=== PATIENT | female | born 1970 ===

== ENCOUNTER → 2020-04-26 10:25 | Outpatient (BNVA) | payer OTHER, SELFPAY | PROVIDERS: PCP Internal Medicine; Visit Provider Internal Medicine Pulmonary Disease | DX: J45.40 Moderate persistent asthma, uncomplicated (principal); G47.33 Obstructive sleep apnea (adult) (pediatric); R06.00 Dyspnea, unspecified; F17.200 Nicotine dependence, unspecified, uncomplicated; Z79.899 Other long term (current) drug therapy | CPT/HCPCS: 99214 ==

== ENCOUNTER 2020-05-04 16:32 | Emergency (ER) | payer OTHER, SELFPAY ==
[2020-05-04 17:59] VITALS: BP 184/100; PULSE 87; RESP 16; TEMP 36.9; O2SAT 99; BMI 41.1
--- NOTE | 2020-05-04 18:27 | ED.URI ---
HPI - URI/Sore Throat General Chief Complaint: Dyspnea <German Chaudhary NP - Last Filed: 05/04/20 18:34> Stated Complaint: Bodyaches <German Chaudhary NP - Last Filed: 05/04/20 18:34> Time Seen by Provider: 05/04/20 17:27 <German Chaudhary NP - Last Filed: 05/04/20 18:34> Source: patient <German Chaudhary NP - Last Filed: 05/04/20 18:34> Mode of arrival: ambulatory <German Chaudhary NP - Last Filed: 05/04/20 18:34> Limitations: no limitations <German Chaudhary NP - Last Filed: 05/04/20 18:34> History of Present Illness HPI Narrative: 42-year-old female with history of asthma presents today with 2 days of rhinorrhea/ body aches/congestion. Does have underlying history of asthma and there is no shortness of breath but has had to use her inhaler slightly more frequently. No recent travel or sick contacts. States she is here to go testing. <German Chaudhayr NP - Last Filed: 05/04/20 18:34> MD elicited complaint: rhinorrhea, nasal congestion and sinus pain <German Chaudhary NP - Last Filed: 05/04/20 18:34> Pertinent past history: asthma <German Chaudhary NP - Last Filed: 05/04/20 18:34> Onset (ago): day(s) (2 days ) <German Chaudhary NP - Last Filed: 05/04/20 18:34> Consistency: constant <German Chaudhary NP - Last Filed: 05/04/20 18:34> Exacerbating factors: nothing <German Chaudhary NP - Last Filed: 05/04/20 18:34> Treatments prior to arrival: none <German Chaudhary NP - Last Filed: 05/04/20 18:34> Related Data Home Medications: Home Medications Medication Instructions Recorded Confirmed albuterol sulfate mg INHALATION 04/26/20 05/08/20 amlodipine 5 mg tablet 5 mg PO DAILY 04/26/20 05/08/20 aripiprazole 5 mg tablet 5 mg PO DAILY 04/26/20 05/08/20 bupropion HCl 150 mg 24 hr tablet, 150 mg PO DAILY 04/26/20 05/08/20 extended release calcium citrate 315 mg tab PO 04/26/20 05/08/20 calcium-vitamin D3 6.25 mcg (250 unit) tablet ciprofloxacin HCl 500 mg tablet 500 mg PO BID 04/26/20 05/08/20 clonazepam 1 mg tablet 1 mg PO BID PRN 04/26/20 05/08/20 furosemide 40 mg tablet 40 mg PO DAILY 04/26/20 05/08/20 furosemide 80 mg tablet 80 mg PO DAILY 04/26/20 05/08/20 levothyroxine 150 mcg tablet 150 mcg PO DAILY 04/26/20 05/08/20 lidocaine 5 % topical patch 0 patch TOPICAL 04/26/20 05/08/20 losartan 50 mg tablet 50 mg PO DAILY 04/26/20 05/08/20 naproxen 500 mg tablet 500 mg PO BID 04/26/20 05/08/20 omeprazole 20 mg capsule,delayed 20 mg PO DAILY 04/26/20 05/08/20 release ondansetron HCl 4 mg tablet mg PO 04/26/20 05/08/20 prednisone 20 mg tablet 20 mg PO Q12H 04/26/20 05/08/20 zolpidem 10 mg tablet 10 mg PO BEDTIME PRN 04/26/20 05/08/20 Previous Rx's Medication Instructions Recorded prednisone 40 mg PO DAILY #10 tab 05/04/20 <German Chaudhary NP - Last Filed: 05/04/20 18:34> Allergies/Adverse Reactions: Allergies Allergy/AdvReac Type Severity Reaction Status Date / Time No Known Allergies Allergy Verified 04/26/20 10:39 [No Known Allergies*] <German Chaudhary NP - Last Filed: 05/04/20 18:34> Review of Systems Review of Systems: Constitutional: No Weight loss, No Fever, No Chills, No Night Sweats, No Fatigue, No Malaise ENT/Mouth: No Hearing loss, No Ear Pain, + Nasal Congestion, + Sinus Pain, No Hoarseness, No sore throat, + Rhinorrhea, No Swallowing Difficulty Eyes: No Eye Pain, No Swelling, No Redness, No Foreign Body, No Discharge, No Vision Changes Cardiovascular: No Chest Pain, No SOB, No Dyspnea on Exertion, No Orthopnea, No Edema, No Palpitations Respiratory: + Cough, No Sputum, No Wheezing, No Smoke Exposure, No Dyspnea Gastrointestinal: No Nausea, No Vomiting, No Diarrhea, No Constipation, No abdominal Pain, No Hematochezia, No Melena Genitourinary: no irregular bleeding, No Dysuria, No Urinary Frequency, No Hematuria, No Urinary Incontinence, No Urgency, No Flank Pain, No Urinary Flow Changes, No Hesitancy Musculoskeletal: No joint pain, No Myalgias, No Joint Swelling Skin: No Skin Lesions, No rash Neuro: No Weakness, No Numbness, No Paresthesias, No Loss of Consciousness, No Dizziness, No Headache Psych: No Anxiety/Panic, No Depression, No SI/HI/AH/VH, No Social Issues, Heme/Lymph: No Bruising, No Bleeding,No Lymphadenopathy Endocrine: No Polyuria, No Polydipsia, No Temperature Intolerance <German Chaudhary NP - Last Filed: 05/04/20 18:34> Yes all other systems are reviewed and are negative <German Chaudhary NP - Last Filed: 05/04/20 18:34> [facility] Past Medical History Attestation statement: The following information was validated with the patient. <German Chaudhary NP - Last Filed: 05/04/20 18:34> Social History Social History: Social History Alcohol intake: never Smoking Status: Current every day smoker Years Smoked: 48 years <German Chaudhary NP - Last Filed: 05/04/20 18:34> Physical Exam Vital Signs: Vital Signs: Vital Signs Temp Pulse Resp BP Pulse Ox 05/04/20 17:59 98.5 F 87 16 184/100 H 99 Body Mass Index 41.1 Reviewed <German Chaudhary NP - Last Filed: 05/04/20 18:34> Vital Signs: Vital Signs Temp Pulse Resp BP Pulse Ox 05/04/20 17:59 98.5 F 87 16 184/100 H 99 Body Mass Index 41.1 <Edd Hidalgo MD - Last Filed: 05/09/20 15:31> Course Course Course Narrative: Well nontoxic. Hemodynamically stable. Lungs are clear to auscultation. Will give her short course of prednisone. COVID-19 pending. Will discharge with [facility] Recommendations/precautions. Stable for discharge. <German Chaudhary NP - Last Filed: 05/04/20 18:34> I have reviewed the chart <Edd Hidalgo MD - Last Filed: 05/09/20 15:31> MDM - URI/Sore Throat Lab Data Labs: Lab Results 05/04/20 Range/Units 18:22 COVID-19 PCR NOT DETECTED (NOT DETECTED) <German Chaudhary NP - Last Filed: 05/04/20 18:34> Lab Results 05/04/20 Range/Units 18:22 COVID-19 PCR NOT DETECTED (NOT DETECTED) <Edd Hidalgo MD - Last Filed: 05/09/20 15:31> Discharge Plan Discharge Clinical Impression: Viral infection, Asthma with exacerbation <German Chaudhary NP - Last Filed: 05/04/20 18:34> Patient Disposition: Home, Self-Care <German Chaudhary NP - Last Filed: 05/04/20 18:34> Instructions: Asthma (ED), Viral Syndrome (ED) <German Chaudhary NP - Last Filed: 05/04/20 18:34> Additional Instructions: Based on your symptoms and history we have sent a COVID-19. Although your RESULT IS PENDING at this time. RESULTS should return within 72 hours. At this time you will be contacted with either NEGATIVE OR POSITIVE results. -Please wait until we contact you for your results. At this time you will be okay for discharge. Please plan for self quarantine for up to 14 days. Do not expose yourself to others. You may not go to work. If testing does come back negative you may return to activities as long as you are no longer having any symptoms for at least 3 days. Please continue to follow cold instructions and wash your hands frequently. You may take Tylenol as directed on the bottle for pain or fever. Patient seen in the emergency department on 01/14/2020 and should be excused from work until negative test results AND until 72 hours without any symptoms AND at least 10 days have passed since symptoms first appeared or since last exposure to COVID-19 positive patient CDC Guidelines for home isolation: - Stay away from others - WEAR A MASK if you are sick AND STAY HOME - Cover your mouth and nose with a tissue when you cough or sneeze. Dispose of tissues in a lined trash can and wash your hands immediately with soap and water for at least 20 seconds. If soap and water are not available, clean hands with alcohol-based hand head concierge that contains at least 60% alcohol. - Clean your hands often with soap and water for at least 20 seconds - Avoid touching your eyes, nose and mouth with unwashed hands - Do not share dishes, drinking glasses, cups, eating utensils, towels, or bedding with other people in your home. After using these items, wash them thoroughly with soap and water or put in the military technology specialist. - Clean high-touch surfaces in your isolation area ( sick room and bathroom) every day; let a caregiver clean and disinfect high-touch surfaces in other areas of the home. Clean the area or item with soap and water or another detergent if it is dirty. Then, use a household disinfectant. - Limit contact with pets and animals: If you must care for a pet, wash your hands before and after interacting with them <German Chaudhary NP - Last Filed: 05/04/20 18:34> Prescriptions: New prednisone 20 mg tablet 40 mg PO DAILY Qty: 10 RF: 0 No Action bupropion HCl 150 mg tablet extended release 24 hr 150 mg PO DAILY RF: 0 zolpidem 10 mg tablet 10 mg PO BEDTIME PRNRF: 0 clonazepam 1 mg tablet 1 mg PO BID PRNRF: 0 levothyroxine 150 mcg tablet 150 mcg PO DAILY RF: 0 furosemide 80 mg tablet 80 mg PO DAILY RF: 0 amlodipine 5 mg tablet 5 mg PO DAILY RF: 0 calcium citrate-vitamin D3 315 mg-6.25 mcg (250 unit) tablet PO RF: 0 albuterol sulfate 2.5 mg /3 mL (0.083 %) solution for nebulization inhalation RF: 0 omeprazole 20 mg capsule,delayed release(DR/EC) 20 mg PO DAILY RF: 0 losartan 50 mg tablet 50 mg PO DAILY RF: 0 naproxen 500 mg tablet 500 mg PO BID RF: 0 lidocaine 5 % adhesive patch,medicated 0 patch topical RF: 0 aripiprazole 5 mg tablet 5 mg PO DAILY RF: 0 ondansetron HCl 4 mg tablet PO RF: 0 prednisone 20 mg tablet 20 mg PO Q12H RF: 0 furosemide 40 mg tablet 40 mg PO DAILY RF: 0 ciprofloxacin HCl 500 mg tablet 500 mg PO BID RF: 0 <German Chaudhary NP - Last Filed: 05/04/20 18:34> Interventions: ED Discharge Assessment Last Done: 05/04/20 19:03 <German Chaudhary NP - Last Filed: 05/04/20 18:34> Discharge Date/Time: 05/04/20 19:08 <German Chaudhary NP - Last Filed: 05/04/20 18:34>
== END 2020-05-04 19:08 | disposition home or self-care (01) ==
PROVIDERS: Nurse Practitioner Primary Care; Emergency Provider Emergency Medicine; PCP Internal Medicine
DX: B34.9 Viral infection, unspecified (principal); Z20.828 Contact with and (suspected) exposure to other viral communicable diseases; J45.901 Unspecified asthma with (acute) exacerbation; Z79.899 Other long term (current) drug therapy
CPT/HCPCS: 87635; 99283; 99284

== ENCOUNTER → 2020-05-08 10:11 | Outpatient (BNVA) | payer OTHER, SELFPAY | PROVIDERS: PCP Internal Medicine; Referring Provider Internal Medicine; Visit Provider Internal Medicine Gastroenterology | DX: K29.70 Gastritis, unspecified, without bleeding (principal); D12.6 Benign neoplasm of colon, unspecified; K76.0 Fatty (change of) liver, not elsewhere classified; Z98.890 Other specified postprocedural states | CPT/HCPCS: 99213 ==

== ENCOUNTER 2020-06-05 13:45 | Outpatient (REF) | payer OTHER, SELFPAY | END 2020-06-05 13:46 | disposition home or self-care (01) | LOC: HO.LAB 13:45 | PROVIDERS: PCP Internal Medicine; Visit Provider Obstetrics & Gynecology | DX: N94.89 Other specified conditions associated with female genital organs and menstrual cycle (principal); R10.9 Unspecified abdominal pain | CPT/HCPCS: 87086; 99212 ==

== ENCOUNTER 2020-06-22 11:26 | Outpatient (REF) | payer OTHER, SELFPAY | END 2020-06-22 11:27 | disposition home or self-care (01) | LOC: HO.LAB 11:26 | PROVIDERS: Visit Provider Internal Medicine | DX: Z20.828 Contact with and (suspected) exposure to other viral communicable diseases (principal) | CPT/HCPCS: C9803; U0003 ==

== ENCOUNTER 2020-06-23 09:20 | Outpatient (REF) | payer OTHER, SELFPAY ==
[2020-06-23 10:55] LABS: Alanine Aminotransferase 27 U/L (0-31); Albumin Level 4.5 g/dL (3.5-5.0); Alkaline Phosphatase 93 U/L (39-117); Anion Gap 13 (12-20); Aspartate Amino Transferase 23 U/L (5-31); Bilirubin Total 0.4 mg/dL (0.0-1.0); Blood Urea Nitrogen 10 mg/dL (9-16); Carbon Dioxide 29 mmol/L (22-29); Chloride 103 mmol/L (96-108); Cholesterol 226 mg/dL; Estimated Glomerular Filt Rate > 60; Glucose Fasting 111 mg/dL (60-99); HDL Cholesterol 44 mg/dL; LDL Cholesterol Calculated 135 mg/dl; Potassium 4.1 mmol/l (3.3-5.1); Sodium 141 mmol/L (135-145); Total Protein 7.6 g/dL (6.5-8.0); Triglycerides 238 mg/dL
[2020-06-23 11:59] LABS: Free T4 (Free Thyroxine) < 0.40 ng/dL (0.71-1.85)
[2020-06-25 23:58] LABS: Transglutaminase Ab IgG 1 U/mL; Transglutaminase IgA 1 U/mL
[2020-06-26 15:07] LABS: Gliadin Deamidated IgA Ab 4 Units; Gliadin Deamidated IgG Ab 2 Units
== END 2020-06-23 09:21 | disposition home or self-care (01) ==
LOC: HO.LAB 09:20
PROVIDERS: Absent Provider Internal Medicine Gastroenterology; PCP Internal Medicine; Visit Provider Internal Medicine
DX: K29.70 Gastritis, unspecified, without bleeding (principal); I10 Essential (primary) hypertension; R10.9 Unspecified abdominal pain; E03.9 Hypothyroidism, unspecified
CPT/HCPCS: 36415; 80053; 80061; 83516; 84439; 84443

== ENCOUNTER 2020-07-06 15:07 | Emergency (ER) | payer OTHER, SELFPAY ==
[2020-07-06 15:16] VITALS: BP 158/103; PULSE 70; RESP 18; TEMP 36.4; O2SAT 97; BMI 41.1
--- NOTE | 2020-07-06 15:25 | XR_ITS ---
EXAMINATION: XR HAND WRIST, RIGHT CLINICAL INFORMATION: Fall, trauma, pain COMPARISON: None TECHNIQUE: The right hand and wrist are imaged together in the large [id number] images in 3 views. Navicular view is also included for a total of 4 views. FINDINGS: There is no fracture or dislocation. The ulnar variance is neutral. The MCP and interphalangeal joints are unremarkable. There is a benign circumscribed cyst in the mid carpal navicular measuring approximately 5 x 6 mm. No visible matrix mineralization. The carpal lunate shows central mixed attenuation, possibly with small subchondral cysts. Possibility of avascular necrosis of the lunate cannot be excluded. If there is history of chronic pain prior to the trauma, further evaluation of the carpus may be performed with nonemergent MRI. XR/XR hand wrist RT IMPRESSION: 1. No fracture or dislocation right hand, right breast. 2. Inhomogeneous mineralization lunate, possibly with small subchondral cysts. If there is history of wrist pain prior to the trauma, further evaluation for occult lunate avascular necrosis may be performed with MRI.
--- NOTE | 2020-07-06 15:30 | ED.EXTPRO ---
HPI - Extremity Problem General Chief complaint: Extremity Injury, Upper Stated complaint: Hand pain Time Seen by Provider: 07/06/20 15:17 Source: patient Mode of arrival: ambulatory Limitations: no limitations History of Present Illness HPI Narrative: 50 y/o female presenting with right hand and wrist pain that started after she fell into the snow earlier today. She states the pain is constant and worse with movement and palpation. She has not taken any medications for the pain. She denies numbness, tingling or swelling. MD Complaint: extremity pain Onset (ago): hour(s) (1) Pain Consistency: constant Location: right Severity scale (1-10): 5 Quality: sharp Radiation: none Relieving factors: nothing Exacerbating factors: range of motion and palpation Associated symptoms: denies other symptoms Related Data Home Medications Medication Instructions Recorded Confirmed albuterol sulfate mg INHALATION 04/26/20 05/17/20 amlodipine 5 mg tablet 5 mg PO DAILY 04/26/20 05/17/20 aripiprazole 5 mg tablet 5 mg PO DAILY 04/26/20 05/17/20 bupropion HCl 150 mg 24 hr tablet, 150 mg PO DAILY 04/26/20 05/17/20 extended release calcium citrate 315 mg tab PO 04/26/20 05/17/20 calcium-vitamin D3 6.25 mcg (250 unit) tablet ciprofloxacin HCl 500 mg tablet 500 mg PO BID 04/26/20 05/17/20 clonazepam 1 mg tablet 1 mg PO BID PRN 04/26/20 05/17/20 furosemide 40 mg tablet 40 mg PO DAILY 04/26/20 05/17/20 furosemide 80 mg tablet 80 mg PO DAILY 04/26/20 05/17/20 levothyroxine 150 mcg tablet 150 mcg PO DAILY 04/26/20 05/17/20 lidocaine 5 % topical patch 0 patch TOPICAL 04/26/20 05/17/20 naproxen 500 mg tablet 500 mg PO BID 04/26/20 05/17/20 omeprazole 20 mg capsule,delayed 20 mg PO DAILY 04/26/20 05/17/20 release ondansetron HCl 4 mg tablet mg PO 04/26/20 05/08/20 prednisone 20 mg tablet 20 mg PO Q12H 04/26/20 05/08/20 zolpidem 10 mg tablet 10 mg PO BEDTIME PRN 04/26/20 05/08/20 Previous Rx's Medication Instructions Recorded prednisone 40 mg PO DAILY #10 tab 05/04/20 losartan 50 mg tablet 100 mg PO DAILY 90 Days #180 tab 05/17/20 acamprosate 333 mg tablet,delayed 666 mg PO TID 30 Days #180 tab 06/28/20 release ibuprofen 600 mg PO Q8H PRN #20 tab 07/06/20 Allergies Allergy/AdvReac Type Severity Reaction Status Date / Time No Known Allergies Allergy Verified 05/17/20 19:17 [No Known Allergies*] Review of Systems Review of Systems: Constitutional: No Fever, No Chills Cardiovascular: No Chest Pain, No SOB, No Orthopnea, No Edema Respiratory: No Cough, No Sputum, No Wheezing, No dyspnea Gastrointestinal: No Nausea, No Vomiting, No Diarrhea, No abdominal Pain Genitourinary: No Dysuria, No Urinary Frequency, No Hematuria Musculoskeletal: + joint pain, No Myalgias Skin: No Skin Lesions, No rash Neuro: No Weakness, No Numbness, No Dizziness, No Headache Psych: No Anxiety/Panic, No Depression Heme/Lymph: No Bruising PMFSH Past Medical History Attestation statement: The following information was validated with the patient. Medical History Acquired hypothyroidism Essential hypertension Surgical History H/O endoscopy History of bladder surgery History of section History of colonoscopy History of thyroid surgery History of total abdominal hysterectomy Family History Family History Father Diabetes Mother Hypertension Maternal Uncle Colon cancer Maternal Aunt Breast cancer Paternal Aunt Breast cancer Family/Other FH: mental illness Social History Social History Alcohol intake: unknown Smoking Status: Unknown if ever smoked Years Smoked: 48 years Use of substances other than those prescribed or required for medical reasons: Unknown Advance Directives: No Advance Directives Information Provided: No Physical Exam Vital Signs: Vital Signs: Last Vital Signs Temp 97.5 F 07/06/20 15:16 Pulse 70 07/06/20 15:16 Resp 18 07/06/20 15:16 BP 158/103 H 07/06/20 15:16 Pulse Ox 97 07/06/20 15:16 Body Mass Index 41.1 Appearance: Alert. Oriented X3. No acute distress. HEENT: normal inspection Respiratory: No respiratory distress. Skin: Skin warm and dry. Normal skin color. Normal skin turgor. No rashes. Extremities: right hand and wrist with normal inspection, tenderness on the volar side of wrist on ulnar side without palpable deformity or swelling. mild 5th carpal tenderness, normal hand grasp with normal ROM with some discomfort. NV intact, 2+ radial pulse and <3 sec cap refill Neuro: Oriented X 3. No motor deficit. No sensory deficit. Course Course Course Narrative: 50 y/o female presenting with right wrist and hand pain after a fall in the snow today. Exam raises low suspicion for fracture, XR pending for further assessment. Reevaluation(s) Reevaluation #1: XR negative for fracture or dislocation. It did show inhomogenous mineralization of lunate with possible small subchondral cysts. IF hx wrist pain prior to trauma further evaluation for occult lunate AVN may be performed with MRI. Patient reports mild pain 3 days prior but denies chronic pain to wrist. Will have her follow up with PCP for further evaluation and possibly pursue MRI if pain persists. . Critical Care Time Critical Care Time Critical Care Time: No Discharge Plan Discharge Clinical Impression: Sprain and strain of wrist Patient Disposition: Home, Self-Care Instructions: Wrist Sprain (ED) Additional Instructions: Your x-ray today did not show any broken bones. It did show some possibly abnormal mineralization and possible cyst that may need to be further evaluated with MRI if your pain persists. Recommend following up with your doctor this week. Take the prescribed medication as needed for pain. Wear wrist wrap as needed for comfort. Elevate and ice as needed for pain. Prescriptions: New ibuprofen 600 mg tablet 600 mg PO Q8H PRN (Reason: pain) Qty: 20 RF: 0 No Action acamprosate 333 mg tablet,delayed release (DR/EC) 666 mg PO TID 30 Days Qty: 180 RF: 0 prednisone 20 mg tablet 40 mg PO DAILY Qty: 10 RF: 0 losartan 50 mg tablet 100 mg PO DAILY 90 Days Qty: 180 RF: 3 bupropion HCl 150 mg tablet extended release 24 hr 150 mg PO DAILY RF: 0 zolpidem 10 mg tablet 10 mg PO BEDTIME PRNRF: 0 clonazepam 1 mg tablet 1 mg PO BID PRNRF: 0 levothyroxine 150 mcg tablet 150 mcg PO DAILY RF: 0 furosemide 80 mg tablet 80 mg PO DAILY RF: 0 amlodipine 5 mg tablet 5 mg PO DAILY RF: 0 calcium citrate-vitamin D3 315 mg-6.25 mcg (250 unit) tablet PO RF: 0 albuterol sulfate 2.5 mg /3 mL (0.083 %) solution for nebulization inhalation RF: 0 omeprazole 20 mg capsule,delayed release(DR/EC) 20 mg PO DAILY RF: 0 naproxen 500 mg tablet 500 mg PO BID RF: 0 lidocaine 5 % adhesive patch,medicated 0 patch topical RF: 0 aripiprazole 5 mg tablet 5 mg PO DAILY RF: 0 ondansetron HCl 4 mg tablet PO RF: 0 prednisone 20 mg tablet 20 mg PO Q12H RF: 0 furosemide 40 mg tablet 40 mg PO DAILY RF: 0 ciprofloxacin HCl 500 mg tablet 500 mg PO BID RF: 0 Print Language: Occitan
== END 2020-07-06 17:32 | disposition home or self-care (01) ==
PROVIDERS: Emergency Provider Emergency Medicine Emergency Medical Services; PCP Internal Medicine
DX: S63.501A Unspecified sprain of right wrist, initial encounter (principal); M25.531 Pain in right wrist; I10 Essential (primary) hypertension; W00.0XXA Fall on same level due to ice and snow, initial encounter; Y93.9 Activity, unspecified; Y92.007 Garden or yard of unspecified non-institutional (private) residence as the place of occurrence of the external cause; Y99.9 Unspecified external cause status; Z79.899 Other long term (current) drug therapy
CPT/HCPCS: 73110; 73130; 99283

== ENCOUNTER 2020-09-01 18:14 | Emergency (ER) | payer OTHER, SELFPAY ==
--- NOTE | ~2020-09-01 | XR_ITS ---
EXAMINATION: CHEST 2 VIEWS CLINICAL INFORMATION: right chest wall pain . COMPARISON: No recent pertinent prior studies are available for comparison. TECHNIQUE: PA and lateral views of the chest obtained. FINDINGS: The lungs are well expanded. No focal infiltrate, effusion, edema, or pneumothorax. Cardiac and mediastinal silhouettes are within normal limits for technique. No acute bony abnormality seen. Specifically no displaced rib fracture appreciated. XR/XR chest 2V IMPRESSION: No evidence of acute disease
--- NOTE | ~2020-09-01 | CT_ITS ---
EXAMINATION: CT PULMONARY EMBOLISM STUDY CLINICAL INFORMATION: Right-sided chest pain. COMPARISON: 09/01/2020. TECHNIQUE: Contiguous helical images of the chest were obtained following the administration of IV contrast. Multiplanar reconstructions were performed. MIPS were obtained and reviewed. DLP: 469 mGy-cm. CONTRAST: 65 mL of Omnipaque 350 were administered without incident. FINDINGS: The heart is of normal size. There is no pericardial effusion. The great vessels are unremarkable. Specifically, there is no pulmonary arterial filling defect. There is no CT evidence for pulmonary embolism. There are no chest wall masses. Review of lung windows demonstrates that there are neither pleural effusions nor pneumothoraces. There are no consolidations. There are no pulmonary parenchymal nodules. Limited evaluation of the upper abdomen demonstrates that the liver is of normal size and attenuation without focal lesions. Normal adrenal glands are identified. CT/CT angio chest PE protocol IMPRESSION: No CT evidence for pulmonary embolism. Automated exposure control (Care Dose) Adjustment of the mA and/or kv according to patient size (this includes techniques or standardized protocols for targeted exams where dose is matched to indication / reason for exam; i.e. extremities or head).
[2020-09-01 18:48] VITALS: BP 152/83; PULSE 63; RESP 16; TEMP 36.9; O2SAT 98; BMI 41.1
--- NOTE | 2020-09-01 19:45 | ED.GENADULT ---
HPI - General Adult General Chief complaint: General Medical Stated complaint: lung pain Source: patient Mode of arrival: ambulatory Limitations: language barrier History of Present Illness HPI narrative: 50-year-old female with past medical history of hypothyroidism, fatty liver disease, gastritis, EDWIGE, dyspnea on exertion, asthma, hypertension presents with 2 days of right-sided lung and chest pain. States that the pain gets worse when she takes a deep breath, and has had positive COVID contacts. She did have a COVID test several days ago but she has not received the results yet. She does not report any fevers, chills, chest pressure or tightness, palpitations, abdominal pain, abdominal distention, dysuria, hematuria, edema, dizziness, lightheadedness, nausea or vomiting. Onset (ago): day(s) (2) Location: chest Radiation: non-radiation Severity: severe Severity scale (1-10): 10 Quality: stabbing and aching Pain Consistency: intermittent Relieving factors: rest Exacerbating factors: movement and other (Deep breath) Associated symptoms: denies other symptoms Treatments prior to arrival: none Related Data Home Medications Medication Instructions Recorded Confirmed albuterol sulfate mg INHALATION 04/26/20 07/24/20 amlodipine 5 mg tablet 5 mg PO DAILY 04/26/20 07/24/20 aripiprazole 5 mg tablet 5 mg PO DAILY 04/26/20 07/24/20 bupropion HCl 150 mg 24 hr tablet, 150 mg PO DAILY 04/26/20 07/24/20 extended release calcium citrate 315 mg tab PO 04/26/20 07/24/20 calcium-vitamin D3 6.25 mcg (250 unit) tablet clonazepam 1 mg tablet 1 mg PO BID PRN 04/26/20 07/24/20 furosemide 80 mg tablet 80 mg PO DAILY 04/26/20 07/24/20 naproxen 500 mg tablet 500 mg PO BID 04/26/20 07/24/20 omeprazole 20 mg capsule,delayed 20 mg PO DAILY 04/26/20 07/24/20 release ondansetron HCl 4 mg tablet mg PO 04/26/20 07/24/20 zolpidem 10 mg tablet 10 mg PO BEDTIME PRN 04/26/20 07/24/20 albuterol sulfate 90 mcg/actuation 1 - 2 puff INHALATION Q4-6H PRN 07/24/20 07/24/20 aerosol inhaler beclomethasone dipropionate 40 1 inh INHALATION BID 07/24/20 07/24/20 mcg/actuation HFA breath activated aerosol Previous Rx's Medication Instructions Recorded losartan 50 mg tablet 100 mg PO DAILY 90 Days #180 tab 05/17/20 acamprosate 333 mg tablet,delayed 666 mg PO TID 30 Days #180 tab 06/28/20 release ibuprofen 600 mg PO Q8H PRN #20 tab 07/06/20 levothyroxine 200 mcg tablet 200 mcg PO DAILY 90 Days #90 tab 07/24/20 lidocaine 5 % topical patch 1 patch TOPICAL DAILY 30 Days #30 07/26/20 ea cyclobenzaprine 10 mg tablet 10 mg PO BEDTIME 30 Days #30 tab 07/28/20 meloxicam 15 mg tablet 15 mg PO DAILY 20 Days #20 tab 07/28/20 ibuprofen 600 mg PO Q8H PRN #30 tab 09/02/20 Allergies Allergy/AdvReac Type Severity Reaction Status Date / Time No Known Allergies Allergy Verified 07/24/20 11:24 [No Known Allergies*] Review of Systems Review of Systems: Constitutional: No Weight loss, No Fever, No Chills, No Night Sweats, No Fatigue, No Malaise ENT/Mouth: No Hearing loss, No Ear Pain, No Nasal Congestion, No Sinus Pain, No Hoarseness, No sore throat, No Rhinorrhea, No Swallowing Difficulty Eyes: No Eye Pain, No Swelling, No Redness, No Foreign Body, No Discharge, No Vision Changes Cardiovascular: Positive Chest Pain, no SOB, no Dyspnea on Exertion, No Orthopnea, No Edema, No Palpitations Respiratory: No Cough, No Sputum, No Wheezing, No Smoke Exposure, No Dyspnea Gastrointestinal: No Nausea, No Vomiting, No Diarrhea, No abdominal Pain, No Hematochezia, No Melena Genitourinary: No irregular bleeding, No Dysuria, No Urinary Frequency, No Hematuria, No Urinary Incontinence, No Urgency, No Flank Pain, No Urinary Flow Changes, No Hesitancy Musculoskeletal: No joint pain, No Myalgias, No Joint Swelling Skin: No Skin Lesions, No rash Neuro: No Weakness, No Numbness, No Paresthesias, No Loss of Consciousness, No Dizziness, No Headache Psych: No Anxiety/Panic, No Depression, No SI/HI/AH/VH Heme/Lymph: No Bruising, No Bleeding,No Lymphadenopathy Endocrine: No Polyuria, No Polydipsia, No Temperature Intolerance Yes all other systems are reviewed and are negative [facility] Past Medical History Attestation statement: The following information was validated with the patient. Source: old records reviewed Medical History (Updated 09/02/20 @ 01:36 by Cherelle Herrera NP) Acquired hypothyroidism Essential hypertension Low back pain Right wrist pain Surgical History H/O endoscopy History of bladder surgery History of section History of colonoscopy History of thyroid surgery History of total abdominal hysterectomy Family History Family History Father Diabetes Mother Hypertension Maternal Uncle Colon cancer Maternal Aunt Breast cancer Paternal Aunt Breast cancer Family/Other FH: mental illness Social History Social History Alcohol intake: unknown Smoking Status: Current every day smoker Tobacco Type: Cigarette Cigarettes Per Day: 10 Years Smoked: 48 years Advance Directives: No Advance Directives Information Provided: No Physical Exam Vital Signs: Vital Signs: Last Vital Signs Temp 98.4 F 09/01/20 18:48 Pulse 59 09/02/20 01:44 Resp 14 09/02/20 01:44 BP 147/85 H 09/02/20 01:44 Pulse Ox 98 09/02/20 01:44 Body Mass Index 41.1 Appearance: Alert. Oriented X3. No acute distress. Eyes: Pupils equal, round and reactive to light. ENT: Pharynx normal. Neck: Normal inspection. Neck supple. CVS: Normal heart rate and rhythm. Pulses normal. Respiratory: No respiratory distress. Breath sounds normal. Abdomen: Soft and nontender. Skin: Skin warm and dry. Normal skin color. Normal skin turgor. Extremities: No lower extremity edema. Neuro: No motor deficit. No sensory deficit. Course Course Course Narrative: 50-year-old female presents with positive COVID contact and right chest wall pain which worsens on inspiration. EKG shows some T-wave inversions the lateral leads which is different than prior exams. Patient is on amlodipine for hypertension. Labs are unremarkable, chest x-ray is negative, COVID test is negative. Based on these findings will order CTA of the chest to rule out PE. CT PE study is negative for acute findings requiring emergent intervention. Plan of care is for patient to follow-up with primary care physician as needed. 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 Google translate utilized for discharge instructions. Patient verbalized understanding of and agrees to plan of care discharge home. Medical Decision Making Differential Diagnosis Differential Diagnosis: COVID-19, PE, costochondritis, pneumothorax, rib fracture Medical Records Medical records reviewed: Yes I reviewed the patient's medical records. Lab Data Lab results reviewed: Yes I reviewed the patient's lab results. Result diagrams: 09/01/20 20:56 09/01/20 20:56 Labs: Lab Results 09/01/20 09/01/20 09/01/20 Range/Units 20:54 20:56 20:56 WBC 9.3 (4.8-10.8) X10*3/uL RBC 4.72 (4.20-5.50) X10*6/uL Hgb 14.2 (12.0-16.0) g/dl Hct 42.1 (37-47) % MCV 89.2 (80-98) fL MCH 30.1 (27.0-33.0) pg MCHC 33.7 (31.0-35.0) g/dl RDW 14.6 (11.0-16.0) % Plt Count 170 (160-400) X10*3/uL MPV 11.1 (9.4-12.3) fL Immature Gran % (Auto) 0.3 (0.0-0.4) % Neut % (Auto) 49.0 (45-73) % Lymph % (Auto) 41.3 H (20-40) % [place] % (Auto) 5.9 (2-11) % Eos % (Auto) 2.7 (0-4) % Baso % (Auto) 0.8 (0-2) % Lymph # (Auto) 3.8 (1.2-4.9) X10*3/uL [place] # (Auto) 0.6 (0.1-1.2) X10*3/uL Eos # (Auto) 0.3 (0.0-0.4) X10*3/uL Baso # (Auto) 0.1 (0.0-0.2) X10*3/uL Abs Immat Gran (auto) 0.03 (0.00-0.03) X10*3/uL Absolute Neuts (auto) 4.6 (2.0-8.3) X10*3/uL Absolute Nucleated RBC 0.000 (0.0-0.012) X10*3/uL Nucleated RBC % (auto) 0.0 (0.0-0.2) /100WBC Sodium 139 (135-145) mmol/L Potassium 5.3 H (3.3-5.1) mmol/L Chloride 104 (96-108) mmol/L Carbon Dioxide 24 (22-29) mmol/L Anion Gap 16 (12-20) BUN 11 (9-16) mg/dL Creatinine 0.83 (0.5-1.4) mg/dL Estim Creat Clear Calc 99.9 Estimated GFR > 60 Random Glucose 111 (60-115) mg/dL Calcium 8.5 (8.4-10.2) mg/dL Troponin I High Sens (<3.5-17.0) ng/L Coronavirus (PCR) NEGATIVE (Negative) Influenza Type A (PCR) NEGATIVE (Negative) Influenza Type B (PCR) NEGATIVE (Negative) RSV RNA Qual (PCR) NEGATIVE (Negative) 09/01/20 Range/Units 20:56 WBC (4.8-10.8) X10*3/uL RBC (4.20-5.50) X10*6/uL Hgb (12.0-16.0) g/dl Hct (37-47) % MCV (80-98) fL MCH (27.0-33.0) pg MCHC (31.0-35.0) g/dl RDW (11.0-16.0) % Plt Count (160-400) X10*3/uL MPV (9.4-12.3) fL Immature Gran % (Auto) (0.0-0.4) % Neut % (Auto) (45-73) % Lymph % (Auto) (20-40) % [place] % (Auto) (2-11) % Eos % (Auto) (0-4) % Baso % (Auto) (0-2) % Lymph # (Auto) (1.2-4.9) X10*3/uL [place] # (Auto) (0.1-1.2) X10*3/uL Eos # (Auto) (0.0-0.4) X10*3/uL Baso # (Auto) (0.0-0.2) X10*3/uL Abs Immat Gran (auto) (0.00-0.03) X10*3/uL Absolute Neuts (auto) (2.0-8.3) X10*3/uL Absolute Nucleated RBC (0.0-0.012) X10*3/uL Nucleated RBC % (auto) (0.0-0.2) /100WBC Sodium (135-145) mmol/L Potassium (3.3-5.1) mmol/L Chloride (96-108) mmol/L Carbon Dioxide (22-29) mmol/L Anion Gap (12-20) BUN (9-16) mg/dL Creatinine (0.5-1.4) mg/dL Estim Creat Clear Calc Estimated GFR Random Glucose (60-115) mg/dL Calcium (8.4-10.2) mg/dL Troponin I High Sens < 3.5 (<3.5-17.0) ng/L Coronavirus (PCR) (Negative) Influenza Type A (PCR) (Negative) Influenza Type B (PCR) (Negative) RSV RNA Qual (PCR) (Negative) Imaging Data Chest x-ray: Attestation: I personally reviewed and interpreted this imaging study as follows: Radiologist's impression: EXAMINATION: CHEST 2 VIEWS CLINICAL INFORMATION: right chest wall pain . COMPARISON: No recent pertinent prior studies are available for comparison. TECHNIQUE: PA and lateral views of the chest obtained. FINDINGS: The lungs are well expanded. No focal infiltrate, effusion, edema, or pneumothorax. Cardiac and mediastinal silhouettes are within normal limits for technique. No acute bony abnormality seen. Specifically no displaced rib fracture appreciated. XR/XR chest 2V IMPRESSION: No evidence of acute disease CT scan - chest: Attestation: I personally reviewed and interpreted this imaging study as follows: Radiologist's impression: EXAMINATION: CT PULMONARY EMBOLISM STUDY CLINICAL INFORMATION: Right-sided chest pain. COMPARISON: 09/01/2020. TECHNIQUE: Contiguous helical images of the chest were obtained following the administration of IV contrast. Multiplanar reconstructions were performed. MIPS were obtained and reviewed. DLP: 469 mGy-cm. CONTRAST: 65 mL of Omnipaque 350 were administered without incident. FINDINGS: The heart is of normal size. There is no pericardial effusion. The great vessels are unremarkable. Specifically, there is no pulmonary arterial filling defect. There is no CT evidence for pulmonary embolism. There are no chest wall masses. Review of lung windows demonstrates that there are neither pleural effusions nor pneumothoraces. There are no consolidations. There are no pulmonary parenchymal nodules. Limited evaluation of the upper abdomen demonstrates that the liver is of normal size and attenuation without focal lesions. Normal adrenal glands are identified. CT/CT angio chest PE protocol IMPRESSION: No CT evidence for pulmonary embolism. Automated exposure control (Care Dose) Adjustment of the mA and/or kv according to patient size (this includes techniques or standardized protocols for targeted exams where dose is matched to indication / reason for exam; i.e. extremities or head). ECG Data Attestation: I personally reviewed and interpreted this ECG as follows: Prior ECG tracings: available for review Interpretation: Vent. rate 54 BPM CA interval 190 ms QRS duration 78 ms QT/QTc 508/481 ms P-R-T axes 56 -5 -6 Sinus bradycardia Minimal voltage criteria for LVH, may be normal variant T wave abnormality, consider anterior ischemia Abnormal ECG When compared with ECG of 10-JAN-2020 20:56, Nonspecific T wave abnormality has replaced inverted T waves in Lateral leads Discharge Plan Discharge Clinical Impression: Chest pain, non-cardiac Patient Disposition: Home, Self-Care Instructions: Noncardiac Chest Pain (ED) Additional Instructions: Te evaluaron por dolor en el pecho del lado derecho. El electrocardiograma es el seno normal con inversiones de ondas en T. Bas?ndonos en yuki inversiones de ondas T, hicimos meghana tomograf?a computarizada para descartar la embolia pulmonar. Esta prueba fue negativa. Yuki valores de laboratorio son negativos para los hallazgos agudos, hwang prueba COVID fue negativa. [place] podr?a ser costocondritis. El tratamiento es Motrin 600 mg seg?n sea necesario cada 6-8 horas. Darinel por elegir amy departamento de emergencias para la evaluaci?n. Por favor, keith un seguimiento con el m?dico de atenci?n primaria seg?n sea necesario. Regrese al servicio de urgencias para cualquier s?ntoma nuevo, preocupante o que empeore. You were evaluated for right-sided chest pain. EKG is normal sinus with T-wave inversions. Based on your T-wave inversions we did a CT scan to rule out pulmonary embolism. This test was negative. Your lab values are negative for for acute findings, your COVID test was negative. This could be costochondritis. Treatment is Motrin 600 mg as needed every 6-8 hours. Thank you for choosing this emergency department for evaluation. Please follow-up with primary care physician as needed. Return to the emergency department for any new, concerning, or worsening symptoms. Prescriptions: New ibuprofen 600 mg tablet 600 mg PO Q8H PRN (Reason: pain) Qty: 30 RF: 0 No Action acamprosate 333 mg tablet,delayed release (DR/EC) 666 mg PO TID 30 Days Qty: 180 RF: 0 lidocaine 5 % adhesive patch,medicated 1 patch topical DAILY 30 Days Qty: 30 RF: 3 cyclobenzaprine 10 mg tablet 10 mg PO BEDTIME 30 Days Qty: 30 RF: 6 meloxicam 15 mg tablet 15 mg PO DAILY 20 Days Qty: 20 RF: 5 ibuprofen 600 mg tablet 600 mg PO Q8H PRN (Reason: pain) Qty: 20 RF: 0 albuterol sulfate 90 mcg/actuation HFA aerosol inhaler 1 - 2 puff inhalation Q4-6H PRN (Reason: dyspnea) RF: 0 Qvar RediHaler 40 mcg/actuation HFA aerosol breath activated 1 inh inhalation BID RF: 0 levothyroxine 200 mcg tablet 200 mcg PO DAILY 90 Days Qty: 90 RF: 0 losartan 50 mg tablet 100 mg PO DAILY 90 Days Qty: 180 RF: 3 bupropion HCl 150 mg tablet extended release 24 hr 150 mg PO DAILY RF: 0 zolpidem 10 mg tablet 10 mg PO BEDTIME PRNRF: 0 clonazepam 1 mg tablet 1 mg PO BID PRNRF: 0 furosemide 80 mg tablet 80 mg PO DAILY RF: 0 amlodipine 5 mg tablet 5 mg PO DAILY RF: 0 calcium citrate-vitamin D3 315 mg-6.25 mcg (250 unit) tablet PO RF: 0 albuterol sulfate 2.5 mg /3 mL (0.083 %) solution for nebulization inhalation RF: 0 omeprazole 20 mg capsule,delayed release(DR/EC) 20 mg PO DAILY RF: 0 naproxen 500 mg tablet 500 mg PO BID RF: 0 aripiprazole 5 mg tablet 5 mg PO DAILY RF: 0 ondansetron HCl 4 mg tablet PO RF: 0
--- NOTE | 2020-09-01 20:06 | ECG_ITS ---
Test Reason : SOB Blood Pressure : / mmHG Vent. Rate : 054 BPM Atrial Rate : 054 BPM P-R Int : 190 ms QRS Dur : 078 ms QT Int : 508 ms P-R-T Axes : 056 -05 -06 degrees QTc Int : 481 ms Sinus bradycardia Minimal voltage criteria for LVH, may be normal variant T wave abnormality, consider anterior ischemia Abnormal ECG When compared with ECG of 10-JAN-2020 20:56, Nonspecific T wave abnormality has replaced inverted T waves in Lateral leads Referred By: Cherelle Herrera Electronically Signed By:HAZEL MAYEN MD
[2020-09-01 21:03] LABS: MANUAL DIFF FLAG NO
[2020-09-01 21:04] LABS: Basophils Absolute Auto 0.1 X10*3/uL (0.0-0.2); Basophils Percent Auto 0.8 % (0-2); Eosinophils Absolute Auto 0.3 X10*3/uL (0.0-0.4); Eosinophils Percent Auto 2.7 % (0-4); Hematocrit 42.1 % (37-47); Hemoglobin 14.2 g/dl (12.0-16.0); Imm Gran Abs Auto 0.03 X10*3/uL (0.00-0.03); Imm Gran Pct Auto 0.3 % (0.0-0.4); Lymphocytes Absolute Auto 3.8 X10*3/uL (1.2-4.9); Lymphocytes Percent Auto 41.3 % (20-40); Mean Corpuscular HGB Conc 33.7 g/dl (31.0-35.0); Mean Corpuscular Hemoglobin 30.1 pg (27.0-33.0); Mean Corpuscular Volume 89.2 fL (80-98); Mean Platelet Volume 11.1 fL (9.4-12.3); Monocytes Absolute Auto 0.6 X10*3/uL (0.1-1.2); Monocytes Percent Auto 5.9 % (2-11); Neutrophils Absolute Auto 4.6 X10*3/uL (2.0-8.3); Platelet Count 170 X10*3/uL (160-400); Red Blood Count 4.72 X10*6/uL (4.20-5.50); Red Cell Distribution Width 14.6 % (11.0-16.0); White Blood Count 9.3 X10*3/uL (4.8-10.8)
[2020-09-01 21:29] LABS: Anion Gap 16 (12-20); Blood Urea Nitrogen 11 mg/dL (9-16); Calcium 8.5 mg/dL (8.4-10.2); Carbon Dioxide 24 mmol/L (22-29); Chloride 104 mmol/L (96-108); Creatinine Clr Calc Pharmacy 99.9; Estimated Glomerular Filt Rate > 60; Glucose Random 111 mg/dL (60-115); Potassium 5.3 mmol/L (3.3-5.1); Sodium 139 mmol/L (135-145)
[2020-09-01 21:33] LABS: Troponin-I High Sensitivity < 3.5 ng/L (<3.5-17.0)
[2020-09-01 21:53] LABS: Influenza A PCR NEGATIVE (Negative); Influenza B PCR NEGATIVE (Negative); Resp Syncy Virus RNA Qual PCR NEGATIVE (Negative); SARS COV2 PCR INHOUSE NEGATIVE (Negative)
[2020-09-01 22:39] VITALS: BP 190/55; PULSE 55; RESP 16; O2SAT 97
[2020-09-01] MEDS: LORazepam 2 MG/ML VIAL 0.5 MG IVPUSH (22:46)
--- NOTE | 2020-09-01 23:59 | PC.NURSE ---
STILL AWAITING RADIOLOGY FOR CT SCAN.
[2020-09-02] MEDS: iohexoL 350 MG/ML 100 ML INFUS..BTL 65 ML IV (00:39)
[2020-09-02 00:40] VITALS: BP 151/92; PULSE 65; RESP 14; O2SAT 98
[2020-09-02] MEDS: 0.9 % Sodium Chloride 1,000 ML 999 ML IVCONT (00:47)
--- NOTE | 2020-09-02 01:18 | PC.NURSE ---
Pt continues to c/o R lateral chest pain, requesting meds. MANAN Villarreal made aware.
[2020-09-02 01:44] VITALS: BP 147/85; PULSE 59; RESP 14; O2SAT 98
[2020-09-02] MEDS: Ibuprofen 600 MG TABLET PO (01:46)
== END 2020-09-02 02:32 | disposition home or self-care (01) ==
PROVIDERS: Nurse Practitioner Family; Emergency Provider Emergency Medicine; PCP Internal Medicine
DX: R07.89 Other chest pain (principal); Z20.822 Contact with and (suspected) exposure to COVID-19; I10 Essential (primary) hypertension; F17.210 Nicotine dependence, cigarettes, uncomplicated
CPT/HCPCS: 0241U; 36415; 71046; 71275; 80048; 84484; 85025; 93005; 96361; 96374; 99284; J2060; Q9967

== ENCOUNTER → 2020-09-25 09:20 | Outpatient (BNVA) | payer OTHER, SELFPAY | PROVIDERS: PCP Internal Medicine; Visit Provider Orthopaedic Surgery | DX: M25.531 Pain in right wrist (principal) | CPT/HCPCS: 99202 ==

== ENCOUNTER 2020-09-26 17:26 | Emergency (ER) | payer OTHER, SELFPAY ==
--- NOTE | ~2020-09-26 | XR_ITS ---
EXAMINATION: PORTABLE CHEST 1 VIEW CLINICAL INFORMATION: Lower extremity swelling rule out CHF . COMPARISON: 09/01/2020. TECHNIQUE: Portable frontal view of the chest was obtained. FINDINGS: The lungs are well expanded. No focal infiltrate, effusion, edema, or pneumothorax. Cardiac and mediastinal silhouettes are within normal limits for technique. No acute bony abnormality seen. XR/XR chest 1V IMPRESSION: No evidence of acute disease.
[2020-09-26 17:29] VITALS: BP 168/95; PULSE 71; RESP 16; TEMP 36.6; O2SAT 96; BMI 41.8
[2020-09-26 18:54] VITALS: BP 180/97; PULSE 79; RESP 16; TEMP 37; O2SAT 96
[2020-09-26 19:06] LABS: MANUAL DIFF FLAG NO
[2020-09-26 19:07] LABS: Basophils Absolute Auto 0.1 X10*3/uL (0.0-0.2); Basophils Percent Auto 0.8 % (0-2); Eosinophils Absolute Auto 0.3 X10*3/uL (0.0-0.4); Eosinophils Percent Auto 3.7 % (0-4); Hematocrit 42.5 % (37-47); Hemoglobin 14.5 g/dl (12.0-16.0); Imm Gran Abs Auto 0.03 X10*3/uL (0.00-0.03); Imm Gran Pct Auto 0.3 % (0.0-0.4); Lymphocytes Absolute Auto 3.8 X10*3/uL (1.2-4.9); Lymphocytes Percent Auto 42.8 % (20-40); Mean Corpuscular HGB Conc 34.1 g/dl (31.0-35.0); Mean Corpuscular Hemoglobin 30.2 pg (27.0-33.0); Mean Corpuscular Volume 88.5 fL (80-98); Mean Platelet Volume 11.3 fL (9.4-12.3); Monocytes Absolute Auto 0.4 X10*3/uL (0.1-1.2); Monocytes Percent Auto 4.4 % (2-11); Neutrophils Absolute Auto 4.3 X10*3/uL (2.0-8.3); Platelet Count 162 X10*3/uL (160-400); White Blood Count 8.9 X10*3/uL (4.8-10.8)
[2020-09-26 19:35] LABS: Alanine Aminotransferase 24 U/L (0-31); Albumin Level 4.3 g/dL (3.5-5.0); Alkaline Phosphatase 71 U/L (39-117); Anion Gap 14 (12-20); Aspartate Amino Transferase 30 U/L (5-31); Bilirubin Total 0.5 mg/dL (0.0-1.0); Blood Urea Nitrogen 15 mg/dL (9-16); Calcium 8.7 mg/dL (8.4-10.2); Carbon Dioxide 28 mmol/L (22-29); Chloride 101 mmol/L (96-108); Creatinine Clr Calc Pharmacy 76.1; Estimated Glomerular Filt Rate 53; Glucose Random 131 mg/dL (60-115); Potassium 3.6 mmol/L (3.3-5.1); Sodium 139 mmol/L (135-145); Total Protein 7.6 g/dL (6.5-8.0)
[2020-09-26 19:39] LABS: B Type Natriuretic Peptide 11 pg/mL (<100)
--- NOTE | 2020-09-26 19:54 | ED_ITS ---
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 Patient stated that all symptoms started many months ago, patient describes symptoms as chronic, been seen and evaluated by her primary doctor for the above symptoms, no new symptoms today, patient is taking Lasix 40 mg daily for chronic edema, patient declined any recent trauma or fall for the back pain, nothing makes the above symptoms worse or better, nothing aggravated the symptoms. Related Data Home Medications Medication Instructions Recorded Confirmed albuterol sulfate mg INHALATION 04/26/20 09/19/20 amlodipine 5 mg tablet 5 mg PO DAILY 04/26/20 09/19/20 aripiprazole 5 mg tablet 5 mg PO DAILY 04/26/20 09/19/20 bupropion HCl 150 mg 24 hr tablet, 150 mg PO DAILY 04/26/20 09/19/20 extended release calcium citrate 315 mg tab PO 04/26/20 09/19/20 calcium-vitamin D3 6.25 mcg (250 unit) tablet clonazepam 1 mg tablet 1 mg PO BID PRN 04/26/20 09/19/20 furosemide 80 mg tablet 80 mg PO DAILY 04/26/20 09/19/20 naproxen 500 mg tablet 500 mg PO BID 04/26/20 09/19/20 omeprazole 20 mg capsule,delayed 20 mg PO DAILY 04/26/20 09/19/20 release ondansetron HCl 4 mg tablet mg PO 04/26/20 09/19/20 zolpidem 10 mg tablet 10 mg PO BEDTIME PRN 04/26/20 09/19/20 albuterol sulfate 90 mcg/actuation 1 - 2 puff INHALATION Q4-6H PRN 07/24/20 09/19/20 aerosol inhaler beclomethasone dipropionate 40 1 inh INHALATION BID 07/24/20 09/19/20 mcg/actuation HFA breath activated aerosol Previous Rx's Medication Instructions Recorded losartan 50 mg tablet 100 mg PO DAILY 90 Days #180 tab 05/17/20 acamprosate 333 mg tablet,delayed 666 mg PO TID 30 Days #180 tab 06/28/20 release levothyroxine 200 mcg tablet 200 mcg PO DAILY 90 Days #90 tab 07/24/20 lidocaine 5 % topical patch 1 patch TOPICAL DAILY 30 Days #30 07/26/20 ea cyclobenzaprine 10 mg tablet 10 mg PO BEDTIME 30 Days #30 tab 07/28/20 meloxicam 15 mg tablet 15 mg PO DAILY 20 Days #20 tab 07/28/20 ibuprofen 600 mg PO Q8H PRN #30 tab 09/02/20 meclizine 25 mg tablet 25 mg PO TID PRN 7 Days #21 tab 09/19/20 Allergies Allergy/AdvReac Type Severity Reaction Status Date / Time No Known Allergies Allergy Verified 09/25/20 09:44 [No Known Allergies*] Review of Systems Review of Systems: All other systems are reviewed and are negative Constitutional: Reports as per HPI and Reports no additional constitutional complaints Eyes: Reports as per HPI and Reports no additional eye complaints Reports system reviewed and no additional complaints, except as documented Cardiovascular: Reports as per HPI and Reports no additional cardiovascular complaints Respiratory: Reports as per HPI and Reports no additional respiratory complaints Gastrointestinal: Reports as per HPI and Reports no additional gastrointestinal complaints Genitourinary: Reports no additional female genitourinary complaints Musculoskeletal: Reports no additional musculoskeletal complaints Skin/Breast: Reports system reviewed and no additional complaints, except as docu Psychiatric: Reports no additional psychiatric complaints Endocrine: Reports no additional endocrine complaints Hematologic/Lymphatic: Reports no additional hematologic/lymphatic complaints Allergic/Immunologic: Reports no additional allergic/immunologic complaints Reports system reviewed and no additional complaints, except as documented and Reports Abnormal speech present [facility] Past Medical History Medical History Acquired hypothyroidism Dizziness Essential hypertension Low back pain Morbid obesity Right wrist pain Surgical History H/O endoscopy H/O: hysterectomy History of bladder surgery History of section History of colonoscopy History of thyroid surgery History of total abdominal hysterectomy Family History Family History Father Diabetes Mother Hypertension Maternal Uncle Colon cancer Maternal Aunt Breast cancer Paternal Aunt Breast cancer Family/Other FH: mental illness Social History Social History Alcohol intake: unknown Smoking Status: Current every day smoker Tobacco Type: Cigarette Cigarettes Per Day: 2 Years Smoked: 50 years Advance Directives: No Advance Directives Information Provided: Yes Current occupational status: disabled Physical Exam Vital Signs: Vital Signs: Last Vital Signs Temp 98.3 F 09/26/20 20:32 Pulse 59 09/26/20 20:32 Resp 18 09/26/20 20:32 BP 151/80 H 09/26/20 20:32 Pulse Ox 98 09/26/20 20:32 Body Mass Index 41.8 Vital signs have been reviewed as appeared to be correct. Blood pressure elevated will monitor.. Heart rate normal. Respiration rate normal. Temperature normal. Oxygen saturation normal. Appearance: Alert. Oriented X3. No acute distress. Head: Normal external exam. Normocephalic. Atraumatic. No Saleh signs noted. No raccoon eyes noted Eyes: PERRLA. EOMI. Conjunctiva and sclera normal. Eyelids normal. ENT: TM's Normal. Pharynx normal. Uvula midline. Moist mucous membranes. No trismus noted. No drooling noted. No muffled voice noted. Neck: Normal inspection. Neck supple. FROM. No adenopathy. Thyroid Normal. No meningeal signs. No neck mass noted. CVS: Normal heart rate and rhythm. Heart sound normal. No murmurs noted. Pulses normal throughout. Respiratory: No respiratory distress. Painless inspiration. Breath sounds normal. No wheezes/rales/rhonchi noted. Chest nontender. No accessory muscle usage noted or decreased air movement noted. Abdomen: Soft and nontender. Bowel sounds normal in all 4 quadrants. No distention noted. No organomegaly noted. No visible injury noted. Back: No CVA tenderness. Full range of motion noted. Skin: Skin warm and dry. Normal skin color. Normal skin turgor. No rashes/lesions/lacerations noted. Extremities: +1 bilateral pitting edema. Extremities exhibit normal range of motion. Extremities nontender. Neuro: Oriented X 3. No motor deficit. No sensory deficit. Reflexes normal. Medical Decision Making Lab Data Lab results reviewed: Yes I reviewed the patient's lab results. Result diagrams: 09/26/20 18:59 09/26/20 18:59 Labs: Lab Results 09/26/20 09/26/20 09/26/20 Range/Units 18:59 18:59 18:59 WBC 8.9 (4.8-10.8) X10*3/uL RBC 4.80 (4.20-5.50) X10*6/uL Hgb 14.5 (12.0-16.0) g/dl Hct 42.5 (37-47) % MCV 88.5 (80-98) fL MCH 30.2 (27.0-33.0) pg MCHC 34.1 (31.0-35.0) g/dl RDW 15.0 (11.0-16.0) % Plt Count 162 (160-400) X10*3/uL MPV 11.3 (9.4-12.3) fL Immature Gran % (Auto) 0.3 (0.0-0.4) % Neut % (Auto) 48.0 (45-73) % Lymph % (Auto) 42.8 H (20-40) % [place] % (Auto) 4.4 (2-11) % Eos % (Auto) 3.7 (0-4) % Baso % (Auto) 0.8 (0-2) % Lymph # (Auto) 3.8 (1.2-4.9) X10*3/uL [place] # (Auto) 0.4 (0.1-1.2) X10*3/uL Eos # (Auto) 0.3 (0.0-0.4) X10*3/uL Baso # (Auto) 0.1 (0.0-0.2) X10*3/uL Abs Immat Gran (auto) 0.03 (0.00-0.03) X10*3/uL Absolute Neuts (auto) 4.3 (2.0-8.3) X10*3/uL Absolute Nucleated RBC 0.000 (0.0-0.012) X10*3/uL Nucleated RBC % (auto) 0.0 (0.0-0.2) /100WBC Hold Blue Top SEE NOTE Sodium 139 (135-145) mmol/L Potassium 3.6 D (3.3-5.1) mmol/L Chloride 101 (96-108) mmol/L Carbon Dioxide 28 (22-29) mmol/L Anion Gap 14 (12-20) BUN 15 (9-16) mg/dL Creatinine 1.10 (0.5-1.4) mg/dL Estim Creat Clear Calc 76.1 Estimated GFR 53 Random Glucose 131 H (60-115) mg/dL Calcium 8.7 (8.4-10.2) mg/dL Total Bilirubin 0.5 (0.0-1.0) mg/dL AST 30 (5-31) U/L ALT 24 (0-31) U/L Alkaline Phosphatase 71 D (39-117) U/L B-Natriuretic Peptide (<100) pg/mL Total Protein 7.6 (6.5-8.0) g/dL Albumin 4.3 (3.5-5.0) g/dL 09/26/20 Range/Units 18:59 WBC (4.8-10.8) X10*3/uL RBC (4.20-5.50) X10*6/uL Hgb (12.0-16.0) g/dl Hct (37-47) % MCV (80-98) fL MCH (27.0-33.0) pg MCHC (31.0-35.0) g/dl RDW (11.0-16.0) % Plt Count (160-400) X10*3/uL MPV (9.4-12.3) fL Immature Gran % (Auto) (0.0-0.4) % Neut % (Auto) (45-73) % Lymph % (Auto) (20-40) % [place] % (Auto) (2-11) % Eos % (Auto) (0-4) % Baso % (Auto) (0-2) % Lymph # (Auto) (1.2-4.9) X10*3/uL [place] # (Auto) (0.1-1.2) X10*3/uL Eos # (Auto) (0.0-0.4) X10*3/uL Baso # (Auto) (0.0-0.2) X10*3/uL Abs Immat Gran (auto) (0.00-0.03) X10*3/uL Absolute Neuts (auto) (2.0-8.3) X10*3/uL Absolute Nucleated RBC (0.0-0.012) X10*3/uL Nucleated RBC % (auto) (0.0-0.2) /100WBC Hold Blue Top Sodium (135-145) mmol/L Potassium (3.3-5.1) mmol/L Chloride (96-108) mmol/L Carbon Dioxide (22-29) mmol/L Anion Gap (12-20) BUN (9-16) mg/dL Creatinine (0.5-1.4) mg/dL Estim Creat Clear Calc Estimated GFR Random Glucose (60-115) mg/dL Calcium (8.4-10.2) mg/dL Total Bilirubin (0.0-1.0) mg/dL AST (5-31) U/L ALT (0-31) U/L Alkaline Phosphatase (39-117) U/L B-Natriuretic Peptide 11 (<100) pg/mL Total Protein (6.5-8.0) g/dL Albumin (3.5-5.0) g/dL Imaging Data Chest x-ray: Radiologist's impression: No evidence of acute disease. Discharge Plan Discharge Clinical Impression: Edema Qualifiers: Edema type: unspecified Qualified Code(s): R60.9 - Edema, unspecified Patient Disposition: Home, Self-Care Instructions: Edema (ED) Prescriptions: No Action acamprosate 333 mg tablet,delayed release (DR/EC) 666 mg PO TID 30 Days Qty: 180 RF: 0 lidocaine 5 % adhesive patch,medicated 1 patch topical DAILY 30 Days Qty: 30 RF: 3 cyclobenzaprine 10 mg tablet 10 mg PO BEDTIME 30 Days Qty: 30 RF: 6 meloxicam 15 mg tablet 15 mg PO DAILY 20 Days Qty: 20 RF: 5 ibuprofen 600 mg tablet 600 mg PO Q8H PRN (Reason: pain) Qty: 30 RF: 0 meclizine 25 mg tablet 25 mg PO TID PRN (Reason: dizziness) 7 Days Qty: 21 RF: 0 albuterol sulfate 90 mcg/actuation HFA aerosol inhaler 1 - 2 puff inhalation Q4-6H PRN (Reason: dyspnea) RF: 0 Qvar RediHaler 40 mcg/actuation HFA aerosol breath activated 1 inh inhalation BID RF: 0 levothyroxine 200 mcg tablet 200 mcg PO DAILY 90 Days Qty: 90 RF: 0 losartan 50 mg tablet 100 mg PO DAILY 90 Days Qty: 180 RF: 3 bupropion HCl 150 mg tablet extended release 24 hr 150 mg PO DAILY RF: 0 zolpidem 10 mg tablet 10 mg PO BEDTIME PRNRF: 0 clonazepam 1 mg tablet 1 mg PO BID PRNRF: 0 furosemide 80 mg tablet 80 mg PO DAILY RF: 0 amlodipine 5 mg tablet 5 mg PO DAILY RF: 0 calcium citrate-vitamin D3 315 mg-6.25 mcg (250 unit) tablet PO RF: 0 albuterol sulfate 2.5 mg /3 mL (0.083 %) solution for nebulization inhalation RF: 0 omeprazole 20 mg capsule,delayed release(DR/EC) 20 mg PO DAILY RF: 0 naproxen 500 mg tablet 500 mg PO BID RF: 0 aripiprazole 5 mg tablet 5 mg PO DAILY RF: 0 ondansetron HCl 4 mg tablet PO RF: 0 Referrals: Claire Mcnair MD [Primary Care Provider] - 2 days
[2020-09-26 20:32] VITALS: BP 151/80; PULSE 59; RESP 18; TEMP 36.8; O2SAT 98
[2020-09-26] MEDS: Ibuprofen 800 MG TABLET PO (21:15)
== END 2020-09-26 22:16 | disposition home or self-care (01) ==
PROVIDERS: Emergency Provider Emergency Medicine; PCP Internal Medicine
DX: R60.0 Localized edema (principal); F17.210 Nicotine dependence, cigarettes, uncomplicated; Z71.6 Tobacco abuse counseling; Z79.899 Other long term (current) drug therapy
CPT/HCPCS: 36415; 71045; 80053; 83880; 85025; 99284

== ENCOUNTER 2020-10-05 18:38 | Emergency (ER) | payer OTHER, SELFPAY ==
--- NOTE | ~2020-10-05 | XR_ITS ---
EXAMINATION: XR CHEST CLINICAL INFORMATION: Cough COMPARISON: 09/26/2020 TECHNIQUE: Frontal view of the chest was obtained. FINDINGS: Normal symmetric lung volumes. No parenchymal consolidation. No pleural effusion. No pneumothorax. Cardiomediastinal silhouette and pulmonary vascularity are within normal limits. No acute osseous abnormalities. XR/XR chest 1V IMPRESSION: No acute findings.
[2020-10-05 19:50] VITALS: BP 173/92; PULSE 68; RESP 16; TEMP 36.8; O2SAT 99; BMI 45.3
[2020-10-05 20:20] LABS: Glucose, Whole Blood 135 mg/dL (60-115)
--- NOTE | 2020-10-05 20:53 | ED.GENADULT ---
HPI - General Adult General Chief complaint: General Medical Stated complaint: body aches Time Seen by Provider: 10/05/20 20:52 Source: patient Mode of arrival: ambulatory Limitations: language barrier History of Present Illness HPI narrative: 50-year-old female with past medical history of hypothyroidism, hypertension, hyperlipidemia, chronic pain, insomnia, obesity, and edema presents with multiple complaints. States have body aches, bilateral lower extremity edema, chest pain and pressure, cough, and malaise. Most of her complaints have been chronic and have been present for several months. She denies palpitations, shortness of breath, abdominal distention, pain on inspiration, falls, trauma, fevers and chills. Onset (ago): month(s) Location: chest, back and lower extremity Radiation: back Severity: moderate Severity scale (1-10): 8 Quality: aching Pain Consistency: constant Relieving factors: none Exacerbating factors: movement Treatments prior to arrival: none Related Data Home Medications Medication Instructions Recorded Confirmed albuterol sulfate mg INHALATION 04/26/20 09/19/20 amlodipine 5 mg tablet 5 mg PO DAILY 04/26/20 09/19/20 aripiprazole 5 mg tablet 5 mg PO DAILY 04/26/20 09/19/20 bupropion HCl 150 mg 24 hr tablet, 150 mg PO DAILY 04/26/20 09/19/20 extended release calcium citrate 315 mg tab PO 04/26/20 09/19/20 calcium-vitamin D3 6.25 mcg (250 unit) tablet clonazepam 1 mg tablet 1 mg PO BID PRN 04/26/20 09/19/20 furosemide 80 mg tablet 80 mg PO DAILY 04/26/20 09/19/20 naproxen 500 mg tablet 500 mg PO BID 04/26/20 09/19/20 omeprazole 20 mg capsule,delayed 20 mg PO DAILY 04/26/20 09/19/20 release ondansetron HCl 4 mg tablet mg PO 04/26/20 09/19/20 zolpidem 10 mg tablet 10 mg PO BEDTIME PRN 04/26/20 09/19/20 albuterol sulfate 90 mcg/actuation 1 - 2 puff INHALATION Q4-6H PRN 07/24/20 09/19/20 aerosol inhaler beclomethasone dipropionate 40 1 inh INHALATION BID 07/24/20 09/19/20 mcg/actuation HFA breath activated aerosol Previous Rx's Medication Instructions Recorded losartan 50 mg tablet 100 mg PO DAILY 90 Days #180 tab 05/17/20 acamprosate 333 mg tablet,delayed 666 mg PO TID 30 Days #180 tab 06/28/20 release levothyroxine 200 mcg tablet 200 mcg PO DAILY 90 Days #90 tab 07/24/20 lidocaine 5 % topical patch 1 patch TOPICAL DAILY 30 Days #30 07/26/20 ea cyclobenzaprine 10 mg tablet 10 mg PO BEDTIME 30 Days #30 tab 07/28/20 meloxicam 15 mg tablet 15 mg PO DAILY 20 Days #20 tab 07/28/20 ibuprofen 600 mg PO Q8H PRN #30 tab 09/02/20 meclizine 25 mg tablet 25 mg PO TID PRN 7 Days #21 tab 09/19/20 Allergies Allergy/AdvReac Type Severity Reaction Status Date / Time No Known Allergies Allergy Verified 09/25/20 09:44 [No Known Allergies*] Review of Systems Review of Systems: Constitutional: No Fever, no Chills, positive fatigue, positive Malaise ENT/Mouth: No sore throat, no runny nose Eyes: No Discharge Cardiovascular: No Chest Pain, No SOB Respiratory: No Cough, No Sputum, No Wheezing, No Smoke Exposure, No Dyspnea Gastrointestinal: No Nausea, No Vomiting, No Diarrhea Genitourinary: no irregular bleeding, No Dysuria, No Urinary Frequency, No Hematuria, No Urinary Incontinence, No Urgency, No Flank Pain, Musculoskeletal: positive Myalgia, positive chronic bilateral lower extremity edema, positive leg pain Skin: No rash Neuro: No Headache Yes all other systems are reviewed and are negative [facility] Past Medical History Attestation statement: The following information was validated with the patient. Source: old records reviewed Medical History Acquired hypothyroidism Dizziness Essential hypertension Low back pain Morbid obesity Right wrist pain Surgical History H/O endoscopy H/O: hysterectomy History of bladder surgery History of section History of colonoscopy History of thyroid surgery History of total abdominal hysterectomy Family History Family History Father Diabetes Mother Hypertension Maternal Uncle Colon cancer Maternal Aunt Breast cancer Paternal Aunt Breast cancer Family/Other FH: mental illness Social History Social History Alcohol intake: unknown Smoking Status: Current every day smoker Tobacco Type: Cigarette Cigarettes Per Day: 2 Years Smoked: 50 years Advance Directives: No Advance Directives Information Provided: Yes Current occupational status: disabled Physical Exam Vital Signs: Vital Signs: Last Vital Signs Temp 98.3 F 10/05/20 19:50 Pulse 68 10/05/20 19:50 Resp 16 10/05/20 19:50 BP 173/92 H 10/05/20 19:50 Pulse Ox 99 10/05/20 19:50 Body Mass Index 45.3 Appearance: Alert. Oriented X3. No acute distress. Head: Normal external exam. Normocephalic. Atraumatic. No Saleh signs noted. No raccoon eyes noted Eyes: PERRLA. EOMI. Conjunctiva and sclera normal. Eyelids normal. ENT: TM's Normal. Pharynx normal. Uvula midline. Moist mucous membranes. No trismus noted. No drooling noted. No muffled voice noted. Neck: Normal inspection. Neck supple. No adenopathy. CVS: Normal heart rate and rhythm. Heart sound normal. No murmurs noted. Pulses equal to all extremities. Respiratory: No respiratory distress. Painless inspiration. Lung sounds clear to auscultation all lobes. Chest nontender. No accessory muscle usage noted or decreased air movement noted. Abdomen: Soft and nontender. Bowel sounds normal in all 4 quadrants. No distention noted. No organomegaly noted. No visible injury noted. Back: No CVA tenderness. Full range of motion noted. Skin: Skin warm and dry. Normal skin color. Normal skin turgor. No rashes/lesions/lacerations noted. Extremities: +1 pitting edema to the ankles. Extremities exhibit normal range of motion. Extremities nontender. Neuro: cranial nerves 2-12 intact, no focal neural deficits, strength 5/5 to all extremities, No motor deficit. No sensory deficit. Reflexes normal. Course Course Course Narrative: 50-year-old female presents with multiple chronic complaints. At this time will do CBC, Chem 7, EKG, urinalysis, and troponins. Patient's heart rate is 68 regular rhythm, not on any hormone replacement or chemotherapeutics, wells PE score 0, highly unlikely for PE. Will test for COVID. 10:54 p.m. chemistries are still pending. CBC within normal limits, white count 9.8, H&H 14.3/43.2, potassium is 3.2, will replete with 40 mEq p.o., glucose elevated at 135, patient is a diabetic. Troponin is 0, BNP is 0 no indication of CHF or ACS. Urinalysis is negative for acute findings. COVID test is negative. Chest x-ray is negative for acute findings EKG is normal sinus without any changes since August of 2020 and December of 2019. Plan of care is to discharge home and have patient follow-up with primary care physician. public relations supervisor utilized for all correspondence, Google translate utilized for discharge instructions. Medical Decision Making Differential Diagnosis Differential Diagnosis: ACS, COVID, pneumonia, UTI, CHF Medical Records Medical records reviewed: Yes I reviewed the patient's medical records. Lab Data Lab results reviewed: Yes I reviewed the patient's lab results. Result diagrams: 10/05/20 21:28 10/05/20 23:02 Labs: Lab Results 10/05/20 10/05/20 10/05/20 Range/Units 20:15 21:27 21:28 WBC 9.8 (4.8-10.8) X10*3/uL RBC 4.83 (4.20-5.50) X10*6/uL Hgb 14.3 (12.0-16.0) g/dl Hct 43.2 (37-47) % MCV 89.4 (80-98) fL MCH 29.6 (27.0-33.0) pg MCHC 33.1 (31.0-35.0) g/dl RDW 15.3 (11.0-16.0) % Plt Count 192 (160-400) X10*3/uL MPV 11.5 (9.4-12.3) fL Immature Gran % (Auto) 0.3 (0.0-0.4) % Neut % (Auto) 47.2 (45-73) % Lymph % (Auto) 43.4 H (20-40) % [place] % (Auto) 5.3 (2-11) % Eos % (Auto) 2.9 (0-4) % Baso % (Auto) 0.9 (0-2) % Lymph # (Auto) 4.3 (1.2-4.9) X10*3/uL [place] # (Auto) 0.5 (0.1-1.2) X10*3/uL Eos # (Auto) 0.3 (0.0-0.4) X10*3/uL Baso # (Auto) 0.1 (0.0-0.2) X10*3/uL Abs Immat Gran (auto) 0.03 (0.00-0.03) X10*3/uL Absolute Neuts (auto) 4.6 (2.0-8.3) X10*3/uL Absolute Nucleated RBC 0.000 (0.0-0.012) X10*3/uL Nucleated RBC % (auto) 0.0 (0.0-0.2) /100WBC PT (10.8-13.0) SEC INR (0.9-1.1) APTT (24.1-38.0) SEC Sodium (135-145) mmol/L Potassium (3.3-5.1) mmol/L Chloride (96-108) mmol/L Carbon Dioxide (22-29) mmol/L Anion Gap (12-20) BUN (9-16) mg/dL Creatinine (0.5-1.4) mg/dL Estim Creat Clear Calc Estimated GFR POC Glucose 135 H (60-115) mg/dL Random Glucose (60-115) mg/dL Calcium (8.4-10.2) mg/dL Total Bilirubin (0.0-1.0) mg/dL Direct Bilirubin (0.0-0.5) mg/dL AST (5-31) U/L ALT (0-31) U/L Alkaline Phosphatase (39-117) U/L Troponin I High Sens (<3.5-17.0) ng/L B-Natriuretic Peptide (<100) pg/mL Total Protein (6.5-8.0) g/dL Albumin (3.5-5.0) g/dL Lipase (8-78) U/L Urine Color YELLOW Urine Appearance CLEAR Urine pH 6.0 (5.0-8.0) Ur Specific [place] >= 1.030 H (1.005-1.025) Urine Protein TRACE (NEG-TRACE) MG/DL Urine Glucose (UA) NEG (NEG) MG/DL Urine Ketones NEG (NEG) MG/DL Urine Blood TRACE (NEG) Urine Nitrite NEG (NEG) Ur Leukocyte Esterase NEG (NEG) Urine RBC 1-4 (0) /HPF Urine WBC 1-4 (0-4) /HPF Ur Squamous Epith Cells 1+ /LPF Urine Bacteria 1+ /LPF Hyaline Casts 1-4 /LPF Urine Mucus 1+ /LPF Coronavirus (PCR) (Negative) Influenza Type A (PCR) (Negative) Influenza Type B (PCR) (Negative) RSV RNA Qual (PCR) (Negative) 10/05/20 10/05/20 10/05/20 Range/Units 21:28 21:28 21:28 WBC (4.8-10.8) X10*3/uL RBC (4.20-5.50) X10*6/uL Hgb (12.0-16.0) g/dl Hct (37-47) % MCV (80-98) fL MCH (27.0-33.0) pg MCHC (31.0-35.0) g/dl RDW (11.0-16.0) % Plt Count (160-400) X10*3/uL MPV (9.4-12.3) fL Immature Gran % (Auto) (0.0-0.4) % Neut % (Auto) (45-73) % Lymph % (Auto) (20-40) % [place] % (Auto) (2-11) % Eos % (Auto) (0-4) % Baso % (Auto) (0-2) % Lymph # (Auto) (1.2-4.9) X10*3/uL [place] # (Auto) (0.1-1.2) X10*3/uL Eos # (Auto) (0.0-0.4) X10*3/uL Baso # (Auto) (0.0-0.2) X10*3/uL Abs Immat Gran (auto) (0.00-0.03) X10*3/uL Absolute Neuts (auto) (2.0-8.3) X10*3/uL Absolute Nucleated RBC (0.0-0.012) X10*3/uL Nucleated RBC % (auto) (0.0-0.2) /100WBC PT 12.0 (10.8-13.0) SEC INR 1.0 (0.9-1.1) APTT 42.2 H (24.1-38.0) SEC Sodium (135-145) mmol/L Potassium (3.3-5.1) mmol/L Chloride (96-108) mmol/L Carbon Dioxide (22-29) mmol/L Anion Gap (12-20) BUN (9-16) mg/dL Creatinine (0.5-1.4) mg/dL Estim Creat Clear Calc Estimated GFR POC Glucose (60-115) mg/dL Random Glucose (60-115) mg/dL Calcium (8.4-10.2) mg/dL Total Bilirubin (0.0-1.0) mg/dL Direct Bilirubin (0.0-0.5) mg/dL AST (5-31) U/L ALT (0-31) U/L Alkaline Phosphatase (39-117) U/L Troponin I High Sens < 3.5 (<3.5-17.0) ng/L B-Natriuretic Peptide < 10 (<100) pg/mL Total Protein (6.5-8.0) g/dL Albumin (3.5-5.0) g/dL Lipase (8-78) U/L Urine Color Urine Appearance Urine pH (5.0-8.0) Ur Specific [place] (1.005-1.025) Urine Protein (NEG-TRACE) MG/DL Urine Glucose (UA) (NEG) MG/DL Urine Ketones (NEG) MG/DL Urine Blood (NEG) Urine Nitrite (NEG) Ur Leukocyte Esterase (NEG) Urine RBC (0) /HPF Urine WBC (0-4) /HPF Ur Squamous Epith Cells /LPF Urine Bacteria /LPF Hyaline Casts /LPF Urine Mucus /LPF Coronavirus (PCR) NEGATIVE (Negative) Influenza Type A (PCR) NEGATIVE (Negative) Influenza Type B (PCR) NEGATIVE (Negative) RSV RNA Qual (PCR) NEGATIVE (Negative) 10/05/20 Range/Units 23:02 WBC (4.8-10.8) X10*3/uL RBC (4.20-5.50) X10*6/uL Hgb (12.0-16.0) g/dl Hct (37-47) % MCV (80-98) fL MCH (27.0-33.0) pg MCHC (31.0-35.0) g/dl RDW (11.0-16.0) % Plt Count (160-400) X10*3/uL MPV (9.4-12.3) fL Immature Gran % (Auto) (0.0-0.4) % Neut % (Auto) (45-73) % Lymph % (Auto) (20-40) % [place] % (Auto) (2-11) % Eos % (Auto) (0-4) % Baso % (Auto) (0-2) % Lymph # (Auto) (1.2-4.9) X10*3/uL [place] # (Auto) (0.1-1.2) X10*3/uL Eos # (Auto) (0.0-0.4) X10*3/uL Baso # (Auto) (0.0-0.2) X10*3/uL Abs Immat Gran (auto) (0.00-0.03) X10*3/uL Absolute Neuts (auto) (2.0-8.3) X10*3/uL Absolute Nucleated RBC (0.0-0.012) X10*3/uL Nucleated RBC % (auto) (0.0-0.2) /100WBC PT (10.8-13.0) SEC INR (0.9-1.1) APTT (24.1-38.0) SEC Sodium 138 (135-145) mmol/L Potassium 3.2 L (3.3-5.1) mmol/L Chloride 99 (96-108) mmol/L Carbon Dioxide 29 (22-29) mmol/L Anion Gap 13 (12-20) BUN 11 (9-16) mg/dL Creatinine 0.88 (0.5-1.4) mg/dL Estim Creat Clear Calc 99.7 Estimated GFR > 60 POC Glucose (60-115) mg/dL Random Glucose 103 (60-115) mg/dL Calcium 8.7 (8.4-10.2) mg/dL Total Bilirubin 0.7 (0.0-1.0) mg/dL Direct Bilirubin 0.2 (0.0-0.5) mg/dL AST 29 (5-31) U/L ALT 25 (0-31) U/L Alkaline Phosphatase 68 (39-117) U/L Troponin I High Sens (<3.5-17.0) ng/L B-Natriuretic Peptide (<100) pg/mL Total Protein 7.8 (6.5-8.0) g/dL Albumin 4.5 (3.5-5.0) g/dL Lipase 14 (8-78) U/L Urine Color Urine Appearance Urine pH (5.0-8.0) Ur Specific [place] (1.005-1.025) Urine Protein (NEG-TRACE) MG/DL Urine Glucose (UA) (NEG) MG/DL Urine Ketones (NEG) MG/DL Urine Blood (NEG) Urine Nitrite (NEG) Ur Leukocyte Esterase (NEG) Urine RBC (0) /HPF Urine WBC (0-4) /HPF Ur Squamous Epith Cells /LPF Urine Bacteria /LPF Hyaline Casts /LPF Urine Mucus /LPF Coronavirus (PCR) (Negative) Influenza Type A (PCR) (Negative) Influenza Type B (PCR) (Negative) RSV RNA Qual (PCR) (Negative) Imaging Data Chest x-ray: Attestation: I personally reviewed and interpreted this imaging study as follows: Radiologist's impression: EXAMINATION: XR CHEST CLINICAL INFORMATION: Cough COMPARISON: 09/26/2020 TECHNIQUE: Frontal view of the chest was obtained. FINDINGS: Normal symmetric lung volumes. No parenchymal consolidation. No pleural effusion. No pneumothorax. Cardiomediastinal silhouette and pulmonary vascularity are within normal limits. No acute osseous abnormalities. XR/XR chest 1V IMPRESSION: No acute findings. ECG Data Attestation: I personally reviewed and interpreted this ECG as follows: Interpretation: Vent. rate 56 BPM SC interval 194 ms QRS duration 90 ms QT/QTc 534/515 ms P-R-T axes 50 -10 0 Sinus bradycardia Minimal voltage criteria for LVH, may be normal variant T wave abnormality, consider anterolateral ischemia Prolonged QT Abnormal ECG When compared with ECG of 01-SEP-2020 20:47, No significant change was found, also compared to EKG of January 08, 2020 with no significant changes. 05-OCT-2020 21:11:15 Scores Heart Score History: -1- moderately suspicious ECG: -0- normal Age: -1- >45 - <65 Risk factory: -1- 1 or 2 risk factors Troponin: -0- < or = normal limit Score: 3 Risk: 1.7% Discharge Plan Discharge Clinical Impression: Edema Qualifiers: Edema type: generalized Qualified Code(s): R60.1 - Generalized edema Fatigue Qualifiers: Fatigue type: chronic, unspecified Qualified Code(s): R53.82 - Chronic fatigue, unspecified Patient Disposition: Home, Self-Care Instructions: Chronic Fatigue Syndrome (ED), Weakness (ED), Edema (ED) Additional Instructions: Usted fue evaluado para m?ltiples quejas. Yuki valores de laboratorio CBC era normal, hwang qu?christine mostr? un potasio ligeramente bajo, le dimos potasio en el departamento de emergencias para arreglar esto. Hwang prueba de COVID es negativa, la an?lisis de orina es negativa, hwang prueba de BNP-a para la insuficiencia card?zaira fue negativa, yuki enzimas card?acas fueron negativas, hwang electrocardiograma era normal sin tai?n cambio desde el 2019. Por favor, keith un seguimiento con hwang m?dico de atenci?n primaria para que se le repitan los an?lisis de conrado. Darinel por elegir amy departamento de emergencias para hwang evaluaci?n. Por favor, keith un seguimiento con el m?dico de atenci?n primaria seg?n sea necesario. Volver al servicio de urgencias para cualquier s?ntoma nuevo, preocupante o que empeore You were evaluated for multiple complaints. Your lab values CBC was normal, your chemistry showed a mildly low potassium, we gave you potassium in the emergency department to fix this. Your COVID test is negative, urinalysis is negative, your BNP-a test for heart failure was negative, your cardiac enzymes were negative, your EKG was normal without any changes since January 08, 2020. Please follow-up with your primary care physician to have repeat blood tests. Thank you for choosing this emergency department for evaluation. Please follow-up with primary care physician as needed. Return to the emergency department for any new, concerning, or worsening symptoms. Prescriptions: No Action acamprosate 333 mg tablet,delayed release (DR/EC) 666 mg PO TID 30 Days Qty: 180 RF: 0 lidocaine 5 % adhesive patch,medicated 1 patch topical DAILY 30 Days Qty: 30 RF: 3 cyclobenzaprine 10 mg tablet 10 mg PO BEDTIME 30 Days Qty: 30 RF: 6 meloxicam 15 mg tablet 15 mg PO DAILY 20 Days Qty: 20 RF: 5 ibuprofen 600 mg tablet 600 mg PO Q8H PRN (Reason: pain) Qty: 30 RF: 0 meclizine 25 mg tablet 25 mg PO TID PRN (Reason: dizziness) 7 Days Qty: 21 RF: 0 albuterol sulfate 90 mcg/actuation HFA aerosol inhaler 1 - 2 puff inhalation Q4-6H PRN (Reason: dyspnea) RF: 0 Qvar RediHaler 40 mcg/actuation HFA aerosol breath activated 1 inh inhalation BID RF: 0 levothyroxine 200 mcg tablet 200 mcg PO DAILY 90 Days Qty: 90 RF: 0 losartan 50 mg tablet 100 mg PO DAILY 90 Days Qty: 180 RF: 3 bupropion HCl 150 mg tablet extended release 24 hr 150 mg PO DAILY RF: 0 zolpidem 10 mg tablet 10 mg PO BEDTIME PRNRF: 0 clonazepam 1 mg tablet 1 mg PO BID PRNRF: 0 furosemide 80 mg tablet 80 mg PO DAILY RF: 0 amlodipine 5 mg tablet 5 mg PO DAILY RF: 0 calcium citrate-vitamin D3 315 mg-6.25 mcg (250 unit) tablet PO RF: 0 albuterol sulfate 2.5 mg /3 mL (0.083 %) solution for nebulization inhalation RF: 0 omeprazole 20 mg capsule,delayed release(DR/EC) 20 mg PO DAILY RF: 0 naproxen 500 mg tablet 500 mg PO BID RF: 0 aripiprazole 5 mg tablet 5 mg PO DAILY RF: 0 ondansetron HCl 4 mg tablet PO RF: 0
--- NOTE | 2020-10-05 21:06 | ECG_ITS ---
Test Reason : LEG SWELLING Blood Pressure : / mmHG Vent. Rate : 056 BPM Atrial Rate : 056 BPM P-R Int : 194 ms QRS Dur : 090 ms QT Int : 534 ms P-R-T Axes : 050 -10 000 degrees QTc Int : 515 ms Sinus bradycardia Minimal voltage criteria for LVH, may be normal variant T wave abnormality, consider anterolateral ischemia Prolonged QT Abnormal ECG When compared with ECG of 01-SEP-2020 20:47, No significant change was found Referred By: Cherelle Herrera Electronically Signed By:HAZEL MAYEN MD
[2020-10-05 21:42] LABS: MANUAL DIFF FLAG NO
[2020-10-05 21:43] LABS: Glucose Urine UA NEG (NEG); Leukocyte Esterase Urine NEG (NEG); Nitrite Urine NEG (NEG); Specific Gravity - Urine >= 1.030 (1.005-1.025); Urine Blood TRACE (NEG); Urine Ketones NEG (NEG); Urine Protein TRACE MG/DL (NEG-TRACE)
[2020-10-05 21:44] LABS: Appearance Urine CLEAR; Color Urine YELLOW
[2020-10-05 21:46] LABS: Basophils Absolute Auto 0.1 X10*3/uL (0.0-0.2); Basophils Percent Auto 0.9 % (0-2); Eosinophils Absolute Auto 0.3 X10*3/uL (0.0-0.4); Eosinophils Percent Auto 2.9 % (0-4); Hematocrit 43.2 % (37-47); Hemoglobin 14.3 g/dl (12.0-16.0); Imm Gran Abs Auto 0.03 X10*3/uL (0.00-0.03); Imm Gran Pct Auto 0.3 % (0.0-0.4); Lymphocytes Absolute Auto 4.3 X10*3/uL (1.2-4.9); Lymphocytes Percent Auto 43.4 % (20-40); Mean Corpuscular HGB Conc 33.1 g/dl (31.0-35.0); Mean Corpuscular Hemoglobin 29.6 pg (27.0-33.0); Mean Corpuscular Volume 89.4 fL (80-98); Mean Platelet Volume 11.5 fL (9.4-12.3); Monocytes Absolute Auto 0.5 X10*3/uL (0.1-1.2); Monocytes Percent Auto 5.3 % (2-11); Neutrophils Absolute Auto 4.6 X10*3/uL (2.0-8.3); Neutrophils Percent Auto 47.2 % (45-73); Platelet Count 192 X10*3/uL (160-400); Red Blood Count 4.83 X10*6/uL (4.20-5.50); Red Cell Distribution Width 15.3 % (11.0-16.0); White Blood Count 9.8 X10*3/uL (4.8-10.8)
[2020-10-05 21:48] LABS: Bacteria Urine 1+ /LPF; Mucus Urine 1+ /LPF; Squamous Epithelial Cell Urine 1+ /LPF
[2020-10-05 21:56] LABS: Partial Thromboplastin Time 42.2 SEC (24.1-38.0)
[2020-10-05 22:18] LABS: Influenza A PCR NEGATIVE (Negative); Influenza B PCR NEGATIVE (Negative); Resp Syncy Virus RNA Qual PCR NEGATIVE (Negative); SARS COV2 PCR INHOUSE NEGATIVE (Negative)
[2020-10-05 22:31] LABS: B Type Natriuretic Peptide < 10 pg/mL (<100); Troponin-I High Sensitivity < 3.5 ng/L (<3.5-17.0)
--- NOTE | 2020-10-05 23:03 | PC.NURSE ---
[facility].
--- NOTE | 2020-10-05 23:26 | PC.NURSE ---
PT AWAITING FOR PENDING LABS.
[2020-10-05 23:48] LABS: Alanine Aminotransferase 25 U/L (0-31); Albumin Level 4.5 g/dL (3.5-5.0); Alkaline Phosphatase 68 U/L (39-117); Anion Gap 13 (12-20); Aspartate Amino Transferase 29 U/L (5-31); Bilirubin Direct 0.2 mg/dL (0.0-0.5); Bilirubin Total 0.7 mg/dL (0.0-1.0); Blood Urea Nitrogen 11 mg/dL (9-16); Calcium 8.7 mg/dL (8.4-10.2); Carbon Dioxide 29 mmol/L (22-29); Chloride 99 mmol/L (96-108); Creatinine Clr Calc Pharmacy 99.7; Estimated Glomerular Filt Rate > 60; Glucose Random 103 mg/dL (60-115); Lipase 14 U/L (8-78); Potassium 3.2 mmol/L (3.3-5.1); Sodium 138 mmol/L (135-145); Total Protein 7.8 g/dL (6.5-8.0)
[2020-10-06 00:37] VITALS: BP 139/70; PULSE 61; RESP 16; O2SAT 99
== END 2020-10-06 01:06 | disposition home or self-care (01) ==
PROVIDERS: Nurse Practitioner Family; Emergency Provider Emergency Medicine; PCP Internal Medicine
DX: R07.9 Chest pain, unspecified (principal); R53.82 Chronic fatigue, unspecified; R05 Cough; R60.0 Localized edema; I10 Essential (primary) hypertension; E78.5 Hyperlipidemia, unspecified; Z20.822 Contact with and (suspected) exposure to COVID-19; F17.210 Nicotine dependence, cigarettes, uncomplicated; Z71.6 Tobacco abuse counseling; Z79.899 Other long term (current) drug therapy
CPT/HCPCS: 0241U; 36415; 71045; 80048; 80076; 81001; 82947; 83690; 83880; 84484; 85025; 85610; 85730; 93005; 99284

== ENCOUNTER 2020-10-11 09:22 | Outpatient (REF) | payer OTHER, SELFPAY ==
[2020-10-11 10:29] LABS: Estimated Average Glucose 131 mg/dL; Hemoglobin A1c % 6.2 %
[2020-10-11 10:59] LABS: Alanine Aminotransferase 22 U/L (0-31); Albumin Level 4.8 g/dL (3.5-5.0); Alkaline Phosphatase 70 U/L (39-117); Anion Gap 18 (12-20); Aspartate Amino Transferase 30 U/L (5-31); Bilirubin Total 1.3 mg/dL (0.0-1.0); Blood Urea Nitrogen 15 mg/dL (9-16); Calcium 8.9 mg/dL (8.4-10.2); Carbon Dioxide 31 mmol/L (22-29); Chloride 96 mmol/L (96-108); Estimated Glomerular Filt Rate 52; Glucose Fasting 127 mg/dL (60-99); Potassium 3.6 mmol/L (3.3-5.1); Sodium 141 mmol/L (135-145)
[2020-10-11 12:05] LABS: Free T4 (Free Thyroxine) 0.48 ng/dL (0.71-1.85)
== END 2020-10-11 09:23 | disposition home or self-care (01) ==
LOC: HO.LAB 09:22
PROVIDERS: PCP Internal Medicine; Visit Provider Nurse Practitioner Family
DX: E03.9 Hypothyroidism, unspecified (principal); E87.6 Hypokalemia; E66.01 Morbid (severe) obesity due to excess calories
CPT/HCPCS: 36415; 80053; 83036; 84439; 84443

== ENCOUNTER → 2020-11-08 10:36 | Outpatient (BNVA) | payer OTHER, SELFPAY | PROVIDERS: PCP Internal Medicine; Visit Provider Physician Assistant ==

== ENCOUNTER → 2020-11-20 08:20 | Outpatient (BNVA) | payer OTHER, SELFPAY | PROVIDERS: PCP Internal Medicine; Visit Provider Surgery ==

== ENCOUNTER → 2020-11-28 09:43 | Outpatient (BNVA) | payer OTHER, SELFPAY | PROVIDERS: PCP Internal Medicine; Visit Provider Internal Medicine Gastroenterology ==

== ENCOUNTER → 2020-11-29 11:20 | Outpatient (BNV) | payer OTHER, SELFPAY | PROVIDERS: PCP Internal Medicine; Visit Provider Internal Medicine | DX: D51.0 Vitamin B12 deficiency anemia due to intrinsic factor deficiency (principal) | CPT/HCPCS: 99213 ==

== ENCOUNTER → 2020-11-29 11:27 | Outpatient (BNVA) | payer OTHER, SELFPAY | PROVIDERS: PCP Internal Medicine; Visit Provider Physician Assistant ==

== ENCOUNTER → 2020-12-15 08:31 | Outpatient (BNVA) | payer OTHER, SELFPAY | PROVIDERS: PCP Internal Medicine; Visit Provider Surgery ==

== ENCOUNTER 2020-12-20 11:48 | Emergency (ER) | payer OTHER, SELFPAY ==
--- NOTE | ~2020-12-20 | CT_ITS ---
EXAMINATION: CT ABDOMEN AND PELVIS WITHOUT CONTRAST CLINICAL INFORMATION: Left flank pain. History kidney stones COMPARISON: April 03, 2020 TECHNIQUE: Multidetector volumetric imaging was performed from the superior aspect of the liver through the pubic symphysis. Sagittal and coronal reformatted images were obtained on the technologist's workstation. This CT examination was performed using dose optimization techniques as appropriate, variously including the following: *Automated exposure control *Adjustment of mA and/or kV according to patient size (this includes techniques or standardized protocols for targeted exams where dose is matched to indication/reason for exam; i.e. extremities or head) *Use of iterative reconstruction technique DLP: 858 mGy-cm FINDINGS: LUNG BASES: The visualized lung bases are unremarkable. No pleural or pericardial effusion. LIVER, GALLBLADDER, AND BILIARY TREE: The liver is normal in size, shape, and attenuation. No focal hepatic lesion or biliary ductal dilatation is present. The gallbladder is unremarkable with no evidence of radiopaque gallstones, gallbladder wall thickening, or obvious pericholecystic inflammatory changes. PANCREAS: Unremarkable. SPLEEN: Unremarkable. ADRENAL GLANDS: Unremarkable. KIDNEYS AND URETERS: The kidneys are normal in size, shape, and attenuation. No hydronephrosis, hydroureter, or calculi seen. No perinephric stranding. BLADDER: Unremarkable. GASTROINTESTINAL TRACT: No dilated loops of large or small bowel evident. No free air or free fluid. No evidence of colitis. No evidence of acute appendicitis. ABDOMINAL WALL: No significant hernia is appreciated. LYMPH NODES: Normal. VASCULAR: Unremarkable. PELVIC VISCERA: No suspicious mass or free fluid. There is an approximately 2.3 cm right adnexal cyst. OSSEOUS STRUCTURES: No suspicious destructive bony lesion identified. CT/CT abdomen pelvis wo con IMPRESSION: No evidence of obstructive uropathy or nephrolithiasis. No evidence of ileus or obstruction.
[2020-12-20 12:57] VITALS: BP 140/82; PULSE 63; RESP 16; TEMP 36.7; O2SAT 98; BMI 41.1
[2020-12-20 14:45] LABS: Glucose Urine UA NEG (NEG); Leukocyte Esterase Urine 1+ (NEG); Nitrite Urine NEG (NEG); Specific Gravity - Urine 1.025 (1.005-1.025); Urine Blood TRACE (NEG); Urine Ketones NEG (NEG); Urine Protein NEG (NEG-TRACE)
[2020-12-20 14:47] LABS: Color Urine YELLOW
[2020-12-20 14:48] LABS: Appearance Urine HAZY
[2020-12-20 14:55] LABS: Bacteria Urine TRACE /LPF; Mucus Urine 2+ /LPF; Squamous Epithelial Cell Urine 2+ /LPF
[2020-12-20 15:43] VITALS: BP 147/71; PULSE 52; RESP 16; TEMP 36.6; O2SAT 99
[2020-12-20 15:56] VITALS: BP 147/71; PULSE 49; RESP 16; O2SAT 97
--- NOTE | 2020-12-20 15:57 | ED.FEMALEGU ---
HPI - Female Genitourinary General Chief complaint: Urogenital-Female Stated complaint: abd pain Time Seen by Provider: 12/20/20 15:44 Source: patient Mode of arrival: ambulatory Limitations: language barrier History of Present Illness HPI Narrative: 50 y/o female with history of anxiety, depression, obesity, EDWIGE, CAD, pernicious ancemia, kidney stones who presents to the ER with right sided low back pain and right sided pelvic pain since yesterday. She states the pain started right after she took her lasix yesterday. She noticed her urine was more orange in color. She was having a hard time fully emptying her bladder. She denies vaginal bleeding, discharge, fever, chills, N/V/D. The pain is constant but sometimes intensifies with movement. Pain feels similar to when she had a kidney stone in the past. MD elicited complaint: back pain and flank pain Onset (ago): day(s) (1) Location of symptoms: pelvis, low back and flank Severity: moderate Female Urogenital Radiation: R Flank Severity scale (1-10): 5 Quality of pain: sharp Consistency: constant Vaginal discharge: none Vaginal bleeding: none Urinary symptoms: Urgency and Flank Pain Exacerbating factors: movement and palpation Relieving factors: none Associated symptoms: abdominal pain Treatment prior to arrival: none Sexual activity: No Patient : No Related Data Home Medications Medication Instructions Recorded Confirmed albuterol sulfate 2.5 mg INHALATION DAILY 04/26/20 11/29/20 amlodipine 5 mg tablet 5 mg PO DAILY 04/26/20 11/29/20 aripiprazole 5 mg tablet 5 mg PO DAILY 04/26/20 11/29/20 bupropion HCl 150 mg 24 hr tablet, 150 mg PO DAILY 04/26/20 11/29/20 extended release calcium citrate 315 mg 1 tab PO DAILY 04/26/20 11/29/20 calcium-vitamin D3 6.25 mcg (250 unit) tablet clonazepam 1 mg tablet 1 mg PO BID PRN 04/26/20 11/29/20 omeprazole 20 mg capsule,delayed 20 mg PO DAILY 04/26/20 11/29/20 release ondansetron HCl 4 mg tablet 4 mg PO DAILY 04/26/20 11/29/20 zolpidem 10 mg tablet 10 mg PO BEDTIME PRN 04/26/20 11/29/20 albuterol sulfate 90 mcg/actuation 1 - 2 puff INHALATION Q4-6H PRN 07/24/20 11/29/20 aerosol inhaler beclomethasone dipropionate 40 1 inh INHALATION BID 07/24/20 11/29/20 mcg/actuation HFA breath activated aerosol acamprosate 333 mg tablet,delayed 666 mg PO TID 12/07/20 release losartan 100 mg tablet 100 mg PO DAILY 12/07/20 psyllium husk (with sugar) 3 PO 12/07/20 gram/7 gram oral powder Previous Rx's Medication Instructions Recorded losartan 50 mg tablet 100 mg PO DAILY 90 Days #180 tab 05/17/20 lidocaine 5 % topical patch 1 patch TOPICAL DAILY 30 Days #30 07/26/20 ea meclizine 25 mg tablet 25 mg PO TID PRN 7 Days #21 tab 09/19/20 potassium chloride 20 mEq 20 meq PO DAILY 30 Days #30 tab 10/10/20 tablet,extended release furosemide 80 mg tablet 80 mg PO DAILY #30 tab 10/13/20 levothyroxine 200 mcg tablet 200 mcg PO DAILY 90 Days #90 tab 10/26/20 psyllium husk 3.4 gram/5.4 gram 1 tbsp PO BID #660 g 11/28/20 oral powder hydrocodone-acetaminophen 1 tab PO BID PRN #5 tab 12/20/20 ibuprofen 600 mg PO Q8H PRN #10 tab 12/20/20 Allergies Allergy/AdvReac Type Severity Reaction Status Date / Time No Known Allergies Allergy Verified 12/20/20 13:02 [No Known Allergies*] Review of Systems Review of Systems: Constitutional: No Fever, No Chills ENT/Mouth: No sore throat, No Rhinorrhea, No Swallowing Difficulty Eyes: No Eye Pain, No Swelling, No Redness Cardiovascular: No Chest Pain, No SOB, No Orthopnea, No Edema Respiratory: No Cough, No Sputum, No Wheezing, No dyspnea Gastrointestinal: No Nausea, No Vomiting, No Diarrhea, + abdominal Pain, No Hematochezia, No Melena Genitourinary: No Dysuria, + Urinary Frequency, No Hematuria Musculoskeletal: No joint pain, No Myalgias Skin: No Skin Lesions, No rash Neuro: No Weakness, No Numbness, No Dizziness, No Headache Psych: No Anxiety/Panic, No Depression Heme/Lymph: No Bruising, No Lymphadenopathy Endocrine: No Polyuria, No Polydipsia [facility] Past Medical History Attestation statement: The following information was validated with the patient. Medical History Acquired hypothyroidism Anxiety Depression Dizziness Essential hypertension Hypothyroidism Insomnia Low back pain Low potassium syndrome Morbid obesity Right wrist pain Sleep apnea with use of continuous positive airway pressure (CPAP) Surgical History H/O endoscopy H/O: hysterectomy History of bladder surgery History of section History of colonoscopy History of thyroid surgery History of total abdominal hysterectomy Family History Family History Father Diabetes Mother Hypertension Maternal Uncle Colon cancer Maternal Aunt Breast cancer Paternal Aunt Breast cancer Family/Other FH: mental illness Social History Social History Alcohol intake: never Patient Tobacco Use Status: Tobacco use Unknown Years Smoked: 48 years Use of substances other than those prescribed or required for medical reasons: No Advance Directives: Yes Advance Directives Information Provided: No Advance Directives on File: No Patient : No Current occupational status: disabled Physical Exam Vital Signs: Vital Signs: Last Vital Signs Temp 98 F 12/20/20 15:43 Pulse 49 L 12/20/20 15:56 Resp 16 12/20/20 15:56 BP 147/71 H 12/20/20 15:56 Pulse Ox 97 12/20/20 15:56 Body Mass Index 41.1 Appearance: Alert. Oriented X3. No acute distress. Eyes: Pupils equal, round and reactive to light. ENT: Pharynx normal. Neck: Normal inspection. Neck supple. CVS: Normal heart rate and rhythm. Pulses normal. Respiratory: No respiratory distress. Breath sounds normal. Abdomen: Soft and nontender. +BS x4. No CVA tenderness. upper right lumbar area with mild soft tissue tenderness, no spasm. Skin: Skin warm and dry. Normal skin color. Normal skin turgor. No rashes. Extremities: No lower extremity edema. Neuro: Oriented X 3. No motor deficit. No sensory deficit. Course Course Course Narrative: 50 y/o female presenting with right sided flank pain radiating to her right pelvic area, +urinary frequency and urgency. No dysuria, fevers or vomiting. She appears well, no distress. Will get CT scan to assess for possible kidney stone. Lab and urine pending. Reevaluation(s) Reevaluation #1: CT scan showing 2.3 cm adenxal cyst, no obstructive uropathy or nephrollithiasis. No ileus or obstruction. Cyst is small, very unlikely to be causing any ovarian torsion. UA is negative and labs are unremarkable. Her pain is much improved after IV toradol. Will d/c home with pain control and f/u with COLLATERAL ANALYST and her PCP. Instructed to return to the ER if pain worsens or changes. MDM - Female Genitourinary Lab Data Result diagrams: 12/20/20 16:43 12/20/20 16:43 Labs: Lab Results 12/20/20 12/20/20 12/20/20 Range/Units 14:25 16:43 16:43 WBC 10.0 (4.8-10.8) X10*3/uL RBC 4.85 (4.20-5.50) X10*6/uL Hgb 14.2 (12.0-16.0) g/dl Hct 42.8 (37-47) % MCV 88.2 (80-98) fL MCH 29.3 (27.0-33.0) pg MCHC 33.2 (31.0-35.0) g/dl RDW 14.3 (11.0-16.0) % Plt Count 201 (160-400) X10*3/uL MPV 11.0 (9.4-12.3) fL Immature Gran % (Auto) 0.4 (0.0-0.4) % Neut % (Auto) 61.5 (45-73) % Lymph % (Auto) 29.6 (20-40) % [place] % (Auto) 4.9 (2-11) % Eos % (Auto) 3.2 (0-4) % Baso % (Auto) 0.4 (0-2) % Lymph # (Auto) 3.0 (1.2-4.9) X10*3/uL [place] # (Auto) 0.5 (0.1-1.2) X10*3/uL Eos # (Auto) 0.3 (0.0-0.4) X10*3/uL Baso # (Auto) 0.0 (0.0-0.2) X10*3/uL Abs Immat Gran (auto) 0.04 H (0.00-0.03) X10*3/uL Absolute Neuts (auto) 6.2 (2.0-8.3) X10*3/uL Absolute Nucleated RBC 0.000 (0.0-0.012) X10*3/uL Nucleated RBC % (auto) 0.0 (0.0-0.2) /100WBC Sodium 138 (135-145) mmol/L Potassium 4.1 (3.3-5.1) mmol/L Chloride 101 (96-108) mmol/L Carbon Dioxide 28 (22-29) mmol/L Anion Gap 13 (12-20) BUN 9 (9-16) mg/dL Creatinine 0.75 (0.5-1.4) mg/dL Estim Creat Clear Calc 110.6 Estimated GFR > 60 Random Glucose 101 (60-115) mg/dL Calcium 9.0 (8.4-10.2) mg/dL Magnesium 1.8 (1.6-2.6) mg/dL Total Bilirubin 0.6 (0.0-1.0) mg/dL Direct Bilirubin 0.2 (0.0-0.5) mg/dL AST 21 (5-31) U/L ALT 23 (0-31) U/L Alkaline Phosphatase 94 D (39-117) U/L Total Protein 7.3 (6.5-8.0) g/dL Albumin 4.3 (3.5-5.0) g/dL Urine Color YELLOW Urine Appearance HAZY Urine pH 6.0 (5.0-8.0) Ur Specific [place] 1.025 (1.005-1.025) Urine Protein NEG (NEG-TRACE) MG/DL Urine Glucose (UA) NEG (NEG) MG/DL Urine Ketones NEG (NEG) MG/DL Urine Blood TRACE (NEG) Urine Nitrite NEG (NEG) Ur Leukocyte Esterase 1+ H (NEG) Urine RBC 1-4 (0) /HPF Urine WBC 15-29 H (0-4) /HPF Ur Squamous Epith Cells 2+ /LPF Urine Bacteria TRACE /LPF Urine Mucus 2+ /LPF Discharge Plan Discharge Clinical Impression: Ovarian cyst Qualifiers: Laterality: right Qualified Code(s): N83.201 - Unspecified ovarian cyst, right side Patient Disposition: Home, Self-Care Instructions: Ovarian Cyst (ED) Additional Instructions: Your urine test was normal. Your blood work was normal. Your CT scan showed a small 2.3 cm ovarian cyst on the right side which is most likely causing your pain. Take the prescribed medications as needed for pain. Follow up with your COLLATERAL ANALYST and Primary Care Doctor. If you have worsening pain come back to the ER for further evaluation. Prescriptions: New hydrocodone-acetaminophen 5-325 mg tablet 1 tab PO BID PRN (Reason: pain) Qty: 5 RF: 0 ibuprofen 600 mg tablet 600 mg PO Q8H PRN (Reason: pain) Qty: 10 RF: 0 No Action lidocaine 5 % adhesive patch,medicated 1 patch topical DAILY 30 Days Qty: 30 RF: 3 potassium chloride 20 mEq tablet extended release 20 meq PO DAILY 30 Days Qty: 30 RF: 0 furosemide 80 mg tablet 80 mg PO DAILY Qty: 30 RF: 5 levothyroxine 200 mcg tablet 200 mcg PO DAILY 90 Days Qty: 90 RF: 1 meclizine 25 mg tablet 25 mg PO TID PRN (Reason: dizziness) 7 Days Qty: 21 RF: 0 albuterol sulfate 90 mcg/actuation HFA aerosol inhaler 1 - 2 puff inhalation Q4-6H PRN (Reason: dyspnea) RF: 0 Qvar RediHaler 40 mcg/actuation HFA aerosol breath activated 1 inh inhalation BID RF: 0 losartan 50 mg tablet 100 mg PO DAILY 90 Days Qty: 180 RF: 3 bupropion HCl 150 mg tablet extended release 24 hr 150 mg PO DAILY RF: 0 zolpidem 10 mg tablet 10 mg PO BEDTIME PRN (Reason: Insomnia) RF: 0 clonazepam 1 mg tablet 1 mg PO BID PRN (Reason: Anxiety) RF: 0 amlodipine 5 mg tablet 5 mg PO DAILY RF: 0 calcium citrate-vitamin D3 315 mg-6.25 mcg (250 unit) tablet 1 tab PO DAILY RF: 0 albuterol sulfate 2.5 mg /3 mL (0.083 %) solution for nebulization 2.5 mg inhalation DAILY RF: 0 omeprazole 20 mg capsule,delayed release(DR/EC) 20 mg PO DAILY RF: 0 aripiprazole 5 mg tablet 5 mg PO DAILY RF: 0 ondansetron HCl 4 mg tablet 4 mg PO DAILY RF: 0 Metamucil 3.4 gram/5.4 gram powder 1 tbsp PO BID Qty: 660 RF: 2 Interventions: ED Discharge Assessment Last Done: 12/20/20 18:06 Discharge Date/Time: 12/20/20 18:07
[2020-12-20] MEDS: 0.9 % Sodium Chloride 1,000 ML 999 ML IVCONT (16:45)
[2020-12-20 16:47] LABS: MANUAL DIFF FLAG NO
[2020-12-20 16:48] LABS: Basophils Percent Auto 0.4 % (0-2); Eosinophils Absolute Auto 0.3 X10*3/uL (0.0-0.4); Eosinophils Percent Auto 3.2 % (0-4); Hematocrit 42.8 % (37-47); Hemoglobin 14.2 g/dl (12.0-16.0); Imm Gran Abs Auto 0.04 X10*3/uL (0.00-0.03); Imm Gran Pct Auto 0.4 % (0.0-0.4); Lymphocytes Percent Auto 29.6 % (20-40); Mean Corpuscular HGB Conc 33.2 g/dl (31.0-35.0); Mean Corpuscular Hemoglobin 29.3 pg (27.0-33.0); Mean Corpuscular Volume 88.2 fL (80-98); Monocytes Absolute Auto 0.5 X10*3/uL (0.1-1.2); Monocytes Percent Auto 4.9 % (2-11); Neutrophils Absolute Auto 6.2 X10*3/uL (2.0-8.3); Neutrophils Percent Auto 61.5 % (45-73); Platelet Count 201 X10*3/uL (160-400); Red Blood Count 4.85 X10*6/uL (4.20-5.50); Red Cell Distribution Width 14.3 % (11.0-16.0)
[2020-12-20 17:24] LABS: Alanine Aminotransferase 23 U/L (0-31); Albumin Level 4.3 g/dL (3.5-5.0); Alkaline Phosphatase 94 U/L (39-117); Anion Gap 13 (12-20); Aspartate Amino Transferase 21 U/L (5-31); Bilirubin Direct 0.2 mg/dL (0.0-0.5); Bilirubin Total 0.6 mg/dL (0.0-1.0); Blood Urea Nitrogen 9 mg/dL (9-16); Carbon Dioxide 28 mmol/L (22-29); Chloride 101 mmol/L (96-108); Creatinine Clr Calc Pharmacy 110.6; Estimated Glomerular Filt Rate > 60; Glucose Random 101 mg/dL (60-115); Magnesium 1.8 mg/dL (1.6-2.6); Potassium 4.1 mmol/L (3.3-5.1); Sodium 138 mmol/L (135-145); Total Protein 7.3 g/dL (6.5-8.0)
== END 2020-12-20 18:07 | disposition home or self-care (01) ==
PROVIDERS: Physician Assistant; Emergency Provider Emergency Medicine; PCP Internal Medicine
DX: N83.201 Unspecified ovarian cyst, right side (principal); R10.2 Pelvic and perineal pain; I10 Essential (primary) hypertension; K76.0 Fatty (change of) liver, not elsewhere classified; E66.01 Morbid (severe) obesity due to excess calories; F17.210 Nicotine dependence, cigarettes, uncomplicated; Z79.899 Other long term (current) drug therapy
CPT/HCPCS: 36415; 74176; 80048; 80076; 81001; 83735; 85025; 96360; 99284

== ENCOUNTER 2021-01-11 09:37 | Outpatient (REF) | payer OTHER, SELFPAY ==
[2021-01-11 10:02] LABS: MANUAL DIFF FLAG NO
[2021-01-11 10:23] LABS: Basophils Absolute Auto 0.1 X10*3/uL (0.0-0.2); Basophils Percent Auto 0.5 % (0-2); Eosinophils Absolute Auto 0.2 X10*3/uL (0.0-0.4); Eosinophils Percent Auto 1.9 % (0-4); Hemoglobin 14.2 g/dl (12.0-16.0); Imm Gran Abs Auto 0.04 X10*3/uL (0.00-0.03); Imm Gran Pct Auto 0.4 % (0.0-0.4); Lymphocytes Absolute Auto 3.3 X10*3/uL (1.2-4.9); Lymphocytes Percent Auto 35.4 % (20-40); Mean Corpuscular Hemoglobin 29.1 pg (27.0-33.0); Mean Corpuscular Volume 88.1 fL (80-98); Mean Platelet Volume 11.4 fL (9.4-12.3); Monocytes Absolute Auto 0.4 X10*3/uL (0.1-1.2); Monocytes Percent Auto 4.7 % (2-11); Neutrophils Absolute Auto 5.3 X10*3/uL (2.0-8.3); Neutrophils Percent Auto 57.1 % (45-73); Platelet Count 221 X10*3/uL (160-400); Red Blood Count 4.88 X10*6/uL (4.20-5.50); Red Cell Distribution Width 14.4 % (11.0-16.0); White Blood Count 9.3 X10*3/uL (4.8-10.8)
[2021-01-11 10:52] LABS: Alanine Aminotransferase 20 U/L (0-31); Albumin Level 4.4 g/dL (3.5-5.0); Alkaline Phosphatase 89 U/L (39-117); Anion Gap 14 (12-20); Aspartate Amino Transferase 19 U/L (5-31); Bilirubin Total 0.6 mg/dL (0.0-1.0); Blood Urea Nitrogen 13 mg/dL (9-16); Calcium 8.8 mg/dL (8.4-10.2); Carbon Dioxide 29 mmol/L (22-29); Chloride 101 mmol/L (96-108); Cholesterol 193 mg/dL; Estimated Glomerular Filt Rate > 60; Glucose Fasting 133 mg/dL (60-99); HDL Cholesterol 43 mg/dL; LDL Cholesterol Calculated 120 mg/dl; Potassium 4.3 mmol/L (3.3-5.1); Sodium 140 mmol/L (135-145); Total Protein 7.5 g/dL (6.5-8.0); Triglycerides 154 mg/dL
[2021-01-11 11:11] LABS: TSH reflex Free T4 14.38 uIU/mL (0.32-4.0)
[2021-01-11 11:26] LABS: Thyroid Stimulating Hormone 15.41 uIU/mL (0.32-4.0)
[2021-01-11 11:36] LABS: Folate 13.7 ng/mL (> or = 4.0); Vitamin B12 163 pg/mL (200-900)
[2021-01-11 11:44] LABS: Free T4 (Free Thyroxine) 0.76 ng/dL (0.71-1.85)
== END 2021-01-11 09:38 | disposition home or self-care (01) ==
LOC: HO.LAB 09:37
PROVIDERS: PCP Internal Medicine; Visit Provider Internal Medicine
DX: E03.9 Hypothyroidism, unspecified (principal); I25.10 Atherosclerotic heart disease of native coronary artery without angina pectoris; D51.0 Vitamin B12 deficiency anemia due to intrinsic factor deficiency; D64.9 Anemia, unspecified; E78.5 Hyperlipidemia, unspecified
CPT/HCPCS: 36415; 80053; 80061; 82607; 82746; 84439; 84443; 85025

== ENCOUNTER 2021-01-30 13:06 | Emergency (ER) | payer OTHER, SELFPAY ==
--- NOTE | ~2021-01-30 | CT_ITS ---
EXAMINATION: CT HEAD WITHOUT CONTRAST CLINICAL INFORMATION: Headache COMPARISON: Head CT October 28, 2018 TECHNIQUE: Contiguous axial imaging was performed from the skull base to vertex without intravenous administration of contrast. This CT examination was performed using dose optimization techniques as appropriate, variously including the following: *Automated exposure control *Adjustment of mA and/or kV according to patient size (this includes techniques or standardized protocols for targeted exams where dose is matched to indication/reason for exam; i.e. extremities or head) *Use of iterative reconstruction technique DLP: 705 mGy-cm FINDINGS: There is no evidence of acute intracranial hemorrhage or territorial infarction. No abnormal mass effect or midline shift is seen. Banda to white matter differentiation is well preserved. No extra-axial fluid collections are identified. The ventricles are normal in size. There is no abnormal attenuation within the brain parenchyma. The osseous structures and soft tissues are normal. The mastoid air cells and visualized portions of the paranasal sinuses are well aerated. CT/CT head/brain wo con IMPRESSION: No acute intracranial pathology.
[2021-01-30 13:50] VITALS: BP 159/97; PULSE 62; RESP 18; TEMP 36.8; O2SAT 99; BMI 40.8
[2021-01-30 16:51] LABS: MANUAL DIFF FLAG NO
[2021-01-30 16:53] LABS: Basophils Absolute Auto 0.1 X10*3/uL (0.0-0.2); Basophils Percent Auto 0.4 % (0-2); Eosinophils Absolute Auto 0.3 X10*3/uL (0.0-0.4); Eosinophils Percent Auto 2.3 % (0-4); Hematocrit 46.1 % (37-47); Hemoglobin 15.5 g/dl (12.0-16.0); Imm Gran Abs Auto 0.05 X10*3/uL (0.00-0.03); Imm Gran Pct Auto 0.4 % (0.0-0.4); Lymphocytes Absolute Auto 3.7 X10*3/uL (1.2-4.9); Lymphocytes Percent Auto 30.9 % (20-40); Mean Corpuscular HGB Conc 33.6 g/dl (31.0-35.0); Mean Corpuscular Hemoglobin 29.5 pg (27.0-33.0); Mean Corpuscular Volume 87.8 fL (80-98); Mean Platelet Volume 10.9 fL (9.4-12.3); Monocytes Absolute Auto 0.5 X10*3/uL (0.1-1.2); Neutrophils Absolute Auto 7.3 X10*3/uL (2.0-8.3); Platelet Count 224 X10*3/uL (160-400); Red Blood Count 5.25 X10*6/uL (4.20-5.50); Red Cell Distribution Width 14.9 % (11.0-16.0); White Blood Count 11.8 X10*3/uL (4.8-10.8)
[2021-01-30 17:24] LABS: Anion Gap 18 (12-20); Blood Urea Nitrogen 10 mg/dL (9-16); Calcium 9.3 mg/dL (8.4-10.2); Carbon Dioxide 26 mmol/L (22-29); Chloride 101 mmol/L (96-108); Creatinine Clr Calc Pharmacy 92.7; Estimated Glomerular Filt Rate > 60; Glucose Random 147 mg/dL (60-115); Potassium 3.6 mmol/L (3.3-5.1); Sodium 141 mmol/L (135-145)
--- NOTE | 2021-01-30 18:08 | ED_ITS ---
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 Patient had history of migraine, last time she had headache was many years ago. No family history of cerebral aneurysm or intracranial bleed. Related Data Home Medications Medication Instructions Recorded Confirmed albuterol sulfate 2.5 mg INHALATION DAILY 04/26/20 01/11/21 aripiprazole 5 mg tablet 5 mg PO DAILY 04/26/20 01/11/21 bupropion HCl 150 mg 24 hr tablet, 150 mg PO DAILY 04/26/20 01/11/21 extended release calcium citrate 315 mg 1 tab PO DAILY 04/26/20 01/11/21 calcium-vitamin D3 6.25 mcg (250 unit) tablet clonazepam 1 mg tablet 1 mg PO BID PRN 04/26/20 01/11/21 ondansetron HCl 4 mg tablet 4 mg PO DAILY 04/26/20 01/11/21 albuterol sulfate 90 mcg/actuation 1 - 2 puff INHALATION Q4-6H PRN 07/24/20 01/11/21 aerosol inhaler beclomethasone dipropionate 40 1 inh INHALATION BID 07/24/20 01/11/21 mcg/actuation HFA breath activated aerosol acamprosate 333 mg tablet,delayed 666 mg PO TID 12/07/20 01/11/21 release losartan 100 mg tablet 100 mg PO DAILY 12/07/20 01/11/21 psyllium husk (with sugar) 3 PO 12/07/20 01/11/21 gram/7 gram oral powder zaleplon 10 mg capsule 10 mg PO BEDTIME PRN 01/11/21 01/11/21 Previous Rx's Medication Instructions Recorded lidocaine 5 % topical patch 1 patch TOPICAL DAILY 30 Days #30 07/26/20 ea meclizine 25 mg tablet 25 mg PO TID PRN 7 Days #21 tab 09/19/20 potassium chloride 20 mEq 20 meq PO DAILY 30 Days #30 tab 10/10/20 tablet,extended release furosemide 80 mg tablet 80 mg PO DAILY #30 tab 10/13/20 levothyroxine 200 mcg tablet 200 mcg PO DAILY 90 Days #90 tab 10/26/20 psyllium husk 3.4 gram/5.4 gram 1 tbsp PO BID #660 g 11/28/20 oral powder ibuprofen 600 mg PO Q8H PRN #10 tab 12/20/20 omeprazole 20 mg capsule,delayed 20 mg PO DAILY 90 Days #90 cap 12/26/20 release amlodipine 5 mg tablet 5 mg PO DAILY #90 tab 01/18/21 Allergies Allergy/AdvReac Type Severity Reaction Status Date / Time zolpidem AdvReac Intermediate nightmares Verified 01/11/21 09:20 Review of Systems Review of Systems: All other systems are reviewed and are negative Constitutional: Reports as per HPI and Reports no additional constitutional complaints Eyes: Reports as per HPI and Reports no additional eye complaints Reports system reviewed and no additional complaints, except as documented Cardiovascular: Reports as per HPI and Reports no additional cardiovascular complaints Respiratory: Reports as per HPI and Reports no additional respiratory complaints Gastrointestinal: Reports as per HPI and Reports no additional gastrointestinal complaints Genitourinary: Reports no additional female genitourinary complaints Musculoskeletal: Reports no additional musculoskeletal complaints Skin/Breast: Reports system reviewed and no additional complaints, except as docu Psychiatric: Reports no additional psychiatric complaints Endocrine: Reports no additional endocrine complaints Hematologic/Lymphatic: Reports no additional hematologic/lymphatic complaints Allergic/Immunologic: Reports no additional allergic/immunologic complaints Reports system reviewed and no additional complaints, except as documented and Reports Abnormal speech present [facility] Past Medical History Medical History Acquired hypothyroidism Anxiety Depression Dizziness Essential hypertension Hypothyroidism Insomnia Left foot pain Low back pain Low potassium syndrome Morbid obesity Right wrist pain Sleep apnea with use of continuous positive airway pressure (CPAP) Surgical History H/O endoscopy H/O: hysterectomy History of bladder surgery History of section History of colonoscopy History of thyroid surgery History of total abdominal hysterectomy Family History Family History Father Diabetes Mother Hypertension Maternal Uncle Colon cancer Maternal Aunt Breast cancer Paternal Aunt Breast cancer Family/Other FH: mental illness Substance use disorder Social History Social History Housing: Apartment Alcohol intake: current Alcohol intake frequency: a few times a week Alcohol type: beer Patient Tobacco Use Status: Current everyday Tobacco user Tobacco use type: Cigarette Cigarettes Per Day: 3 Years Smoked: 30 years Advance Directives: No Advance Directives Information Provided: Yes Patient : No service: No Current occupational status: disabled Physical Exam 2 Vital Signs: Vital Signs: Last Vital Signs Temp 98.3 F 01/30/21 13:50 Pulse 62 01/30/21 13:50 Resp 18 01/30/21 13:50 BP 159/97 H 01/30/21 13:50 Pulse Ox 99 01/30/21 13:50 Body Mass Index 40.8 Vital signs have been reviewed as appeared to be correct. Blood pressure elevated. Heart rate normal. Respiration rate normal. Temperature normal. Oxygen saturation normal. Appearance: Alert. Oriented X3. No acute distress. Head: Normal external exam. Normocephalic. Atraumatic. No [place] signs noted. No raccoon eyes noted Eyes: PERRLA. EOMI. Conjunctiva and sclera normal. Eyelids normal. ENT: TM's Normal. Pharynx normal. Uvula midline. Moist mucous membranes. No trismus noted. No drooling noted. No muffled voice noted. Neck: Normal inspection. Neck supple. FROM. No adenopathy. Thyroid Normal. No meningeal signs. No neck mass noted. CVS: Normal heart rate and rhythm. Heart sound normal. No murmurs noted. Pulses normal throughout. Respiratory: No respiratory distress. Painless inspiration. Breath sounds normal. No wheezes/rales/rhonchi noted. Chest nontender. No accessory muscle usage noted or decreased air movement noted. Abdomen: Soft and nontender. Bowel sounds normal in all 4 quadrants. No distention noted. No organomegaly noted. No visible injury noted. Back: No CVA tenderness. Full range of motion noted. Skin: Skin warm and dry. Normal skin color. Normal skin turgor. No rashes/lesions/lacerations noted. Extremities: No lower extremity edema. Extremities exhibit normal range of motion. Extremities nontender. Neuro: Oriented X 3. No motor deficit. No sensory deficit. Reflexes normal. NIH Stroke Scale Level of Consciousness: Alert Level of Consciousness Questions: Answers both questions correctly Level of Consciousness Commands: Performs both tasks correctly Best Gaze: Normal Visual: No visual loss Facial Palsy: Normal Motor Arm (Right): No drift Motor Arm (Left): No drift Motor Leg (Right): No drift Motor Leg (Left): No drift Limb Ataxia: Absent Sensory: Normal Best Language: No aphasia Dysarthia: Normal Extinction and Inattention: No abnormality Score: 0 Course Course Course Narrative: Assessment and plan. 50-year-old female came in with headache, patient with history of migraine, normal neuro exam, CT head is unremarkable. Reassured, Tylenol, follow-up with PCP. MDM - Headache Lab Data Attestation: I reviewed the patient's lab results. Result diagrams: 01/30/21 16:46 01/30/21 16:46 Labs: Lab Results 01/30/21 01/30/21 Range/Units 16:46 16:46 WBC 11.8 H (4.8-10.8) X10*3/uL RBC 5.25 (4.20-5.50) X10*6/uL Hgb 15.5 (12.0-16.0) g/dl Hct 46.1 (37-47) % MCV 87.8 (80-98) fL MCH 29.5 (27.0-33.0) pg MCHC 33.6 (31.0-35.0) g/dl RDW 14.9 (11.0-16.0) % Plt Count 224 (160-400) X10*3/uL MPV 10.9 (9.4-12.3) fL Immature Gran % (Auto) 0.4 (0.0-0.4) % Neut % (Auto) 62.0 (45-73) % Lymph % (Auto) 30.9 (20-40) % [facility] % (Auto) 4.0 (2-11) % Eos % (Auto) 2.3 (0-4) % Baso % (Auto) 0.4 (0-2) % Lymph # (Auto) 3.7 (1.2-4.9) X10*3/uL [facility] # (Auto) 0.5 (0.1-1.2) X10*3/uL Eos # (Auto) 0.3 (0.0-0.4) X10*3/uL Baso # (Auto) 0.1 (0.0-0.2) X10*3/uL Abs Immat Gran (auto) 0.05 H (0.00-0.03) X10*3/uL Absolute Neuts (auto) 7.3 (2.0-8.3) X10*3/uL Absolute Nucleated RBC 0.000 (0.0-0.012) X10*3/uL Nucleated RBC % (auto) 0.0 (0.0-0.2) /100WBC Sodium 141 (135-145) mmol/L Potassium 3.6 (3.3-5.1) mmol/L Chloride 101 (96-108) mmol/L Carbon Dioxide 26 (22-29) mmol/L Anion Gap 18 (12-20) BUN 10 (9-16) mg/dL Creatinine 0.89 (0.5-1.4) mg/dL Estim Creat Clear Calc 92.7 Estimated GFR > 60 Random Glucose 147 H D (60-115) mg/dL Calcium 9.3 (8.4-10.2) mg/dL Imaging Data CT scan - head: Radiologist's impression: No acute intracranial pathology. Discharge Plan Discharge Clinical Impression: Headache Patient Disposition: Home, Self-Care Instructions: Acute Headache (ED) Prescriptions: No Action lidocaine 5 % adhesive patch,medicated 1 patch topical DAILY 30 Days Qty: 30 RF: 3 potassium chloride 20 mEq tablet extended release 20 meq PO DAILY 30 Days Qty: 30 RF: 0 furosemide 80 mg tablet 80 mg PO DAILY Qty: 30 RF: 5 levothyroxine 200 mcg tablet 200 mcg PO DAILY 90 Days Qty: 90 RF: 1 amlodipine 5 mg tablet 5 mg PO DAILY Qty: 90 RF: 2 ibuprofen 600 mg tablet 600 mg PO Q8H PRN (Reason: pain) Qty: 10 RF: 0 meclizine 25 mg tablet 25 mg PO TID PRN (Reason: dizziness) 7 Days Qty: 21 RF: 0 omeprazole 20 mg capsule,delayed release(DR/EC) 20 mg PO DAILY 90 Days Qty: 90 RF: 3 albuterol sulfate 90 mcg/actuation HFA aerosol inhaler 1 - 2 puff inhalation Q4-6H PRN (Reason: dyspnea) RF: 0 Qvar RediHaler 40 mcg/actuation HFA aerosol breath activated 1 inh inhalation BID RF: 0 zaleplon 10 mg capsule 10 mg PO BEDTIME PRNRF: 0 bupropion HCl 150 mg tablet extended release 24 hr 150 mg PO DAILY RF: 0 clonazepam 1 mg tablet 1 mg PO BID PRN (Reason: Anxiety) RF: 0 calcium citrate-vitamin D3 315 mg-6.25 mcg (250 unit) tablet 1 tab PO DAILY RF: 0 albuterol sulfate 2.5 mg /3 mL (0.083 %) solution for nebulization 2.5 mg inhalation DAILY RF: 0 aripiprazole 5 mg tablet 5 mg PO DAILY RF: 0 ondansetron HCl 4 mg tablet 4 mg PO DAILY RF: 0 Reguloid (psyllium husk-sucro) 3 gram/7 gram powder PO RF: 0 acamprosate 333 mg tablet,delayed release (DR/EC) 666 mg PO TID RF: 0 losartan 100 mg tablet 100 mg PO DAILY RF: 0 Metamucil 3.4 gram/5.4 gram powder 1 tbsp PO BID Qty: 660 RF: 2 Referrals: Nelson Payne MD [Primary Care Provider] - 2 days
[2021-01-30] MEDS: Acetaminophen 325 MG TABLET PO (19:13)
[2021-01-30 19:14] VITALS: BP 139/74; PULSE 70; RESP 16
== END 2021-01-30 19:39 | disposition home or self-care (01) ==
PROVIDERS: Nurse Practitioner Family; Emergency Provider Emergency Medicine; PCP Internal Medicine
DX: R51.9 Headache, unspecified (principal); I10 Essential (primary) hypertension; F17.210 Nicotine dependence, cigarettes, uncomplicated
CPT/HCPCS: 36415; 70450; 80048; 85025; 99284

== ENCOUNTER 2021-02-14 11:17 | Emergency (ER) | payer OTHER, SELFPAY ==
[2021-02-14 11:31] VITALS: BP 133/84; PULSE 73; RESP 19; TEMP 36.7; O2SAT 98; BMI 40.8
[2021-02-14 12:49] LABS: Strep A Nucleic Acid Negative (Negative)
[2021-02-14 12:49] LABS: COVID-19 Test Negative (Negative); IDNOW Serial# 08D9AD1C
--- NOTE | 2021-02-14 13:08 | ED.GENADULT ---
HPI - General Adult General Chief complaint: General Medical Stated complaint: SORE THROAT Time Seen by Provider: 02/14/21 12:00 History of Present Illness HPI narrative: Patient complains of sore throat, ear pain and mild headache for 3 days as well as some fatigue and body aches She has no difficulty breathing or swallowing although it does hurt to swallow, she has no cough no shortness of breath no chest pain Related Data Home Medications Medication Instructions Recorded Confirmed albuterol sulfate 2.5 mg INHALATION DAILY 04/26/20 01/11/21 aripiprazole 5 mg tablet 5 mg PO DAILY 04/26/20 01/11/21 bupropion HCl 150 mg 24 hr tablet, 150 mg PO DAILY 04/26/20 01/11/21 extended release calcium citrate 315 mg 1 tab PO DAILY 04/26/20 01/11/21 calcium-vitamin D3 6.25 mcg (250 unit) tablet clonazepam 1 mg tablet 1 mg PO BID PRN 04/26/20 01/11/21 ondansetron HCl 4 mg tablet 4 mg PO DAILY 04/26/20 01/11/21 albuterol sulfate 90 mcg/actuation 1 - 2 puff INHALATION Q4-6H PRN 07/24/20 01/11/21 aerosol inhaler beclomethasone dipropionate 40 1 inh INHALATION BID 07/24/20 01/11/21 mcg/actuation HFA breath activated aerosol (Qvar RediHaler) acamprosate 333 mg tablet,delayed 666 mg PO TID 12/07/20 01/11/21 release losartan 100 mg tablet 100 mg PO DAILY 12/07/20 01/11/21 psyllium husk (with sugar) 3 PO 12/07/20 01/11/21 gram/7 gram oral powder zaleplon 10 mg capsule 10 mg PO BEDTIME PRN 01/11/21 01/11/21 Previous Rx's Medication Instructions Recorded lidocaine 5 % topical patch 1 patch TOPICAL DAILY 30 Days #30 07/26/20 ea meclizine 25 mg tablet 25 mg PO TID PRN 7 Days #21 tab 09/19/20 potassium chloride 20 mEq 20 meq PO DAILY 30 Days #30 tab 10/10/20 tablet,extended release furosemide 80 mg tablet 80 mg PO DAILY #30 tab 10/13/20 levothyroxine 200 mcg tablet 200 mcg PO DAILY 90 Days #90 tab 10/26/20 psyllium husk 3.4 gram/5.4 gram 1 tbsp PO BID #660 g 11/28/20 oral powder (Metamucil) ibuprofen 600 mg tablet 600 mg PO Q8H PRN #10 tab 12/20/20 omeprazole 20 mg capsule,delayed 20 mg PO DAILY 90 Days #90 cap 12/26/20 release amlodipine 5 mg tablet 5 mg PO DAILY #90 tab 01/18/21 ibuprofen 600 mg tablet 600 mg PO Q6H PRN #20 tab 02/14/21 loratadine 10 mg tablet 10 mg PO DAILY PRN #7 tab 02/14/21 (Allerclear) Allergies Allergy/AdvReac Type Severity Reaction Status Date / Time zolpidem AdvReac Intermediate nightmares Verified 02/14/21 11:31 Review of Systems Review of Systems: Positive for sore throat earache and headache Negatives are no fever no chills no dizziness no weakness no fainting no feeling faint, no abrupt onset headache no vision changes no nausea or vomiting no stiff neck no difficulty breathing or swallowing no cough no sputum no chest pain no abdominal pain no nausea no vomiting no rash Yes all other systems are reviewed and are negative PMFSH Past Medical History Source: nursing notes reviewed Medical History Acquired hypothyroidism Anxiety Depression Dizziness Essential hypertension Hypothyroidism Insomnia Left foot pain Low back pain Low potassium syndrome Morbid obesity Right wrist pain Sleep apnea with use of continuous positive airway pressure (CPAP) Surgical History H/O endoscopy H/O: hysterectomy History of bladder surgery History of section History of colonoscopy History of thyroid surgery History of total abdominal hysterectomy Family History Family History Father Diabetes Mother Hypertension Maternal Uncle Colon cancer Maternal Aunt Breast cancer Paternal Aunt Breast cancer Family/Other FH: mental illness Substance use disorder Social History Social History Housing: Apartment Alcohol intake: current Alcohol intake frequency: a few times a week Alcohol type: beer Patient Tobacco Use Status: Current everyday Tobacco user Tobacco use type: Cigarette Cigarettes Per Day: 3 Years Smoked: 30 years service: No Current occupational status: disabled Physical Exam Vital Signs: Vital Signs: Last Vital Signs Temp 98.0 F 02/14/21 11:31 Pulse 73 02/14/21 11:31 Resp 19 02/14/21 11:31 BP 133/84 02/14/21 11:31 Pulse Ox 98 02/14/21 11:31 Body Mass Index 40.8 General appearance is no distress The ear exam both ears have intact normal looking tympanic membranes with no redness no perforation no cloudiness, both canals are patent without swelling or redness of the canal, movement of the ear does not produce any discomfort Sinuses are nontender Pharynx has some mild pharyngeal erythema but no redness swelling or exudate, voice is normal no drooling The neck is supple The chest is clear There are full symmetric equal breath sounds no adventitious sounds Heart no murmur Abdomen soft nontender Skin no rash Course Course Course Narrative: Well-appearing patient with negative strep test and negative COVID test is given a prednisone to help reduce inflammation in the throat and is discharged Medical Decision Making Lab Data Labs: Lab Results 02/14/21 02/14/21 Range/Units 12:06 12:07 COVID-19 (EVELYN) Negative (Negative) COVID-19 Clin Com See Note S. pyogenes GrpA LUIZ Negative (Negative) Discharge Plan Discharge Clinical Impression: Acute viral pharyngitis Patient Disposition: Home, Self-Care Additional Instructions: Testing for COVID and strep throat were negative Her exam was very reassuring her vital signs are normal and your exam was normal No sign of any dangerous condition Drink plenty of fluids, Tylenol or Motrin as needed Return any time any worse condition or any concerns Prescriptions: New ibuprofen 600 mg tablet 600 mg PO Q6H PRN (Reason: fever or pain) Qty: 20 RF: 0 loratadine [Allerclear] 10 mg tablet 10 mg PO DAILY PRN (Reason: itching) Qty: 7 RF: 0 No Action lidocaine 5 % adhesive patch,medicated 1 patch topical DAILY 30 Days Qty: 30 RF: 3 potassium chloride 20 mEq tablet extended release 20 meq PO DAILY 30 Days Qty: 30 RF: 0 furosemide 80 mg tablet 80 mg PO DAILY Qty: 30 RF: 5 levothyroxine 200 mcg tablet 200 mcg PO DAILY 90 Days Qty: 90 RF: 1 amlodipine 5 mg tablet 5 mg PO DAILY Qty: 90 RF: 2 ibuprofen 600 mg tablet 600 mg PO Q8H PRN (Reason: pain) Qty: 10 RF: 0 meclizine 25 mg tablet 25 mg PO TID PRN (Reason: dizziness) 7 Days Qty: 21 RF: 0 omeprazole 20 mg capsule,delayed release(DR/EC) 20 mg PO DAILY 90 Days Qty: 90 RF: 3 albuterol sulfate 90 mcg/actuation HFA aerosol inhaler 1 - 2 puff inhalation Q4-6H PRN (Reason: dyspnea) RF: 0 Qvar RediHaler 40 mcg/actuation HFA aerosol breath activated 1 inh inhalation BID RF: 0 zaleplon 10 mg capsule 10 mg PO BEDTIME PRNRF: 0 bupropion HCl 150 mg tablet extended release 24 hr 150 mg PO DAILY RF: 0 clonazepam 1 mg tablet 1 mg PO BID PRN (Reason: Anxiety) RF: 0 calcium citrate-vitamin D3 315 mg-6.25 mcg (250 unit) tablet 1 tab PO DAILY RF: 0 albuterol sulfate 2.5 mg /3 mL (0.083 %) solution for nebulization 2.5 mg inhalation DAILY RF: 0 aripiprazole 5 mg tablet 5 mg PO DAILY RF: 0 ondansetron HCl 4 mg tablet 4 mg PO DAILY RF: 0 Reguloid (psyllium husk-sucro) 3 gram/7 gram powder PO RF: 0 acamprosate 333 mg tablet,delayed release (DR/EC) 666 mg PO TID RF: 0 losartan 100 mg tablet 100 mg PO DAILY RF: 0 Metamucil 3.4 gram/5.4 gram powder 1 tbsp PO BID Qty: 660 RF: 2 Interventions: ED Discharge Assessment Last Done: 02/14/21 13:20 Discharge Date/Time: 02/14/21 13:21
[2021-02-14] MEDS: predniSONE 20 MG TABLET 60 MG PO (13:15)
[2021-02-14] MEDS: Ibuprofen 600 MG TABLET PO (13:15)
== END 2021-02-14 13:21 | disposition home or self-care (01) ==
PROVIDERS: Physician Assistant Medical; Emergency Provider Emergency Medicine; PCP Internal Medicine
DX: J02.8 Acute pharyngitis due to other specified organisms (principal); Z20.822 Contact with and (suspected) exposure to COVID-19; R51.9 Headache, unspecified; I10 Essential (primary) hypertension; E66.01 Morbid (severe) obesity due to excess calories; F17.210 Nicotine dependence, cigarettes, uncomplicated
CPT/HCPCS: 36415; 87635; 87651; 99283; 99284

== ENCOUNTER → 2021-02-21 13:35 | Outpatient (BNVA) | payer OTHER, SELFPAY | PROVIDERS: PCP Internal Medicine; Referring Provider Internal Medicine; Visit Provider Physician Assistant ==

== ENCOUNTER → 2021-03-06 10:07 | Outpatient (BNVA) | payer OTHER, SELFPAY | PROVIDERS: PCP Internal Medicine; Referring Provider Internal Medicine; Visit Provider Surgery ==

== ENCOUNTER 2021-03-15 14:42 | Emergency (ER) | payer OTHER, SELFPAY ==
--- NOTE | ~2021-03-15 | US_ITS ---
EXAMINATION: US ABDOMEN LIMITED CLINICAL INFORMATION: Right upper quadrant pain. COMPARISON: Previous CT of the abdomen and pelvis December 2020 previous ultrasound October 2019 TECHNIQUE: Real-time imaging of the right upper quadrant abdominal viscera. FINDINGS: PANCREAS: Not well visualized LIVER: Liver echotexture is increased probably representing fatty infiltration. The liver is enlarged. No focal hepatic lesion. There is no intrahepatic biliary duct dilatation seen. GALLBLADDER: Normal. The gallbladder is physiologically distended without evidence of stones, sludge, polyps, wall thickening or pericholecystic fluid. COMMON BILE DUCT: Normal in caliber measuring 0.4 cm in diameter. RIGHT KIDNEY: Normal. No hydronephrosis. No renal calculi or focal parenchymal lesions. The kidney measures 12 cm in maximum dimension. FREE FLUID: None. US/US abdomen limited IMPRESSION: Enlarged echogenic liver probably representing fatty infiltration. Limited visualization of the pancreas. Otherwise unremarkable exam.
[2021-03-15 14:44] VITALS: BP 144/97; PULSE 86; RESP 16; TEMP 37.1; O2SAT 98; BMI 40.6
--- NOTE | 2021-03-15 15:39 | ECG_ITS ---
Test Reason : ABDOMINAL PAIN Blood Pressure : / mmHG Vent. Rate : 069 BPM Atrial Rate : 069 BPM P-R Int : 164 ms QRS Dur : 090 ms QT Int : 438 ms P-R-T Axes : 043 -11 -18 degrees QTc Int : 469 ms Normal sinus rhythm Voltage criteria for left ventricular hypertrophy T wave abnormality, consider anterolateral ischemia Prolonged QT Abnormal ECG When compared with ECG of 05-OCT-2020 21:11, No significant change was found Referred By: Noemi Hendrix Electronically Signed By:DELTA JEFF
[2021-03-15] MEDS: 0.9 % Sodium Chloride 1,000 ML 999 ML IVCONT (15:58)
[2021-03-15] MEDS: Famotidine/PF 20 MG/2 ML VIAL IVPUSH (16:00)
[2021-03-15] MEDS: Ketorolac Tromethamine 15 MG/ML VIAL IVPUSH (16:00)
[2021-03-15] MEDS: ondansetron HCL 4 MG/2 ML VIAL IVPUSH (16:01)
[2021-03-15 16:04] LABS: MANUAL DIFF FLAG NO
[2021-03-15 16:04] LABS: Glucose Urine UA NEG (NEG); Leukocyte Esterase Urine NEG (NEG); Nitrite Urine NEG (NEG); Specific Gravity - Urine 1.025 (1.005-1.025); UACC Culture Trigger NO; Urine Blood 1+ (NEG); Urine Ketones NEG (NEG); Urine Protein NEG (NEG-TRACE)
[2021-03-15 16:06] LABS: Basophils Absolute Auto 0.1 X10*3/uL (0.0-0.2); Basophils Percent Auto 0.5 % (0-2); Eosinophils Absolute Auto 0.2 X10*3/uL (0.0-0.4); Eosinophils Percent Auto 2.5 % (0-4); Hematocrit 41.6 % (37-47); Hemoglobin 13.8 g/dl (12.0-16.0); Imm Gran Abs Auto 0.03 X10*3/uL (0.00-0.03); Imm Gran Pct Auto 0.3 % (0.0-0.4); Lymphocytes Absolute Auto 2.5 X10*3/uL (1.2-4.9); Lymphocytes Percent Auto 26.5 % (20-40); Mean Corpuscular HGB Conc 33.2 g/dl (31.0-35.0); Mean Corpuscular Hemoglobin 29.1 pg (27.0-33.0); Mean Corpuscular Volume 87.6 fL (80-98); Monocytes Absolute Auto 0.5 X10*3/uL (0.1-1.2); Monocytes Percent Auto 4.8 % (2-11); Neutrophils Absolute Auto 6.2 X10*3/uL (2.0-8.3); Neutrophils Percent Auto 65.4 % (45-73); Platelet Count 198 X10*3/uL (160-400); Red Blood Count 4.75 X10*6/uL (4.20-5.50); Red Cell Distribution Width 15.5 % (11.0-16.0); White Blood Count 9.5 X10*3/uL (4.8-10.8)
[2021-03-15 16:12] LABS: Appearance Urine CLEAR; Color Urine YELLOW
[2021-03-15 16:30] LABS: Bacteria Urine 1+ /LPF; RBC Urine 0-2 /HPF (0); Squamous Epithelial Cell Urine 2+ /LPF
[2021-03-15 16:34] LABS: Lipase 18 U/L (8-78)
[2021-03-15 16:38] LABS: Alanine Aminotransferase 45 U/L (0-31); Albumin Level 4.2 g/dL (3.5-5.0); Alkaline Phosphatase 104 U/L (39-117); Anion Gap 17 (12-20); Aspartate Amino Transferase 36 U/L (5-31); Bilirubin Direct < 0.2 mg/dL (0.0-0.5); Bilirubin Total 0.6 mg/dL (0.0-1.0); Blood Urea Nitrogen 11 mg/dL (9-16); Calcium 8.7 mg/dL (8.4-10.2); Carbon Dioxide 24 mmol/L (22-29); Chloride 103 mmol/L (96-108); Creatinine Clr Calc Pharmacy 88.5; Estimated Glomerular Filt Rate > 60; Glucose Random 244 mg/dL (60-115); Magnesium 1.8 mg/dL (1.6-2.6); Potassium 3.7 mmol/L (3.3-5.1); Sodium 140 mmol/L (135-145); Total Protein 7.6 g/dL (6.5-8.0)
--- NOTE | 2021-03-15 16:43 | ED_ITS ---
HPI - Abdominal Pain General Chief Complaint: Abdominal Pain Stated Complaint: abd pain Time Seen by Provider: 03/15/21 15:38 Source: patient Mode of arrival: ambulatory History of Present Illness HPI narrative: 50-year-old female with past medical history of anxiety, depression, hypertension, hypothyroidism, sleep apnea on CPAP to the ED complaining of RUQ abdominal pain radiating to the back x1 day with associated nausea. Denies fever, chills, vomiting, diarrhea/constipation, dysuria/hematuria MD elicited complaint: abdominal pain Related Data Home Medications Medication Instructions Recorded Confirmed albuterol sulfate 2.5 mg INHALATION DAILY 04/26/20 01/11/21 aripiprazole 5 mg tablet 5 mg PO DAILY 04/26/20 01/11/21 bupropion HCl 150 mg 24 hr tablet, 150 mg PO DAILY 04/26/20 01/11/21 extended release calcium citrate 315 mg 1 tab PO DAILY 04/26/20 01/11/21 calcium-vitamin D3 6.25 mcg (250 unit) tablet clonazepam 1 mg tablet 1 mg PO BID PRN 04/26/20 01/11/21 ondansetron HCl 4 mg tablet 4 mg PO DAILY 04/26/20 01/11/21 albuterol sulfate 90 mcg/actuation 1 - 2 puff INHALATION Q4-6H PRN 07/24/20 01/11/21 aerosol inhaler beclomethasone dipropionate 40 1 inh INHALATION BID 07/24/20 01/11/21 mcg/actuation HFA breath activated aerosol (Qvar RediHaler) acamprosate 333 mg tablet,delayed 666 mg PO TID 12/07/20 01/11/21 release losartan 100 mg tablet 100 mg PO DAILY 12/07/20 01/11/21 psyllium husk (with sugar) 3 PO 12/07/20 01/11/21 gram/7 gram oral powder zaleplon 10 mg capsule 10 mg PO BEDTIME PRN 01/11/21 01/11/21 Previous Rx's Medication Instructions Recorded lidocaine 5 % topical patch 1 patch TOPICAL DAILY 30 Days #30 07/26/20 ea meclizine 25 mg tablet 25 mg PO TID PRN 7 Days #21 tab 09/19/20 potassium chloride 20 mEq 20 meq PO DAILY 30 Days #30 tab 10/10/20 tablet,extended release furosemide 80 mg tablet 80 mg PO DAILY #30 tab 10/13/20 levothyroxine 200 mcg tablet 200 mcg PO DAILY 90 Days #90 tab 10/26/20 psyllium husk 3.4 gram/5.4 gram 1 tbsp PO BID #660 g 11/28/20 oral powder (Metamucil) ibuprofen 600 mg tablet 600 mg PO Q8H PRN #10 tab 12/20/20 omeprazole 20 mg capsule,delayed 20 mg PO DAILY 90 Days #90 cap 12/26/20 release amlodipine 5 mg tablet 5 mg PO DAILY #90 tab 01/18/21 ibuprofen 600 mg tablet 600 mg PO Q6H PRN #20 tab 02/14/21 loratadine 10 mg tablet 10 mg PO DAILY PRN #7 tab 02/14/21 (Allerclear) aluminum-mag hydroxide-simethicone 5 ml PO 5XD PRN #30 ml 03/15/21 200 mg-200 mg-20 mg/5 mL oral susp (Maalox Advanced) famotidine 20 mg tablet (Pepcid AC) 20 mg PO DAILY 14 Days #14 tab 03/15/21 Allergies Allergy/AdvReac Type Severity Reaction Status Date / Time zolpidem AdvReac Intermediate nightmares Verified 02/14/21 11:31 Review of Systems Review of Systems Constitutional: No Chills, No Fatigue, No Malaise ENT/Mouth: No Ear Pain, No Nasal Congestion, No Hoarseness, No Rhinorrhea, No Swallowing Difficulty Eyes: No Eye Pain, No Swelling Cardiovascular: No Chest Pain, No SOB, No Edema, No Palpitations Respiratory: No Cough, No Dyspnea Gastrointestinal: + Nausea, No Vomiting, No Diarrhea, No Constipation, + Abdominal pain Genitourinary: No Dysuria, No Urinary Frequency, No Hematuria, No Urgency, No Flank Pain Musculoskeletal: No joint pain, No Myalgias, No Joint Swelling Skin: No Skin Lesions, No rash Neuro: No Weakness, No Numbness, No Headache Yes all other systems are reviewed and are negative Physical Exam Vital Signs: Vital Signs: Last Vital Signs Temp 97.9 F 03/15/21 16:46 Pulse 72 03/15/21 18:52 Resp 16 03/15/21 18:52 BP 139/79 03/15/21 18:52 Pulse Ox 98 03/15/21 18:52 Body Mass Index 40.6 Const: General: cooperative, healthy appearing and no acute distress Orientation/consciousness: patient oriented x3 Limitations: no limitations HENMT: Head: Yes normal to inspection Ears: hearing grossly normal bilaterally General nose exam: Normal external nose present Face and sinus: Yes normal facial exam Eyes: General: appearance normal, both eyes and all related structures EOM: EOMs intact bilaterally Neck: Neck: Yes normal visual inspection Resp: Effort & Inspection: normal respiratory effort Auscultation: clear to auscultation bilaterally Cardio: Rate: regular rate Heart sounds: S1 normal heart sound present and S2 normal heart sound present GI: Inspection: Yes normal to inspection Palpation (GI): Soft to palpation, Tenderness to palpation present (GI) in the epigastrum and in the RUQ, no guarding and not rigid : General: Yes no CVA tenderness Back/Spine/Pelvis: Back: no CVA tenderness Skin: Rashes: no rashes Wounds: no wounds Neuro: General: patient oriented x3 Gait exam (Neuro): Normal gait present Extrem: General: Yes normal to inspection Course Course Course Narrative: -labs notable for mildly elevated AST/ALT, otherwise unremarkable -UA with trace blood/not infected US abdomen limited IMPRESSION: Enlarged echogenic liver probably representing fatty infiltration. Limited visualization of the pancreas. Otherwise unremarkable exam. >> results discussed with patient including worrisome signs and symptoms and strict return precautions, she verbalized understanding feel safe for discharge home follow-up with GI MDM - Abdominal Pain MDM Narrative Medical decision making narrative: 50-year-old female with past medical history of anxiety, depression, hypertension, hypothyroidism, sleep apnea on CPAP to the ED complaining of RUQ abdominal pain radiating to the back x1 day with associated nausea. On exam VSS, NAD, abdomen soft with epigastric/RUQ TTP, no CVAT. Concern for cholecystitis/cholelithiasis vs pancreatitis. Lower concern for renal stone/diverticulitis or appendicitis Plan: Labs, UA, abdomen ultrasound, IVF, symptomatic treatment, reassess Medical Records Attestation: I reviewed the patient's medical records. Lab Data Attestation: I reviewed the patient's lab results. Result diagrams: 03/15/21 15:56 03/15/21 15:56 Labs: Lab Results 03/15/21 03/15/21 03/15/21 Range/Units 15:41 15:56 15:56 WBC 9.5 (4.8-10.8) X10*3/uL RBC 4.75 (4.20-5.50) X10*6/uL Hgb 13.8 (12.0-16.0) g/dl Hct 41.6 (37-47) % MCV 87.6 (80-98) fL MCH 29.1 (27.0-33.0) pg MCHC 33.2 (31.0-35.0) g/dl RDW 15.5 (11.0-16.0) % Plt Count 198 (160-400) X10*3/uL MPV 11.0 (9.4-12.3) fL Immature Gran % (Auto) 0.3 (0.0-0.4) % Neut % (Auto) 65.4 (45-73) % Lymph % (Auto) 26.5 (20-40) % [place] % (Auto) 4.8 (2-11) % Eos % (Auto) 2.5 (0-4) % Baso % (Auto) 0.5 (0-2) % Lymph # (Auto) 2.5 (1.2-4.9) X10*3/uL [place] # (Auto) 0.5 (0.1-1.2) X10*3/uL Eos # (Auto) 0.2 (0.0-0.4) X10*3/uL Baso # (Auto) 0.1 (0.0-0.2) X10*3/uL Abs Immat Gran (auto) 0.03 (0.00-0.03) X10*3/uL Absolute Neuts (auto) 6.2 (2.0-8.3) X10*3/uL Absolute Nucleated RBC 0.000 (0.0-0.012) X10*3/uL Nucleated RBC % (auto) 0.0 (0.0-0.2) /100WBC Sodium 140 (135-145) mmol/L Potassium 3.7 (3.3-5.1) mmol/L Chloride 103 (96-108) mmol/L Carbon Dioxide 24 (22-29) mmol/L Anion Gap 17 (12-20) BUN 11 (9-16) mg/dL Creatinine 0.93 (0.5-1.4) mg/dL Estim Creat Clear Calc 88.5 Estimated GFR > 60 Random Glucose 244 H D (60-115) mg/dL Calcium 8.7 D (8.4-10.2) mg/dL Magnesium 1.8 (1.6-2.6) mg/dL Total Bilirubin 0.6 (0.0-1.0) mg/dL Direct Bilirubin < 0.2 (0.0-0.5) mg/dL AST 36 H D (5-31) U/L ALT 45 H (0-31) U/L Alkaline Phosphatase 104 (39-117) U/L Total Protein 7.6 (6.5-8.0) g/dL Albumin 4.2 (3.5-5.0) g/dL Lipase (8-78) U/L Urine Color YELLOW Urine Appearance CLEAR Urine pH 6.0 (5.0-8.0) Ur Specific [place] 1.025 (1.005-1.025) Urine Protein NEG (NEG-TRACE) MG/DL Urine Glucose (UA) NEG (NEG) MG/DL Urine Ketones NEG (NEG) MG/DL Urine Blood 1+ H (NEG) Urine Nitrite NEG (NEG) Ur Leukocyte Esterase NEG (NEG) Urine RBC 0-2 (0) /HPF Urine WBC 1-4 (0-4) /HPF Ur Squamous Epith Cells 2+ /LPF Urine Bacteria 1+ /LPF 03/15/ Range/Units 15:56 WBC (4.8-10.8) X10*3/uL RBC (4.20-5.50) X10*6/uL Hgb (12.0-16.0) g/dl Hct (37-47) % MCV (80-98) fL MCH (27.0-33.0) pg MCHC (31.0-35.0) g/dl RDW (11.0-16.0) % Plt Count (160-400) X10*3/uL MPV (9.4-12.3) fL Immature Gran % (Auto) (0.0-0.4) % Neut % (Auto) (45-73) % Lymph % (Auto) (20-40) % [place] % (Auto) (2-11) % Eos % (Auto) (0-4) % Baso % (Auto) (0-2) % Lymph # (Auto) (1.2-4.9) X10*3/uL [place] # (Auto) (0.1-1.2) X10*3/uL Eos # (Auto) (0.0-0.4) X10*3/uL Baso # (Auto) (0.0-0.2) X10*3/uL Abs Immat Gran (auto) (0.00-0.03) X10*3/uL Absolute Neuts (auto) (2.0-8.3) X10*3/uL Absolute Nucleated RBC (0.0-0.012) X10*3/uL Nucleated RBC % (auto) (0.0-0.2) /100WBC Sodium (135-145) mmol/L Potassium (3.3-5.1) mmol/L Chloride (96-108) mmol/L Carbon Dioxide (22-29) mmol/L Anion Gap (12-20) BUN (9-16) mg/dL Creatinine (0.5-1.4) mg/dL Estim Creat Clear Calc Estimated GFR Random Glucose (60-115) mg/dL Calcium (8.4-10.2) mg/dL Magnesium (1.6-2.6) mg/dL Total Bilirubin (0.0-1.0) mg/dL Direct Bilirubin (0.0-0.5) mg/dL AST (5-31) U/L ALT (0-31) U/L Alkaline Phosphatase (39-117) U/L Total Protein (6.5-8.0) g/dL Albumin (3.5-5.0) g/dL Lipase 18 (8-78) U/L Urine Color Urine Appearance Urine pH (5.0-8.0) Ur Specific [place] (1.005-1.025) Urine Protein (NEG-TRACE) MG/DL Urine Glucose (UA) (NEG) MG/DL Urine Ketones (NEG) MG/DL Urine Blood (NEG) Urine Nitrite (NEG) Ur Leukocyte Esterase (NEG) Urine RBC (0) /HPF Urine WBC (0-4) /HPF Ur Squamous Epith Cells /LPF Urine Bacteria /LPF Discharge Plan Discharge Clinical Impression: Fatty liver Patient Disposition: Home, Self-Care Instructions: Liver Disease Diet (DC) Additional Instructions: Your blood work showed no elevation in her liver enzymes, and her ultrasound showed fatty liver. You should avoid fatty/greasy foods and alcohol. This should be monitored by her primary care doctor. Maalox and Pepcid will help wit h acid reduction, and her abdominal pain. If her pain persists or worsens/becomes unbearable, you are unable to eat or drink please return to the ED. Please follow-up with your GI doctor Hwang an?lisis de conrado no mostr? elevaci?n de las enzimas hep?eduard y hwang ultrasonido mostr? h?gado graso. Debe evitar los alimentos grasos / grasosos y el alcohol. [place] debe ser controlado por hwang m?dico de atenci?n primaria. Maalox y Pepcid ayudar?n con la reducci?n de ?cido y hwang dolor abdominal. Si hwang dolor persiste o empeora / se vuelve insoportable, no puede comer ni beber, por favor regrese al servicio de urgencias. Mauro un seguimiento con hwang m?dico gastrointestinal. Prescriptions: New alum-mag hydroxide-simeth [Maalox Advanced] 200-200-20 mg/5 mL suspension 5 ml PO 5XD PRN (Reason: dyspepsia) Qty: 30 RF: 0 famotidine [Pepcid AC] 20 mg tablet 20 mg PO DAILY 14 Days Qty: 14 RF: 0 No Action lidocaine 5 % adhesive patch,medicated 1 patch topical DAILY 30 Days Qty: 30 RF: 3 potassium chloride 20 mEq tablet extended release 20 meq PO DAILY 30 Days Qty: 30 RF: 0 furosemide 80 mg tablet 80 mg PO DAILY Qty: 30 RF: 5 levothyroxine 200 mcg tablet 200 mcg PO DAILY 90 Days Qty: 90 RF: 1 amlodipine 5 mg tablet 5 mg PO DAILY Qty: 90 RF: 2 ibuprofen 600 mg tablet 600 mg PO Q8H PRN (Reason: pain) Qty: 10 RF: 0 ibuprofen 600 mg tablet 600 mg PO Q6H PRN (Reason: fever or pain) Qty: 20 RF: 0 loratadine [Allerclear] 10 mg tablet 10 mg PO DAILY PRN (Reason: itching) Qty: 7 RF: 0 meclizine 25 mg tablet 25 mg PO TID PRN (Reason: dizziness) 7 Days Qty: 21 RF: 0 omeprazole 20 mg capsule,delayed release(DR/EC) 20 mg PO DAILY 90 Days Qty: 90 RF: 3 albuterol sulfate 90 mcg/actuation HFA aerosol inhaler 1 - 2 puff inhalation Q4-6H PRN (Reason: dyspnea) RF: 0 Qvar RediHaler 40 mcg/actuation HFA aerosol breath activated 1 inh inhalation BID RF: 0 zaleplon 10 mg capsule 10 mg PO BEDTIME PRNRF: 0 bupropion HCl 150 mg tablet extended release 24 hr 150 mg PO DAILY RF: 0 clonazepam 1 mg tablet 1 mg PO BID PRN (Reason: Anxiety) RF: 0 calcium citrate-vitamin D3 315 mg-6.25 mcg (250 unit) tablet 1 tab PO DAILY RF: 0 albuterol sulfate 2.5 mg /3 mL (0.083 %) solution for nebulization 2.5 mg inhalation DAILY RF: 0 aripiprazole 5 mg tablet 5 mg PO DAILY RF: 0 ondansetron HCl 4 mg tablet 4 mg PO DAILY RF: 0 Reguloid (psyllium husk-sucro) 3 gram/7 gram powder PO RF: 0 acamprosate 333 mg tablet,delayed release (DR/EC) 666 mg PO TID RF: 0 losartan 100 mg tablet 100 mg PO DAILY RF: 0 Metamucil 3.4 gram/5.4 gram powder 1 tbsp PO BID Qty: 660 RF: 2 Referrals: Jannet Kendall MD [Physician] - 3 days Interventions: ED Discharge Assessment Last Done: 03/15/21 18:54 Discharge Date/Time: 03/15/21 18:57 Print Language: [facility] Past Medical History Attestation statement: The following information was validated with the patient. Medical History Acquired hypothyroidism Anxiety Depression Dizziness Essential hypertension Hypothyroidism Insomnia Left foot pain Low back pain Low potassium syndrome Morbid obesity Right wrist pain Sleep apnea with use of continuous positive airway pressure (CPAP) Surgical History H/O endoscopy H/O: hysterectomy History of bladder surgery History of section History of colonoscopy History of thyroid surgery History of total abdominal hysterectomy Family History Family History Father Diabetes Mother Hypertension Maternal Uncle Colon cancer Maternal Aunt Breast cancer Paternal Aunt Breast cancer Family/Other FH: mental illness Substance use disorder Social History Social History Housing: Apartment Alcohol intake: current Alcohol intake frequency: holidays/special occasions only Alcohol type: beer Patient Tobacco Use Status: Current everyday Tobacco user Tobacco use type: Cigarette Cigarettes Per Day: 3 Years Smoked: 30 years Smoked in Last 30 Days: Yes Use of substances other than those prescribed or required for medical reasons: No Advance Directives: No Advance Directives Information Provided: No service: No Current occupational status: disabled
[2021-03-15 16:46] VITALS: BP 141/80; PULSE 67; RESP 18; TEMP 36.6; O2SAT 98
[2021-03-15 18:52] VITALS: BP 139/79; PULSE 72; RESP 16; O2SAT 98
== END 2021-03-15 18:57 | disposition home or self-care (01) ==
PROVIDERS: Physician Assistant; Emergency Provider Emergency Medicine; PCP Internal Medicine
DX: K76.0 Fatty (change of) liver, not elsewhere classified (principal); R10.11 Right upper quadrant pain; I10 Essential (primary) hypertension; E66.01 Morbid (severe) obesity due to excess calories
CPT/HCPCS: 36415; 76705; 80048; 80076; 81001; 81003; 83690; 83735; 85025; 93005; 96361; 96374; 96375; 99284; 99285; J1885; J2405

== ENCOUNTER → 2021-04-04 08:02 | Outpatient (BNVA) | payer OTHER, SELFPAY | PROVIDERS: PCP Internal Medicine; Visit Provider Surgery ==

== ENCOUNTER 2021-04-05 10:41 | Outpatient (REF) | payer OTHER, SELFPAY ==
[2021-04-05 12:42] LABS: MANUAL DIFF FLAG NO
[2021-04-05 12:55] LABS: Basophils Absolute Auto 0.1 X10*3/uL (0.0-0.2); Basophils Percent Auto 0.7 % (0-2); Eosinophils Absolute Auto 0.2 X10*3/uL (0.0-0.4); Eosinophils Percent Auto 2.3 % (0-4); Hematocrit 42.5 % (37-47); Imm Gran Abs Auto 0.03 X10*3/uL (0.00-0.03); Imm Gran Pct Auto 0.3 % (0.0-0.4); Lymphocytes Absolute Auto 2.4 X10*3/uL (1.2-4.9); Lymphocytes Percent Auto 27.4 % (20-40); Mean Corpuscular HGB Conc 32.9 g/dl (31.0-35.0); Mean Corpuscular Hemoglobin 28.9 pg (27.0-33.0); Mean Corpuscular Volume 87.8 fL (80-98); Mean Platelet Volume 12.4 fL (9.4-12.3); Monocytes Absolute Auto 0.6 X10*3/uL (0.1-1.2); Monocytes Percent Auto 6.4 % (2-11); Neutrophils Absolute Auto 5.4 X10*3/uL (2.0-8.3); Neutrophils Percent Auto 62.9 % (45-73); Platelet Count 186 X10*3/uL (160-400); Red Blood Count 4.84 X10*6/uL (4.20-5.50); Red Cell Distribution Width 14.3 % (11.0-16.0); White Blood Count 8.6 X10*3/uL (4.8-10.8)
[2021-04-05 13:49] LABS: Estimated Average Glucose 194 mg/dL; Hemoglobin A1c % 8.4 %
[2021-04-05 14:03] LABS: Alanine Aminotransferase 41 U/L (0-31); Albumin Level 4.4 g/dL (3.5-5.0); Alkaline Phosphatase 108 U/L (39-117); Anion Gap 15 (12-20); Aspartate Amino Transferase 32 U/L (5-31); Bilirubin Total 0.8 mg/dL (0.0-1.0); Blood Urea Nitrogen 15 mg/dL (9-16); C Reactive Protein 1.86 mg/dL (< or = 0.50); Calcium 9.8 mg/dL (8.4-10.2); Carbon Dioxide 29 mmol/L (22-29); Chloride 94 mmol/L (96-108); Cholesterol 179 mg/dL; Estimated Glomerular Filt Rate > 60; Folate 11.2 ng/mL (> or = 4.0); Glucose Random 352 mg/dL (60-115); HDL Cholesterol 38 mg/dL; Iron 61 mcg/dL (30-160); LDL Cholesterol Calculated 102 mg/dl; Percent Iron Saturation 16 % (15-50); Potassium 3.9 mmol/L (3.3-5.1); Sodium 134 mmol/L (135-145); Total Iron Binding Capacity 386 mcg/dL (228-428); Total Protein 7.7 g/dL (6.5-8.0); Triglycerides 198 mg/dL; Unsaturated Iron Binding 325 ug/dL; Vitamin B12 > 2000 pg/mL (200-900)
[2021-04-05 14:38] LABS: Ferritin 91 ng/mL (10-250)
[2021-04-05 16:27] LABS: Free T4 (Free Thyroxine) 0.95 ng/dL (0.71-1.85)
[2021-04-05 19:08] LABS: TSH reflex Free T4 13.62 uIU/mL (0.32-4.0)
[2021-04-06 17:32] LABS: Calcium (PTHI) 9.7 mg/dL (8.6-10.2); Insulin Level Total 19.5 uIU/mL; PTHI 25 pg/mL (14-64)
[2021-04-10 06:20] LABS: Zinc 73 mcg/dL (60-130)
[2021-04-11 13:01] LABS: Vitamin B1 9 nmol/L (8-30)
[2021-04-12 10:11] LABS: Vitamin A 41 mcg/dL (38-98)
== END 2021-04-05 10:42 | disposition home or self-care (01) ==
LOC: HO.LAB 10:41
PROVIDERS: PCP Internal Medicine; Visit Provider Surgery
DX: E03.9 Hypothyroidism, unspecified (principal); E66.01 Morbid (severe) obesity due to excess calories; I25.10 Atherosclerotic heart disease of native coronary artery without angina pectoris; K76.0 Fatty (change of) liver, not elsewhere classified
CPT/HCPCS: 36415; 80053; 80061; 82306; 82607; 82728; 82746; 83036; 83525; 83540; 83970; 84425; 84439; 84443; 84590; 84630; 85025; 86140

== ENCOUNTER 2021-04-05 20:19 | Emergency (ER) | payer OTHER, SELFPAY ==
[2021-04-05 21:35] VITALS: BP 171/92; PULSE 71; RESP 16; TEMP 36.3; O2SAT 99; BMI 40.5
[2021-04-05 23:09] LABS: Glucose, Whole Blood 356 mg/dL (60-115)
--- NOTE | 2021-04-05 23:39 | PC.NURSE ---
IV established, labs and urine obtained. at bedside for primary eval.
[2021-04-05 23:43] LABS: MANUAL DIFF FLAG NO
[2021-04-05 23:44] LABS: Basophils Absolute Auto 0.1 X10*3/uL (0.0-0.2); Basophils Percent Auto 0.6 % (0-2); Eosinophils Absolute Auto 0.3 X10*3/uL (0.0-0.4); Eosinophils Percent Auto 2.6 % (0-4); Hematocrit 42.3 % (37-47); Hemoglobin 14.1 g/dl (12.0-16.0); Imm Gran Abs Auto 0.04 X10*3/uL (0.00-0.03); Imm Gran Pct Auto 0.4 % (0.0-0.4); Lymphocytes Absolute Auto 2.9 X10*3/uL (1.2-4.9); Lymphocytes Percent Auto 29.5 % (20-40); Mean Corpuscular HGB Conc 33.3 g/dl (31.0-35.0); Mean Corpuscular Hemoglobin 29.3 pg (27.0-33.0); Mean Corpuscular Volume 87.8 fL (80-98); Mean Platelet Volume 12.4 fL (9.4-12.3); Monocytes Absolute Auto 0.5 X10*3/uL (0.1-1.2); Monocytes Percent Auto 5.4 % (2-11); Neutrophils Percent Auto 61.5 % (45-73); Platelet Count 174 X10*3/uL (160-400); Red Blood Count 4.82 X10*6/uL (4.20-5.50); Red Cell Distribution Width 14.2 % (11.0-16.0); White Blood Count 9.7 X10*3/uL (4.8-10.8)
[2021-04-05 23:47] LABS: Appearance Urine CLEAR; Color Urine YELLOW; Glucose Urine UA >=1000 MG/DL (NEG); Leukocyte Esterase Urine NEG (NEG); Nitrite Urine NEG (NEG); Specific Gravity - Urine 1.015 (1.005-1.025); UACC Culture Trigger NO; Urine Blood 1+ (NEG); Urine Ketones 5 MG/DL (NEG); Urine Protein NEG (NEG-TRACE)
[2021-04-05 23:50] LABS: UPreg QC Valid YES; Urine Pregnancy NEGATIVE (NEGATIVE)
[2021-04-05 23:53] LABS: Bacteria Urine 1+ /LPF; Squamous Epithelial Cell Urine 1+ /LPF
[2021-04-06] VITALS: BP 133/54; PULSE 74; RESP 18; TEMP 36.6; O2SAT 98
[2021-04-06 00:01] LABS: Alanine Aminotransferase 43 U/L (0-31); Albumin Level 4.4 g/dL (3.5-5.0); Alkaline Phosphatase 111 U/L (39-117); Anion Gap 15 (12-20); Aspartate Amino Transferase 29 U/L (5-31); Bilirubin Total 0.6 mg/dL (0.0-1.0); Blood Urea Nitrogen 13 mg/dL (9-16); Carbon Dioxide 26 mmol/L (22-29); Chloride 100 mmol/L (96-108); Creatinine Clr Calc Pharmacy 97.8; Estimated Glomerular Filt Rate > 60; Glucose Random 334 mg/dL (60-115); Lipase 31 U/L (8-78); Potassium 4.2 mmol/L (3.3-5.1); Sodium 137 mmol/L (135-145); Total Protein 7.9 g/dL (6.5-8.0)
[2021-04-06] MEDS: Insulin Regular, Human 100 UNIT/ML 3 ML VIAL 8 UNIT IVPUSH (00:07)
[2021-04-06] MEDS: 0.9 % Sodium Chloride 1,000 ML 999 ML IV (00:08)
--- NOTE | 2021-04-06 00:09 | PC.NURSE ---
Pt medicated per MAR. IVF infusing per order.
[2021-04-06 01:02] LABS: Glucose, Whole Blood 248 mg/dL (60-115)
--- NOTE | 2021-04-06 01:28 | ED.GENADULT ---
HPI - General Adult General Chief complaint: Dizziness Stated complaint: headache, dizziness Time Seen by Provider: 04/05/21 23:20 Source: patient Mode of arrival: ambulatory Limitations: no limitations History of Present Illness HPI narrative: 50-year-old female who presents emergency department for evaluation of abnormal labs. The patient was seen in the her bariatric surgeon today and she had routine blood work done. Patient states that she was called by the surgical practice and informed that she had a high glucose and her thyroid function was off and that she should go to the emergency department to be seen. The patient states that she does have a history of high blood sugars but has not been treated for diabetes. She also has a history of thyroidectomy with hypothyroidism and takes Synthroid. She states that over the past several weeks she has been having intermittent headaches, dizziness, nausea and vomiting. She states that over the past 4 days the symptoms have gotten worse. She has noted increased thirst with decreased urine output. She has also noted blurred vision. She states that her weight has not changed. The patient had a flu shot recently. The patient had blood work drawn on 04/05/2021 at 10:55 a.m.: CBC was normal. CMP revealed an elevated glucose of 352, elevated AST and ALT of 32 and 41, elevated C reactive protein of 1.86. TSH was elevated at 13.62. Related Data Home Medications Medication Instructions Recorded Confirmed albuterol sulfate 2.5 mg INHALATION DAILY PRN 04/26/20 04/05/21 aripiprazole 5 mg tablet 5 mg PO DAILY 04/26/20 04/05/21 bupropion HCl 150 mg 24 hr tablet, 150 mg PO DAILY 04/26/20 04/05/21 extended release calcium citrate 315 mg 1 tab PO DAILY 04/26/20 04/05/21 calcium-vitamin D3 6.25 mcg (250 unit) tablet clonazepam 1 mg tablet 1 mg PO BID PRN 04/26/20 04/05/21 ondansetron HCl 4 mg tablet 4 mg PO DAILY PRN 04/26/20 04/05/21 albuterol sulfate 90 mcg/actuation 1 - 2 puff INHALATION Q4-6H PRN 07/24/20 04/05/21 aerosol inhaler beclomethasone dipropionate 40 1 inh INHALATION BID PRN 07/24/20 04/05/21 mcg/actuation HFA breath activated aerosol (Qvar RediHaler) acamprosate 333 mg tablet,delayed 666 mg PO TID 12/07/20 04/05/21 release losartan 100 mg tablet 100 mg PO DAILY 12/07/20 04/05/21 psyllium husk (with sugar) 3 2 tsp PO DAILY PRN 12/07/20 04/05/21 gram/7 gram oral powder famotidine 20 mg tablet (Pepcid AC) 20 mg PO DAILY PRN 04/05/21 04/05/21 lidocaine 5 % topical patch 1 patch TOPICAL DAILY PRN 04/05/21 04/05/21 omeprazole 20 mg capsule,delayed 20 mg PO DAILY PRN 04/05/21 04/05/21 release Previous Rx's Medication Instructions Recorded meclizine 25 mg tablet 25 mg PO TID PRN 7 Days #21 tab 09/19/20 furosemide 80 mg tablet 80 mg PO DAILY #30 tab 10/13/20 levothyroxine 200 mcg tablet 200 mcg PO DAILY 90 Days #90 tab 10/26/20 ibuprofen 600 mg tablet 600 mg PO Q8H PRN #10 tab 12/20/20 amlodipine 5 mg tablet 5 mg PO DAILY #90 tab 01/18/21 loratadine 10 mg tablet 10 mg PO DAILY PRN #7 tab 02/14/21 (Allerclear) aluminum-mag hydroxide-simethicone 5 ml PO 5XD PRN #30 ml 03/15/21 200 mg-200 mg-20 mg/5 mL oral susp (Maalox Advanced) cholecalciferol (vitamin D3) 125 125 mcg PO DAILY #30 cap 04/05/21 mcg (5,000 unit) capsule metformin 500 mg tablet 500 mg PO BID #60 tab 04/06/21 Allergies Allergy/AdvReac Type Severity Reaction Status Date / Time zolpidem AdvReac Intermediate nightmares Verified 02/14/21 11:31 [facility] Past Medical History Medical History Acquired hypothyroidism Anxiety Depression Dizziness Essential hypertension Hypothyroidism Insomnia Left foot pain Low back pain Low potassium syndrome Morbid obesity Right wrist pain Sleep apnea with use of continuous positive airway pressure (CPAP) Surgical History H/O endoscopy H/O: hysterectomy History of bladder surgery History of section History of colonoscopy History of thyroid surgery History of total abdominal hysterectomy Family History Family History Father Diabetes Mother Hypertension Maternal Uncle Colon cancer Maternal Aunt Breast cancer Paternal Aunt Breast cancer Family/Other FH: mental illness Substance use disorder Social History Social History Housing: Apartment Alcohol intake: current Alcohol intake frequency: holidays/special occasions only Alcohol type: beer Patient Tobacco Use Status: Current everyday Tobacco user Tobacco use type: Cigarette Cigarettes Per Day: 3 Years Smoked: 30 years Advance Directives: No Advance Directives Information Provided: No Patient : No service: No Current occupational status: disabled Physical Exam Vital Signs: Vital Signs: Last Vital Signs Temp 97.9 F 04/06/21 00:00 Pulse 74 04/06/21 00:00 Resp 18 04/06/21 00:00 BP 133/54 L 04/06/21 00:00 Pulse Ox 98 04/06/21 00:00 Body Mass Index 40.5 Course Course Course Narrative: 50-year-old female who is managed in the bariatric practice who had routine blood work today and was informed that her glucose was high and her TSH was high and she should go to the emergency department to be seen. Patient states that she has had high glucose values in the past but is not on any medications for diabetes. The patient does have a history of thyroidectomy with hypothyroidism and is on Synthroid. Physical examination was unremarkable. Point of care glucose at the time of presentation was 356. This was confirmed with a serum glucose of 334. The patient was ordered to get normal saline IV x1 L and regular insulin 10 units IV. 0135: The patient's repeat point of care glucose was 248. Given the patient's high glucose, I will start her on metformin 500 mg twice a day with meals. She will need to follow-up with her PCP to get further evaluation of new onset diabetes. The patient does have an elevated TSH but she does have known hypothyroidism and is taking Synthroid 75 mcg once a day. She will be referred back to her PCP to increase her dose of Synthroid in to further manage her hypothyroidism. I did discuss this treatment plan with the patient and the patient was discharged to home. The patient was given verbal and printed instructions prior to discharge. The patient was advised to follow-up with her PCP in 2 days and to return to the emergency department if her symptoms get worse or if she develops any new symptoms that are concerning to her. Medical Decision Making Lab Data Result diagrams: 04/05/21 23:35 04/05/21 23:35 Labs: Lab Results 04/05/21 04/05/21 04/05/21 Range/Units 21:39 23:35 23:35 WBC 9.7 (4.8-10.8) X10*3/uL RBC 4.82 (4.20-5.50) X10*6/uL Hgb 14.1 (12.0-16.0) g/dl Hct 42.3 (37-47) % MCV 87.8 (80-98) fL MCH 29.3 (27.0-33.0) pg MCHC 33.3 (31.0-35.0) g/dl RDW 14.2 (11.0-16.0) % Plt Count 174 (160-400) X10*3/uL MPV 12.4 H (9.4-12.3) fL Immature Gran % (Auto) 0.4 (0.0-0.4) % Neut % (Auto) 61.5 (45-73) % Lymph % (Auto) 29.5 (20-40) % [place] % (Auto) 5.4 (2-11) % Eos % (Auto) 2.6 (0-4) % Baso % (Auto) 0.6 (0-2) % Lymph # (Auto) 2.9 (1.2-4.9) X10*3/uL [place] # (Auto) 0.5 (0.1-1.2) X10*3/uL Eos # (Auto) 0.3 (0.0-0.4) X10*3/uL Baso # (Auto) 0.1 (0.0-0.2) X10*3/uL Abs Immat Gran (auto) 0.04 H (0.00-0.03) X10*3/uL Absolute Neuts (auto) 6.0 (2.0-8.3) X10*3/uL Absolute Nucleated RBC 0.000 (0.0-0.012) X10*3/uL Nucleated RBC % (auto) 0.0 (0.0-0.2) /100WBC Sodium 137 (135-145) mmol/L Potassium 4.2 (3.3-5.1) mmol/L Chloride 100 (96-108) mmol/L Carbon Dioxide 26 (22-29) mmol/L Anion Gap 15 (12-20) BUN 13 (9-16) mg/dL Creatinine 0.84 (0.5-1.4) mg/dL Estim Creat Clear Calc 97.8 Estimated GFR > 60 POC Glucose 356 H* (60-115) mg/dL Random Glucose 334 H (60-115) mg/dL Calcium 9.0 D (8.4-10.2) mg/dL Total Bilirubin 0.6 (0.0-1.0) mg/dL AST 29 (5-31) U/L ALT 43 H (0-31) U/L Alkaline Phosphatase 111 (39-117) U/L Total Protein 7.9 (6.5-8.0) g/dL Albumin 4.4 (3.5-5.0) g/dL Lipase 31 (8-78) U/L Urine Color Urine Appearance Urine pH (5.0-8.0) Ur Specific Will[place] (1.005-1.025) Urine Protein (NEG-TRACE) MG/DL Urine Glucose (UA) (NEG) MG/DL Urine Ketones (NEG) MG/DL Urine Blood (NEG) Urine Nitrite (NEG) Ur Leukocyte Esterase (NEG) Urine RBC (0) /HPF Urine WBC (0-4) /HPF Ur Squamous Epith Cells /LPF Urine Bacteria /LPF Urine Test (NEGATIVE) 04/05/21 04/05/21 04/06/21 Range/Units 23:35 23:35 00:57 WBC (4.8-10.8) X10*3/uL RBC (4.20-5.50) X10*6/uL Hgb (12.0-16.0) g/dl Hct (37-47) % MCV (80-98) fL MCH (27.0-33.0) pg MCHC (31.0-35.0) g/dl RDW (11.0-16.0) % Plt Count (160-400) X10*3/uL MPV (9.4-12.3) fL Immature Gran % (Auto) (0.0-0.4) % Neut % (Auto) (45-73) % Lymph % (Auto) (20-40) % [place] % (Auto) (2-11) % Eos % (Auto) (0-4) % Baso % (Auto) (0-2) % Lymph # (Auto) (1.2-4.9) X10*3/uL [place] # (Auto) (0.1-1.2) X10*3/uL Eos # (Auto) (0.0-0.4) X10*3/uL Baso # (Auto) (0.0-0.2) X10*3/uL Abs Immat Gran (auto) (0.00-0.03) X10*3/uL Absolute Neuts (auto) (2.0-8.3) X10*3/uL Absolute Nucleated RBC (0.0-0.012) X10*3/uL Nucleated RBC % (auto) (0.0-0.2) /100WBC Sodium (135-145) mmol/L Potassium (3.3-5.1) mmol/L Chloride (96-108) mmol/L Carbon Dioxide (22-29) mmol/L Anion Gap (12-20) BUN (9-16) mg/dL Creatinine (0.5-1.4) mg/dL Estim Creat Clear Calc Estimated GFR POC Glucose 248 H (60-115) mg/dL Random Glucose (60-115) mg/dL Calcium (8.4-10.2) mg/dL Total Bilirubin (0.0-1.0) mg/dL AST (5-31) U/L ALT (0-31) U/L Alkaline Phosphatase (39-117) U/L Total Protein (6.5-8.0) g/dL Albumin (3.5-5.0) g/dL Lipase (8-78) U/L Urine Color YELLOW Urine Appearance CLEAR Urine pH 7.0 (5.0-8.0) Ur Specific [place] 1.015 (1.005-1.025) Urine Protein NEG (NEG-TRACE) MG/DL Urine Glucose (UA) >=1000 H (NEG) MG/DL Urine Ketones 5 (NEG) MG/DL Urine Blood 1+ H (NEG) Urine Nitrite NEG (NEG) Ur Leukocyte Esterase NEG (NEG) Urine RBC 1-4 (0) /HPF Urine WBC 1-4 (0-4) /HPF Ur Squamous Epith Cells 1+ /LPF Urine Bacteria 1+ /LPF Urine Test NEGATIVE (NEGATIVE) Discharge Plan Discharge Clinical Impression: New onset type 2 diabetes mellitus Hypothyroidism Qualifiers: Hypothyroidism type: unspecified Qualified Code(s): E03.9 - Hypothyroidism, unspecified Patient Disposition: Home, Self-Care Instructions: Type 2 Diabetes in Adults: New Diagnosis (ED) Additional Instructions: Your glucose was very high at 352 earlier in the day and at 334 here in the emergency department. You were treated with normal saline IV x1 L and regular insulin 8 units IV. Your glucose improved to 248. I am starting you on a medication called metformin to lower your blood sugar Take metformin 500 mg in the morning with breakfast and at night with dinner. You will need to follow-up with your doctor for further management of your new onset diabetes. Your TSH was high this suggests that you need to be on a higher dose of your thyroid medication, levothyroxine. You should follow-up with your doctor early next week to get on a higher dose of levothyroxine and for further management of your under active thyroid (hypothyroidism). Follow-up with your doctor in 2 days. Please return to the emergency department if your symptoms get worse or if you develop any symptoms that are concerning to you. Prescriptions: New metformin 500 mg tablet 500 mg PO BID Qty: 60 RF: 0 No Action furosemide 80 mg tablet 80 mg PO DAILY Qty: 30 RF: 5 levothyroxine 200 mcg tablet 200 mcg PO DAILY 90 Days Qty: 90 RF: 1 amlodipine 5 mg tablet 5 mg PO DAILY Qty: 90 RF: 2 cholecalciferol (vitamin D3) 125 mcg (5,000 unit) capsule 125 mcg PO DAILY Qty: 30 RF: 2 ibuprofen 600 mg tablet 600 mg PO Q8H PRN (Reason: pain) Qty: 10 RF: 0 alum-mag hydroxide-simeth [Maalox Advanced] 200-200-20 mg/5 mL suspension 5 ml PO 5XD PRN (Reason: dyspepsia) Qty: 30 RF: 0 famotidine [Pepcid AC] 20 mg tablet 20 mg PO DAILY PRN (Reason: GERD) RF: 0 lidocaine 5 % adhesive patch,medicated 1 patch topical DAILY PRN (Reason: Back Pain) RF: 0 omeprazole 20 mg capsule,delayed release(DR/EC) 20 mg PO DAILY PRN (Reason: GERD) RF: 0 loratadine [Allerclear] 10 mg tablet 10 mg PO DAILY PRN (Reason: itching) Qty: 7 RF: 0 meclizine 25 mg tablet 25 mg PO TID PRN (Reason: dizziness) 7 Days Qty: 21 RF: 0 albuterol sulfate 90 mcg/actuation HFA aerosol inhaler 1 - 2 puff inhalation Q4-6H PRN (Reason: dyspnea) RF: 0 Qvar RediHaler 40 mcg/actuation HFA aerosol breath activated 1 inh inhalation BID PRN (Reason: Asthma) RF: 0 bupropion HCl 150 mg tablet extended release 24 hr 150 mg PO DAILY RF: 0 clonazepam 1 mg tablet 1 mg PO BID PRN (Reason: Anxiety) RF: 0 calcium citrate-vitamin D3 315 mg-6.25 mcg (250 unit) tablet 1 tab PO DAILY RF: 0 albuterol sulfate 2.5 mg /3 mL (0.083 %) solution for nebulization 2.5 mg inhalation DAILY PRN (Reason: asthma) RF: 0 aripiprazole 5 mg tablet 5 mg PO DAILY RF: 0 ondansetron HCl 4 mg tablet 4 mg PO DAILY PRN (Reason: Nausea) RF: 0 Reguloid (psyllium husk-sucro) 3 gram/7 gram powder 2 tsp PO DAILY PRN (Reason: Constipation) RF: 0 acamprosate 333 mg tablet,delayed release (DR/EC) 666 mg PO TID RF: 0 losartan 100 mg tablet 100 mg PO DAILY RF: 0 Print Language: Tajik
== END 2021-04-06 02:05 | disposition home or self-care (01) ==
PROVIDERS: Emergency Provider Emergency Medicine Emergency Medical Services; PCP Internal Medicine
DX: E03.9 Hypothyroidism, unspecified (principal); E11.9 Type 2 diabetes mellitus without complications; R42 Dizziness and giddiness; R51.9 Headache, unspecified; F17.210 Nicotine dependence, cigarettes, uncomplicated; Z71.6 Tobacco abuse counseling; Z79.899 Other long term (current) drug therapy
CPT/HCPCS: 36415; 80053; 81001; 81025; 82947; 83690; 85025; 96361; 96374; 99284

== ENCOUNTER 2021-04-11 12:09 | Emergency (ER) | payer OTHER, SELFPAY ==
[2021-04-11 12:19] VITALS: BP 141/87; PULSE 73; RESP 16; TEMP 36.1; O2SAT 98; BMI 40.6
--- NOTE | 2021-04-11 13:32 | ED.GENADULT ---
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 Her headache has been constant in nature for the past 2 weeks, it is pressure like and bilateral with out radiation, she denies falls or head trauma. She states she has also been dizzy intermittently for the past 2 weeks, she states she feels as though the room is moving. Last episode of vomiting was this morning, she vomited her breakfast. She also stated she has been having boring epigastric abdominal pain x2 weeks, without radiation. She also mentions she has had progressive worsening vision for the past 2 weeks, she states that she has been seeing her PCP for this. Her sugars have been running in the high 300s recently, and she has been taking metformin for her sugars. She states she recently told her PCP, stating that her sugars are not under control, so for this reason her PCP has changed her diabetes meds, however she has not gotten them from the pharmacy yet. She denies chest pain, fevers, chills, weakness, SOB, changes in bowel habits, changes with urination. She has been seen by her PCP for all of these complaints, and she states that she is not getting better. Onset (ago): week(s) (Two) Severity: mild Associated symptoms: headaches, nausea/vomiting and other (Abdominal pain) Treatments prior to arrival: none Related Data Home Medications Medication Instructions Recorded Confirmed albuterol sulfate 2.5 mg INHALATION DAILY PRN 04/26/20 04/06/21 aripiprazole 5 mg tablet 5 mg PO DAILY 04/26/20 04/06/21 bupropion HCl 150 mg 24 hr tablet, 150 mg PO DAILY 04/26/20 04/06/21 extended release calcium citrate 315 mg 1 tab PO DAILY 04/26/20 04/06/21 calcium-vitamin D3 6.25 mcg (250 unit) tablet clonazepam 1 mg tablet 1 mg PO BID PRN 04/26/20 04/06/21 ondansetron HCl 4 mg tablet 4 mg PO DAILY PRN 04/26/20 04/06/21 albuterol sulfate 90 mcg/actuation 1 - 2 puff INHALATION Q4-6H PRN 07/24/20 04/06/21 aerosol inhaler beclomethasone dipropionate 40 1 inh INHALATION BID PRN 07/24/20 04/06/21 mcg/actuation HFA breath activated aerosol (Qvar RediHaler) acamprosate 333 mg tablet,delayed 666 mg PO TID 12/07/20 04/06/21 release losartan 100 mg tablet 100 mg PO DAILY 12/07/20 04/06/21 psyllium husk (with sugar) 3 2 tsp PO DAILY PRN 12/07/20 04/06/21 gram/7 gram oral powder famotidine 20 mg tablet (Pepcid AC) 20 mg PO DAILY PRN 04/05/21 04/06/21 lidocaine 5 % topical patch 1 patch TOPICAL DAILY PRN 04/05/21 04/06/21 omeprazole 20 mg capsule,delayed 20 mg PO DAILY PRN 04/05/21 04/06/21 release Previous Rx's Medication Instructions Recorded meclizine 25 mg tablet 25 mg PO TID PRN 7 Days #21 tab 09/19/20 furosemide 80 mg tablet 80 mg PO DAILY #30 tab 10/13/20 levothyroxine 200 mcg tablet 200 mcg PO DAILY 90 Days #90 tab 10/26/20 ibuprofen 600 mg tablet 600 mg PO Q8H PRN #10 tab 12/20/20 amlodipine 5 mg tablet 5 mg PO DAILY #90 tab 01/18/21 loratadine 10 mg tablet 10 mg PO DAILY PRN #7 tab 02/14/21 (Allerclear) aluminum-mag hydroxide-simethicone 5 ml PO 5XD PRN #30 ml 03/15/21 200 mg-200 mg-20 mg/5 mL oral susp (Maalox Advanced) cholecalciferol (vitamin D3) 125 125 mcg PO DAILY #30 cap 04/05/21 mcg (5,000 unit) capsule FreeStyle Lite Strips (blood sugar #100 ea NS 04/06/21 diagnostic) Magic Mouthwash 2 ml PO Q4-6H 5 Days #240 ml 04/06/21 Diphen/Lido/Antacid 1:1:1 240 mL suspension alcohol swabs (Alcohol Pads) 1 pad TOPICAL BID #100 ea 04/06/21 blood-glucose meter (FreeStyle #1 ea 04/06/21 Lite Meter) lancets 28 gauge (FreeStyle #100 ea 04/06/21 Lancets) metformin 500 mg tablet 500 mg PO BID #60 tab 04/06/21 sitagliptin 50 mg tablet (Januvia) 50 mg PO DAILY 90 Days #90 tab 04/10/21 meclizine 25 mg tablet 25 mg PO TID PRN #30 tab 04/11/21 Allergies Allergy/AdvReac Type Severity Reaction Status Date / Time zolpidem AdvReac Intermediate nightmares Verified 04/06/21 16:47 Review of Systems Review of Systems: Constitutional : No Weight loss, No Fever, No Chills, No Fatigue, No Malaise ENT/Mouth : No sore throat, No Rhinorrhea Eyes: No Eye Pain, No Swelling, No Redness, + decreased vision Cardiovascular : No Chest Pain, No SOB, No Dyspnea on Exertion, No Orthopnea, No Edema, No Palpitations Respiratory : No Cough, No Sputum, No Wheezing Gastrointestinal : positive Nausea, positive Vomiting, No Diarrhea, No Constipation, positive abdominal Pain, No Hematochezia, No Melena Genitourinary : No Dysuria, No Urinary Frequency, No Hematuria, Musculoskeletal : No joint pain, No Myalgias, No Joint Swelling Skin : No Skin Lesions, No rash Neuro : No Weakness, No Numbness, No Dizziness, positive Headache Psych : No Anxiety/Panic, No Depression Heme/Lymph: No Bruising, No Bleeding,No Lymphadenopathy Endocrine : No Polyuria, No Polydipsia All other systems reviewed and are negative [facility] Past Medical History Medical History Acquired hypothyroidism Anxiety Depression Dizziness Essential hypertension Hypothyroidism Insomnia Left foot pain Low back pain Low potassium syndrome Morbid obesity Right wrist pain Sleep apnea with use of continuous positive airway pressure (CPAP) Surgical History H/O endoscopy H/O: hysterectomy History of bladder surgery History of section History of colonoscopy History of thyroid surgery History of total abdominal hysterectomy Family History Family History Father Diabetes Mother Hypertension Maternal Uncle Colon cancer Maternal Aunt Breast cancer Paternal Aunt Breast cancer Family/Other FH: mental illness Substance use disorder Social History Social History Housing: Apartment Alcohol intake: never Patient Tobacco Use Status: Current everyday Tobacco user Tobacco use type: Cigarette Cigarettes Per Day: 3 Years Smoked: 30 years Use of substances other than those prescribed or required for medical reasons: No Advance Directives: No Advance Directives Information Provided: No service: No Current occupational status: disabled Physical Exam Vital Signs: Vital Signs: Last Vital Signs Temp 98.5 F 04/11/21 14:41 Pulse 65 04/11/21 15:20 Resp 15 04/11/21 15:20 BP 129/81 04/11/21 15:20 Pulse Ox 97 04/11/21 15:20 Body Mass Index 40.6 Appearance: Alert. Oriented X3. No acute distress. Eyes: Pupils equal, round and reactive to light. ENT: Pharynx normal. Neck: Normal inspection. Neck supple. CVS: Normal heart rate and rhythm. Pulses normal. Respiratory: No respiratory distress. Breath sounds normal. Abdomen: Soft and nontender. Skin: Skin warm and dry. Normal skin color. Normal skin turgor. Extremities: No lower extremity edema. No calf ttp Neuro: Oriented X 3. No motor deficit. No sensory deficit. Course Course Course Narrative: This is a 50-year-old female that presents to the emergency department with concerns of a blood sugar reading at home of 325. She also reports headache, vomiting, abdominal pain, dizziness for 2 weeks. She states that she is being followed by her PCP for these concerns, however they have not been getting better. She states she takes metformin for diabetes, but her sugars have not been under control. She also mentions that her PCP change her diabetic medications, however she has not picked them up from the pharmacy. She mentions deteriorating vision bilaterally, has been progressively worsening over the past few months. She states that her PCP is aware of this, and states that it is due to her sugars not being under control, there have been no acute changes in her vision recently. Medical Decision Making MDM Narrative Medical decision making narrative: Based off of this patient's history, and physical exam which was non-remarkable there is no need for imaging at this time. It was noted that she had head CT on 01/30/2021, I do not feel it is necessary to repeat CT as these changes are not acute in nature. Plan- fluids, EKG, glucose point of care, orthostatic vital signs, BMP, COVID, lipase, Jhonatan, UA, CBC, urine , liver panel, troponin Laboratory studies show slightly lower magnesium unusual, urine is negative, EKG is normal. At this time will give patient p.o. magnesium, she will be discharged home with meclizine for the dizziness. She has been advised to follow-up with her PCP. Lab Data Result diagrams: 04/11/21 13:53 04/11/21 13:53 Labs: Lab Results 04/11/21 04/11/21 04/11/21 Range/Units 13:53 13:53 13:53 WBC 9.0 (4.8-10.8) X10*3/uL RBC 4.97 (4.20-5.50) X10*6/uL Hgb 14.3 (12.0-16.0) g/dl Hct 43.2 (37-47) % MCV 86.9 (80-98) fL MCH 28.8 (27.0-33.0) pg MCHC 33.1 (31.0-35.0) g/dl RDW 14.0 (11.0-16.0) % Plt Count 199 (160-400) X10*3/uL MPV 11.9 (9.4-12.3) fL Immature Gran % (Auto) 0.2 (0.0-0.4) % Neut % (Auto) 62.3 (45-73) % Lymph % (Auto) 29.4 (20-40) % [place] % (Auto) 4.6 (2-11) % Eos % (Auto) 2.7 (0-4) % Baso % (Auto) 0.8 (0-2) % Lymph # (Auto) 2.7 (1.2-4.9) X10*3/uL [place] # (Auto) 0.4 (0.1-1.2) X10*3/uL Eos # (Auto) 0.2 (0.0-0.4) X10*3/uL Baso # (Auto) 0.1 (0.0-0.2) X10*3/uL Abs Immat Gran (auto) 0.02 (0.00-0.03) X10*3/uL Absolute Neuts (auto) 5.6 (2.0-8.3) X10*3/uL Absolute Nucleated RBC 0.000 (0.0-0.012) X10*3/uL Nucleated RBC % (auto) 0.0 (0.0-0.2) /100WBC Sodium 137 (135-145) mmol/L Potassium 3.7 (3.3-5.1) mmol/L Chloride 97 (96-108) mmol/L Carbon Dioxide 29 (22-29) mmol/L Anion Gap 15 (12-20) BUN 12 (9-16) mg/dL Creatinine 0.97 (0.5-1.4) mg/dL Estim Creat Clear Calc 84.8 Estimated GFR > 60 Random Glucose 327 H (60-115) mg/dL Calcium 9.3 (8.4-10.2) mg/dL Magnesium 1.5 L (1.6-2.6) mg/dL Total Bilirubin 0.5 (0.0-1.0) mg/dL Direct Bilirubin 0.2 (0.0-0.5) mg/dL AST 37 H (5-31) U/L ALT 50 H (0-31) U/L Alkaline Phosphatase 107 (39-117) U/L Troponin I High Sens (<3.5-17.0) ng/L Total Protein 7.8 (6.5-8.0) g/dL Albumin 4.5 (3.5-5.0) g/dL Lipase 20 (8-78) U/L Urine Color Urine Appearance Urine pH (5.0-8.0) Ur Specific [place] (1.005-1.025) Urine Protein (NEG-TRACE) MG/DL Urine Glucose (UA) (NEG) MG/DL Urine Ketones (NEG) MG/DL Urine Blood (NEG) Urine Nitrite (NEG) Ur Leukocyte Esterase (NEG) Urine RBC (0) /HPF Urine WBC (0-4) /HPF Ur Squamous Epith Cells /LPF Urine Bacteria /LPF Urine Test (NEGATIVE) COVID-19 (EVELYN) Negative (Negative) COVID-19 Clin Com See Note 04/11/21 04/11/21 04/11/21 Range/Units 13:53 14:31 14:31 WBC (4.8-10.8) X10*3/uL RBC (4.20-5.50) X10*6/uL Hgb (12.0-16.0) g/dl Hct (37-47) % MCV (80-98) fL MCH (27.0-33.0) pg MCHC (31.0-35.0) g/dl RDW (11.0-16.0) % Plt Count (160-400) X10*3/uL MPV (9.4-12.3) fL Immature Gran % (Auto) (0.0-0.4) % Neut % (Auto) (45-73) % Lymph % (Auto) (20-40) % [place] % (Auto) (2-11) % Eos % (Auto) (0-4) % Baso % (Auto) (0-2) % Lymph # (Auto) (1.2-4.9) X10*3/uL [place] # (Auto) (0.1-1.2) X10*3/uL Eos # (Auto) (0.0-0.4) X10*3/uL Baso # (Auto) (0.0-0.2) X10*3/uL Abs Immat Gran (auto) (0.00-0.03) X10*3/uL Absolute Neuts (auto) (2.0-8.3) X10*3/uL Absolute Nucleated RBC (0.0-0.012) X10*3/uL Nucleated RBC % (auto) (0.0-0.2) /100WBC Sodium (135-145) mmol/L Potassium (3.3-5.1) mmol/L Chloride (96-108) mmol/L Carbon Dioxide (22-29) mmol/L Anion Gap (12-20) BUN (9-16) mg/dL Creatinine (0.5-1.4) mg/dL Estim Creat Clear Calc Estimated GFR Random Glucose (60-115) mg/dL Calcium (8.4-10.2) mg/dL Magnesium (1.6-2.6) mg/dL Total Bilirubin (0.0-1.0) mg/dL Direct Bilirubin (0.0-0.5) mg/dL AST (5-31) U/L ALT (0-31) U/L Alkaline Phosphatase (39-117) U/L Troponin I High Sens < 3.5 (<3.5-17.0) ng/L Total Protein (6.5-8.0) g/dL Albumin (3.5-5.0) g/dL Lipase (8-78) U/L Urine Color YELLOW Urine Appearance CLEAR Urine pH 5.5 (5.0-8.0) Ur Specific [place] 1.025 (1.005-1.025) Urine Protein NEG (NEG-TRACE) MG/DL Urine Glucose (UA) NEG (NEG) MG/DL Urine Ketones NEG (NEG) MG/DL Urine Blood 1+ H (NEG) Urine Nitrite NEG (NEG) Ur Leukocyte Esterase NEG (NEG) Urine RBC 0-2 (0) /HPF Urine WBC 1-4 (0-4) /HPF Ur Squamous Epith Cells TRACE /LPF Urine Bacteria NONE /LPF Urine Test NEGATIVE (NEGATIVE) COVID-19 (EVELYN) (Negative) COVID-19 Clin Com ECG Data Interpretation: Rate: normal sinus rythem with sinus arhythmia Rhythm: 60's [place]: left Normal P waves. yes Normal JOHANNA. Normal QRS complex. yes ST T wave : NO BRIJESH, nonspecific T wave abnormalities noted in anterior leads qTC: normal prior studies: Yes, no changes when compared to EKG from February 2021 The study has been interpreted contemporaneously by me. . Discharge Plan Discharge Clinical Impression: Dizziness Patient Disposition: Home, Self-Care Instructions: Dizziness (ED) Additional Instructions: Return to the ED with new or worsening symptoms Prescriptions: New meclizine 25 mg tablet 25 mg PO TID PRN (Reason: dizziness) Qty: 30 RF: 0 No Action furosemide 80 mg tablet 80 mg PO DAILY Qty: 30 RF: 5 levothyroxine 200 mcg tablet 200 mcg PO DAILY 90 Days Qty: 90 RF: 1 amlodipine 5 mg tablet 5 mg PO DAILY Qty: 90 RF: 2 cholecalciferol (vitamin D3) 125 mcg (5,000 unit) capsule 125 mcg PO DAILY Qty: 30 RF: 2 Januvia 50 mg tablet 50 mg PO DAILY 90 Days Qty: 90 RF: 0 ibuprofen 600 mg tablet 600 mg PO Q8H PRN (Reason: pain) Qty: 10 RF: 0 alum-mag hydroxide-simeth [Maalox Advanced] 200-200-20 mg/5 mL suspension 5 ml PO 5XD PRN (Reason: dyspepsia) Qty: 30 RF: 0 metformin 500 mg tablet 500 mg PO BID Qty: 60 RF: 0 famotidine [Pepcid AC] 20 mg tablet 20 mg PO DAILY PRN (Reason: GERD) RF: 0 lidocaine 5 % adhesive patch,medicated 1 patch topical DAILY PRN (Reason: Back Pain) RF: 0 omeprazole 20 mg capsule,delayed release(DR/EC) 20 mg PO DAILY PRN (Reason: GERD) RF: 0 loratadine [Allerclear] 10 mg tablet 10 mg PO DAILY PRN (Reason: itching) Qty: 7 RF: 0 meclizine 25 mg tablet 25 mg PO TID PRN (Reason: dizziness) 7 Days Qty: 21 RF: 0 albuterol sulfate 90 mcg/actuation HFA aerosol inhaler 1 - 2 puff inhalation Q4-6H PRN (Reason: dyspnea) RF: 0 Qvar RediHaler 40 mcg/actuation HFA aerosol breath activated 1 inh inhalation BID PRN (Reason: Asthma) RF: 0 (DME) blood-glucose meter [FreeStyle Lite Meter] Kit See Rx Instructions .Route Qty: 1 RF: 0 (DME) FreeStyle Lite Strips Strip See Rx Instructions .Route Qty: 100 RF: 12 (DME) lancets [FreeStyle Lancets] 28 gauge misc See Rx Instructions .Route Qty: 100 RF: 12 alcohol swabs [Alcohol Pads] Pads, Medicated 1 pad topical BID Qty: 100 RF: 6 Magic Mouthwash Diphen/Lido/Antacid 1:1:1 240 mL suspension 2 ml PO Q4-6H 5 Days Qty: 240 RF: 0 bupropion HCl 150 mg tablet extended release 24 hr 150 mg PO DAILY RF: 0 clonazepam 1 mg tablet 1 mg PO BID PRN (Reason: Anxiety) RF: 0 calcium citrate-vitamin D3 315 mg-6.25 mcg (250 unit) tablet 1 tab PO DAILY RF: 0 albuterol sulfate 2.5 mg /3 mL (0.083 %) solution for nebulization 2.5 mg inhalation DAILY PRN (Reason: asthma) RF: 0 aripiprazole 5 mg tablet 5 mg PO DAILY RF: 0 ondansetron HCl 4 mg tablet 4 mg PO DAILY PRN (Reason: Nausea) RF: 0 Reguloid (psyllium husk-sucro) 3 gram/7 gram powder 2 tsp PO DAILY PRN (Reason: Constipation) RF: 0 acamprosate 333 mg tablet,delayed release (DR/EC) 666 mg PO TID RF: 0 losartan 100 mg tablet 100 mg PO DAILY RF: 0 Referrals: Claire Mcnair MD [Primary Care Provider] - 2 days Stand Alone Forms: Work/School Release Print Language: Romanian
--- NOTE | 2021-04-11 13:38 | ECG_ITS ---
Test Reason : DIZZINESSAR Blood Pressure : / mmHG Vent. Rate : 063 BPM Atrial Rate : 063 BPM P-R Int : 168 ms QRS Dur : 094 ms QT Int : 468 ms P-R-T Axes : 048 -09 021 degrees QTc Int : 478 ms Normal sinus rhythm with sinus arrhythmia Voltage criteria for left ventricular hypertrophy Nonspecific T wave abnormality Prolonged QT Abnormal ECG When compared with ECG of 15-MAR-2021 16:05, Nonspecific T wave abnormality has replaced inverted T waves in Anterior leads Referred By: Mansi Saleem Electronically Signed By:DELTA JEFF
[2021-04-11 14:01] LABS: MANUAL DIFF FLAG NO
[2021-04-11 14:06] LABS: Basophils Absolute Auto 0.1 X10*3/uL (0.0-0.2); Basophils Percent Auto 0.8 % (0-2); Eosinophils Absolute Auto 0.2 X10*3/uL (0.0-0.4); Eosinophils Percent Auto 2.7 % (0-4); Hematocrit 43.2 % (37-47); Hemoglobin 14.3 g/dl (12.0-16.0); Imm Gran Abs Auto 0.02 X10*3/uL (0.00-0.03); Imm Gran Pct Auto 0.2 % (0.0-0.4); Lymphocytes Absolute Auto 2.7 X10*3/uL (1.2-4.9); Lymphocytes Percent Auto 29.4 % (20-40); Mean Corpuscular HGB Conc 33.1 g/dl (31.0-35.0); Mean Corpuscular Hemoglobin 28.8 pg (27.0-33.0); Mean Corpuscular Volume 86.9 fL (80-98); Mean Platelet Volume 11.9 fL (9.4-12.3); Monocytes Absolute Auto 0.4 X10*3/uL (0.1-1.2); Monocytes Percent Auto 4.6 % (2-11); Neutrophils Absolute Auto 5.6 X10*3/uL (2.0-8.3); Neutrophils Percent Auto 62.3 % (45-73); Platelet Count 199 X10*3/uL (160-400); Red Blood Count 4.97 X10*6/uL (4.20-5.50)
[2021-04-11 14:11] VITALS: BP 130/79; PULSE 63
[2021-04-11 14:12] VITALS: BP 126/85; PULSE 69
[2021-04-11 14:13] VITALS: BP 121/83; PULSE 76
[2021-04-11 14:21] LABS: Alanine Aminotransferase 50 U/L (0-31); Albumin Level 4.5 g/dL (3.5-5.0); Alkaline Phosphatase 107 U/L (39-117); Anion Gap 15 (12-20); Aspartate Amino Transferase 37 U/L (5-31); Bilirubin Direct 0.2 mg/dL (0.0-0.5); Bilirubin Total 0.5 mg/dL (0.0-1.0); Blood Urea Nitrogen 12 mg/dL (9-16); Calcium 9.3 mg/dL (8.4-10.2); Carbon Dioxide 29 mmol/L (22-29); Chloride 97 mmol/L (96-108); Creatinine Clr Calc Pharmacy 84.8; Estimated Glomerular Filt Rate > 60; Glucose Random 327 mg/dL (60-115); Lipase 20 U/L (8-78); Magnesium 1.5 mg/dL (1.6-2.6); Potassium 3.7 mmol/L (3.3-5.1); Sodium 137 mmol/L (135-145); Total Protein 7.8 g/dL (6.5-8.0)
[2021-04-11 14:22] LABS: COVID-19 Test Negative (Negative); IDNOW Serial# 9DD0AD1C
[2021-04-11 14:24] LABS: Troponin-I High Sensitivity < 3.5 ng/L (<3.5-17.0)
[2021-04-11] MEDS: 0.9 % Sodium Chloride 1,000 ML 999 ML IVCONT ×2 (14:35→15:21)
[2021-04-11 14:39] LABS: Appearance Urine CLEAR; Color Urine YELLOW; Glucose Urine UA NEG (NEG); Leukocyte Esterase Urine NEG (NEG); Nitrite Urine NEG (NEG); PH 5.5 (5.0-8.0); Specific Gravity - Urine 1.025 (1.005-1.025); UACC Culture Trigger NO; Urine Blood 1+ (NEG); Urine Ketones NEG (NEG); Urine Protein NEG (NEG-TRACE)
[2021-04-11 14:41] VITALS: BP 131/86; PULSE 65; RESP 16; TEMP 36.9; O2SAT 99
[2021-04-11 14:41] LABS: UPreg QC Valid YES; Urine Pregnancy NEGATIVE (NEGATIVE)
[2021-04-11 14:58] LABS: Squamous Epithelial Cell Urine TRACE /LPF
[2021-04-11 15:01] LABS: RBC Urine 0-2 /HPF (0)
[2021-04-11 15:20] VITALS: BP 129/81; PULSE 65; RESP 15; O2SAT 97
[2021-04-11 15:44] LABS: Glucose, Whole Blood 302 mg/dL (60-115)
[2021-04-11] MEDS: Magnesium Oxide 400 MG TABLET PO (15:49)
== END 2021-04-11 16:38 | disposition home or self-care (01) ==
PROVIDERS: Emergency Provider Emergency Medicine; PCP Internal Medicine
DX: R42 Dizziness and giddiness (principal); R51.9 Headache, unspecified; F17.210 Nicotine dependence, cigarettes, uncomplicated; Z20.822 Contact with and (suspected) exposure to COVID-19; Z71.6 Tobacco abuse counseling; Z79.899 Other long term (current) drug therapy
CPT/HCPCS: 36415; 80048; 80076; 81001; 81025; 82947; 83690; 83735; 84484; 85025; 87635; 93005; 96360; 96361; 99284; 99285

== ENCOUNTER 2021-04-17 18:18 | Emergency (ER) | payer OTHER, SELFPAY ==
[2021-04-17 18:38] VITALS: BP 153/92; PULSE 76; RESP 16; TEMP 36.6; O2SAT 98; BMI 39.9
--- NOTE | 2021-04-17 21:22 | PC.NURSE ---
PT POC is 356 at this time. at bed side for primary eval.
[2021-04-17 21:24] VITALS: BP 184/97; PULSE 75; RESP 18; O2SAT 99
[2021-04-17 21:28] LABS: Glucose, Whole Blood 356 mg/dL (60-115)
--- NOTE | 2021-04-17 21:33 | ED_ITS ---
HPI - General Adult General Chief complaint: Headache Stated complaint: headache Time Seen by Provider: 04/17/21 21:18 Source: patient, old records reviewed and major account representative History of Present Illness HPI narrative: Patient with a recent diagnosis of diabetes, type 2, starting approximately 3 months ago. Since that time she has been struggling to keep her sugar under control. She was 1st started on metformin but did not tolerate this GI side effects. She was then switched to Januvia but was not controlling her blood sugar levels which continued to be chronically over 300. She was recently started on Lantus insulin blood sugar continues to climb. She has only had 2 doses so far. One yesterday and 1 this afternoon. As her sugar was still rising she came into the emergency department. She has been seen in this emergency department and other emergency departments several times in the recent past due to her high blood sugar. She states she has been treated with IV fluids which temporarily helped but several hours after going home her blood sugar is high and. She is worried because she had an aunt who had a similar issue and had a stroke and . She denies any recent illness or infection. No COVID-19 exposure. No nausea vomiting at this point no fevers or chills She has also been treated by bariatric doctor and has lost 10 lb. Thus far that has not seemed to have a positive affect on her blood sugars Related Data Home Medications Medication Instructions Recorded Confirmed albuterol sulfate 2.5 mg INHALATION DAILY PRN 04/26/20 04/06/21 aripiprazole 5 mg tablet 5 mg PO DAILY 04/26/20 04/06/21 bupropion HCl 150 mg 24 hr tablet, 150 mg PO DAILY 04/26/20 04/06/21 extended release calcium citrate 315 mg 1 tab PO DAILY 04/26/20 04/06/21 calcium-vitamin D3 6.25 mcg (250 unit) tablet clonazepam 1 mg tablet 1 mg PO BID PRN 04/26/20 04/06/21 ondansetron HCl 4 mg tablet 4 mg PO DAILY PRN 04/26/20 04/06/21 albuterol sulfate 90 mcg/actuation 1 - 2 puff INHALATION Q4-6H PRN 07/24/20 04/06/21 aerosol inhaler beclomethasone dipropionate 40 1 inh INHALATION BID PRN 01/04/21 09/17/21 mcg/actuation HFA breath activated aerosol (Qvar RediHaler) acamprosate 333 mg tablet,delayed 666 mg PO TID 12/07/20 04/06/21 release losartan 100 mg tablet 100 mg PO DAILY 12/07/20 04/06/21 psyllium husk (with sugar) 3 2 tsp PO DAILY PRN 12/07/20 04/06/21 gram/7 gram oral powder famotidine 20 mg tablet (Pepcid AC) 20 mg PO DAILY PRN 04/05/21 04/06/21 lidocaine 5 % topical patch 1 patch TOPICAL DAILY PRN 04/05/21 04/06/21 omeprazole 20 mg capsule,delayed 20 mg PO DAILY PRN 04/05/21 04/06/21 release Previous Rx's Medication Instructions Recorded meclizine 25 mg tablet 25 mg PO TID PRN 7 Days #21 tab 09/19/20 furosemide 80 mg tablet 80 mg PO DAILY #30 tab 10/13/20 levothyroxine 200 mcg tablet 200 mcg PO DAILY 90 Days #90 tab 10/26/20 ibuprofen 600 mg tablet 600 mg PO Q8H PRN #10 tab 12/20/20 amlodipine 5 mg tablet 5 mg PO DAILY #90 tab 01/18/21 loratadine 10 mg tablet 10 mg PO DAILY PRN #7 tab 02/14/21 (Allerclear) aluminum-mag hydroxide-simethicone 5 ml PO 5XD PRN #30 ml 03/15/21 200 mg-200 mg-20 mg/5 mL oral susp (Maalox Advanced) cholecalciferol (vitamin D3) 125 125 mcg PO DAILY #30 cap 04/05/21 mcg (5,000 unit) capsule FreeStyle Lite Strips (blood sugar #100 ea NS 04/06/21 diagnostic) Magic Mouthwash 2 ml PO Q4-6H 5 Days #240 ml 04/06/21 Diphen/Lido/Antacid 1:1:1 240 mL suspension alcohol swabs (Alcohol Pads) 1 pad TOPICAL BID #100 ea 04/06/21 blood-glucose meter (FreeStyle #1 ea 04/06/21 Lite Meter) lancets 28 gauge (FreeStyle #100 ea 04/06/21 Lancets) metformin 500 mg tablet 500 mg PO BID #60 tab 04/06/21 sitagliptin 50 mg tablet (Januvia) 50 mg PO DAILY 90 Days #90 tab 04/10/21 meclizine 25 mg tablet 25 mg PO TID PRN #30 tab 04/11/21 miscellaneous medical supply #1 ea 04/12/21 (Blood Pressure Cuff) insulin glargine 100 unit/mL (3 20 unit SUBCUT QPM 90 Days #18 ml 04/16/21 mL) subcutaneous pen (Lantus Solostar U-100 Insulin) pen needle, diabetic 31 gauge x #100 ea 04/16/2112/03 (Comfort EZ Pen [place]) Allergies Allergy/AdvReac Type Severity Reaction Status Date / Time zolpidem AdvReac Intermediate nightmares Verified 04/06/21 16:47 Review of Systems Constitutional: Constitutional: Denies fever(s) Eyes: Comments: Occasional blurred vision ENT: Comments: Canker sore being treated by her PCP with mouth rinse Cardiovascular: Comments: No chest pain Respiratory: Comments: No dyspnea Gastrointestinal: Comments: No abdominal pain nausea vomiting Genitourinary: Comments: Polyuria Integumentary/Breasts: Comments: Abdominal rash Endocrine: Comments: Recent diabetes diagnosis [facility] Past Medical History Medical History Acquired hypothyroidism Anxiety Depression Dizziness Essential hypertension Hypothyroidism Insomnia Left foot pain Low back pain Low potassium syndrome Morbid obesity Right wrist pain Sleep apnea with use of continuous positive airway pressure (CPAP) Surgical History H/O endoscopy H/O: hysterectomy History of bladder surgery History of section History of colonoscopy History of thyroid surgery History of total abdominal hysterectomy Family History Family History Father Diabetes Mother Hypertension Maternal Uncle Colon cancer Maternal Aunt Breast cancer Paternal Aunt Breast cancer Family/Other FH: mental illness Substance use disorder Social History Social History Housing: Apartment Alcohol intake: never Patient Tobacco Use Status: Current everyday Tobacco user Tobacco use type: Cigarette Cigarettes Per Day: 3 Years Smoked: 30 years Advance Directives: No Advance Directives Information Provided: Yes Patient : No service: No Current occupational status: disabled Physical Exam Vital Signs: Vital Signs: Last Vital Signs Temp 98 F 04/17/21 22:00 Pulse 68 04/17/21 22:00 Resp 18 04/17/21 22:00 BP 124/79 04/17/21 22:00 Pulse Ox 94 04/17/21 22:00 Body Mass Index 39.9 Const: Other: Awake alert. Anxious but no acute physiologic distress Resp: Other: Clear and equal bilaterally Cardio: Other: Regular rate and rhythm no murmurs rubs or gallops GI: Other: Soft nontender nondistended Skin: Other: Warm pink and dry. Two small abdominal lesions consistent with acne. Neuro: Other: Awake and alert. No neuro deficits Psych: Other: Anxious Course Course Course Narrative: Uncontrolled type 2 diabetes Diabetic ketoacidosis Dehydration Electrolyte imbalance Will treat with IV normal saline IV regular insulin. Will also treat the subcutaneous Lantus for longer-term management. 11:24 p.m.. Repeat glucose is 274. Stable for discharge home Medical Decision Making Lab Data Result diagrams: 04/17/21 21:50 04/17/21 21:50 Labs: Lab Results 04/17/21 04/17/21 04/17/21 Range/Units 21:21 21:50 21:50 WBC 9.7 (4.8-10.8) X10*3/uL RBC 5.18 (4.20-5.50) X10*6/uL Hgb 15.2 (12.0-16.0) g/dl Hct 44.7 (37-47) % MCV 86.3 (80-98) fL MCH 29.3 (27.0-33.0) pg MCHC 34.0 (31.0-35.0) g/dl RDW 13.2 (11.0-16.0) % Plt Count 209 (160-400) X10*3/uL MPV 12.0 (9.4-12.3) fL Immature Gran % (Auto) 0.2 (0.0-0.4) % Neut % (Auto) 57.6 (45-73) % Lymph % (Auto) 33.7 (20-40) % [place] % (Auto) 5.9 (2-11) % Eos % (Auto) 2.2 (0-4) % Baso % (Auto) 0.4 (0-2) % Lymph # (Auto) 3.3 (1.2-4.9) X10*3/uL [place] # (Auto) 0.6 (0.1-1.2) X10*3/uL Eos # (Auto) 0.2 (0.0-0.4) X10*3/uL Baso # (Auto) 0.0 (0.0-0.2) X10*3/uL Abs Immat Gran (auto) 0.02 (0.00-0.03) X10*3/uL Absolute Neuts (auto) 5.6 (2.0-8.3) X10*3/uL Absolute Nucleated RBC 0.000 (0.0-0.012) X10*3/uL Nucleated RBC % (auto) 0.0 (0.0-0.2) /100WBC Sodium 137 (135-145) mmol/L Potassium 4.0 (3.3-5.1) mmol/L Chloride 97 (96-108) mmol/L Carbon Dioxide 29 (22-29) mmol/L Anion Gap 15 (12-20) BUN 13 (9-16) mg/dL Creatinine 1.02 (0.5-1.4) mg/dL Estim Creat Clear Calc 79.9 Estimated GFR 58 POC Glucose 356 H* (60-115) mg/dL Random Glucose 400 H* (60-115) mg/dL Calcium 9.8 (8.4-10.2) mg/dL Total Bilirubin 0.8 (0.0-1.0) mg/dL AST 34 H (5-31) U/L ALT 50 H (0-31) U/L Alkaline Phosphatase 120 H (39-117) U/L Total Protein 8.4 H (6.5-8.0) g/dL Albumin 4.7 (3.5-5.0) g/dL Acetone, Qual Negative (Negative) 04/17/21 Range/Units 23:14 WBC (4.8-10.8) X10*3/uL RBC (4.20-5.50) X10*6/uL Hgb (12.0-16.0) g/dl Hct (37-47) % MCV (80-98) fL MCH (27.0-33.0) pg MCHC (31.0-35.0) g/dl RDW (11.0-16.0) % Plt Count (160-400) X10*3/uL MPV (9.4-12.3) fL Immature Gran % (Auto) (0.0-0.4) % Neut % (Auto) (45-73) % Lymph % (Auto) (20-40) % [place] % (Auto) (2-11) % Eos % (Auto) (0-4) % Baso % (Auto) (0-2) % Lymph # (Auto) (1.2-4.9) X10*3/uL [place] # (Auto) (0.1-1.2) X10*3/uL Eos # (Auto) (0.0-0.4) X10*3/uL Baso # (Auto) (0.0-0.2) X10*3/uL Abs Immat Gran (auto) (0.00-0.03) X10*3/uL Absolute Neuts (auto) (2.0-8.3) X10*3/uL Absolute Nucleated RBC (0.0-0.012) X10*3/uL Nucleated RBC % (auto) (0.0-0.2) /100WBC Sodium (135-145) mmol/L Potassium (3.3-5.1) mmol/L Chloride (96-108) mmol/L Carbon Dioxide (22-29) mmol/L Anion Gap (12-20) BUN (9-16) mg/dL Creatinine (0.5-1.4) mg/dL Estim Creat Clear Calc Estimated GFR POC Glucose 271 H (60-115) mg/dL Random Glucose (60-115) mg/dL Calcium (8.4-10.2) mg/dL Total Bilirubin (0.0-1.0) mg/dL AST (5-31) U/L ALT (0-31) U/L Alkaline Phosphatase (39-117) U/L Total Protein (6.5-8.0) g/dL Albumin (3.5-5.0) g/dL Acetone, Qual (Negative) Discharge Plan Discharge Clinical Impression: Uncontrolled diabetes mellitus Qualifiers: Diabetes mellitus type: type 2 Glycemic state: with hyperglycemia Qualified Code(s): E11.65 - Type 2 diabetes mellitus with hyperglycemia Patient Disposition: Home, Self-Care Instructions: Diabetic Hyperglycemia (ED) Additional Instructions: Continue your current medications. Check your blood sugar levels at least 3 times daily. As long as blood sugar remains above 200, take Lantus twice daily, 20 units in the morning 20 units in the evening. Call your primary care doctor for further adjustments and recommendations Prescriptions: No Action furosemide 80 mg tablet 80 mg PO DAILY Qty: 30 RF: 5 levothyroxine 200 mcg tablet 200 mcg PO DAILY 90 Days Qty: 90 RF: 1 amlodipine 5 mg tablet 5 mg PO DAILY Qty: 90 RF: 2 cholecalciferol (vitamin D3) 125 mcg (5,000 unit) capsule 125 mcg PO DAILY Qty: 30 RF: 2 Januvia 50 mg tablet 50 mg PO DAILY 90 Days Qty: 90 RF: 0 (DME) Blood Pressure Cuff Misc See Rx Instructions .Route Qty: 1 RF: 0 Lantus Solostar U-100 Insulin 100 unit/mL (3 mL) insulin pen 20 unit subcut QPM 90 Days Qty: 18 RF: 2 (DME) pen needle, diabetic [Comfort EZ Pen [place]] 31 gauge x 5/16 needle See Rx Instructions .Route Qty: 100 RF: 3 ibuprofen 600 mg tablet 600 mg PO Q8H PRN (Reason: pain) Qty: 10 RF: 0 alum-mag hydroxide-simeth [Maalox Advanced] 200-200-20 mg/5 mL suspension 5 ml PO 5XD PRN (Reason: dyspepsia) Qty: 30 RF: 0 metformin 500 mg tablet 500 mg PO BID Qty: 60 RF: 0 meclizine 25 mg tablet 25 mg PO TID PRN (Reason: dizziness) Qty: 30 RF: 0 famotidine [Pepcid AC] 20 mg tablet 20 mg PO DAILY PRN (Reason: GERD) RF: 0 lidocaine 5 % adhesive patch,medicated 1 patch topical DAILY PRN (Reason: Back Pain) RF: 0 omeprazole 20 mg capsule,delayed release(DR/EC) 20 mg PO DAILY PRN (Reason: GERD) RF: 0 loratadine [Allerclear] 10 mg tablet 10 mg PO DAILY PRN (Reason: itching) Qty: 7 RF: 0 meclizine 25 mg tablet 25 mg PO TID PRN (Reason: dizziness) 7 Days Qty: 21 RF: 0 albuterol sulfate 90 mcg/actuation HFA aerosol inhaler 1 - 2 puff inhalation Q4-6H PRN (Reason: dyspnea) RF: 0 Qvar RediHaler 40 mcg/actuation HFA aerosol breath activated 1 inh inhalation BID PRN (Reason: Asthma) RF: 0 (DME) blood-glucose meter [FreeStyle Lite Meter] Kit See Rx Instructions .Route Qty: 1 RF: 0 (DME) FreeStyle Lite Strips Strip See Rx Instructions .Route Qty: 100 RF: 12 (DME) lancets [FreeStyle Lancets] 28 gauge misc See Rx Instructions .Route Qty: 100 RF: 12 alcohol swabs [Alcohol Pads] Pads, Medicated 1 pad topical BID Qty: 100 RF: 6 Magic Mouthwash Diphen/Lido/Antacid 1:1:1 240 mL suspension 2 ml PO Q4-6H 5 Days Qty: 240 RF: 0 bupropion HCl 150 mg tablet extended release 24 hr 150 mg PO DAILY RF: 0 clonazepam 1 mg tablet 1 mg PO BID PRN (Reason: Anxiety) RF: 0 calcium citrate-vitamin D3 315 mg-6.25 mcg (250 unit) tablet 1 tab PO DAILY RF: 0 albuterol sulfate 2.5 mg /3 mL (0.083 %) solution for nebulization 2.5 mg inhalation DAILY PRN (Reason: asthma) RF: 0 aripiprazole 5 mg tablet 5 mg PO DAILY RF: 0 ondansetron HCl 4 mg tablet 4 mg PO DAILY PRN (Reason: Nausea) RF: 0 Reguloid (psyllium husk-sucro) 3 gram/7 gram powder 2 tsp PO DAILY PRN (Reason: Constipation) RF: 0 acamprosate 333 mg tablet,delayed release (DR/EC) 666 mg PO TID RF: 0 losartan 100 mg tablet 100 mg PO DAILY RF: 0
[2021-04-17 21:54] LABS: MANUAL DIFF FLAG NO
[2021-04-17] MEDS: 0.9 % Sodium Chloride 1,000 ML 999 ML IV (21:54)
[2021-04-17 21:58] LABS: Basophils Percent Auto 0.4 % (0-2); Eosinophils Absolute Auto 0.2 X10*3/uL (0.0-0.4); Eosinophils Percent Auto 2.2 % (0-4); Hematocrit 44.7 % (37-47); Hemoglobin 15.2 g/dl (12.0-16.0); Imm Gran Abs Auto 0.02 X10*3/uL (0.00-0.03); Imm Gran Pct Auto 0.2 % (0.0-0.4); Lymphocytes Absolute Auto 3.3 X10*3/uL (1.2-4.9); Lymphocytes Percent Auto 33.7 % (20-40); Mean Corpuscular Hemoglobin 29.3 pg (27.0-33.0); Mean Corpuscular Volume 86.3 fL (80-98); Monocytes Absolute Auto 0.6 X10*3/uL (0.1-1.2); Monocytes Percent Auto 5.9 % (2-11); Neutrophils Absolute Auto 5.6 X10*3/uL (2.0-8.3); Neutrophils Percent Auto 57.6 % (45-73); Platelet Count 209 X10*3/uL (160-400); Red Blood Count 5.18 X10*6/uL (4.20-5.50); Red Cell Distribution Width 13.2 % (11.0-16.0); White Blood Count 9.7 X10*3/uL (4.8-10.8)
[2021-04-17 22:00] VITALS: BP 124/79; PULSE 68; RESP 18; TEMP 36.6; O2SAT 94
[2021-04-17 22:00] LABS: Acetone, serum QL Negative (Negative)
[2021-04-17] MEDS: Insulin Glargine,Hum.rec.anlog 100 UNIT/ML 10 ML VIAL 20 UNIT SUBCUT (22:00)
[2021-04-17] MEDS: Insulin Regular, Human 100 UNIT/ML 3 ML VIAL 10 UNIT IVPUSH (22:01)
--- NOTE | 2021-04-17 22:03 | PC.NURSE ---
IV established. Pt medicated per SEP. mechanical technician at bedside for labs. Pt ambulating to the bathroom with a steady gait, urine sample obtained.
[2021-04-17 22:17] LABS: Alanine Aminotransferase 50 U/L (0-31); Albumin Level 4.7 g/dL (3.5-5.0); Alkaline Phosphatase 120 U/L (39-117); Anion Gap 15 (12-20); Aspartate Amino Transferase 34 U/L (5-31); Bilirubin Total 0.8 mg/dL (0.0-1.0); Blood Urea Nitrogen 13 mg/dL (9-16); Calcium 9.8 mg/dL (8.4-10.2); Carbon Dioxide 29 mmol/L (22-29); Chloride 97 mmol/L (96-108); Creatinine Clr Calc Pharmacy 79.9; Estimated Glomerular Filt Rate 58; Glucose Random 400 mg/dL (60-115); Sodium 137 mmol/L (135-145); Total Protein 8.4 g/dL (6.5-8.0)
[2021-04-17 23:19] LABS: Glucose, Whole Blood 271 mg/dL (60-115)
[2021-04-17 23:37] VITALS: BP 124/79; PULSE 68; RESP 16
== END 2021-04-17 23:50 | disposition home or self-care (01) ==
PROVIDERS: Emergency Provider Emergency Medicine; PCP Internal Medicine
DX: E11.65 Type 2 diabetes mellitus with hyperglycemia (principal); R51.9 Headache, unspecified; F17.210 Nicotine dependence, cigarettes, uncomplicated; Z71.6 Tobacco abuse counseling; Z79.899 Other long term (current) drug therapy
CPT/HCPCS: 36415; 80053; 82009; 82947; 85025; 96361; 96374; 99284

== ENCOUNTER 2021-04-18 09:36 | Outpatient (REF) | payer OTHER, SELFPAY ==
[2021-04-18 10:18] LABS: Appearance Urine CLOUDY; Color Urine YELLOW; Glucose Urine UA 100 MG/DL (NEG); Leukocyte Esterase Urine TRACE (NEG); Nitrite Urine NEG (NEG); Specific Gravity - Urine 1.025 (1.005-1.025); Urine Blood 1+ (NEG); Urine Ketones NEG (NEG); Urine Protein TRACE MG/DL (NEG-TRACE)
[2021-04-18 10:40] LABS: Amorphous Sediment Urine 4+ /LPF; Squamous Epithelial Cell Urine 2+ /LPF; WBC Urine 0-2 /HPF (0-4)
[2021-04-18 10:53] LABS: Creatinine Urine 210.61 mg/dL; Microalbum/Creatinine Ratio Ur 27.5 ug/mg cr
[2021-04-18 11:16] LABS: TSH reflex Free T4 4.63 uIU/mL (0.32-4.0)
[2021-04-20 12:08] LABS: H Pylori Breath Test Negative (Negative)
== END 2021-04-18 09:37 | disposition home or self-care (01) ==
LOC: HO.LAB 09:36
PROVIDERS: Surgery; Absent Provider Internal Medicine; PCP Internal Medicine; Visit Provider Nurse Practitioner Family
DX: E11.9 Type 2 diabetes mellitus without complications (principal); E03.9 Hypothyroidism, unspecified; Z11.0 Encounter for screening for intestinal infectious diseases
CPT/HCPCS: 36415; 81001; 82043; 83013; 84439; 84443; 99211

== ENCOUNTER → 2021-04-24 08:54 | Outpatient (BNVA) | payer OTHER, SELFPAY | PROVIDERS: PCP Internal Medicine; Referring Provider Internal Medicine; Visit Provider Dietitian, Registered | DX: E66.01 Morbid (severe) obesity due to excess calories (principal) | CPT/HCPCS: 97802 ==

== ENCOUNTER → 2021-04-27 08:00 | Outpatient (BNVA) | payer OTHER, SELFPAY | PROVIDERS: PCP Internal Medicine; Visit Provider Surgery ==

== ENCOUNTER 2021-05-02 09:45 | Emergency (ER) | payer OTHER, SELFPAY ==
--- NOTE | 2021-05-02 | ECG_ITS ---
Test Reason : cp Blood Pressure : / mmHG Vent. Rate : 069 BPM Atrial Rate : 069 BPM P-R Int : 174 ms QRS Dur : 090 ms QT Int : 438 ms P-R-T Axes : 050 -03 006 degrees QTc Int : 469 ms Normal sinus rhythm Minimal voltage criteria for LVH, may be normal variant ( R in aVL ) Nonspecific T wave abnormality Prolonged QT Abnormal ECG No previous ECGs available Referred By: Generic ED Physician Electronically Signed By:JORGE GALLO MD
--- NOTE | ~2021-05-02 | XR_ITS ---
EXAMINATION: XR CHEST CLINICAL INFORMATION: Chest pain COMPARISON: Previous chest x-ray most recent September 2020 TECHNIQUE: 2 views of the chest were obtained. FINDINGS: No significant abnormality is noted involving the heart, lungs, mediastinum, bony thorax or soft tissues. XR/XR chest 2V IMPRESSION: Unremarkable examination.
[2021-05-02 10:50] VITALS: BP 121/79; PULSE 67; RESP 18; TEMP 35.9; O2SAT 98; BMI 38.4
[2021-05-02 12:00] VITALS: BP 128/73; PULSE 70; RESP 18
--- NOTE | 2021-05-02 12:30 | ED.CHESTPAIN ---
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 Associated with a dry cough and mild shortness of breath. No leg swelling or pain. No fevers or chills. Also, complaining of a left-sided headache behind the eye photophobia nausea. No dizziness or vomiting. No neck pain or swelling. Related Data Home Medications Medication Instructions Recorded Confirmed albuterol sulfate 2.5 mg INHALATION DAILY PRN 04/26/20 04/23/21 bupropion HCl 150 mg 24 hr tablet, 150 mg PO DAILY 04/26/20 04/23/21 extended release clonazepam 1 mg tablet 1 mg PO BID PRN 04/26/20 04/23/21 ondansetron HCl 4 mg tablet 4 mg PO DAILY PRN 04/26/20 04/23/21 albuterol sulfate 90 mcg/actuation 1 - 2 puff INHALATION Q4-6H PRN 07/24/20 04/23/21 aerosol inhaler beclomethasone dipropionate 40 1 inh INHALATION BID PRN 07/24/20 04/23/21 mcg/actuation HFA breath activated aerosol (Qvar RediHaler) losartan 100 mg tablet 100 mg PO DAILY 12/07/20 04/23/21 psyllium husk (with sugar) 3 2 tsp PO DAILY PRN 12/07/20 04/23/21 gram/7 gram oral powder famotidine 20 mg tablet (Pepcid AC) 20 mg PO DAILY PRN 04/05/21 04/23/21 lidocaine 5 % topical patch 1 patch TOPICAL DAILY PRN 04/05/21 04/23/21 omeprazole 20 mg capsule,delayed 20 mg PO DAILY PRN 04/05/21 04/23/21 release Previous Rx's Medication Instructions Recorded furosemide 80 mg tablet 80 mg PO DAILY #30 tab 10/13/20 levothyroxine 200 mcg tablet 200 mcg PO DAILY 90 Days #90 tab 10/26/20 ibuprofen 600 mg tablet 600 mg PO Q8H PRN #10 tab 12/20/20 loratadine 10 mg tablet 10 mg PO DAILY PRN #7 tab 02/14/21 (Allerclear) aluminum-mag hydroxide-simethicone 5 ml PO 5XD PRN #30 ml 03/15/21 200 mg-200 mg-20 mg/5 mL oral susp (Maalox Advanced) cholecalciferol (vitamin D3) 125 125 mcg PO DAILY #30 cap 04/05/21 mcg (5,000 unit) capsule FreeStyle Lite Strips (blood sugar #100 ea NS 04/06/21 diagnostic) Magic Mouthwash 2 ml PO Q4-6H 5 Days #240 ml 04/06/21 Diphen/Lido/Antacid 1:1:1 240 mL suspension alcohol swabs (Alcohol Pads) 1 pad TOPICAL BID #100 ea 04/06/21 blood-glucose meter (FreeStyle #1 ea 04/06/21 Lite Meter) lancets 28 gauge (FreeStyle #100 ea 04/06/21 Lancets) sitagliptin 50 mg tablet (Januvia) 50 mg PO DAILY 90 Days #90 tab 04/10/21 meclizine 25 mg tablet 25 mg PO TID PRN #30 tab 04/11/21 miscellaneous medical supply #1 ea 04/12/21 (Blood Pressure Cuff) pen needle, diabetic 31 gauge x #100 ea 04/16/2112/03 (Comfort EZ Pen [place]) amlodipine 10 mg tablet 10 mg PO DAILY 90 Days #90 tab 04/23/21 insulin glargine 100 unit/mL (3 25 unit SUBCUT QPM 90 Days #22.5 ml 04/23/21 mL) subcutaneous pen (Lantus Solostar U-100 Insulin) levothyroxine 25 mcg tablet 25 mcg PO DAILY 90 Days #90 tab 04/23/21 aripiprazole 5 mg tablet 5 mg PO DAILY 90 Days #90 tab 05/02/21 Allergies Allergy/AdvReac Type Severity Reaction Status Date / Time zolpidem AdvReac Intermediate nightmares Verified 05/02/21 10:50 Review of Systems Review of Systems: Yes all other systems are reviewed and are negative Constitutional: Constitutional: Reports no additional constitutional complaints, Denies body ache(s), Denies chills, Denies fever(s), Reports headache(s) and Denies weakness Eyes: Eyes: Reports no additional eye complaints and Denies change in vision ENT: Reports system reviewed and no additional complaints, except as documented, Denies dizziness, Reports headache(s), Denies nasal congestion, Denies nasal discharge and Denies neck pain Cardiovascular: Cardiovascular: Reports no additional cardiovascular complaints, Reports chest pain, Denies leg edema and Reports dyspnea Respiratory: Respiratory: Reports no additional respiratory complaints, Reports cough and Reports dyspnea Gastrointestinal: Gastrointestinal: Reports no additional gastrointestinal complaints, Denies abdominal pain, Denies diarrhea, Denies nausea and Denies vomiting Genitourinary: Genitourinary: Reports no additional female genitourinary complaints and Denies urinary incontinence Musculoskeletal: Musculoskeletal: Reports no additional musculoskeletal complaints, Denies back pain, Denies arthralgias, Denies joint swelling, Denies neck pain, Denies numbness and Denies tingling Integumentary/Breasts: Skin/Breast: Reports system reviewed and no additional complaints, except as docu and Denies rash Neurologic: Reports system reviewed and no additional complaints, except as documented, Denies Abnormal speech present, Denies dizziness, Reports headache(s), Denies numbness, Denies tingling and Denies weakness PMFSH Past Medical History Attestation statement: The following information was validated with the patient. 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 Low back pain Low potassium syndrome Morbid obesity Right wrist pain Sleep apnea with use of continuous positive airway pressure (CPAP) Uncontrolled diabetes mellitus Surgical History H/O endoscopy H/O: hysterectomy History of bladder surgery History of section History of colonoscopy History of thyroid surgery History of total abdominal hysterectomy Family History Family History Father Diabetes Mother Hypertension Maternal Uncle Colon cancer Maternal Aunt Breast cancer Paternal Aunt Breast cancer Family/Other FH: mental illness Substance use disorder Social History Social History Housing: Apartment Alcohol intake: current Alcohol intake frequency: a few times a month Alcohol type: beer Patient Tobacco Use Status: Current everyday Tobacco user Tobacco use type: Cigarette Cigarettes Per Day: 3 Years Smoked: 30 years e-Cigarette/Vaping Use: Never Used Second Hand Smoke Exposure: No Advance Directives: No Advance Directives Information Provided: No service: No Current occupational status: disabled Physical Exam Vital Signs: Vital Signs: Last Vital Signs Temp 96.6 F L 05/02/21 10:50 Pulse 70 05/02/21 12:00 Resp 18 05/02/21 12:00 BP 128/73 05/02/21 12:00 Pulse Ox 98 05/02/21 10:50 Body Mass Index 38.4 Const: General: cooperative, healthy appearing, comfortable and no acute distress Orientation/consciousness: patient oriented x3 Limitations: no limitations HENMT: Head: Yes normal to inspection Ears: hearing grossly normal bilaterally and TM's normal bilaterally General nose exam: Normal external nose present Face and sinus: Yes normal facial exam Mouth: Normal oral and palatal mucosa present Throat: Yes posterior oropharynx normal, Yes tonsils normal and Yes uvula midline Eyes: General: appearance normal, both eyes and all related structures Visual Lino: normal visual lino by confrontation Alignment and Position: alignment normal Periorbital: periorbital findings normal Eyelids: Yes eyelids normal Conjunctivae: conjunctivae normal Sclerae: sclerae normal Corneas: corneas normal Pupils: Equal, round and reactive pupils present EOM: EOMs intact bilaterally Direct Ophthalmoscopy: normal light reflex Neck: Neck: Yes normal visual inspection Chest: Other: central chest tender to palp, worsened with deep breathing Chest palpation & inspection: normal inspection of the chest Resp: Effort & Inspection: normal respiratory effort Auscultation: clear to auscultation bilaterally Cardio: Rate: regular rate Rhythm: regular rhythm Peripheral pulses: Peripheral pulses 2+ throughout GI: Inspection: Yes normal to inspection Palpation (GI): Soft to palpation and nontender Auscultation: normal bowel sounds Back/Spine/Pelvis: Thoracic/Lumbar Spine: thoracic and lumbar spine normal to inspection Skin: General skin exam: no rashes or lesions noted Neuro: General: patient oriented x3, no focal motor deficits and normal sensation to monofilament Cranial nerves: Yes CN's II-XII intact bilaterally, Yes Equal, round and reactive pupils present, Yes Bilaterally intact EOM present, Yes Nystagmus not present, Yes Normal facial strength present and Yes Midline tongue present Cognition (Neuro): normal cognition Speech: No Abnormal speech present Gait exam (Neuro): Normal gait present Motor exam (neuro): 5/5 motor strength present throughout Sensory Exam: Normal double simultaneous stimulation for sensation Extrem: General: Yes normal to inspection, Yes no pedal edema and Yes no calf tenderness Course Course Course Narrative: 51-year-old female here with pleuritic chest pain for 2 days with associated mild shortness of breath and cough. Also complaining of some headache with photophobia and nausea. Vitals are stable Will check labs, EKG, chest x-ray. For headache which is likely migraine will give IV fluids, Reglan and Benadryl and Toradol. Normal neuro exam 1505-labs unremarkable. EKG shows no ischemic changes. Chest x-ray negative. Headache is resolved. Likely migraine. Chest pain atypical with symptoms greater than 48 hours with a negative troponin EKG. Less likely ACS. D-dimer negative so less likely PE. Reviewed worrisome signs and symptoms of when to return to the emergency department. Comfortable discharge home. MDM - Chest Pain MDM Narrative Medical decision making narrative: Pulmonary embolism, ACS, MS strain, pneumonia, migraine, ICH or CVA Medical Records Data Attestation: I reviewed the patient's medical records. Lab Data Attestation: I reviewed the patient's lab results. Result diagrams: 05/02/21 13:34 05/02/21 13:34 Labs: Lab Results 05/02/21 05/02/21 05/02/21 Range/Units 13:34 13:34 13:34 WBC 10.2 (4.8-10.8) X10*3/uL RBC 4.83 (4.20-5.50) X10*6/uL Hgb 13.9 (12.0-16.0) g/dl Hct 42.6 (37-47) % MCV 88.2 (80-98) fL MCH 28.8 (27.0-33.0) pg MCHC 32.6 (31.0-35.0) g/dl RDW 13.2 (11.0-16.0) % Plt Count 193 (160-400) X10*3/uL MPV 11.2 (9.4-12.3) fL Immature Gran % (Auto) 0.4 (0.0-0.4) % Neut % (Auto) 62.5 (45-73) % Lymph % (Auto) 30.0 (20-40) % Daggett % (Auto) 4.8 (2-11) % Eos % (Auto) 1.9 (0-4) % Baso % (Auto) 0.4 (0-2) % Lymph # (Auto) 3.1 (1.2-4.9) X10*3/uL Daggett # (Auto) 0.5 (0.1-1.2) X10*3/uL Eos # (Auto) 0.2 (0.0-0.4) X10*3/uL Baso # (Auto) 0.0 (0.0-0.2) X10*3/uL Abs Immat Gran (auto) 0.04 H (0.00-0.03) X10*3/uL Absolute Neuts (auto) 6.4 (2.0-8.3) X10*3/uL Absolute Nucleated RBC 0.000 (0.0-0.012) X10*3/uL Nucleated RBC % (auto) 0.0 (0.0-0.2) /100WBC D-Dimer NG/ML Sodium 139 (135-145) mmol/L Potassium 4.2 (3.3-5.1) mmol/L Chloride 101 (96-108) mmol/L Carbon Dioxide 29 (22-29) mmol/L Anion Gap 13 (12-20) BUN 14 (9-16) mg/dL Creatinine 0.79 (0.5-1.4) mg/dL Estim Creat Clear Calc 99.9 Estimated GFR > 60 Random Glucose 234 H (60-115) mg/dL Calcium 9.7 (8.4-10.2) mg/dL Magnesium 1.8 (1.6-2.6) mg/dL Total Bilirubin 0.5 (0.0-1.0) mg/dL Direct Bilirubin 0.2 (0.0-0.5) mg/dL AST 39 H (5-31) U/L ALT 55 H (0-31) U/L Alkaline Phosphatase 118 H (39-117) U/L Troponin I High Sens < 3.5 (<3.5-17.0) ng/L Total Protein 7.4 (6.5-8.0) g/dL Albumin 4.2 (3.5-5.0) g/dL 05/02/21 Range/Units 13:34 WBC (4.8-10.8) X10*3/uL RBC (4.20-5.50) X10*6/uL Hgb (12.0-16.0) g/dl Hct (37-47) % MCV (80-98) fL MCH (27.0-33.0) pg MCHC (31.0-35.0) g/dl RDW (11.0-16.0) % Plt Count (160-400) X10*3/uL MPV (9.4-12.3) fL Immature Gran % (Auto) (0.0-0.4) % Neut % (Auto) (45-73) % Lymph % (Auto) (20-40) % Daggett % (Auto) (2-11) % Eos % (Auto) (0-4) % Baso % (Auto) (0-2) % Lymph # (Auto) (1.2-4.9) X10*3/uL [place] # (Auto) (0.1-1.2) X10*3/uL Eos # (Auto) (0.0-0.4) X10*3/uL Baso # (Auto) (0.0-0.2) X10*3/uL Abs Immat Gran (auto) (0.00-0.03) X10*3/uL Absolute Neuts (auto) (2.0-8.3) X10*3/uL Absolute Nucleated RBC (0.0-0.012) X10*3/uL Nucleated RBC % (auto) (0.0-0.2) /100WBC D-Dimer < 200 NG/ML Sodium (135-145) mmol/L Potassium (3.3-5.1) mmol/L Chloride (96-108) mmol/L Carbon Dioxide (22-29) mmol/L Anion Gap (12-20) BUN (9-16) mg/dL Creatinine (0.5-1.4) mg/dL Estim Creat Clear Calc Estimated GFR Random Glucose (60-115) mg/dL Calcium (8.4-10.2) mg/dL Magnesium (1.6-2.6) mg/dL Total Bilirubin (0.0-1.0) mg/dL Direct Bilirubin (0.0-0.5) mg/dL AST (5-31) U/L ALT (0-31) U/L Alkaline Phosphatase (39-117) U/L Troponin I High Sens (<3.5-17.0) ng/L Total Protein (6.5-8.0) g/dL Albumin (3.5-5.0) g/dL Imaging Data Chest x-ray: Attestation: I personally reviewed and interpreted this imaging study as follows: Radiologist's impression: CLINICAL INFORMATION: Chest pain COMPARISON: Previous chest x-ray most recent September 2020 TECHNIQUE: 2 views of the chest were obtained. FINDINGS: No significant abnormality is noted involving the heart, lungs, mediastinum, bony thorax or soft tissues. XR/XR chest 2V IMPRESSION: Unremarkable examination. ECG Data ECG #1: Attestation: I personally reviewed and interpreted this ECG as follows: ECG interpretation date: 05/02/21 ECG interpretation time: 12:26 Interpretation: Normal sinus rhythm, rate of 69, normal LA, normal QRS, normal QT Discharge Plan Discharge Clinical Impression: Atypical chest pain, Migraine Patient Disposition: Home, Self-Care Instructions: Migraine Headache (ED), Chest Wall Pain (ED) Additional Instructions: lab work, ekg and x-ray all looked normal Limit screen time, increase fluids, rest Prescriptions: No Action furosemide 80 mg tablet 80 mg PO DAILY Qty: 30 RF: 5 levothyroxine 200 mcg tablet 200 mcg PO DAILY 90 Days Qty: 90 RF: 1 cholecalciferol (vitamin D3) 125 mcg (5,000 unit) capsule 125 mcg PO DAILY Qty: 30 RF: 2 Januvia 50 mg tablet 50 mg PO DAILY 90 Days Qty: 90 RF: 0 (DME) Blood Pressure Cuff Misc See Rx Instructions .Route Qty: 1 RF: 0 (DME) pen needle, diabetic [Comfort EZ Pen [place]] 31 gauge x 5/16 needle See Rx Instructions .Route Qty: 100 RF: 3 aripiprazole 5 mg tablet 5 mg PO DAILY 90 Days Qty: 90 RF: 1 ibuprofen 600 mg tablet 600 mg PO Q8H PRN (Reason: pain) Qty: 10 RF: 0 alum-mag hydroxide-simeth [Maalox Advanced] 200-200-20 mg/5 mL suspension 5 ml PO 5XD PRN (Reason: dyspepsia) Qty: 30 RF: 0 meclizine 25 mg tablet 25 mg PO TID PRN (Reason: dizziness) Qty: 30 RF: 0 famotidine [Pepcid AC] 20 mg tablet 20 mg PO DAILY PRN (Reason: GERD) RF: 0 lidocaine 5 % adhesive patch,medicated 1 patch topical DAILY PRN (Reason: Back Pain) RF: 0 omeprazole 20 mg capsule,delayed release(DR/EC) 20 mg PO DAILY PRN (Reason: GERD) RF: 0 loratadine [Allerclear] 10 mg tablet 10 mg PO DAILY PRN (Reason: itching) Qty: 7 RF: 0 albuterol sulfate 90 mcg/actuation HFA aerosol inhaler 1 - 2 puff inhalation Q4-6H PRN (Reason: dyspnea) RF: 0 Qvar RediHaler 40 mcg/actuation HFA aerosol breath activated 1 inh inhalation BID PRN (Reason: Asthma) RF: 0 (DME) blood-glucose meter [FreeStyle Lite Meter] Kit See Rx Instructions .Route Qty: 1 RF: 0 (DME) FreeStyle Lite Strips Strip See Rx Instructions .Route Qty: 100 RF: 12 (DME) lancets [FreeStyle Lancets] 28 gauge misc See Rx Instructions .Route Qty: 100 RF: 12 alcohol swabs [Alcohol Pads] Pads, Medicated 1 pad topical BID Qty: 100 RF: 6 Magic Mouthwash Diphen/Lido/Antacid 1:1:1 240 mL suspension 2 ml PO Q4-6H 5 Days Qty: 240 RF: 0 Lantus Solostar U-100 Insulin 100 unit/mL (3 mL) insulin pen 25 unit subcut QPM 90 Days Qty: 22.5 RF: 2 amlodipine 10 mg tablet 10 mg PO DAILY 90 Days Qty: 90 RF: 1 levothyroxine 25 mcg tablet 25 mcg PO DAILY 90 Days Qty: 90 RF: 1 bupropion HCl 150 mg tablet extended release 24 hr 150 mg PO DAILY RF: 0 clonazepam 1 mg tablet 1 mg PO BID PRN (Reason: Anxiety) RF: 0 albuterol sulfate 2.5 mg /3 mL (0.083 %) solution for nebulization 2.5 mg inhalation DAILY PRN (Reason: asthma) RF: 0 ondansetron HCl 4 mg tablet 4 mg PO DAILY PRN (Reason: Nausea) RF: 0 Reguloid (psyllium husk-sucro) 3 gram/7 gram powder 2 tsp PO DAILY PRN (Reason: Constipation) RF: 0 losartan 100 mg tablet 100 mg PO DAILY RF: 0
[2021-05-02 13:38] LABS: MANUAL DIFF FLAG NO
[2021-05-02 13:39] LABS: Basophils Percent Auto 0.4 % (0-2); Eosinophils Absolute Auto 0.2 X10*3/uL (0.0-0.4); Eosinophils Percent Auto 1.9 % (0-4); Hematocrit 42.6 % (37-47); Hemoglobin 13.9 g/dl (12.0-16.0); Imm Gran Abs Auto 0.04 X10*3/uL (0.00-0.03); Imm Gran Pct Auto 0.4 % (0.0-0.4); Lymphocytes Absolute Auto 3.1 X10*3/uL (1.2-4.9); Mean Corpuscular HGB Conc 32.6 g/dl (31.0-35.0); Mean Corpuscular Hemoglobin 28.8 pg (27.0-33.0); Mean Corpuscular Volume 88.2 fL (80-98); Mean Platelet Volume 11.2 fL (9.4-12.3); Monocytes Absolute Auto 0.5 X10*3/uL (0.1-1.2); Monocytes Percent Auto 4.8 % (2-11); Neutrophils Absolute Auto 6.4 X10*3/uL (2.0-8.3); Neutrophils Percent Auto 62.5 % (45-73); Platelet Count 193 X10*3/uL (160-400); Red Blood Count 4.83 X10*6/uL (4.20-5.50); Red Cell Distribution Width 13.2 % (11.0-16.0); White Blood Count 10.2 X10*3/uL (4.8-10.8)
[2021-05-02] MEDS: Ketorolac Tromethamine 15 MG/ML VIAL 30 MG IVPUSH (13:42)
[2021-05-02] MEDS: diphenhydrAMINE HCL 50 MG/ML VIAL 25 MG IVPUSH (13:42)
[2021-05-02] MEDS: Metoclopramide HCl 10 MG/2 ML VIAL IVPUSH (13:42)
[2021-05-02] MEDS: 0.9 % Sodium Chloride 500 ML 999 ML IV (13:44)
[2021-05-02 13:49] LABS: D Dimer < 200 NG/ML
[2021-05-02 13:58] LABS: Alanine Aminotransferase 55 U/L (0-31); Albumin Level 4.2 g/dL (3.5-5.0); Alkaline Phosphatase 118 U/L (39-117); Anion Gap 13 (12-20); Aspartate Amino Transferase 39 U/L (5-31); Bilirubin Direct 0.2 mg/dL (0.0-0.5); Bilirubin Total 0.5 mg/dL (0.0-1.0); Blood Urea Nitrogen 14 mg/dL (9-16); Calcium 9.7 mg/dL (8.4-10.2); Carbon Dioxide 29 mmol/L (22-29); Chloride 101 mmol/L (96-108); Creatinine Clr Calc Pharmacy 99.9; Estimated Glomerular Filt Rate > 60; Glucose Random 234 mg/dL (60-115); Magnesium 1.8 mg/dL (1.6-2.6); Potassium 4.2 mmol/L (3.3-5.1); Sodium 139 mmol/L (135-145); Total Protein 7.4 g/dL (6.5-8.0)
[2021-05-02 14:04] LABS: Troponin-I High Sensitivity < 3.5 ng/L (<3.5-17.0)
== END 2021-05-02 15:33 | disposition home or self-care (01) ==
PROVIDERS: Nurse Practitioner Family; Emergency Provider Emergency Medicine; PCP Internal Medicine
DX: R07.89 Other chest pain (principal); G43.009 Migraine without aura, not intractable, without status migrainosus; E11.9 Type 2 diabetes mellitus without complications; I10 Essential (primary) hypertension; Z79.4 Long term (current) 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
CPT/HCPCS: 36415; 71046; 80048; 80076; 83735; 84484; 85025; 85379; 93005; 96374; 96375; 99284; J1200; J1885; J2765

== ENCOUNTER → 2021-05-04 10:35 | Outpatient (BNVA) | payer OTHER, SELFPAY | PROVIDERS: PCP Internal Medicine; Referring Provider Internal Medicine; Visit Provider Physician Assistant Surgical ==

== ENCOUNTER 2021-05-22 08:16 | Outpatient (REF) | payer OTHER, SELFPAY ==
--- NOTE | ~2021-05-22 | US_ITS ---
EXAMINATION: US COMPLETE ABDOMEN WITH LIVER ELASTOGRAPHY CLINICAL INFORMATION: Morbid obesity COMPARISON: March 15, [address] scan of December 20, 2020 TECHNIQUE: Real-time imaging of the abdominal viscera. Noninvasive ultrasound liver fibrosis assessment is performed using Luke ElastPQ point quantification shear wave elastography (pSWE) with a C5-2 MHz transducer. Multiple elastography samples are obtained. FINDINGS: PANCREAS: Normal. The visualized pancreatic head and body are normal in appearance. The remainder of the pancreas is obscured from visualization by the overlying bowel gas. ABDOMINAL AORTA: The proximal, middle, and distal aortic segments are normal in caliber. INFERIOR VENA CAVA: Visualized portions are normal. LIVER: There is diffusely increased echogenicity consistent with fatty infiltration. No focal mass or intrahepatic bile duct dilatation is present. The right lobe measures 17.5 cm in length. The left lobe measures 14.1 cm in length. Portal flow is hepatopedal Shear wave liver elastography median stiffness is 1.62 m/s (reference: normal median stiffness is 1.3 m/s or less). IQR/median stiffness to assess sampling precision is 0.15 (reference: good quality data set is IQR/median stiffness of 0.15 or less). GALLBLADDER: Normal. The gallbladder is physiologically distended without evidence of stones, sludge, polyps, wall thickening or pericholecystic fluid. COMMON BILE DUCT: Normal in caliber measuring 0.3 cm in diameter. RIGHT KIDNEY: Normal. No hydronephrosis. No renal calculi or focal parenchymal lesions. The kidney measures 13.7 cm in maximum dimension. LEFT KIDNEY: Normal. No hydronephrosis. No renal calculi or focal parenchymal lesions. The kidney measures 12.8 cm in maximum dimension. SPLEEN: Normal. The spleen measures 9.0 cm in maximum dimension. FREE FLUID: None. US/US abdomen comp w elastography IMPRESSION: 1. Findings consistent with fatty infiltration of the liver. 2. Liver elastography: In the absence of other known clinical signs, measurements rule out compensated advanced chronic liver disease. If there are known clinical signs, further testing may be needed for confirmation. REFERENCE: Society of Radiologists in Ultrasound Liver Stiffness Thresholds (2020): LIVER STIFFNESS THRESHOLDS: *Liver Stiffness equal or less than 1.3 m/s: High probability of being normal. *Liver Stiffness less than 1.7 m/s: In the absence of other known clinical signs, rules out compensated advanced chronic liver disease. *Liver Stiffness 1.7-2.1 m/s: Suggestive of compensated advanced chronic liver disease but need further test for confirmation. *Liver Stiffness over 2.1 m/s: Rules in compensated advanced chronic liver disease. *Liver Stiffness over 2.4 m/s: Suggestive of clinically significant portal hypertension. QUALITY OF DATA SET: *IQR/Median value equal or less than 0.15 implies a quality data set. *IQR/Median value over 0.15 implies a poor quality data set. SIGNIFICANT CHANGE FROM PRIOR EXAM: Significant change if liver stiffness measurement is 10% or greater from prior exam. OTHER CONSIDERATIONS: The stage of liver fibrosis may be overestimated in the setting of acute hepatitis, liver inflammation, elevated liver function tests, hepatic vascular congestion, obstructive cholestasis, non-fasting state, and infiltrative diseases such as amyloidosis and lymphoma. In some patients with NAFLD, the liver stiffness thresholds for compensated advanced chronic liver disease may be lower. In causes other than viral hepatitis and NAFLD, liver stiffness thresholds are not well established.
--- NOTE | ~2021-05-22 | FL_ITS ---
EXAMINATION: XR GI SERIES CLINICAL INFORMATION: Obesity COMPARISON: None TECHNIQUE: Upper GI was performed using thin and thick barium and effervescent granules. FINDINGS: Esophageal motility is normal. There is mild gastroesophageal reflux. There is a small sliding-type hiatal hernia. Stomach and duodenum are normal-appearing. No fold thickening, mass, stricture or ulcer is seen. FLUOROSCOPY TIME: 0.7 minutes DOSE AREA PRODUCT: 10 reynolds per centimeter squared. 19 saved fluoroscopic images. FL/FL upper GI series IMPRESSION: Small sliding-type hiatal hernia and mild gastroesophageal reflux.
== END 2021-05-22 08:17 | disposition home or self-care (01) ==
LOC: HO.US 08:16
PROVIDERS: PCP Internal Medicine; Visit Provider Surgery
DX: Z01.818 Encounter for other preprocedural examination (principal); E66.01 Morbid (severe) obesity due to excess calories; K21.9 Gastro-esophageal reflux disease without esophagitis; I25.10 Atherosclerotic heart disease of native coronary artery without angina pectoris; K76.0 Fatty (change of) liver, not elsewhere classified
CPT/HCPCS: 74240; 76705; 76981

== ENCOUNTER → 2021-05-23 09:32 | Outpatient (BNVA) | payer OTHER, SELFPAY | PROVIDERS: PCP Internal Medicine; Visit Provider Internal Medicine Pulmonary Disease | DX: J45.40 Moderate persistent asthma, uncomplicated (principal); G47.33 Obstructive sleep apnea (adult) (pediatric); H92.09 Otalgia, unspecified ear; R06.00 Dyspnea, unspecified | CPT/HCPCS: 99212 ==

== ENCOUNTER → 2021-06-04 08:23 | Outpatient (BNVA) | payer OTHER, SELFPAY | PROVIDERS: PCP Internal Medicine; Referring Provider Surgery; Visit Provider Dietitian, Registered | DX: E66.01 Morbid (severe) obesity due to excess calories (principal); Z68.39 Body mass index [BMI] 39.0-39.9, adult | CPT/HCPCS: 97803 ==

== ENCOUNTER → 2021-06-08 08:06 | Outpatient (BNVA) | payer OTHER, SELFPAY | PROVIDERS: PCP Internal Medicine; Visit Provider Surgery ==

== ENCOUNTER → 2021-06-18 13:15 | Outpatient (BNVA) | payer OTHER, SELFPAY | PROVIDERS: PCP Internal Medicine; Referring Provider Physician Assistant Surgical; Visit Provider Internal Medicine Cardiovascular Disease | DX: Z01.810 Encounter for preprocedural cardiovascular examination (principal); R94.31 Abnormal electrocardiogram [ECG] [EKG] | CPT/HCPCS: 99202 ==

== ENCOUNTER 2021-06-19 13:13 | Outpatient (REF) | payer OTHER, SELFPAY ==
--- NOTE | ~2021-06-19 | MM_ITS ---
EXAMINATION: MM SCREENING DIGITAL BREAST TOMOSYNTHESIS, BILATERAL CLINICAL INFORMATION: Screening. Asymptomatic. The lifetime risk of breast cancer based on the Tyrer-Cuzick Model is 7.5%. COMPARISON: Mammography: August 11, 2019 and studies dating back to May 12, 2014 TECHNIQUE: Digital breast tomosynthesis is performed in both the craniocaudal and mediolateral oblique views along with computer-aided detection (CAD). Synthesized 2D images are generated from the tomosynthesis. FINDINGS: There are scattered areas of fibroglandular density (ACR BI-RADS breast composition Category b). There are no significant masses, abnormal calcifications, or other abnormalities. MM/MM tomosynthesis screening BI IMPRESSION: There are no significant changes from prior study. ASSESSMENT: BI-RADS 1: Negative RECOMMENDATION: Routine annual mammography screening. This patient's information was entered into a reminder system with a target due date for their next mammogram.
== END 2021-06-19 13:14 | disposition home or self-care (01) ==
LOC: HO.MAMMO 13:13
PROVIDERS: Visit Provider Internal Medicine
DX: Z12.31 Encounter for screening mammogram for malignant neoplasm of breast (principal)
CPT/HCPCS: 77063; 77067

== ENCOUNTER 2021-06-20 09:34 | Outpatient (REF) | payer OTHER, SELFPAY ==
[2021-06-20 11:09] LABS: Cholesterol 148 mg/dL; HDL Cholesterol 38 mg/dL; LDL Cholesterol Calculated 91 mg/dl; Triglycerides 99 mg/dL
[2021-06-20 11:34] LABS: Thyroid Stimulating Hormone 1.17 uIU/mL (0.32-4.0)
[2021-06-25 14:57] LABS: Vitamin D 25-OH, D2 <4 ng/mL; Vitamin D 25-OH, D3 54 ng/mL; Vitamin D 25-OH, Total 54 ng/mL (30-100)
== END 2021-06-20 09:35 | disposition home or self-care (01) ==
LOC: HO.LAB 09:34
PROVIDERS: PCP Internal Medicine; Visit Provider Internal Medicine
DX: Z20.822 Contact with and (suspected) exposure to COVID-19 (principal); E78.5 Hyperlipidemia, unspecified; E55.9 Vitamin D deficiency, unspecified; E89.0 Postprocedural hypothyroidism
CPT/HCPCS: 80061; 82306; 84443; U0005

== ENCOUNTER → 2021-06-27 11:53 | Outpatient (BNVA) | payer OTHER, SELFPAY | PROVIDERS: PCP Internal Medicine; Referring Provider Internal Medicine; Visit Provider Physician Assistant Surgical ==

== ENCOUNTER → 2021-06-30 08:59 | Outpatient (REF) | payer OTHER, SELFPAY ==
--- NOTE | 2021-06-30 09:06 | CA_ITS ---
Transthoracic Echocardiogram Patient (Last, First, Middle): Naz Briscoe, Gender: Female Date of : 1970 Age: 51 Procedure Date: 06/30/2021 Procedure Type: Transthoracic Echocardiogram Location: OP Height: 162.56 cm Weight: 107.05 kg BSA: 2.10 m2 Heart Rate: bpm BP: 128 / 80 mmHg [place]: Referring MD: Elier Espinoza MD Symptoms: R94.31 - Abnormal electrocardiogram [ECG] [EKG] I10 HTN Study Quality: Fair ECG Rhythm: Sinus Conclusions: - Normal left ventricular size and systolic function. - There is moderately increased left ventricular wall thickness. - Normal right ventricular cavity size and systolic function. Findings Left Ventricle Normal left ventricular size and systolic function. There is moderately increased left ventricular wall thickness. The visually estimated ejection fraction is between 60-65%. There is no evidence of regional wall motion abnormalities. Diastolic function is indeterminate on the basis of available data. Spectral Doppler is indicative of an impaired relaxation filling pattern. E/E prime ratio is between 8 and 15 consistent with indeterminate filling pressures. Right Ventricle Normal right ventricular cavity size and systolic function. Atria Both atria are normal in size. Aortic Valve Normal aortic valve structure and function. There is no aortic valve stenosis. There is no aortic valve regurgitation. Mitral Valve Normal mitral valve structure and function. There is no mitral valve regurgitation. There is no mitral valve stenosis. Pulmonic Valve Normal pulmonic valve structure and function. Tricuspid Valve Normal tricuspid valve structure and function. There is trace tricuspid valve regurgitation. Normal right atrial pressure. There is no evidence of pulmonary hypertension. Great Vessels All visible segments of the aorta are normal in size. The visualized portions of the pulmonary artery and branches are normal. Venous The inferior vena cava is normal in size and collapses greater than 50% with inspiration. Pericardium/Pleural There is no evidence of pericardial effusion. Prior Study Comparison Changes noted compared to prior study dated: 07/31/2018. moderate LVH Measurements 2D Linear Measurements IVSd: 1.23 0.6-0.9/0.6-1.0 cm LVIDd: 3.89 3.9-5.3/4.2-5.9 cm LVIDd Index: 1.85 2.4-3.2/2.2-3.1 cm/m2 LVIDs: 2.48 2.0-3.6 cm LVPWd: 1.25 0.7-1.1 cm Ao Root: 3.10 2.1-3.5 cm LA Diam: 3.20 2.7-3.8/3.0-4.0 cm LAIDs Index: 1.52 1.5-2.3 cm/m2 LV Mass: 207.60 67-162/88-224 g LV Mass Index: 98.85 43-95/49-115 g/m2 LVOT Diam: 2.10 3.0+(-)1.3 cm 2D Systolic Function EF 4C: 59.60 >55% EF 2C: 59.20 >55% EF BiP: 61.30 >55% Mitral Valve MV Pk E: 0.78 MV PK A: 0.87 MV Decel Time: 236.00 E/A: 0.90 E'Lateral: 7.94 E'Medial: 7.72 E/E' Med: 10.10 E/E' Lat: 9.80 PHT: 69.00 MVA PHT: 3.19 Decel [place]: 3.31 Aortic Valve AoV Pk Glenn: 1.81 AoV Mn Glenn: 1.14 AoV VTI: 0.40 AoV Pk Grad: 13.00 Aov Mn Grad: 6.00 QIANA Cont.VTI: 2.12 LVOT LVOT Pk Glenn: 1.13 LVOT Mn Glenn: 0.67 LVOT VTI: 0.24 LVOT Pk Grad: 5.00 LVOT Mn Grad: 2.00 LVOT Diam: 2.10 LVOT Area: 3.46 Diastolic Function MV Pk E: 0.78 MV Pk A: 0.87 E/A: 0.90 E'Medial: 7.72 E/E' Med: 10.10 E' Laterial: 7.94 E/E' Lat: 9.80 Right Ventricle TAPSE (mm): 25.00 Tricuspid Valve TR Pk Glenn: 1.98 TR Pk Grad: 16.00 Great Vessels Aorta Ao Root-2D: 3.10 2.0-3.7 cm Ao Asc: 3.30 2.1-3.4 cm Pulmonary Valve PV Pk Glenn: 1.25 Peak PV Grad: 6.00 Updated in Other Vendor System with Status of Final Husam Brown MD electronically signed on 07/02/2021 8:44:37 PM with status of Final
[2021-06-30 11:12] LABS: Free T4 (Free Thyroxine) 1.02 ng/dL (0.71-1.85); Thyroid Stimulating Hormone 0.94 uIU/mL (0.32-4.0)
[2021-06-30 11:37] LABS: Appearance Urine CLEAR; Color Urine YELLOW; Glucose Urine UA NEG (NEG); Leukocyte Esterase Urine TRACE (NEG); Nitrite Urine NEG (NEG); Specific Gravity - Urine 1.025 (1.005-1.025); Urine Blood TRACE (NEG); Urine Ketones NEG (NEG); Urine Protein NEG (NEG-TRACE)
[2021-06-30 11:46] LABS: RBC Urine 0-2 /HPF (0); Squamous Epithelial Cell Urine 2+ /LPF
== END ==
LOC: HO.CARD 08:59
PROVIDERS: Nurse Practitioner Family; PCP Internal Medicine; Visit Provider Internal Medicine Cardiovascular Disease
DX: R94.31 Abnormal electrocardiogram [ECG] [EKG] (principal); I10 Essential (primary) hypertension; E03.9 Hypothyroidism, unspecified
CPT/HCPCS: 36415; 81001; 84439; 84443; 93306

== ENCOUNTER → 2021-07-04 08:59 | Outpatient (BNVA) | payer OTHER, SELFPAY | PROVIDERS: PCP Internal Medicine; Referring Provider Surgery; Visit Provider Dietitian, Registered | DX: E66.01 Morbid (severe) obesity due to excess calories (principal); Z68.41 Body mass index [BMI] 40.0-44.9, adult | CPT/HCPCS: 97803 ==

== ENCOUNTER → 2021-07-06 09:12 | Outpatient (REF) | payer OTHER, SELFPAY ==
--- NOTE | ~2021-07-06 | NM_ITS ---
Lexiscan Myocardial perfusion study Indication: Preoperative cardiovascular evaluation, abnormal EKG, assess for coronary disease and ischemia Technique: The patient was brought in for a Lexiscan perfusion study on 07/06/2021 and was injected 0.4 mg of Lexiscan intravenously. Within a minute of this injection 40 mCi of sestamibi was given intravenously. Images were obtained using the SPECT gamma camera interlaced with the gating device. Images were obtained in supine position. Resting perfusion study was performed on 07/11/2021. Patient was administered 40 mCi of sestamibi intravenously at rest. Images were then obtained in supine position. Total DLP 160mGy-cm. Images were processed with the software and compared side to side in short axis, horizontal long axis and vertical long axis views. Findings: Raw acquisition was reviewed. The stress perfusion study showed slightly diminished tracer uptake in the basal inferior wall. There is some improvement with CT attenuation correction, but does not normalize completely. The gated study shows normal LV systolic function with calculated LVEF of > 70%. LV cavity is normal in size. The gated study shows normal wall thickening and contraction of segments. Resting study shows diminished tracer uptake along the inferior wall with some improvement with CT attenuation correction. Gating at rest reveals normal wall motion with ejection fraction at 62%. The findings are consistent with no reversible defects. Basal inferior fixed defect likely from diaphragmatic attenuation artifact. NM/NM maximus perf SPECT rest & str Impression: 1. Myocardial perfusion imaging study shows no definite evidence of ischemia or infarction. Likely normal perfusion. 2. Gated LVEF is > 70% during stress and 62% during rest. 3. Transient ischemic dilatation not present. EKG component of the test reported separately.
--- NOTE | 2021-07-06 09:15 | CA_ITS ---
Acquisition Time: 2021-07-06 09:23:43 Total Exercise Time: 00:02:00 Test Indications: ABN EKG Medications: SEE CHART Protocol: LEXISCAN Max HR: 127 BPM 74% of Pred: 171 BPM Max BP: 134/070 mmHG Max Work Load: 1.0 METS Pharmacological stress test with lexiscan injection, while sitting and kicking her legs without anginal symptoms, without arrythmia, with normotensive response to injection, with nondiagnostic EKG for ischemia. Nuclear images pending. Test reviewed with Dr Espinoza. Referred By: Elier Espinoza Overread By: CLAUDETTE TERRY
== END ==
LOC: HO.CARD 09:12
PROVIDERS: PCP Internal Medicine; Visit Provider Internal Medicine Cardiovascular Disease
DX: Z01.810 Encounter for preprocedural cardiovascular examination (principal); R94.31 Abnormal electrocardiogram [ECG] [EKG]
CPT/HCPCS: 78452; 93017; A9500; J0280; J2785

== ENCOUNTER → 2021-07-09 08:07 | Outpatient (BNVA) | payer OTHER, SELFPAY | PROVIDERS: PCP Internal Medicine; Visit Provider Surgery ==

== ENCOUNTER → 2021-07-24 12:56 | Outpatient (BNVA) | payer OTHER, SELFPAY | PROVIDERS: PCP Internal Medicine; Referring Provider Internal Medicine; Visit Provider Dietitian, Registered ==

== ENCOUNTER → 2021-07-30 12:23 | Outpatient (BNVA) | payer OTHER, SELFPAY | PROVIDERS: PCP Internal Medicine; Referring Provider Internal Medicine; Visit Provider Dietitian, Registered ==

== ENCOUNTER → 2021-07-31 13:13 | Outpatient (BNVA) | payer OTHER, SELFPAY | PROVIDERS: PCP Internal Medicine; Referring Provider Internal Medicine; Visit Provider Nurse Practitioner Family | DX: Z01.810 Encounter for preprocedural cardiovascular examination (principal); I51.7 Cardiomegaly; I10 Essential (primary) hypertension; R94.31 Abnormal electrocardiogram [ECG] [EKG] | CPT/HCPCS: 99212 ==

== ENCOUNTER 2021-08-01 10:36 | Outpatient (REF) | payer OTHER, SELFPAY | END 2021-08-01 10:37 | disposition home or self-care (01) | LOC: HO.LAB 10:36 | PROVIDERS: Visit Provider Internal Medicine | DX: Z13.89 Encounter for screening for other disorder (principal) ==

== ENCOUNTER → 2021-08-07 12:27 | Outpatient (BNVA) | payer OTHER, SELFPAY | PROVIDERS: PCP Internal Medicine; Referring Provider Internal Medicine; Visit Provider Dietitian, Registered | DX: E66.9 Obesity, unspecified (principal) | CPT/HCPCS: 97803 ==

== ENCOUNTER → 2021-08-10 08:00 | Outpatient (BNVA) | payer OTHER, SELFPAY | PROVIDERS: PCP Internal Medicine; Visit Provider Surgery ==

== ENCOUNTER → 2021-08-14 12:29 | Outpatient (BNVA) | payer OTHER, SELFPAY | PROVIDERS: PCP Internal Medicine; Referring Provider Internal Medicine; Visit Provider Internal Medicine Gastroenterology | DX: R35.0 Frequency of micturition (principal); R10.13 Epigastric pain | CPT/HCPCS: 99212 ==

== ENCOUNTER 2021-08-17 10:32 | Outpatient (REF) | payer OTHER, SELFPAY ==
[2021-08-17 11:30] LABS: Appearance Urine HAZY; Color Urine YELLOW; Glucose Urine UA NEG (NEG); Leukocyte Esterase Urine TRACE (NEG); Nitrite Urine NEG (NEG); PH 5.5 (5.0-8.0); Specific Gravity - Urine >= 1.030 (1.005-1.025); UACC Culture Trigger YES; Urine Blood NEG (NEG); Urine Ketones 5 MG/DL (NEG); Urine Protein TRACE MG/DL (NEG-TRACE)
[2021-08-17 11:57] LABS: Amorphous Sediment Urine 3+ /LPF; Mucus Urine 2+ /LPF
[2021-08-17 11:58] LABS: Calcium Oxalate Crystals Urine 1+ /LPF; RBC Urine 0 /HPF (0); Squamous Epithelial Cell Urine 2+ /LPF; Uric Acid Crystals Urine 2+ /LPF
== END 2021-08-17 10:33 | disposition home or self-care (01) ==
LOC: HO.LAB 10:32
PROVIDERS: Internal Medicine Gastroenterology; PCP Internal Medicine; Visit Provider Dentist Pediatric Dentistry
DX: R30.0 Dysuria (principal)
CPT/HCPCS: 81001; 87086

== ENCOUNTER → 2021-08-27 11:11 | Outpatient (BNVA) | payer OTHER, SELFPAY | PROVIDERS: PCP Internal Medicine; Referring Provider Internal Medicine; Visit Provider Physician Assistant Surgical ==

== ENCOUNTER → 2021-08-28 12:32 | Outpatient (BNVA) | payer OTHER, SELFPAY | PROVIDERS: PCP Internal Medicine; Referring Provider Internal Medicine; Visit Provider Dietitian, Registered | DX: E66.01 Morbid (severe) obesity due to excess calories (principal); Z68.39 Body mass index [BMI] 39.0-39.9, adult; E11.9 Type 2 diabetes mellitus without complications; Z71.3 Dietary counseling and surveillance | CPT/HCPCS: 97803 ==

== ENCOUNTER → 2021-09-19 08:11 | Outpatient (BNVA) | payer OTHER, SELFPAY | PROVIDERS: PCP Internal Medicine; Visit Provider Surgery ==

== ENCOUNTER → 2021-09-24 10:49 | Outpatient (BNVA) | payer OTHER, SELFPAY | PROVIDERS: PCP Internal Medicine; Referring Provider Internal Medicine; Visit Provider Physician Assistant Surgical ==

== ENCOUNTER → 2021-10-02 10:46 | Outpatient (BNVA) | payer OTHER, SELFPAY | PROVIDERS: PCP Internal Medicine; Referring Provider Internal Medicine; Visit Provider Physician Assistant Surgical | DX: Z13.89 Encounter for screening for other disorder (principal) ==

== ENCOUNTER → 2021-10-10 11:15 | Outpatient (BNVA) | payer OTHER, SELFPAY | PROVIDERS: PCP Internal Medicine; Referring Provider Internal Medicine; Visit Provider Physician Assistant | DX: Z13.89 Encounter for screening for other disorder (principal) ==

== ENCOUNTER → 2021-10-15 13:33 | Outpatient (BNVA) | payer OTHER, SELFPAY | PROVIDERS: PCP Internal Medicine; Referring Provider Internal Medicine; Visit Provider Dietitian, Registered | DX: E66.9 Obesity, unspecified (principal); E11.9 Type 2 diabetes mellitus without complications; Z79.4 Long term (current) 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; Z68.38 Body mass index [BMI] 38.0-38.9, adult | CPT/HCPCS: 97803 ==

== ENCOUNTER 2021-10-17 08:53 | Outpatient (REF) | payer OTHER, SELFPAY ==
[2021-10-17 09:28] LABS: MANUAL DIFF FLAG NO
[2021-10-17 09:43] LABS: Basophils Percent Auto 0.5 % (0-2); Eosinophils Absolute Auto 0.2 X10*3/uL (0.0-0.4); Eosinophils Percent Auto 2.6 % (0-4); Hematocrit 41.8 % (37.0-47.0); Hemoglobin 13.5 g/dl (12.0-16.0); Imm Gran Abs Auto 0.03 X10*3/uL (0.00-0.03); Imm Gran Pct Auto 0.4 % (0.0-0.4); Lymphocytes Absolute Auto 2.6 X10*3/uL (1.2-4.9); Lymphocytes Percent Auto 32.3 % (20-40); Mean Corpuscular HGB Conc 32.3 g/dl (31.0-35.0); Mean Corpuscular Hemoglobin 26.8 pg (27.0-33.0); Mean Corpuscular Volume 83.1 fL (80.0-98.0); Mean Platelet Volume 11.2 fL (9.4-12.3); Monocytes Absolute Auto 0.5 X10*3/uL (0.1-1.2); Monocytes Percent Auto 5.8 % (2-11); Neutrophils Absolute Auto 4.7 x10*3/uL (2.0-8.3); Neutrophils Percent Auto 58.4 % (45-73); Platelet Count 214 X10*3/uL (160-400); Red Blood Count 5.03 X10*6/uL (4.20-5.50); Red Cell Distribution Width 15.7 % (11.0-16.0)
[2021-10-17 10:11] LABS: Alanine Aminotransferase 37 U/L (0-31); Albumin Level 3.9 g/dL (3.5-5.0); Alkaline Phosphatase 109 U/L (39-117); Anion Gap 11 (12-20); Aspartate Amino Transferase 19 U/L (5-31); Bilirubin Total 0.4 mg/dL (0.0-1.0); Blood Urea Nitrogen 11 mg/dL (9-16); Calcium 9.2 mg/dL (8.4-10.2); Carbon Dioxide 27 mmol/L (22-29); Chloride 105 mmol/L (96-108); Cholesterol 136 mg/dL; Estimated Glomerular Filt Rate > 60; Glucose Fasting 133 mg/dL (60-99); HDL Cholesterol 33 mg/dL; LDL Cholesterol Calculated 77 mg/dl; Potassium 3.9 mmol/L (3.3-5.1); Sodium 139 mmol/L (135-145); Total Protein 7.2 g/dL (6.5-8.0); Triglycerides 132 mg/dL
[2021-10-17 10:32] LABS: Thyroid Stimulating Hormone 0.05 uIU/mL (0.32-4.0); Vitamin D 25-OH Total 30.6 ng/mL (>30)
[2021-10-17 11:19] LABS: Creatinine Urine 268.87 mg/dL
== END 2021-10-17 08:54 | disposition home or self-care (01) ==
LOC: HO.LAB 08:53
PROVIDERS: PCP Internal Medicine; Visit Provider Internal Medicine
DX: E89.0 Postprocedural hypothyroidism (principal); E11.65 Type 2 diabetes mellitus with hyperglycemia; D64.9 Anemia, unspecified; E55.9 Vitamin D deficiency, unspecified; E78.5 Hyperlipidemia, unspecified
CPT/HCPCS: 36415; 80053; 80061; 82043; 82306; 84443; 85025

== ENCOUNTER → 2021-10-23 10:02 | Outpatient (BNVA) | payer OTHER, SELFPAY | PROVIDERS: PCP Internal Medicine; Referring Provider Internal Medicine; Visit Provider Physician Assistant | DX: Z13.89 Encounter for screening for other disorder (principal) ==

== ENCOUNTER → 2021-11-01 10:21 | Outpatient (BNVA) | payer OTHER, SELFPAY | PROVIDERS: PCP Internal Medicine; Visit Provider Physician Assistant | DX: Z13.89 Encounter for screening for other disorder (principal) ==

== ENCOUNTER 2021-11-06 08:35 | Outpatient (REF) | payer OTHER, SELFPAY ==
--- NOTE | ~2021-11-06 | XR_ITS ---
EXAMINATION: XR WRIST, RIGHT CLINICAL INFORMATION: Pain COMPARISON: 07.06.2020 TECHNIQUE: PA, lateral, and oblique views of the right wrist. XR/XR wrist RT min 3V FINDINGS/IMPRESSION: Stable subchondral cyst within the interpolar scaphoid. No fractures. No erosive changes. Osseous alignment maintained. Soft tissues unremarkable.
== END 2021-11-06 08:36 | disposition home or self-care (01) ==
LOC: HO.HOSX 08:35
PROVIDERS: Visit Provider Orthopaedic Surgery
DX: M25.531 Pain in right wrist (principal); M77.8 Other enthesopathies, not elsewhere classified; R20.0 Anesthesia of skin; R20.2 Paresthesia of skin
CPT/HCPCS: 73110; 99212

== ENCOUNTER → 2021-11-08 13:08 | Outpatient (BNVA) | payer OTHER, SELFPAY | PROVIDERS: PCP Internal Medicine; Referring Provider Internal Medicine; Visit Provider Physician Assistant | DX: Z13.89 Encounter for screening for other disorder (principal) ==

== ENCOUNTER → 2021-11-15 10:39 | Outpatient (BNVA) | payer OTHER, SELFPAY | PROVIDERS: PCP Internal Medicine; Referring Provider Surgery; Visit Provider Dietitian, Registered | DX: E66.9 Obesity, unspecified (principal); E11.9 Type 2 diabetes mellitus without complications; Z68.38 Body mass index [BMI] 38.0-38.9, adult | CPT/HCPCS: 97803 ==

== ENCOUNTER → 2021-11-27 13:36 | Outpatient (BNVA) | payer OTHER, SELFPAY | PROVIDERS: PCP Internal Medicine; Visit Provider Physician Assistant | DX: Z13.89 Encounter for screening for other disorder (principal) ==

== ENCOUNTER → 2021-11-30 10:18 | Outpatient (BNVA) | payer OTHER, SELFPAY | PROVIDERS: PCP Internal Medicine; Referring Provider Internal Medicine; Visit Provider Physician Assistant Surgical | DX: Z13.89 Encounter for screening for other disorder (principal) ==

== ENCOUNTER → 2021-12-04 10:14 | Outpatient (BNVA) | payer OTHER, SELFPAY | PROVIDERS: PCP Internal Medicine; Referring Provider Internal Medicine; Visit Provider Physician Assistant Surgical | DX: Z13.89 Encounter for screening for other disorder (principal) ==

== ENCOUNTER → 2021-12-06 14:56 | Outpatient (BNVA) | payer OTHER, SELFPAY | PROVIDERS: PCP Internal Medicine; Visit Provider Surgery | DX: K21.9 Gastro-esophageal reflux disease without esophagitis (principal) ==

== ENCOUNTER → 2021-12-07 08:32 | Outpatient (BNVA) | payer OTHER, SELFPAY | PROVIDERS: PCP Internal Medicine; Visit Provider Surgery | DX: Z13.89 Encounter for screening for other disorder (principal) ==

== ENCOUNTER 2021-12-13 08:14 | Inpatient (IN) | payer OTHER, SELFPAY ==
[2021-12-07 11:10] LABS: MANUAL DIFF FLAG NO
[2021-12-07 11:50] LABS: Basophils Percent Auto 0.5 % (0-2); Eosinophils Absolute Auto 0.1 X10*3/uL (0.0-0.4); Eosinophils Percent Auto 1.6 % (0-4); Hematocrit 42.3 % (37.0-47.0); Hemoglobin 13.7 g/dl (12.0-16.0); Imm Gran Abs Auto 0.03 X10*3/uL (0.00-0.03); Imm Gran Pct Auto 0.4 % (0.0-0.4); Lymphocytes Absolute Auto 2.8 X10*3/uL (1.2-4.9); Lymphocytes Percent Auto 33.6 % (20-40); Mean Corpuscular HGB Conc 32.4 g/dl (31.0-35.0); Mean Corpuscular Hemoglobin 27.1 pg (27.0-33.0); Mean Corpuscular Volume 83.8 fL (80.0-98.0); Monocytes Absolute Auto 0.4 X10*3/uL (0.1-1.2); Monocytes Percent Auto 5.2 % (2-11); Neutrophils Absolute Auto 4.9 x10*3/uL (2.0-8.3); Neutrophils Percent Auto 58.7 % (45-73); Platelet Count 224 X10*3/uL (160-400); Red Blood Count 5.05 X10*6/uL (4.20-5.50); Red Cell Distribution Width 15.7 % (11.0-16.0); White Blood Count 8.3 X10*3/uL (4.8-10.8)
[2021-12-07 11:59] LABS: Estimated Average Glucose 128 mg/dL; Hemoglobin A1c % 6.1 %
[2021-12-07 12:00] LABS: INTERNATIONAL NORM RATIO 1.1 (0.9-1.1); Prothrombin Time 12.2 SEC (9.9-13.0)
[2021-12-07 12:02] LABS: Partial Thromboplastin Time 40.3 SEC (24.1-38.0)
[2021-12-07 12:15] LABS: Alanine Aminotransferase 30 U/L (0-31); Albumin Level 4.1 g/dL (3.5-5.0); Alkaline Phosphatase 105 U/L (39-117); Anion Gap 11 (12-20); Aspartate Amino Transferase 22 U/L (5-31); Bilirubin Total 0.4 mg/dL (0.0-1.0); Blood Urea Nitrogen 11 mg/dL (9-16); C Reactive Protein 1.83 mg/dL (< or = 0.50); Calcium 9.4 mg/dL (8.4-10.2); Carbon Dioxide 30 mmol/L (22-29); Chloride 103 mmol/L (96-108); Cholesterol 149 mg/dL; Estimated Glomerular Filt Rate > 60; Glucose Random 94 mg/dL (60-115); HDL Cholesterol 32 mg/dL; LDL Cholesterol Calculated 95 mg/dl; Potassium 4.3 mmol/L (3.3-5.1); Sodium 140 mmol/L (135-145); Total Protein 7.4 g/dL (6.5-8.0); Triglycerides 113 mg/dL
[2021-12-07 12:37] LABS: Insulin 21 uU/mL (2-29); TSH reflex Free T4 0.96 uIU/mL (0.32-4.0)
[2021-12-07 14:49] VITALS: BMI 38.7
--- NOTE | 2021-12-08 09:32 | MHC.SHP ---
Pre-Procedural Eval Section A Date of Service: 12/08/21 The patient is an INPATIENT: Yes The History & Physical has been completed within 30 days and I have reviewed it.: Yes Section B Chief Complaint: obesity Relevant Family History (Specify if Yes): No Relevant Social History: None Present Medications: None Medical History: No relevant PMH History of Previous Operations: No relevant previous surgery Allergies: Allergies Allergy/AdvReac Type Severity Reaction Status Date / Time zolpidem AdvReac Intermediate nightmares Verified 12/06/21 15:29 Review of Systems Sugical H&P ROS: Negative: Constitution, Cardiovascular, Respiratory, Neurological, Psychiatric, Hem-Onc, Allergic/Immunologic, Gastrointestinal, Genitourinary, Musculoskeletal, Integumentary, Endocrine and Eyes/Ears/Nose/Throat Exam Surgical H&P Exam: Normal: HEENT, Normal: Heart, Normal: Lungs, Normal: Extremities, Normal: Abdomen, Normal: Skin and Normal: Neurological Plan Diagnosis/Plan: Unchanged I have reviewed the history and physical and performed a pertinent physical examination on my patient. No changes have occurred unless specified.
--- NOTE | 2021-12-12 09:28 | HO.ANESPROP2 ---
Documented by User: Sherri Floyd NP 12/12/21 09:32 HPI - Anesthesia Eval Consult details Narrative: 51yo F for Gastrectomy Sleeve,EGD,Possible Diaphragmatic hernia,Possible Ventral hernia,Possible open PMFSH Active Problems Active Problems: All Active Problems (Updated 11/28/21 @ 12:09 by Elizabeth Mcnair MD) Numbness and tingling in both hands (Acute) Right wrist tendinitis (Acute) Mild recurrent major depression (Acute) Diabetes mellitus, with long-term current 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 (Acute) Epigastric abdominal pain (Acute) Micturition frequency (Acute) Preop cardiovascular exam (Acute) LVH (left ventricular hypertrophy) (Acute) Abnormal finding on EKG (Acute) GERD (gastroesophageal reflux disease) (Acute) BMI 39.0-39.9,adult (Acute) Obesity (Acute) 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 pain (Acute) 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) Uncontrolled diabetes mellitus (Acute) New onset type 2 diabetes mellitus (Acute) Lip lesion (Acute) Diabetic eye exam (Acute) Vitamin D deficiency (Acute) Left foot pain (Acute) Pernicious anemia (Chronic) Coronary artery disease (Acute) Insomnia (Acute) Anxiety (Acute) Depression (Acute) Sleep apnea with use of continuous positive airway pressure (CPAP) (Acute) Hypothyroidism (Acute) Low potassium syndrome (Acute) Moderate persistent asthma (Acute) Dyspnea on exertion (Acute) Obstructive sleep apnea (Acute) Tubular adenoma of colon (Acute) Gastritis determined by endoscopy (Acute) Fatty liver (Acute) Left lateral abdominal pain (Acute) Microscopic hematuria (Acute) Morbid obesity (Acute) Dizziness (Acute) Low back pain (Acute) Right wrist pain (Acute) Acquired hypothyroidism (Acute) Essential hypertension (Acute) Past Medical History Medical History Abnormal finding on EKG Acquired hypothyroidism Anxiety Depression Diabetes mellitus, with long-term current 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 Dizziness Essential hypertension GERD (gastroesophageal reflux disease) Hypothyroidism Insomnia Left foot pain [facility] (current) 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 Low back pain Low potassium syndrome LVH (left ventricular hypertrophy) Mild recurrent major depression Morbid obesity Right wrist pain Sleep apnea with use of continuous positive airway pressure (CPAP) Uncontrolled diabetes mellitus Family History Family History Father Diabetes Mother Hypertension Maternal Uncle Colon cancer Maternal Aunt Breast cancer Paternal Aunt Breast cancer Family/Other FH: mental illness Substance use disorder Surgical History Surgical History H/O endoscopy H/O: hysterectomy History of bladder surgery History of section History of colonoscopy History of thyroid surgery History of total abdominal hysterectomy Social History Social History Household Members: None Housing: Apartment Are you a primary care rep to a significant other at home: No Do you presently have visiting nurse or other home services: No Alcohol intake: current Alcohol intake frequency: does not drink Alcohol type: beer Patient Tobacco Use Status: Former Tobacco user Quit Date: 11/23/2021 Tobacco use type: Cigarette Years Smoked: 10 Smoked in Last 30 Days: Yes e-Cigarette/Vaping Use: Never Used Second Hand Smoke Exposure: No Use of substances other than those prescribed or required for medical reasons: No Have you been hit, kicked, punched, or otherwise hurt by someone within the past year? If so, by whom?: No Are you DNR?: No Advance Directives: No Advance Directives Information Provided: Yes Patient : No service: No Current occupational status: disabled Meds Allergies Allergy/AdvReac Type Severity Reaction Status Date / Time zolpidem AdvReac Intermediate nightmares Verified 12/06/21 15:29 Home Medications Medication Instructions Recorded Confirmed Last Taken Type bupropion HCl 150 mg 24 hr tablet, 150 mg PO DAILY 04/26/20 12/07/21 Unknown History extended release clonazepam 1 mg tablet 1 mg PO BID PRN 04/26/20 12/07/21 Unknown History ondansetron HCl 4 mg tablet 4 mg PO DAILY PRN 04/26/20 12/07/21 Unknown History psyllium husk (with sugar) 3 2 tsp PO DAILY PRN 12/07/20 12/06/21 Unknown History gram/7 gram oral powder famotidine 20 mg tablet (Pepcid AC) 20 mg PO DAILY PRN 04/05/21 12/07/21 Unknown History lidocaine 5 % topical patch 1 patch TOPICAL DAILY PRN 04/05/21 12/07/21 Unknown History omeprazole 20 mg capsule,delayed 20 mg PO DAILY PRN 04/05/21 12/07/21 Unknown History release prazosin 2 mg capsule 2 mg PO BEDTIME 08/14/21 12/07/21 Unknown History aripiprazole 5 mg tablet (Abilify) 5 mg PO DAILY 11/28/21 12/07/21 Unknown History Exam Exam Date and Time: December 12, 2021 0928 Height,Weight and Vital Signs: Height 5 ft 4 in Weight 102.512 kg Pertinent Lab Results Pertinent Lab Results: Laboratory Tests 12/07/21 12/07/21 12/07/21 11:04 11:10 11:10 WBC 8.3 RBC 5.05 Hgb 13.7 Hct 42.3 MCV 83.8 MCH 27.1 MCHC 32.4 RDW 15.7 Plt Count 224 MPV 11.0 Immature Gran % (Auto) 0.4 Neut % (Auto) 58.7 Lymph % (Auto) 33.6 [place] % (Auto) 5.2 Eos % (Auto) 1.6 Baso % (Auto) 0.5 Lymph # (Auto) 2.8 [place] # (Auto) 0.4 Eos # (Auto) 0.1 Baso # (Auto) 0.0 Abs Immat Gran (auto) 0.03 Absolute Neuts (auto) 4.9 Absolute Nucleated RBC 0.000 Nucleated RBC % (auto) 0.0 PT 12.2 INR 1.1 APTT 40.3 H Sodium Potassium Chloride Carbon Dioxide Anion Gap BUN Creatinine Estim Creat Clear Calc Estimated GFR Random Glucose Estimat Average Glucose Hemoglobin A1c % Insulin Level Calcium Total Bilirubin AST ALT Alkaline Phosphatase C-Reactive Protein Total Protein Albumin Triglycerides Cholesterol LDL Cholesterol, Calc HDL Cholesterol TSH Blood Type O Positive Antibody Screen NEGATIVE 12/07/21 12/07/21 11:10 11:10 WBC RBC Hgb Hct MCV MCH MCHC RDW Plt Count MPV Immature Gran % (Auto) Neut % (Auto) Lymph % (Auto) Republic % (Auto) Eos % (Auto) Baso % (Auto) Lymph # (Auto) [place] # (Auto) Eos # (Auto) Baso # (Auto) Abs Immat Gran (auto) Absolute Neuts (auto) Absolute Nucleated RBC Nucleated RBC % (auto) PT INR APTT Sodium 140 Potassium 4.3 Chloride 103 Carbon Dioxide 30 H Anion Gap 11 L BUN 11 Creatinine 0.80 Estim Creat Clear Calc TNP Estimated GFR > 60 Random Glucose 94 Estimat Average Glucose 128 Hemoglobin A1c % 6.1 Insulin Level 21 Calcium 9.4 Total Bilirubin 0.4 AST 22 ALT 30 Alkaline Phosphatase 105 C-Reactive Protein 1.83 H Total Protein 7.4 Albumin 4.1 Triglycerides 113 Cholesterol 149 LDL Cholesterol, Calc 95 HDL Cholesterol 32 TSH 0.96 Blood Type Antibody Screen Narrative Narrative: EKG 04/2021 Vent. Rate : 069 BPM ? ? Atrial Rate : 069 BPM ?? P-R Int : 174 ms? QRS Dur : 090 ms ? ? QT Int : 438 ms ? ? ? P-R-T Axes : 050 -03 006 degrees ?? QTc Int : 469 ms ? Normal sinus rhythm Minimal voltage criteria for LVH, may be normal variant ( R in aVL ) Nonspecific T wave abnormality Prolonged QT Abnormal ECG No previous ECGs available ECHO 06/2021 Conclusions: - Normal left ventricular size and systolic function.? - There is moderately increased left ventricular wall thickness. - Normal right ventricular cavity size and systolic function.? ? NM maximus perf SPECT rest & str 06/2021 Impression: ? 1.? Myocardial perfusion imaging study shows no definite evidence of ischemia or infarction. Likely normal perfusion. 2.? Gated LVEF is > 70% during stress and 62% during rest. 3. Transient ischemic dilatation not present. ? EKG component of the test reported separately. 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 Low back pain Low potassium syndrome LVH (left ventricular hypertrophy) Mild recurrent major depression Morbid obesity Right wrist pain Sleep apnea with use of continuous positive airway pressure (CPAP) Uncontrolled diabetes mellitus Family History Family History Father Diabetes Mother Hypertension Maternal Uncle Colon cancer Maternal Aunt Breast cancer Paternal Aunt Breast cancer Family/Other FH: mental illness Substance use disorder Surgical History Surgical History H/O endoscopy H/O: hysterectomy History of bladder surgery History of section History of colonoscopy History of thyroid surgery History of total abdominal hysterectomy History of Problems with Anesthesia: No Social History Social History Household Members: None Housing: Apartment Are you a primary care rep to a significant other at home: No Do you presently have visiting nurse or other home services: No Alcohol intake: current Alcohol intake frequency: does not drink Alcohol type: beer Patient Tobacco Use Status: Former Tobacco user Quit Date: 11/23/2021 Tobacco use type: Cigarette Years Smoked: 10 Smoked in Last 30 Days: Yes e-Cigarette/Vaping Use: Never Used Second Hand Smoke Exposure: No Use of substances other than those prescribed or required for medical reasons: No Have you been hit, kicked, punched, or otherwise hurt by someone within the past year? If so, by whom?: No Are you DNR?: No Advance Directives: No Advance Directives Information Provided: Yes Patient : No service: No Current occupational status: disabled Meds Allergies Allergy/AdvReac Type Severity Reaction Status Date / Time zolpidem AdvReac Intermediate nightmares Verified 12/06/21 15:29 Home Medications Medication Instructions Recorded Confirmed Last Taken Type bupropion HCl 150 mg 24 hr tablet, 150 mg PO DAILY 04/26/20 12/07/21 Unknown History extended release clonazepam 1 mg tablet 1 mg PO BID PRN 04/26/20 12/07/21 Unknown History ondansetron HCl 4 mg tablet 4 mg PO DAILY PRN 04/26/20 12/07/21 Unknown History psyllium husk (with sugar) 3 2 tsp PO DAILY PRN 12/07/20 12/06/21 Unknown History gram/7 gram oral powder famotidine 20 mg tablet (Pepcid AC) 20 mg PO DAILY PRN 04/05/21 12/07/21 Unknown History lidocaine 5 % topical patch 1 patch TOPICAL DAILY PRN 04/05/21 12/07/21 Unknown History omeprazole 20 mg capsule,delayed 20 mg PO DAILY PRN 04/05/21 12/07/21 Unknown History release prazosin 2 mg capsule 2 mg PO BEDTIME 08/14/21 12/07/21 Unknown History aripiprazole 5 mg tablet (Abilify) 5 mg PO DAILY 11/28/21 12/07/21 Unknown History Exam Airway Mallampati Class: III TM Dist: >3cm Neck ROM: Full Loose/Missing/Broken Teeth: No Heart: RRR Lungs: CTA Assessment and Plan Assessment Anesthesia Assessment: Anesthesia Plan Discussed and Chart Reviewed Final Anesthetic Review History of Problems with Anesthesia: No NPO: Yes ASA Class: III Final Preanesthetic Review: Meds/Allgs Chart Reviewed, Consent Obtained/Reviewed and Anes Risks/Benef Reviewed Patient Risk: Intermediate Procedure Risk: Intermediate Anesthetic Plan Anesthetic Plan: GA Disposition: Standard PACU
[2021-12-12 12:23] LABS: COVID-19 Test Negative (Negative)
[2021-12-13] VITALS (13 sets, daily range): BP systolic 131–163; BP diastolic 73–89; PULSE 72–93; RESP 16–20; TEMP 36.3–37.1; O2SAT 97–100
--- NOTE | 2021-12-13 08:29 | PHA.MEDREC ---
Pharmacy Consult ? Medication Reconciliation Pharmacy has reivewed the medication reconciliation completed by nursing. Meena Roy, PharmD
[2021-12-13 08:52] LABS: Glucose, Whole Blood 100 mg/dL (60-115)
[2021-12-13] MEDS: Lactated Ringers 1,000 ML 999 ML IV (09:11)
[2021-12-13] MEDS: Lactated Ringers 1,000 ML 100 ML IVCONT ×2 (09:11→15:22)
[2021-12-13] MEDS: ceFAZolin Sodium/Dextrose,Iso 2 GM/50 ML PIGGYBACK IV ×2 (11:03→17:02)
--- NOTE | 2021-12-13 11:10 | P.PNGS_ITS ---
Subjective Subjective Date of Service: 12/14/21 Interval history: Patient has mild incisional pain, but was able to ambulate and use the incentive spirometer. She is tolerating phase 1 bariatric diet Physical Exam Vital Signs: Vital Signs: Last Vital Signs Temp 98.0 F 12/13/21 08:41 Pulse 72 12/13/21 08:41 Resp 16 12/13/21 08:41 BP 135/74 12/13/21 08:41 Pulse Ox 97 12/13/21 08:41 BMI result Body Mass Index 38.7 GI: Inspection: Yes normal to inspection, Yes incision (clean, dry and intact) and Yes obesity Extrem: Right lower extremity: normal to inspection (no calf tenderness) Left lower extremity: normal to inspection (no calf tenderness) Objective Data Active Medications Albuterol Sulfate (Albuterol Sulfate (0.083%) 2.5 Mg/3 Ml Vial.Neb) 2.5 mg INHALE ONCE PRN PRN Reason: Shortness of Breath/Wheezing Albuterol Sulfate (Albuterol Sulfate (0.083%) 2.5 Mg/3 Ml Vial.Neb) 2.5 mg INHALE ONCE PRN PRN Reason: Wheezing Fentanyl (Fentanyl Citrate/Pf 100 Mcg/2 Ml Vial) 50 mcg IVPUSH Q5M PRN; Protocol PRN Reason: Pain, Severe (Pain Scale 7-10) Fentanyl (Fentanyl Citrate/Pf 100 Mcg/2 Ml Vial) 25 mcg IVPUSH Q5M PRN; Protocol PRN Reason: Pain, Moderate (Pain Scale 4-6 Hydromorphone HCl (Hydromorphone Hcl 0.5 Mg/0.5 Ml Syringe) 0.5 mg IVPUSH Q5M PRN; Protocol PRN Reason: Pain, Severe (Pain Scale 7-10) Lactated Ringer's (Lr) 1,000 mls @ 100 mls/hr IVCONT .Q10H SIMON Last Admin: 12/13/21 09:11 Dose: 100 mls/hr Documented by: SANGITA Promethazine HCl 6.25 mg/ (Sodium Chloride) 50.25 mls @ 201 mls/hr IV ONCE PRN PRN Reason: Nausea and Vomiting Ondansetron HCl (Ondansetron Hcl 4 Mg/2 Ml Vial) 4 mg IVPUSH ONCE PRN PRN Reason: Nausea and Vomiting Oxycodone HCl (Oxycodone Hcl Immed Release 5 Mg Tablet) 5 mg PO ONCE PRN PRN Reason: Pain, Severe (Pain Scale 7-10) Oxycodone HCl (Oxycodone Hcl Immed Release 5 Mg Tablet) 10 mg PO ONCE PRN PRN Reason: Pain, Severe (Pain Scale 7-10) Labs CBC & Chem 7: 12/14/21 05:28 12/14/21 05:28 Labs: Laboratory Results - last 24 hr 12/12/21 12/13/21 11:45 08:49 POC Glucose 100 COVID-19 ([facility]ELYN) Negative COVID-19 Clin Com See Note Procedures Date of Service Date of Service: 12/14/21 Progress Note: A&P Assessment and plan (1) S/P laparoscopic sleeve gastrectomy: Status: Acute Assessment and Plan: s/p laparoscopic sleeve gastrectomy and gastropexy Doing well Check am labs. If OK, will discharge home (2) Obesity: Status: Acute (3) BMI 38.0-38.9,adult: Status: Acute (4) GERD (gastroesophageal reflux disease): Status: Acute (5) LVH (left ventricular hypertrophy): Status: Acute (6) detention (current) 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: Status: Acute (7) Uncontrolled diabetes mellitus: Status: Acute (8) Coronary artery disease: Status: Acute (9) Sleep apnea with use of continuous positive airway pressure (CPAP): Status: Acute (10) Depression: Status: Acute (11) Insomnia: Status: Acute (12) Anxiety: Status: Acute (13) Moderate persistent asthma: Status: Acute (14) Fatty liver: Status: Acute (15) Essential hypertension: Status: Acute (16) Acquired hypothyroidism: Status: Acute Time Spent With Patient Time: Total time spent is greater than 50% in coordination of care (as documented) at patient's floor/unit and/or counseling patient: Quality Stroke Does the patient have a stroke diagnosis?: No VTE Prior VTE?: No VTE Risk Level:: Surgical - moderate VTE Device Contraindication: N/A - Device Ordered VTE Drug Contraindication: Treatment Not Indicated
--- NOTE | 2021-12-13 13:34 | PM.DS ---
DS: Providers Provider Date of Service: 12/14/21 Date of admission: 12/13/21 08:14 Primary care physician: Claire Everett MD DS: Summary Hospital Course Hospital Course: ADMITTING DIAGNOSIS: obesity, DM, GERD, CAD, EDWIGE, HTN, Hypothyroid, Depression, Anxiety, ? DISCHARGE DIAGNOSIS: same, s/p laparoscopic sleeve gastrectomy ? PAST SURGICAL HISTORY: Hysterectomy, cesarian section, thyroid surgery ? PROCEDURE: upper endoscopy, laparoscopic sleeve gastrectomy ? DISCHARGE SUMMARY: ? History of Present Illness: ? The patient is a?51 year-old woman with a BMI of?40.5 kg/m2 and associated co-morbidities as described above. The patient had extensive work-up,lost?7.6 lbs preoperatively and was electively scheduled for laparoscopic, possible open sleeve gastrectomy and gastropexy. Risks and complications of the surgery were discussed with the patient in advance, particularly the possibility of , pulmonary embolism, anastomotic leak, bleeding, bowel injury, GERD, cardiac, renal or pulmonary complications. The patient understood all the risks and was in agreement with the surgical plan. ? Hospital Course: ? The patient underwent an uneventful laparoscopic sleeve gastrectomy with gastropexy on the day of admission. Postoperatively, the patient was transferred to the surgical floor. The patient received IV Acetaminophen and IV dilaudid for pain control. Patient was started on bariatric phase 1 diet POD #0. On postoperative day one, the patient was feeling well without nausea, vomiting, fevers, or tachycardia. The patient had some mild incisional pain and the abdomen was soft. ? On the morning of postoperative day one, the patient was continued on 1 ounce of water or ice every half hour. During the day, the patient did fairly well, having some incisional pain, but able to ambulate adequately and to tolerate liquids well. ? Since the patient is doing well, we decided that the patient was ready to be discharged. The patient was given instructions to follow-up with me next week and to call my office for any fever over 101, persistent abdominal pain, nausea, vomiting, GERD, symptoms of DVT such as calf tenderness, or leg swelling, or pulmonary embolism such as chest pain or shortness of breath. The patient was also instructed to drink 40-60 ounces of liquids per day using the 1-ounce cups. The patient had been given prescriptions for Tylenol for pain, Zofran prn for nausea, and pantoprazole and carafate previously. The patient was encouraged to ambulate and use the incentive spirometer. The patient was allowed to shower, but no baths, and encouraged to stay active at home. All of these instructions were given to the patient personally. All questions were answered and the patient understood all instructions, the instructions were also given to the patient in print. Time Spent with Patient Time attestation: Total time spent providing and/or coordinating discharge services: Discharge coordination time: Less than 30 minutes Quality: Safe Use of Opioids Does Pt have an Active Cancer Diagnosis on the Problem List?: No Quality: Stroke Does the patient have a stroke diagnosis?: No Physical Exam Vital Signs: Vital Signs: Last Vital Signs Temp 98.0 F 12/13/21 08:41 Pulse 72 12/13/21 08:41 Resp 16 12/13/21 08:41 BP 135/74 12/13/21 08:41 Pulse Ox 97 12/13/21 08:41 BMI result Body Mass Index 38.7 DS: Data Data Completed and Pending Pending studies at discharge: Pending at discharge 12/13/21 12:31 Surgical [PTH] Routine Labs on day of discharge: Laboratory Results - last 24 hr 12/13/21 08:49 POC Glucose 100 Discharge Plan Discharge Patient Disposition: Home, Self-Care Discharge Diagnosis: s/p laparoscopic sleeve gastrectomy Referrals: Claire Mcnair MD [Primary Care Provider] - 1 Week Discharge Medications: Continued (DME) Blood Pressure Cuff Misc See Rx Instructions .Route Qty: 1 0RF Rx Instructions: As directed (DME) pen needle, diabetic [Comfort EZ Pen Sloan] 31 gauge x 5/16 needle See Rx Instructions .Route Qty: 100 3RF Rx Instructions: Use 1 pen needle once a day Advair HFA 230-21 mcg/actuation HFA aerosol inhaler 2 puff inhalation BID 30 Days Qty: 1 6RF (DME) lancing device Misc See Rx Instructions .Route Qty: 1 0RF Rx Instructions: freestyle lite levothyroxine 200 mcg tablet 200 mcg PO DAILY 90 Days Qty: 90 1RF levothyroxine 25 mcg tablet 25 mcg PO DAILY 90 Days Qty: 90 1RF lidocaine 5 % adhesive patch,medicated 1 patch topical DAILY PRN (Reason: Back Pain) 0RF aripiprazole [Abilify] 5 mg tablet 5 mg PO DAILY 0RF loratadine [Allerclear] 10 mg tablet 10 mg PO DAILY PRN (Reason: itching) Qty: 7 0RF amlodipine 10 mg tablet 10 mg PO DAILY 90 Days Qty: 90 1RF Hold Instructions: Resume on 12/14/21. Hold if systolic blood pressure below 120 Rx Instructions: check blood pressure nightly and text with Dr Espinal ([facility]) blood-glucose meter [FreeStyle Lite Meter] Kit See Rx Instructions .Route Qty: 1 0RF Rx Instructions: As directed 2 times daily (DME) FreeStyle Lite Strips Strip See Rx Instructions .Route Qty: 100 12RF Rx Instructions: As directed 2 times daily (DME) lancets [FreeStyle Lancets] 28 gauge misc See Rx Instructions .Route Qty: 100 12RF Rx Instructions: As directed 2 times daily albuterol sulfate 90 mcg/actuation HFA aerosol inhaler 1 - 2 puff inhalation Q4-6H PRN (Reason: dyspnea) 30 Days Qty: 6.7 1RF albuterol sulfate 2.5 mg /3 mL (0.083 %) solution for nebulization 2.5 mg inhalation DAILY PRN (Reason: asthma) 30 Days Qty: 15 1RF bupropion HCl 150 mg tablet extended release 24 hr 150 mg PO DAILY 0RF clonazepam 1 mg tablet 1 mg PO BID PRN (Reason: Anxiety) 0RF sucralfate [Carafate] 100 mg/mL suspension 10 ml PO QID Qty: 1000 0RF Rx Instructions: swish in mouth and swallow; use after food/drink pantoprazole 40 mg tablet,delayed release (DR/EC) 40 mg PO DAILY Qty: 30 2RF ondansetron HCl 4 mg tablet 4 mg PO Q12H Qty: 20 0RF Held losartan 100 mg tablet 100 mg PO DAILY 90 Days Qty: 90 3RF Hold Instructions: Resume on 12/14/21. Hold if systolic blood pressure below 120 Januvia 50 mg tablet 50 mg PO DAILY 90 Days Qty: 90 1RF Hold Instructions: Until discussed with Dr Espinal Trulicity 0.75 mg/0.5 mL pen injector 0.75 mg subcut QWEEK 30 Days Qty: 2.5 3RF Hold Instructions: until discussed with Dr Espinal furosemide 80 mg tablet 80 mg PO DAILY Qty: 30 5RF Hold Instructions: Resume on 12/14/21. Unless Dr. Espinal tells you to take it Lantus Solostar U-100 Insulin 100 unit/mL (3 mL) insulin pen 25 unit subcut QPM 90 Days Qty: 22.5 2RF Hold Instructions: Resume on 12/14/21. Send your blood sugars to Dr. Espinal Don't take any if blood sugar below 100 prazosin 2 mg capsule 2 mg PO BEDTIME 0RF Hold Instructions: Resume on 12/17/21. Discontinued cholecalciferol (vitamin D3) 125 mcg (5,000 unit) capsule 125 mcg PO DAILY Qty: 30 2RF Hold Instructions: Dose Change alum-mag hydroxide-simeth [Maalox Advanced] 200-200-20 mg/5 mL suspension 5 ml PO 5XD PRN (Reason: dyspepsia) Qty: 30 0RF Rx Instructions: administer between meals and at bedtime meclizine 25 mg tablet 25 mg PO TID PRN (Reason: dizziness) Qty: 30 0RF famotidine [Pepcid AC] 20 mg tablet 20 mg PO DAILY PRN (Reason: GERD) 0RF omeprazole 20 mg capsule,delayed release(DR/EC) 20 mg PO DAILY PRN (Reason: GERD) 0RF cholecalciferol (vitamin D3) 25 mcg (1,000 unit) capsule 25 mcg PO DAILY 90 Days Qty: 90 1RF ondansetron HCl 4 mg tablet 4 mg PO DAILY PRN (Reason: Nausea) 0RF Reguloid (psyllium husk-sucro) 3 gram/7 gram powder 2 tsp PO DAILY PRN (Reason: Constipation) 0RF polyethylene glycol 3350 [Miralax] 17 gram powder in packet 17 g PO DAILY Qty: 14 0RF Rx Instructions: Mix each packet with 8oz of water and do 7 packets on 12/11/21 and another 7 packets on 12/12/21 Discharge Orders: Discharge Order (Routine); Ordered 12/14/21 Ordered By: Jose Rafael Esipnal Diet: other Activity on Discharge: No heavy lifting Stand Alone Forms: Patient Portal Discharge page Care Plan Goals: weight loss Health Concerns: obesity Plan of Treatment: No tub baths, sex or returning to work until discussed at first post op appointment. No exercise, alcohol, tobacco or illegal drug use. Continue to use incentive spirometer hourly while awake. Walk in home for 5- 10 minutes every 2 hours during the first week. Follow all instructions in the bariatric handbook and call with any questions.Discharge Instructions 1. Please call your doctor or come back to the emergency room should any new symptoms arise. 2. You will receive a courtesy call from [facility] 24-48 hours after discharge. 3. Activity: abstain from alcohol, practice limited stair climbing, no bending, no driving, no exercise, no illicit substances, no lifting, no sex, no tub bath, no work. 4. Diet: continue as discussed with Dr. Espinal. 5. Dressing Change/Wound Care: Your incision is covered by clear bandages and guaze underneath. If the area is tender, you may apply an ice pack for short intervals (no more than 20 minutes on, followed by at least 20 minutes off). Do not apply heat. Do not use creams, lotions, or topical antibiotics unless instructed to do so by your surgeon. These can cause infection or allergic reaction. 6. Call your doctor if: - Your temperature exceeds 101.5 F - You experience excessive pain or swelling - You have an unexpected reaction to medication - You have excessive bleeding - You experience continued vomiting/nausea - Your incision begins to separate - Your incision shows signs of infection such as increased redness, swelling, excessive pain, heat, or drainage (light blood or clear fluid is normal) 7. General instructions: No lifting greater than 5 lbs for the next 4 weeks[address] driving within 24 hours of taking narcotic pain medications. If you do not move your bowels in the next 2 days, please take milk of magnesia over the counter. Please follow the post op diet and do not advance your diet until you are seen in the office in about 2 weeks. Please walk around your home every hour or two to prevent blood clots from forming in your legs. You do not need to wake from sleeping to walk. Please sleep in a bed or couch to prevent kinking at the hips and knees. Please take your incentive spirometer (your lung cook box filler) home with you and use it for the next few days to prevent pneumonias. You may shower, no hot tubs, baths or swimming pools. Please call the office with any questions or concerns such as increasing abdominal pain, fever, chills, shortness of breath, chest pain, leg pain or swelling, or redness or drainage from your incisions. Please stay on stage 3 diet which includes sugar free clear liquids such as ice pops and jello and broth and crystal light. Avoid all carbonation. Please drink 3 protein shakes with at least 25-30 grams of protein daily or 3 of the Celebrate 4:1 shakes which can be purchased in our office. The Celebrate shakes have all of the bariatric vitamins you need if you consume these shakes. If you are drinking other protein shakes, you will need to purchase the Celebrate multivitamins and calcium that we provide in the office (they will provide all the vitamins you need). Please make sure you are consuming at least 40-60 ounces of water in addition to your 3 protein shakes daily. Do not hesitate to contact the office with any questions at . The patient's medical history has been reviewed and they are considered low risk for post op DVT and therefore DVT prophylaxis is not considered necessary. Travel after surgery was reviewed. The patient has not disclosed any travel plans during the first 30 days after surgery and they have been advised that within the first 30 days after surgery any bus, plane, train or car travel over 2 hours in duration is contraindicated due to the possibility of developing blood clots from immobility. Any travel, needs to include periods of ambulation of 10 minutes in duration every 2 hours.? The patient was instructed to discuss any plans for travel during this period with their bariatric surgeon. Assessment: stable s/p laparoscopic sleeve gastrectomy
[2021-12-13] MEDS: HYDROmorphone HCl 0.5 MG/0.5 ML SYRINGE IVPUSH (13:52)
[2021-12-13] MEDS: Metoclopramide HCl 10 MG/2 ML VIAL IVPUSH (13:55)
[2021-12-13] MEDS: Famotidine/PF 20 MG/2 ML VIAL IVPUSH ×2 (13:57→21:11)
[2021-12-13 13:58] LABS: Hematocrit 45.6 % (37.0-47.0); Hemoglobin 14.5 g/dl (12.0-16.0)
[2021-12-13 14:11] LABS: Anion Gap 17 (12-20); Blood Urea Nitrogen 9 mg/dL (9-16); Calcium 9.2 mg/dL (8.4-10.2); Carbon Dioxide 22 mmol/L (22-29); Chloride 104 mmol/L (96-108); Creatinine Clr Calc Pharmacy 77.7; Estimated Glomerular Filt Rate 58; Glucose Random 144 mg/dL (60-115); Potassium 4.1 mmol/L (3.3-5.1); Sodium 139 mmol/L (135-145)
[2021-12-13 16:01] LABS: Glucose, Whole Blood 153 mg/dL (60-115)
[2021-12-13] MEDS: ondansetron HCL 4 MG/2 ML VIAL IVPUSH ×2 (16:07→23:33)
[2021-12-13] MEDS: Insulin Lispro 100 UNIT/ML 3 ML VIAL SUBCUT (16:07)
--- NOTE | 2021-12-13 17:20 | PM.OP ---
Brief Operative Note Date of Service: 12/13/21 Pre-op diagnosis: Severe obesity with comorbidities (see below) Post-op diagnosis: same Procedure: INITIAL PATIENT BMI ON PRESENTATION AT OUR OFFICE: 40.6 kg/m2 LAST BMI BEFORE SURGERY: 38.9 kg/m2 COMORBIDITIES: sleep apnea on CPAP, insulin dependent diabetes, hypertension, myocardial infarction, GERD, hypothyroidism, depression, anxiety, liver steatosis, asthma, LVH ?The patient presented to the Weight Management Program with significant obesity that was negatively impacting the patient's comorbidities as listed above.? The program is a phased program with a special focus on preoperative medical weight management to promote substantial weight loss and prepare the patients for the second phase of the program: bariatric surgery. The patient participated in an intensive weekly lifestyle ?intervention and exercise program during which the patient ?has lost between the initial office visit and the last preoperative visit 9.4lbs, or 3.98% of initial actual body weight. It was deemed appropriate for the patient to now have bariatric surgery. In light of the current Covid-19 pandemic and the well documented strong association of obesity and increased risk of worse outcomes if infected with Covid-19 (REFERENCES:https://pubmed.ncbi.nlm.nih.gov/41104437/,?https://pubmed.ncbi.nlm.nih.gov/90866437/), any delay in undergoing bariatric surgery may lead to the patient's worsening health condition and increased?risk of more severe Covid-19 disease if infected. In addition a recent?study from [facility] published in [facility] on 07/16/2021 ([email or web address]) found that, among patients with obesity, substantial weight loss achieved with surgery was associated with improved outcomes of COVID-19 infection. The findings suggest that obesity can be a modifiable risk factor for the severity of COVID-19 infection. In addition, the patient met the BMI-criteria for bariatric surgery based on the BMI on initial presentation. The patient should not be penalized for achieving such weight loss because ?it is not sustainable long-term without surgical intervention and it was achieved in preparation for bariatric surgery ?under my direction and based on my published research ([email or web address] and?https://www.soard.org/article/[email or web address])12721-X/pdf) ?that a 10% preoperative weight loss improves long-term weight loss after surgery and reduces perioperative complications.? Insurance carriers such as [facility] have endorsed my recommendations ?and have included in their policies criteria to include a 10% preoperative weight loss requirement. PROCEDURE: Esophago-gastroscopy, laparoscopic sleeve gastrectomy and laparoscopic gastropexy INDICATIONS: This is a 51 year-old female who was electively scheduled for laparoscopic, possibly open sleeve gastrectomy. The risks and complications of the procedure were discussed with the patient in advance, particularly the possibility of ; pulmonary embolism; staple line leak; bleeding; GERD; cardiac, pulmonary, or renal complications; as well as long-term problems such as insufficient weight loss, vitamin deficiency, strictures, or ulcers. The patient understood all the risks, and was in agreement to proceed with surgery. DESCRIPTION OF PROCEDURE: After informed consent was obtained from the patient, the patient was given preoperative antibiotics, and was transferred to the operating room. After successful induction of general anesthesia, pneumatic compression devices were placed on both lower extremities. An upper endoscopy was performed next. The oropharynx and esophagus appeared to be within normal limits. There was no diaphragmatic hernia present consistent with the findings of the preoperative upper GI. The stomach was entered. Then after all fluid and air were suctioned and the stomach was fully decompressed, the scope was withdrawn and secured in the mid esophagus. The patient was then prepped and draped in the usual sterile manner, and abdominal access was established at the right upper quadrant with the Melvi technique. A 12 mm blunt port was inserted, and the abdomen was insufflated with CO2 to a pressure of 15 mmHg. Under direct visualization, additional ports were placed, specifically two 5 mm Versi-step ports to the left upper quadrant, and a 5 mm Versi-Step port to the right upper quadrant. 1% lidocaine plain was used to infiltrate all port sites as well as all fascia defects. Using the EndoClose suture passer device, I placed a #1 Polysorb tie across the falciform ligament in order to retract it up against the abdominal wall and prevent injury of the ligament with our instruments during the procedure. Following that, the patient was placed in a steep reverse Trendelenburg position. An additional 5 mm port was placed to the right flank for the Mediflex retractor that was used to retract the left lobe of the liver. The gastro-esophageal fat pad was opened with the ultrasonic device (Thunderbeat, Olympus) and the anterior esophagus and hiatus were exposed. The angle of His was opened with the ultrasonic device the fundus of the stomach from any diaphragmatic and splenic attachments. I then opened the gastrocolic ligament between the transverse colon and the greater curvature of the stomach with the ultrasonic device to enter the lesser sac and facilitate the ligation of the short gastric vessels. I started at a mid-point along the greater curvature and using the Thunderbeat, all short gastric vessels were divided all the way to the angle of His until the left salena was completely dissected at its entirety. I then divided the gastro-colic ligament distally to a distance of about 3-4 cm proximal to the pylorus. The stomach was then divided transversely with one Endo FRANCOIS-45 purple and four FRANCOIS-60 articulating orange loads using the AEON stapler and loads. Every effort was made that the gastric sleeve had a tubular shape and an even caliber throughout. Once the sleeve resection was completed, the staple line of the gastric sleeve was reinforced with Hemoclips. The resected stomach was retrieved without difficulty from the Melvi port. A gastropexy was then performed in order to prevent postoperative GERD and partial gastric volvulus. Several interrupted 2.0 Surgidac sutures were placed between the sleeve's staple line and the previously divided greater omentum and gastro-colic ligament using the Endo-Stitch device. ?An upper endoscopy was performed. There was no narrowing at the GE junction. The scope was easily advanced all the way to the pylorus which was clearly visualized. There was no narrowing anywhere and the sleeve's caliber was even throughout. The sleeve's staple line was inspected and there was no evidence of ischemia, bleeding or dehiscence. At that point the gastroscope was withdrawn from the patient?s mouth while we were decompressing the bowel and the stomach from any remaining air. I looked into the lesser sac to see how the sleeve was situating and it was situating well. There was no bleeding from the staple line, spleen, or short gastric vessels. The Mediflex retractor was removed, and the undersurface of the liver was inspected and there was no bleeding. The patient was placed in supine position. I closed the fascial defect of the 12 mm port site with a figure of eight #1 Polysorb suture. Then 100 cc 0.25 % Marcaine plain with 10 mg of Dexamethasone were used to infiltrate the fascial closure as well as all skin incisions. A total of 7ml of Zynrelef were placed at the Melvi wound. At this point, the abdomen was deflated, all ports were removed under direct vision, and no bleeding was noted from any of the port sites. The skin incisions were irrigated with saline and were closed with 4-0 absorbable monofilament sutures. Steri-Strips and OpSites were used to cover all incisions. The patient was extubated and was transferred in stable condition to the recovery room for further care. I was present and performed all ortega parts of the procedure. Mr. Huffman was the assistant housekeeping manager. There were no residents to assist with this case. Franc Espinal MD, PhD, FACS Surgeon: Jose Rafael Espinal MD Anesthesia: GETA, local and other (TAP block and 7ml Zynrelef) Was an Bridal Sales Consultant used for this Procedure?: Yes Bridal Sales Consultant: Cash Huffman Estimated blood loss (mL): 10 IV fluids (mL): 2,500 Urine output (mL): 0 (No Aviles to record) Pathology: other (Stomach) Condition: stable Disposition: PACU
[2021-12-13 19:58] LABS: Glucose, Whole Blood 142 mg/dL (60-115)
[2021-12-13] MEDS: Prazosin HCL 1 MG CAPSULE 2 MG PO (21:12)
[2021-12-13] MEDS: 0.9 % Sodium Chloride Flush 3 ML SYRINGE IVFLUSH (21:12)
--- NOTE | 2021-12-13 21:33 | PC.RT ---
Placed on NOC CPAP with home unit
[2021-12-13 23:33] LABS: Glucose, Whole Blood 150 mg/dL (60-115)
[2021-12-14] MEDS: Lactated Ringers 1,000 ML 100 ML IVCONT (01:11)
[2021-12-14 03:41] VITALS: BP 116/59; PULSE 63; RESP 16; TEMP 36.1; O2SAT 95
[2021-12-14 04:13] LABS: Glucose, Whole Blood 125 mg/dL (60-115)
[2021-12-14] MEDS: Levothyroxine Sodium 25 MCG TABLET PO (05:28)
[2021-12-14] MEDS: Levothyroxine Sodium 200 MCG TABLET PO (05:28)
[2021-12-14 05:41] LABS: MANUAL DIFF FLAG NO
[2021-12-14 05:45] LABS: Basophils Percent Auto 0.1 % (0-2); Hemoglobin 13.6 g/dl (12.0-16.0); Imm Gran Abs Auto 0.04 X10*3/uL (0.00-0.03); Imm Gran Pct Auto 0.5 % (0.0-0.4); Lymphocytes Absolute Auto 1.3 X10*3/uL (1.2-4.9); Lymphocytes Percent Auto 17.8 % (20-40); Mean Corpuscular HGB Conc 32.4 g/dl (31.0-35.0); Mean Corpuscular Hemoglobin 26.5 pg (27.0-33.0); Mean Corpuscular Volume 81.7 fL (80.0-98.0); Monocytes Absolute Auto 0.3 X10*3/uL (0.1-1.2); Monocytes Percent Auto 3.5 % (2-11); Neutrophils Absolute Auto 5.8 x10*3/uL (2.0-8.3); Neutrophils Percent Auto 78.1 % (45-73); Platelet Count 203 X10*3/uL (160-400); Red Blood Count 5.14 X10*6/uL (4.20-5.50); Red Cell Distribution Width 14.9 % (11.0-16.0); White Blood Count 7.5 X10*3/uL (4.8-10.8)
[2021-12-14 06:04] LABS: Anion Gap 14 (12-20); Blood Urea Nitrogen 8 mg/dL (9-16); Calcium 9.4 mg/dL (8.4-10.2); Carbon Dioxide 24 mmol/L (22-29); Chloride 104 mmol/L (96-108); Creatinine Clr Calc Pharmacy 97.8; Estimated Glomerular Filt Rate > 60; Glucose Random 119 mg/dL (60-115); Potassium 4.6 mmol/L (3.3-5.1); Sodium 137 mmol/L (135-145)
--- NOTE | 2021-12-14 06:55 | HO.POSTANES ---
Post Anesthesia Evaluation Post Anesthesia Evaluation Vital Signs: Vital Signs Temp Pulse Resp BP Pulse Ox 12/14/21 03:41 97 F 63 16 116/59 L 95 12/13/21 23:23 97.3 F 80 18 131/73 97 12/13/21 19:48 98.3 F 86 20 148/87 H 100 Anesthesia: General Endotracheal-GETA Mental Status: Awake Pain Control: Satisfactory Nausea/Vomiting: None Hydration: Adequate Anesthesia-Related Issues: No Anes. Related Issues
[2021-12-14 07:08] LABS: Glucose, Whole Blood 104 mg/dL (60-115)
[2021-12-14 07:14] VITALS: BP 147/66; PULSE 56; RESP 18; TEMP 36.8; O2SAT 97
[2021-12-14 08:46] VITALS: PULSE 61; RESP 14; O2SAT 98
[2021-12-14] MEDS: Fluticasone/Vilanterol 200/25 BLST.W.DEV 1 PUFF INHALE (08:46)
--- NOTE | 2021-12-14 09:01 | MHC.CM.PN ---
EMR REVIEWED, PT ADMITTED S/P LAP SLEEVE GASTRECTOMY, CM MET W/PT VIA DOG RAISER, PT REPORTS SHE LIVES ALONE IS INDEP W/ALL CARE, USES A CPAP, GLUCOMETER & INSULIN AND ELECTRONIC BP CUFF, PT DENIES HOME SERVICES, VERIFIES PCP [facility] , PT EDUCATED ON HCP'S AND DECLINES NEED TO COMPLETE ONE THIS ADMISSION. D/C PLAN: HOME TODAY SELF-CARE W/OUPT FOLLOW UP 12/18, S.O. FOR TRANSPORT COVID VACCINE: J&JX1, PFIZER BOOSTER X1
== END 2021-12-14 09:42 | disposition home or self-care (01) | DRG 403 ==
LOC: HO.SSSA 13:34 → HO.S3 14:09
PROVIDERS: Physician Assistant Surgical; Admitting Provider Surgery; PCP Internal Medicine; Visit Provider Surgery
PROC: 0DB64Z3 Excision of Stomach, Percutaneous Endoscopic Approach, Vertical (ICD-10-PCS; CPT 43845; principal; 2021-12-13 10:10)
DX: E66.01 Morbid (severe) obesity due to excess calories (principal); I11.9 Hypertensive heart disease without heart failure; K76.0 Fatty (change of) liver, not elsewhere classified; E11.9 Type 2 diabetes mellitus without complications; G47.33 Obstructive sleep apnea (adult) (pediatric); I25.2 Old myocardial infarction; K21.9 Gastro-esophageal reflux disease without esophagitis; Z68.38 Body mass index [BMI] 38.0-38.9, adult; F32.A Depression, unspecified; F41.9 Anxiety disorder, unspecified; J45.909 Unspecified asthma, uncomplicated; Z20.822 Contact with and (suspected) exposure to COVID-19; Z79.51 Long term (current) use of inhaled steroids; Z79.890 Hormone replacement therapy; Z79.899 Other long term (current) drug therapy
CPT/HCPCS: 36415; 80048; 80053; 80061; 82947; 83036; 83525; 84443; 85014; 85018; 85025; 85610; 85730; 86140; 86850; 86900; 86901; 87635; 88307; 88342; 94640; 99024; A4649; C9088; J0131; J0690; J1100; J1170; J2250; J2405; J2550; J2765; J3010

== ENCOUNTER → 2021-12-18 13:23 | Outpatient (BNVA) | payer OTHER, SELFPAY | PROVIDERS: PCP Internal Medicine; Referring Provider Internal Medicine; Visit Provider Physician Assistant Surgical | DX: Z98.84 Bariatric surgery status (principal) | CPT/HCPCS: 99212 ==

== ENCOUNTER → 2021-12-21 09:10 | Outpatient (BNVA) | payer OTHER, SELFPAY | PROVIDERS: PCP Internal Medicine; Referring Provider Internal Medicine; Visit Provider Physician Assistant | DX: Z13.89 Encounter for screening for other disorder (principal) ==

== ENCOUNTER 2022-01-31 09:17 | Outpatient (REF) | payer OTHER, SELFPAY ==
[2022-01-31 10:47] LABS: Appearance Urine CLEAR; Glucose Urine UA NEG (NEG); Leukocyte Esterase Urine NEG (NEG); Nitrite Urine NEG (NEG); PH 5.5 (5.0-8.0); UACC Culture Trigger NO; Urine Blood TRACE (NEG); Urine Ketones NEG (NEG); Urine Protein NEG (NEG-TRACE)
[2022-01-31 10:49] LABS: Color Urine COLORLESS
[2022-01-31 10:58] LABS: Squamous Epithelial Cell Urine 1+ /LPF
[2022-01-31 10:59] LABS: RBC Urine 0-2 /HPF (0); WBC Urine 0-2 /HPF (0-4)
[2022-01-31 11:01] LABS: Alanine Aminotransferase 23 U/L (0-31); Albumin Level 4.6 g/dL (3.5-5.0); Alkaline Phosphatase 114 U/L (39-117); Anion Gap 18 (12-20); Aspartate Amino Transferase 19 U/L (5-31); Bilirubin Total 0.4 mg/dL (0.0-1.0); Blood Urea Nitrogen 10 mg/dL (9-16); Calcium 8.6 mg/dL (8.4-10.2); Carbon Dioxide 24 mmol/L (22-29); Chloride 105 mmol/L (96-108); Cholesterol 159 mg/dL; Estimated Glomerular Filt Rate > 60; Glucose Fasting 118 mg/dL (60-99); HDL Cholesterol 47 mg/dL; LDL Cholesterol Calculated 90 mg/dl; Potassium 3.7 mmol/L (3.3-5.1); Sodium 143 mmol/L (135-145); Total Protein 7.9 g/dL (6.5-8.0); Triglycerides 114 mg/dL
[2022-01-31 11:07] LABS: Creatinine Urine 8.93 mg/dL; Microalbumin Urine < 5.0 mg/L
[2022-01-31 11:29] LABS: Thyroid Stimulating Hormone 2.03 uIU/mL (0.32-4.0); Vitamin D 25-OH Total 39.2 ng/mL (>30)
== END 2022-01-31 09:18 | disposition home or self-care (01) ==
LOC: HO.LAB 09:17
PROVIDERS: Internal Medicine Gastroenterology; PCP Internal Medicine; Visit Provider Internal Medicine
DX: E11.9 Type 2 diabetes mellitus without complications (principal); E55.9 Vitamin D deficiency, unspecified; E89.0 Postprocedural hypothyroidism; E78.5 Hyperlipidemia, unspecified
CPT/HCPCS: 36415; 80053; 80061; 81001; 82043; 82306; 84443

== ENCOUNTER 2022-05-22 09:36 | Outpatient (REF) | payer OTHER, SELFPAY ==
[2022-05-22 11:02] LABS: Creatinine Urine 130.95 mg/dL; Microalbum/Creatinine Ratio Ur 12.9 ug/mg cr
[2022-05-22 11:12] LABS: Alanine Aminotransferase 25 U/L (0-31); Albumin Level 4.2 g/dL (3.5-5.0); Alkaline Phosphatase 110 U/L (39-117); Anion Gap 15 (12-20); Aspartate Amino Transferase 20 U/L (5-31); Bilirubin Total 0.5 mg/dL (0.0-1.0); Blood Urea Nitrogen 11 mg/dL (9-16); Calcium 9.2 mg/dL (8.4-10.2); Carbon Dioxide 25 mmol/L (22-29); Chloride 104 mmol/L (96-108); Cholesterol 176 mg/dL; Estimated Glomerular Filt Rate > 60; Glucose Fasting 116 mg/dL (60-99); HDL Cholesterol 47 mg/dL; LDL Cholesterol Calculated 108 mg/dl; Potassium 4.2 mmol/L (3.3-5.1); Sodium 140 mmol/L (135-145); Total Protein 7.2 g/dL (6.5-8.0); Triglycerides 108 mg/dL
[2022-05-22 11:25] LABS: Vitamin D 25-OH Total 25.2 ng/mL (>30)
== END 2022-05-22 09:37 | disposition home or self-care (01) ==
LOC: HO.LAB 09:36
PROVIDERS: PCP Internal Medicine; Visit Provider Internal Medicine
DX: E11.9 Type 2 diabetes mellitus without complications (principal); E78.5 Hyperlipidemia, unspecified; E55.9 Vitamin D deficiency, unspecified; Z79.4 Long term (current) 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
CPT/HCPCS: 36415; 80053; 80061; 82043; 82306

== ENCOUNTER 2022-05-23 10:27 | Outpatient (AMB) | payer OTHER, SELFPAY ==
--- NOTE | 2022-05-23 10:30 | MHC.PC.OV ---
Vital Signs 05/23/22 10:31 Height 5 ft 4 in Weight 217 lb BMI 37.2 BP 130/88 Blood Pressure Location Lt brachial Position Sitting Temp 97.6 F Temp Source Skin Intake Visit Reasons: dm Intake Note: Patient here for a folow up on DM Manager Grocery Required: No Accompanied by: Self / Same As Patient Allergies zolpidem Adverse Reaction (Intermediate, Verified 05/23/22 10:48) nightmares Medication List - Last Reconciled 05/23/22 by Claire Everett MD alcohol swabs (Alcohol Prep Pads) 1 pad topical BID amlodipine 10 mg PO DAILY 90 days aripiprazole (Abilify) 5 mg PO DAILY blood-glucose meter (FreeStyle Lite Meter kit) As directed 2 times daily bupropion HCl 150 mg PO DAILY clonazepam 1 mg PO BID PRN fluticasone propion-salmeterol 230-21 mcg/actuation (Advair HFA) 2 puffs inhalation BID 30 days FreeStyle Lite Strips (blood sugar diagnostic) As directed 2 times daily NS furosemide 80 mg PO DAILY lancets (FreeStyle Lancets) As directed 2 times daily lancing device freestyle lite levothyroxine 200 mcg PO DAILY 90 days levothyroxine 25 mcg PO DAILY 90 days lidocaine 5% 1 patch topical DAILY PRN loratadine (Allerclear) 10 mg PO DAILY PRN losartan 100 mg PO DAILY 90 days miscellaneous medical supply (Blood Pressure Cuff) As directed omeprazole 20 mg PO DAILY 90 days pen needle, diabetic (Comfort EZ Pen [place]) Use 1 pen needle once a day prazosin 2 mg PO BEDTIME Tobacco use date assessed: 10/10/21 HPI HPI Comments History of Present Illness Details This is a 52-year-old female with diabetes mellitus type 2, hypertension, acquired hypothyroidism, mild recurrent major depression, hyperlipidemia and low vitamin-D that comes today for follow-up on her conditions. Blood pressure stable. Blood glucose well control with no need for medication after bariatric surgery in November 2021. Last TSH was normal. Depression has been stable with bupropion. LDL not on goal and this is why I will add a statin. Denies any chest pain or shortness of breath. Vitamin-D is low and will be restarted. [facility], LAT[facility] Medical History (Updated 05/23/22 @ 11:22 by Claire Everett MD) Abnormal finding on EKG Acquired hypothyroidism Anxiety Depression Diabetes mellitus, with long-term current 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 Dizziness Essential hypertension GERD (gastroesophageal reflux disease) Hypothyroidism Insomnia Left foot pain senior living (current) 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 Low back pain Low potassium syndrome LVH (left ventricular hypertrophy) Mild recurrent major depression Morbid obesity Right wrist pain Sleep apnea with use of continuous positive airway pressure (CPAP) Uncontrolled diabetes mellitus Surgical History H/O endoscopy H/O: hysterectomy History of bladder surgery History of section History of colonoscopy History of thyroid surgery History of total abdominal hysterectomy S/P laparoscopic sleeve gastrectomy Family History Father Diabetes Mother Hypertension Maternal Uncle Colon cancer Maternal Aunt Breast cancer Paternal Aunt Breast cancer Family/Other FH: mental illness Substance use disorder Social History Household Members: None Housing: Apartment Are you a primary career development coordinator/teacher to a significant other at home: No Do you presently have visiting nurse or other home services: No Alcohol intake: former Patient Tobacco Use Status: Former Tobacco user Quit Date: 11/23/2021 Tobacco use type: Cigarette Years Smoked: 10 e-Cigarette/Vaping Use: Never Used Second Hand Smoke Exposure: No service: No Current occupational status: disabled Cognitive needs: No Hearing needs: No Vision needs: No Questionnaire Thrive Questionnaire Declines Thrive assessment: No Date Thrive assessed: 05/23/22 I am a: Patient What is your living situation today?: I have a steady place to live Within the past 12 months, did the food you bought not last and you didn't have the money to get more?: Never true Within the past 12 months, did you worry whether your food would run out before you got money to buy more?: Never true Do you have trouble paying for medicines?: No Do you have trouble getting transportation to medical appointments?: No Do you have trouble paying your heating and electricity bill?: No Do you have trouble taking care of your child, family member or friend?: No Do you have trouble with day-to-day activities such as bathing, preparing meals, shopping, managing finances, etc.?: No Are you currently unemployed and looking for a job?: No Are you interested in more education?: No Currently or been in a relationship where the following occur: no concerns reported SHAHAB-7 AMB Questionnaire SHAHAB-7 Date SHAHAB - 7 assessed: 01/10/22 Source: Developed by Drs. Jitendra Reyes, Liat Aguirre, Major Norris and colleagues, with an educational katie from [employer]. Review of Systems Const All systems reviewed & are unremarkable except as noted in HPI and below Eyes Reports no additional complaints, Denies change in vision and Denies other visual disturbances Card Denies chest pain at rest, Denies chest pain with activity, Denies edema, Denies irregular heart rhythm, Denies claudication, Denies dyspnea, Denies dyspnea on exertion, Denies orthopnea, Denies paroxysmal nocturnal dyspnea and Denies slow heart rate Resp Denies cough, Denies dyspnea and Denies dyspnea on exertion GI Denies abdominal pain, Denies change in bowel habits, Denies excessive flatus, Denies nausea and Denies vomiting Denies urinary incontinence, Denies urinary hesitancy and Denies urinary urgency Musc Denies abnormal gait, Denies atrophy, Denies deformity and Denies limited range of motion Skin/Breast Denies bleeding lesions, Denies changing lesions and Denies rash Neuro Denies abnormal gait and Denies lack of coordination Physical exam (Primary Care) Vital Signs: Last Vital Signs Temp 97.6 F 05/23/22 10:31 BP 130/88 05/23/22 10:31 BMI result Body Mass Index 37.2 Tobacco/Smoking Status: Tobacco use Status Tobacco use date assessed 10/10/21 05/23/22 10:32 Patient Tobacco Use Status Former Tobacco user 05/23/22 10:32 Tobacco use type Cigarette 05/23/22 10:32 e-Cigarette/Vaping Use Never Used 05/23/22 10:32 Thrive Assessment: Date of Thrive Assessment Date Thrive assessed 05/23/22 05/23/22 10:32 Currently or been in a relationship where the following occur: no concerns reported Eyes General: appearance normal, both eyes and all related structures Eyelids: Yes eyelids normal Conjunctivae: conjunctivae normal Neck Neck: Yes normal visual inspection and Yes supple Resp Effort & Inspection: normal respiratory effort Auscultation: clear to auscultation bilaterally Cardio Jugular venous distension: no JVD Rate: regular rate Rhythm: regular rhythm Heart sounds: S1 normal heart sound present and S2 normal heart sound present Extrem General: Yes full ROM Assessment and Plan Assessment & Plan (1) Hyperlipidemia LDL goal <70: Code(s): E78.5 - Hyperlipidemia, unspecified Plan: Start statins. LDL goal less than 70. (2) Mild recurrent major depression: Code(s): F33.0 - Major depressive disorder, recurrent, mild Plan: Continue bupropion. (3) Essential hypertension: Code(s): I10 - Essential (primary) hypertension Plan: Continue amlodipine and losartan. Blood pressure goal is equal or less than 130/80. (4) Acquired hypothyroidism: Code(s): E03.9 - Hypothyroidism, unspecified Plan: Continue levothyroxine. Monitor TSH. (5) Diabetes mellitus: Code(s): E11.9 - Type 2 diabetes mellitus without complications Plan: Continue low-carbohydrate diet. A1c goal is equal or less than 7%. (6) Hypovitaminosis D: Code(s): E55.9 - Vitamin D deficiency, unspecified Plan: Restart vitamin-D supplements. Orders: Orders Lipid Panel 4 Months E78.5 - Hyperlipidemia, unspecified Vitamin D 25-OH Total 4 Months E55.9 - Vitamin D deficiency, unspecified Microalbumin, Random (w Creat) 4 Months E11.9 - Type 2 diabetes mellitus without complications Comprehensive [place]. Panel Fast 4 Months E11.9 - Type 2 diabetes mellitus without complications, Z79.4 - senior living (current) 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 Thyroid Stimulating Hormone 4 Months E03.9 - Hypothyroidism, unspecified AMB Hemoglobin A1c Today Z13.9 - Encounter for screening, unspecified Medications: New rosuvastatin 10 mg PO BEDTIME 90 days 90 tabs 0RF E78.5 - Hyperlipidemia, unspecified cholecalciferol (vitamin D3) 25 mcg PO DAILY 90 days 90 caps 1RF E55.9 - Vitamin D deficiency, unspecified Changed From lidocaine 5% 1 patch topical DAILY PRN Back Pain To lidocaine 5% 1 patch topical DAILY 30 days PRN 30 ea 0RF Back Pain Coding Level of Care Code Est Pt Level 4 (83205) Diagnoses Hyperlipidemia LDL goal <70 E78.5 Mild recurrent major depression F33.0 Essential hypertension I10 Acquired hypothyroidism E03.9 Diabetes mellitus E11.9 Hypovitaminosis D E55.9 Time Spent (min) 20
[2022-05-23 10:31] VITALS: BP 130/88; TEMP 36.4; BMI 37.2
== END 2022-05-23 10:55 | disposition home or self-care (01) ==
LOC: HO.HMGH 10:27
PROVIDERS: PCP Internal Medicine; Visit Provider Internal Medicine
DX: E11.9 Type 2 diabetes mellitus without complications (principal)
CPT/HCPCS: 83036; 99214

== ENCOUNTER 2022-09-03 10:59 | Outpatient (REF) | payer OTHER, SELFPAY ==
--- NOTE | ~2022-09-03 | MM_ITS ---
EXAMINATION: MM SCREENING DIGITAL BREAST TOMOSYNTHESIS, BILATERAL CLINICAL INFORMATION: Screening. Asymptomatic. The lifetime risk of breast cancer based on the Tyrer-Cuzick Model is 9%. COMPARISON: Mammography: 06/19/2021, 08/11/2019, 08/05/2018 TECHNIQUE: Digital breast tomosynthesis is performed in both the craniocaudal and mediolateral oblique views along with computer-aided detection (CAD). Synthesized 2D images are generated from the tomosynthesis. FINDINGS: There are scattered areas of fibroglandular density (ACR BI-RADS breast composition Category b). There are no significant masses, abnormal calcifications, or other abnormalities. Parenchymal pattern is similar to prior studies. There is no developing density or architectural abnormality. The axilla and skin contours are unremarkable. No significant changes. MM/MM tomosynthesis screening BI IMPRESSION: No mammographic evidence of malignancy. ASSESSMENT: BI-RADS 1: Negative RECOMMENDATION: Routine annual mammography screening. This patient's information was entered into a reminder system with a target due date for their next mammogram.
== END 2022-09-03 11:00 | disposition home or self-care (01) ==
LOC: HO.MAMMO 10:59
PROVIDERS: Visit Provider Internal Medicine
DX: Z12.31 Encounter for screening mammogram for malignant neoplasm of breast (principal)
CPT/HCPCS: 77063; 77067

== ENCOUNTER 2022-09-10 14:50 | Emergency (ER) | payer OTHER, SELFPAY ==
[2022-09-10 15:12] VITALS: BP 145/74; PULSE 77; RESP 18; TEMP 36.9; O2SAT 99; BMI 38.0
--- NOTE | 2022-09-10 15:14 | ED_ITS ---
HPI - Abdominal Pain General Chief Complaint: Nausea/Vomiting/Diarrhea <JERALD Wayne - Last Filed: 09/10/22 15:17> Stated Complaint: Vomiting/Diarrhea <JERALD Wayne - Last Filed: 09/10/22 15:17> Time Seen by Provider: 09/10/22 21:32 <JERALD Wayne - Last Filed: 09/10/22 15:17> Source: patient <Carlitos Ahmadi MD - Last Filed: 09/11/22 00:26> Mode of arrival: ambulatory <Carlitos Ahmadi MD - Last Filed: 09/11/22 00:26> Limitations: no limitations <Carlitos Ahmaid MD - Last Filed: 09/11/22 00:26> History of Present Illness HPI narrative: Patient diabetic otherwise healthy comes for nausea vomiting diarrhea over last 24 hours vomited multiple times more than 10 same number of watery diarrhea no fever no chills no cold symptoms did not have any seafood or bad food no recent travel no other family member sick unable to hold down any solids or liquids all day today <Carlitos Ahmadi MD - Last Filed: 09/11/22 00:26> Related Data Home Medications: Home Medications Medication Instructions Recorded Confirmed bupropion HCl 150 mg 24 hr tablet, 150 mg PO DAILY 04/26/20 05/23/22 extended release clonazepam 1 mg tablet 1 mg PO BID PRN Anxiety 04/26/20 05/23/22 prazosin 2 mg capsule 2 mg PO BEDTIME 08/14/21 05/23/22 Previous Rx's Medication Instructions Recorded loratadine 10 mg tablet 10 mg PO DAILY PRN itching #7 tabs 02/14/21 (Allerclear) blood-glucose meter (FreeStyle #1 ea 04/06/21 Lite Meter kit) miscellaneous medical supply #1 ea 04/12/21 (Blood Pressure Cuff) pen needle, diabetic 31 gauge x #100 ea 04/16/2112/03 (Comfort EZ Pen Sevier) losartan 100 mg tablet 100 mg PO DAILY 90 days #90 tabs 05/22/21 lancing device #1 ea 07/05/21 furosemide 80 mg tablet 80 mg PO DAILY #30 tabs 11/09/21 amlodipine 10 mg tablet 10 mg PO DAILY 90 days #90 tabs 12/13/21 lancets 28 gauge (FreeStyle #100 ea 02/14/22 Lancets) fluticasone propionate 230 2 puff inhalation BID 30 days #1 ea 02/21/22 mcg-salmeterol 21 mcg/actuation HFA inhaler (Advair HFA) FreeStyle Lite Strips (blood sugar #100 ea 04/24/22 diagnostic) omeprazole 20 mg capsule,delayed 20 mg PO DAILY 90 days #90 caps 05/16/22 release cholecalciferol (vitamin D3) 25 25 mcg PO DAILY 90 days #90 caps 05/23/22 mcg (1,000 unit) capsule lidocaine 5 % topical patch 1 patch topical DAILY PRN Back 05/23/22 Pain 30 days #30 ea alcohol swabs (Alcohol Prep Pads) 1 pad topical BID #100 ea 05/27/22 levothyroxine 25 mcg tablet 25 mcg PO DAILY 90 days #90 tabs 06/24/22 aripiprazole 5 mg tablet (Abilify) 5 mg PO DAILY 90 days #90 tabs 07/19/22 levothyroxine 200 mcg tablet 200 mcg PO DAILY 90 days #90 tabs 08/20/22 rosuvastatin 10 mg tablet 10 mg PO BEDTIME 90 days #90 tabs 08/22/22 loperamide 2 mg tablet (Imodium 2 mg PO Q6H PRN loose stool #14 09/11/22 A-D) tabs ondansetron 4 mg disintegrating 4 mg PO Q6-8H PRN nausea and 09/11/22 tablet vomiting #10 tabs <JERALD Wayne - Last Filed: 09/10/22 15:17> Allergies/Adverse Reactions: Allergies Allergy/AdvReac Type Severity Reaction Status Date / Time zolpidem AdvReac Intermediate nightmares Verified 05/23/22 10:48 <JERALD Wayne - Last Filed: 09/10/22 15:17> Review of Systems Review of Systems Yes all other systems are reviewed and are negative <Carlitos Ahmadi MD - Last Filed: 09/11/22 00:26> PMFSH Past Medical History Medical History: Medical History Abnormal finding on EKG Acquired hypothyroidism Anxiety Depression Diabetes mellitus, with long-term current 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 Dizziness Essential hypertension GERD (gastroesophageal reflux disease) Hypothyroidism Insomnia Left foot pain intermediate (current) 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 Low back pain Low potassium syndrome LVH (left ventricular hypertrophy) Mild recurrent major depression Morbid obesity Right wrist pain Sleep apnea with use of continuous positive airway pressure (CPAP) Uncontrolled diabetes mellitus <JERALD Wayne - Last Filed: 09/10/22 15:17> Surgical History: Surgical History H/O endoscopy H/O: hysterectomy History of bladder surgery History of section History of colonoscopy History of thyroid surgery History of total abdominal hysterectomy S/P laparoscopic sleeve gastrectomy <JERALD Wayne - Last Filed: 09/10/22 15:17> Family History Family History: Family History Father Diabetes Mother Hypertension Maternal Uncle Colon cancer Maternal Aunt Breast cancer Paternal Aunt Breast cancer Family/Other FH: mental illness Substance use disorder <JERALD Wayne - Last Filed: 09/10/22 15:17> Social History Social History: Social History Household Members: None Housing: Apartment Are you a primary care management associate to a significant other at home: No Do you presently have visiting nurse or other home services: No Alcohol intake: former Patient Tobacco Use Status: Former Tobacco user Quit Date: 11/23/2021 Tobacco use type: Cigarette Years Smoked: 10 e-Cigarette/Vaping Use: Never Used Second Hand Smoke Exposure: No Advance Directives: No Advance Directives Information Provided: No service: No Current occupational status: disabled Cognitive needs: No Hearing needs: No Vision needs: No <JERALD Wayne Last Filed: 09/10/22 15:17> Physical Exam ED Vital Signs: Vital Signs - 24 hr 09/10/22 15:12 09/10/22 23:31 Temperature 98.4 F 98.8 F Pulse Rate 77 69 Respiratory Rate 18 18 Blood Pressure 145/74 H 136/74 Pulse Oximetry 99 99 Oxygen Delivery Method Room Air Room Air BMI result Body Mass Index 38.0 <JERALD Wayne Last Filed: 09/10/22 15:17> Vital Signs - 24 hr 09/10/22 15:12 09/10/22 23:31 Temperature 98.4 F 98.8 F Pulse Rate 77 69 Respiratory Rate 18 18 Blood Pressure 145/74 H 136/74 Pulse Oximetry 99 99 Oxygen Delivery Method Room Air Room Air BMI result Body Mass Index 38.0 <Carlitos Ahmadi MD - Last Filed: 09/11/22 00:26> Appearance: Alert. Oriented X3. No acute distress. Eyes: No pallor/ icterus ENT: Pharynx normal. Oral Mucosa moist Neck: Normal inspection. Neck supple. CVS: Normal heart rate and rhythm. Pulses normal. Respiratory: No respiratory distress. Equal air entry bilateral, no wheezing/rales/rhonchi Abdomen: Soft and tender in epigastric area . Bowel sounds are present, no mass palpable, no CVA tenderness Skin: Skin warm and dry. Normal skin color. Normal skin turgor. Extremities: No lower extremity edema. No calf tenderness Neuro: Oriented X 3. No motor deficit. <Carlitos Ahmadi MD - Last Filed: 09/11/22 00:26> Course Course Course Narrative: RME--52-year-old female with past medical history anxiety, depression, diabetes, HTN, GERD, obesity, sleep apnea, s/p gastric sleeve, presenting to the ED complaining of diffuse abdominal pain, nausea, vomiting x 1 day. Denies fever/chills, diarrhea. Denies sick contacts Labs, UA ordered in triage <JERALD Wayne - Last Filed: 09/10/22 15:17> Medical Decision Making Medical Decision Making [facility] Narrative: Patient with acute gastroenteritis likely viral, labs are stable improved after Zofran and Imodium taking p.o. fluids will discharge patient home on same <Carlitos Ahmadi MD - Last Filed: 09/11/22 00:26> Lab Data [facility] Lab Attestation statement: I reviewed the patient's lab results. <Carlitos Ahmadi MD - Last Filed: 09/11/22 00:26> Result Diagrams: 09/10/22 15:51 09/10/22 15:51 <JERALD Wayne - Last Filed: 02/21/23 15:17> Labs: Lab Results 09/10/22 09/10/22 09/10/22 Range/Units 15:51 15:51 16:12 WBC 12.4 H (4.8-10.8) X10*3/uL RBC 5.20 (4.20-5.50) X10*6/uL Hgb 14.7 (12.0-16.0) g/dl Hct 45.3 (37.0-47.0) % MCV 87.1 (80.0-98.0) fL MCH 28.3 (27.0-33.0) pg MCHC 32.5 (31.0-35.0) g/dl RDW 14.6 (11.0-16.0) % Plt Count 156 L (160-400) X10*3/uL MPV 11.8 (9.4-12.3) fL Immature Gran % (Auto) 0.3 (0.0-0.4) % Neut % (Auto) 84.6 H (45-73) % Lymph % (Auto) 9.6 L (20-40) % [place] % (Auto) 3.8 (2-11) % Eos % (Auto) 1.5 (0-4) % Baso % (Auto) 0.2 (0-2) % Lymph # (Auto) 1.2 (1.2-4.9) X10*3/uL [place] # (Auto) 0.5 (0.1-1.2) X10*3/uL Eos # (Auto) 0.2 (0.0-0.4) X10*3/uL Baso # (Auto) 0.0 (0.0-0.2) X10*3/uL Abs Immat Gran (auto) 0.04 H (0.00-0.03) X10*3/uL Absolute Neuts (auto) 10.5 H (2.0-8.3) x10*3/uL Absolute Nucleated RBC 0.000 (0.0-0.012) X10*3/uL Nucleated RBC % (auto) 0.0 (0.0-0.2) /100WBC Smear Tech's Comments VERIFIED Sodium 142 (135-145) mmol/L Potassium 4.5 (3.3-5.1) mmol/L Chloride 109 H (96-108) mmol/L Carbon Dioxide 26 (22-29) mmol/L Anion Gap 12 (12-20) BUN 14 (9-16) mg/dL Creatinine 0.84 (0.5-1.4) mg/dL Estim Creat Clear Calc 92.4 Estimated GFR > 60 Random Glucose 110 (60-115) mg/dL Calcium 9.1 (8.4-10.2) mg/dL Magnesium 1.9 (1.6-2.6) mg/dL Total Bilirubin 0.7 (0.0-1.0) mg/dL Direct Bilirubin 0.2 (0.0-0.5) mg/dL AST 19 (5-31) U/L ALT 25 (0-31) U/L Alkaline Phosphatase 111 (39-117) U/L Total Protein 7.7 (6.5-8.0) g/dL Albumin 4.5 (3.5-5.0) g/dL Lipase 20 (8-78) U/L Urine Color Yellow Urine Appearance Clear Urine pH 5.5 (5.0-9.0) Ur Specific [place] 1.025 (1.005-1.025) Urine Protein Negative (Neg-Trace) mg/dL Urine Glucose (UA) Negative (Negative) mg/dL Urine Ketones Negative (Negative) mg/dL Urine Blood Small (1+) H (Negative) Urine Nitrite Negative (Negative) Ur Leukocyte Esterase Negative (Negative) Urine RBC 0-2 (0-2) /HPF Urine WBC 0-5 (0-5) /HPF Ur Squamous Epith Cells 0-2 (0-2) /HPF Urine Bacteria None Seen (None Seen) Hyaline Casts 0-2 (0-2) /LPF <JERALD Wayne - Last Filed: 09/10/22 15:17> Lab Results 09/10/22 09/10/22 09/10/22 Range/Units 15:51 15:51 16:12 WBC 12.4 H (4.8-10.8) X10*3/uL RBC 5.20 (4.20-5.50) X10*6/uL Hgb 14.7 (12.0-16.0) g/dl Hct 45.3 (37.0-47.0) % MCV 87.1 (80.0-98.0) fL MCH 28.3 (27.0-33.0) pg MCHC 32.5 (31.0-35.0) g/dl RDW 14.6 (11.0-16.0) % Plt Count 156 L (160-400) X10*3/uL MPV 11.8 (9.4-12.3) fL Immature Gran % (Auto) 0.3 (0.0-0.4) % Neut % (Auto) 84.6 H (45-73) % Lymph % (Auto) 9.6 L (20-40) % [place] % (Auto) 3.8 (2-11) % Eos % (Auto) 1.5 (0-4) % Baso % (Auto) 0.2 (0-2) % Lymph # (Auto) 1.2 (1.2-4.9) X10*3/uL [place] # (Auto) 0.5 (0.1-1.2) X10*3/uL Eos # (Auto) 0.2 (0.0-0.4) X10*3/uL Baso # (Auto) 0.0 (0.0-0.2) X10*3/uL Abs Immat Gran (auto) 0.04 H (0.00-0.03) X10*3/uL Absolute Neuts (auto) 10.5 H (2.0-8.3) x10*3/uL Absolute Nucleated RBC 0.000 (0.0-0.012) X10*3/uL Nucleated RBC % (auto) 0.0 (0.0-0.2) /100WBC Smear Tech's Comments VERIFIED Sodium 142 (135-145) mmol/L Potassium 4.5 (3.3-5.1) mmol/L Chloride 109 H (96-108) mmol/L Carbon Dioxide 26 (22-29) mmol/L Anion Gap 12 (12-20) BUN 14 (9-16) mg/dL Creatinine 0.84 (0.5-1.4) mg/dL Estim Creat Clear Calc 92.4 Estimated GFR > 60 Random Glucose 110 (60-115) mg/dL Calcium 9.1 (8.4-10.2) mg/dL Magnesium 1.9 (1.6-2.6) mg/dL Total Bilirubin 0.7 (0.0-1.0) mg/dL Direct Bilirubin 0.2 (0.0-0.5) mg/dL AST 19 (5-31) U/L ALT 25 (0-31) U/L Alkaline Phosphatase 111 (39-117) U/L Total Protein 7.7 (6.5-8.0) g/dL Albumin 4.5 (3.5-5.0) g/dL Lipase 20 (8-78) U/L Urine Color Yellow Urine Appearance Clear Urine pH 5.5 (5.0-9.0) Ur Specific [place] 1.025 (1.005-1.025) Urine Protein Negative (Neg-Trace) mg/dL Urine Glucose (UA) Negative (Negative) mg/dL Urine Ketones Negative (Negative) mg/dL Urine Blood Small (1+) H (Negative) Urine Nitrite Negative (Negative) Ur Leukocyte Esterase Negative (Negative) Urine RBC 0-2 (0-2) /HPF Urine WBC 0-5 (0-5) /HPF Ur Squamous Epith Cells 0-2 (0-2) /HPF Urine Bacteria None Seen (None Seen) Hyaline Casts 0-2 (0-2) /LPF <Carlitos Ahmadi MD - Last Filed: 09/11/22 00:26> Medications Administered Discontinued Medications Generic Name Dose Route Start Last Admin Trade Name Freq PRN Reason Stop Dose Admin Sodium Chloride 1,000 mls @ 999 mls/hr 09/10/22 21:57 09/10/22 23:14 Ns IV 09/10/22 22:57 999 mls/hr .Q1H1M ONE Administration Loperamide HCl 2 mg 09/10/22 21:57 09/10/22 23:14 Loperamide Hcl 2 Mg Capsule PO 09/10/22 21:58 2 mg ONCE ONE Administration Ondansetron HCl 4 mg 09/10/22 21:57 09/10/22 23:13 Ondansetron Hcl 4 Mg/2 Ml Vial IVPUSH 09/10/22 21:58 4 mg ONCE ONE Administration <JERALD Wayne - Last Filed: 09/10/22 15:17> Medications Administered Discontinued Medications Generic Name Dose Route Start Last Admin Trade Name Freq PRN Reason Stop Dose Admin Sodium Chloride 1,000 mls @ 999 mls/hr 09/10/22 21:57 09/10/22 23:14 Ns IV 09/10/22 22:57 999 mls/hr .Q1H1M ONE Administration Loperamide HCl 2 mg 09/10/22 21:57 09/10/22 23:14 Loperamide Hcl 2 Mg Capsule PO 09/10/22 21:58 2 mg ONCE ONE Administration Ondansetron HCl 4 mg 09/10/22 21:57 09/10/22 23:13 Ondansetron Hcl 4 Mg/2 Ml Vial IVPUSH 09/10/22 21:58 4 mg ONCE ONE Administration <Carlitos Ahmadi MD - Last Filed: 09/11/22 00:26> Discharge Plan Discharge Clinical Impression: Gastroenteritis <JERALD Wayne - Last Filed: 09/10/22 15:17> Patient Disposition: Home, Self-Care <JERALD Wayne - Last Filed: 09/10/22 15:17> Instructions: Gastroenteritis (ED) <JERALD Wayne - Last Filed: 09/10/22 15:17> Additional Instructions: Drink plenty of fluids Medicine for nausea every 4-6 hours as needed Imodium for severe diarrhea Follow with PCP if not better <JERALD Wayne - Last Filed: 09/10/22 15:17> Prescriptions: New ondansetron 4 mg tablet,disintegrating 4 mg PO Q6-8H PRN (Reason: nausea and vomiting) Qty: 10 0RF loperamide [Imodium A-D] 2 mg tablet 2 mg PO Q6H PRN (Reason: loose stool) Qty: 14 0RF No Action (DME) Blood Pressure Cuff Misc See Rx Instructions .Route Qty: 1 0RF Rx Instructions: As directed (DME) pen needle, diabetic [Comfort EZ Pen [place]] 31 gauge x 5/16 needle See Rx Instructions .Route Qty: 100 3RF Rx Instructions: Use 1 pen needle once a day losartan 100 mg tablet 100 mg PO DAILY 90 Days Qty: 90 3RF Hold Instructions: Resume on 12/14/21. Hold if systolic blood pressure below 120 (DME) lancing device Misc See Rx Instructions .Route Qty: 1 0RF Rx Instructions: freestyle lite furosemide 80 mg tablet 80 mg PO DAILY Qty: 30 5RF Hold Instructions: Resume on 12/14/21. Unless Dr. Espinal tells you to take it (DME) lancets [FreeStyle Lancets] 28 gauge misc See Rx Instructions .Route Qty: 100 12RF Rx Instructions: As directed 2 times daily Advair HFA 230-21 mcg/actuation HFA aerosol inhaler 2 puff inhalation BID 30 Days Qty: 1 6RF (DME) FreeStyle Lite Strips Strip See Rx Instructions .Route Qty: 100 12RF Rx Instructions: As directed 2 times daily omeprazole 20 mg capsule,delayed release(DR/EC) 20 mg PO DAILY 90 Days Qty: 90 1RF alcohol swabs [Alcohol Prep Pads] Pads, Medicated 1 pad topical BID Qty: 100 3RF levothyroxine 25 mcg tablet 25 mcg PO DAILY 90 Days Qty: 90 1RF aripiprazole [Abilify] 5 mg tablet 5 mg PO DAILY 90 Days Qty: 90 1RF levothyroxine 200 mcg tablet 200 mcg PO DAILY 90 Days Qty: 90 1RF rosuvastatin 10 mg tablet 10 mg PO BEDTIME 90 Days Qty: 90 2RF loratadine [Allerclear] 10 mg tablet 10 mg PO DAILY PRN (Reason: itching) Qty: 7 0RF amlodipine 10 mg tablet 10 mg PO DAILY 90 Days Qty: 90 1RF Hold Instructions: Resume on 12/14/21. Hold if systolic blood pressure below 120 Rx Instructions: check blood pressure nightly and text with Dr Espinal ([place]) blood-glucose meter [FreeStyle Lite Meter] Kit See Rx Instructions .Route Qty: 1 0RF Rx Instructions: As directed 2 times daily lidocaine 5 % adhesive patch,medicated 1 patch topical DAILY PRN (Reason: Back Pain) 30 Days Qty: 30 0RF cholecalciferol (vitamin D3) 25 mcg (1,000 unit) capsule 25 mcg PO DAILY 90 Days Qty: 90 1RF bupropion HCl 150 mg tablet extended release 24 hr 150 mg PO DAILY clonazepam 1 mg tablet 1 mg PO BID PRN (Reason: Anxiety) prazosin 2 mg capsule 2 mg PO BEDTIME Hold Instructions: Resume on 12/17/21. <JERALD Wayne - Last Filed: 09/10/22 15:17>
[2022-09-10 16:02] LABS: Hematocrit 45.3 % (37.0-47.0); Hemoglobin 14.7 g/dl (12.0-16.0); Mean Corpuscular HGB Conc 32.5 g/dl (31.0-35.0); PLT CLUMP 1; SCAN SMEAR FLAG 1
[2022-09-10 16:04] LABS: Basophils Percent Auto 0.2 % (0-2); Eosinophils Absolute Auto 0.2 X10*3/uL (0.0-0.4); Eosinophils Percent Auto 1.5 % (0-4); Imm Gran Abs Auto 0.04 X10*3/uL (0.00-0.03); Imm Gran Pct Auto 0.3 % (0.0-0.4); Lymphocytes Absolute Auto 1.2 X10*3/uL (1.2-4.9); Lymphocytes Percent Auto 9.6 % (20-40); MANUAL DIFF FLAG SCAN; Mean Corpuscular Hemoglobin 28.3 pg (27.0-33.0); Mean Corpuscular Volume 87.1 fL (80.0-98.0); Mean Platelet Volume 11.8 fL (9.4-12.3); Monocytes Absolute Auto 0.5 X10*3/uL (0.1-1.2); Monocytes Percent Auto 3.8 % (2-11); Neutrophils Absolute Auto 10.5 x10*3/uL (2.0-8.3); Neutrophils Percent Auto 84.6 % (45-73); Red Cell Distribution Width 14.6 % (11.0-16.0)
[2022-09-10 16:20] LABS: Alanine Aminotransferase 25 U/L (0-31); Albumin Level 4.5 g/dL (3.5-5.0); Alkaline Phosphatase 111 U/L (39-117); Anion Gap 12 (12-20); Aspartate Amino Transferase 19 U/L (5-31); Bilirubin Direct 0.2 mg/dL (0.0-0.5); Bilirubin Total 0.7 mg/dL (0.0-1.0); Blood Urea Nitrogen 14 mg/dL (9-16); Calcium 9.1 mg/dL (8.4-10.2); Carbon Dioxide 26 mmol/L (22-29); Chloride 109 mmol/L (96-108); Creatinine Clr Calc Pharmacy 92.4; Estimated Glomerular Filt Rate > 60; Glucose Random 110 mg/dL (60-115); Lipase 20 U/L (8-78); Magnesium 1.9 mg/dL (1.6-2.6); Potassium 4.5 mmol/L (3.3-5.1); Sodium 142 mmol/L (135-145); Total Protein 7.7 g/dL (6.5-8.0)
[2022-09-10 16:22] LABS: Appearance Urine Clear; Color Urine Yellow; Glucose Urine UA Negative (Negative); Leukocyte Esterase Urine Negative (Negative); Nitrite Urine Negative (Negative); PH 5.5 (5.0-9.0); Specific Gravity - Urine 1.025 (1.005-1.025); UMIC TRIGGER UACC YES; Urine Blood Small (1+) (Negative); Urine Ketones Negative (Negative); Urine Protein Negative (Neg-Trace)
[2022-09-10 16:24] LABS: Platelet Count 156 X10*3/uL (160-400); SLIDE REVIEW VERIFIED; White Blood Count 12.4 X10*3/uL (4.8-10.8)
[2022-09-10 16:35] LABS: Bacteria Urine None Seen (None Seen); Hyaline Casts Urine 0-2 /LPF (0-2); RBC Urine 0-2 /HPF (0-2); Squamous Epithelial Cell Urine 0-2 /HPF (0-2); WBC Urine 0-5 /HPF (0-5)
[2022-09-10] MEDS: ondansetron HCL 4 MG/2 ML VIAL IVPUSH (23:13)
[2022-09-10] MEDS: Loperamide HCl 2 MG CAPSULE PO (23:14)
[2022-09-10] MEDS: 0.9 % Sodium Chloride 1,000 ML 999 ML IV (23:14)
[2022-09-10 23:31] VITALS: BP 136/74; PULSE 69; RESP 18; TEMP 37.1; O2SAT 99
== END 2022-09-11 00:33 | disposition home or self-care (01) ==
PROVIDERS: Physician Assistant; Emergency Provider Internal Medicine; PCP Internal Medicine
DX: K52.9 Noninfective gastroenteritis and colitis, unspecified (principal); E11.9 Type 2 diabetes mellitus without complications; I10 Essential (primary) hypertension; E78.5 Hyperlipidemia, unspecified; E66.9 Obesity, unspecified; Z68.38 Body mass index [BMI] 38.0-38.9, adult; Z79.02 Long term (current) use of antithrombotics/antiplatelets; Z79.899 Other long term (current) drug therapy; Z79.4 Long term (current) 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; Z87.891 Personal history of nicotine dependence; Z98.84 Bariatric surgery status
CPT/HCPCS: 36415; 80048; 80076; 81001; 83690; 83735; 85025; 96374; 99283; 99284; J2405

== ENCOUNTER 2022-10-09 10:06 | Outpatient (REF) | payer OTHER, SELFPAY ==
[2022-10-09 11:45] LABS: Creatinine Urine 194.85 mg/dL; Microalbum/Creatinine Ratio Ur 16.4 ug/mg cr
[2022-10-09 12:29] LABS: Alanine Aminotransferase 26 U/L (0-31); Albumin Level 4.2 g/dL (3.5-5.0); Alkaline Phosphatase 92 U/L (39-117); Anion Gap 17 (12-20); Aspartate Amino Transferase 18 U/L (5-31); Bilirubin Total 0.4 mg/dL (0.0-1.0); Blood Urea Nitrogen 14 mg/dL (9-16); Calcium 8.4 mg/dL (8.4-10.2); Carbon Dioxide 22 mmol/L (22-29); Chloride 108 mmol/L (96-108); Cholesterol 150 mg/dL; Estimated Glomerular Filt Rate > 60; Glucose Fasting 170 mg/dL (60-99); HDL Cholesterol 48 mg/dL; LDL Cholesterol Calculated 64 mg/dl; Potassium 3.9 mmol/L (3.3-5.1); Sodium 143 mmol/L (135-145); Triglycerides 190 mg/dL
[2022-10-09 12:48] LABS: Thyroid Stimulating Hormone 42.19 uIU/mL (0.32-4.0)
[2022-10-09 12:56] LABS: Vitamin D 25-OH Total 16.5 ng/mL (>30)
== END 2022-10-09 10:07 | disposition home or self-care (01) ==
LOC: HO.LAB 10:06
PROVIDERS: PCP Internal Medicine; Visit Provider Internal Medicine
DX: E55.9 Vitamin D deficiency, unspecified (principal); E11.9 Type 2 diabetes mellitus without complications; E78.5 Hyperlipidemia, unspecified; E03.9 Hypothyroidism, unspecified; Z79.4 Long term (current) 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
CPT/HCPCS: 36415; 80053; 80061; 82043; 82306; 84443

== ENCOUNTER 2023-02-25 09:44 | Outpatient (REF) | payer OTHER, SELFPAY ==
[2023-02-25 09:57] LABS: MANUAL DIFF FLAG NO
[2023-02-25 11:03] LABS: Basophils Absolute Auto 0.1 X10*3/uL (0.0-0.2); Basophils Percent Auto 0.6 % (0-2); Eosinophils Absolute Auto 0.3 X10*3/uL (0.0-0.4); Eosinophils Percent Auto 3.4 % (0-4); Hematocrit 43.2 % (37.0-47.0); Hemoglobin 14.3 g/dl (12.0-16.0); Imm Gran Abs Auto 0.04 X10*3/uL (0.00-0.03); Imm Gran Pct Auto 0.5 % (0.0-0.4); Lymphocytes Absolute Auto 2.6 X10*3/uL (1.2-4.9); Lymphocytes Percent Auto 32.8 % (20-40); Mean Corpuscular HGB Conc 33.1 g/dl (31.0-35.0); Mean Corpuscular Hemoglobin 29.4 pg (27.0-33.0); Mean Corpuscular Volume 88.9 fL (80.0-98.0); Mean Platelet Volume 11.5 fL (9.4-12.3); Monocytes Absolute Auto 0.5 X10*3/uL (0.1-1.2); Monocytes Percent Auto 6.6 % (2-11); Neutrophils Absolute Auto 4.4 x10*3/uL (2.0-8.3); Neutrophils Percent Auto 56.1 % (45-73); Platelet Count 161 X10*3/uL (160-400); Red Blood Count 4.86 X10*6/uL (4.20-5.50); Red Cell Distribution Width 14.5 % (11.0-16.0); White Blood Count 7.9 X10*3/uL (4.8-10.8)
[2023-02-25 11:59] LABS: Ferritin 85 ng/mL (10-250)
== END 2023-02-25 09:45 | disposition home or self-care (01) ==
LOC: HO.LAB 09:44
PROVIDERS: Internal Medicine; PCP Internal Medicine; Visit Provider Internal Medicine
DX: D51.0 Vitamin B12 deficiency anemia due to intrinsic factor deficiency (principal)
CPT/HCPCS: 36415; 82728; 85025

== ENCOUNTER 2023-03-21 15:42 | Outpatient (AMB) | payer OTHER, SELFPAY ==
[2023-03-21 15:48] VITALS: BP 140/80; PULSE 64; O2SAT 97; BMI 40.0
--- NOTE | 2023-03-21 15:48 | A.OFFPC_ITS ---
Vital Signs 03/21/23 15:48 Height 5 ft 4 in Weight 233 lb BMI 40.0 BP 140/80 H Blood Pressure Location Lt brachial Pulse 64 Pulse Source Pulse Oximeter Pulse Oximetry (%) 97 Oxygen Delivery Method Room Air Intake Visit Reasons: Physical Exam Intake Note: Patient is here today for a physical. Trial Paralegal Required: Yes Trial Paralegal Language: Nepalese Allergies zolpidem Adverse Reaction (Intermediate, Verified 03/21/23 15:53) nightmares Medication List - Last Reconciled 03/21/23 by SOL Patton albuterol sulfate 1.25 mg (3 mL) inhalation QID PRN albuterol sulfate 90 mcg/actuation 2 puffs inhalation Q4-6H PRN alcohol swabs (Alcohol Prep Pads) 1 pad topical BID amlodipine 10 mg PO DAILY 90 days aripiprazole (Abilify) 5 mg PO DAILY 90 days blood-glucose meter (FreeStyle Lite Meter kit) As directed 2 times daily bupropion HCl 300 mg PO DAILY cholecalciferol (vitamin D3) 50 mcg PO DAILY 90 days clonazepam 1 mg PO BID PRN fluticasone propion-salmeterol 230-21 mcg/actuation (Advair HFA) 2 puffs inhalation BID 30 days FreeStyle Lite Strips (blood sugar diagnostic) As directed 2 times daily NS furosemide 80 mg PO DAILY lancets (FreeStyle Lancets) As directed 2 times daily lancing device freestyle lite levothyroxine 50 mcg PO DAILY 90 days levothyroxine 200 mcg PO DAILY 90 days lidocaine 5% 1 patch topical DAILY PRN 30 days loperamide (Imodium A-D) 2 mg PO Q6H PRN loratadine (Allerclear) 10 mg PO DAILY PRN losartan 100 mg PO DAILY 90 days miscellaneous medical supply (Blood Pressure Cuff) As directed omeprazole 20 mg PO DAILY 90 days ondansetron 4 mg PO Q6-8H PRN pen needle, diabetic (Comfort EZ Pen Denbo) Use 1 pen needle once a day prazosin 2 mg PO BEDTIME prednisone 40 mg (2 x 20 mg) PO DAILY 5 days rosuvastatin 10 mg PO BEDTIME 90 days sitagliptin phosphate (Januvia) 25 mg PO DAILY 90 days walker (Ultra-Light Rollator mis) with seat Tobacco use date assessed: 03/21/23 Dental Screening Dental Screen Date: 03/21/23 Did you have a dental visit in the last 12 months?: No Did you have a dental problem in the last 6 months where you did not have access to dental care?: No HPI Physical Exam HPI Details Patient is a 52-year-old female presents today for physical exam. Patient of Dr. John. Medical history significant for hypertension, acquired hypothyroidism, obesity, fatty liver, asthma, depression-followed by Psychiatry, anxiety, pernicious anemia-followed by Dr. Mcnair, diabetes type 2, GERD, hyperlipidemia among others. Patient reports that she is compliant with medications and denies side effects. She reports normal colonoscopy in 2019, she reports this was done by Dr. Kendall - will request records. Mammogram normal 08/2022. Patient reports history of partial hysterectomy, she has her ovaries left, does not receive Pap smears anymore. Patient is due for diabetic eye exam, will refer. In addition, patient reports that for the past 3 weeks she has been having worsening asthma, she reports intermittent dry cough and shortness of breath, slightly better with inhalers although still not completely resolved. No fever or chills. Patient reports she was seen by pulmonology in the past and she will call for an appointment. Patient is a Nepalese-speaking and Naida was helping with interpretation. 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) 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 Low back pain Low potassium syndrome LVH (left ventricular hypertrophy) Mild recurrent major depression Morbid obesity Right wrist pain Sleep apnea with use of continuous positive airway pressure (CPAP) Uncontrolled diabetes mellitus Surgical History H/O endoscopy H/O: hysterectomy History of bladder surgery History of section History of colonoscopy History of thyroid surgery History of total abdominal hysterectomy S/P laparoscopic sleeve gastrectomy Family History Father Diabetes Mother Hypertension Maternal Uncle Colon cancer Maternal Aunt Breast cancer Paternal Aunt Breast cancer Family/Other FH: mental illness Substance use disorder Social History Household Members: None Housing: Apartment Are you a primary career coordinator to a significant other at home: No Do you presently have visiting nurse or other home services: No Alcohol intake: former Patient Tobacco Use Status: Current everyday Tobacco user Tobacco use type: Cigarette Cigarettes Per Day: 5 Years Smoked: 10 e-Cigarette/Vaping Use: Never Used Second Hand Smoke Exposure: No service: No Current occupational status: disabled Cognitive needs: No Hearing needs: No Vision needs: No Questionnaire PHQ-9 Over the last 2 weeks, how often have you been bothered by any of the following problems? 1. Little interest or pleasure in doing things: not at all 2. Feeling down, depressed, or hopeless: not at all 3. Trouble falling or staying asleep, or sleeping too much: not at all 4. Feeling tired or having little energy: not at all 5. Poor appetite or overeating: not at all 6. Feeling bad about yourself - or that you are a failure or have let yourself or your family down: not at all 7. Trouble concentrating on things, such as reading the newspaper or watching television: not at all 8. Moving or speaking so slowly that other people could have noticed. Or the opposite - being so fidgety or restless that you have been moving around a lot more than usual: not at all 9. Thoughts that you would be better off or of hurting yourself in some way: not at all Total score: 0 Depression Screening Interpretation: Negative 38338 - PHQ-9 Billing: Yes Source: Developed by Drs. Jitendra Reyes, Liat Aguirre, Major Norris and colleagues, with an educational katie from [employer]. Thrive Questionnaire Date Thrive assessed: 10/10/22 AUDIT C Alcohol Use Questionnaire (AUDIT-C) 1. How often do you have a drink containing alcohol?: Monthly or less 2. How many drinks containing alcohol do you have on a typical day when you are drinking?: 1 or 2 3. How often do you have six or more drinks on one occasion?: Never Total Score: 1 Score Reviewed/Action Taken: No SHAHAB-7 AMB Questionnaire SHAHAB-7 Date SHAHAB - 7 assessed: 03/21/23 Feeling nervous, anxious, or on edge: 2 = More than half the days Not being able to stop or control worryin = Not at all Worrying too much about different things: 0 = Not at all Trouble relaxin = Not at all Being so restless that it is hard to sit still: 0 = Not at all Becoming easily annoyed or irritable: 0 = Not at all Feeling afraid as if something awful might happen: 0 = Not at all Total SHAHAB-7 score (0-4 normal; 5-9 mild; 10-14 moderate; 15-21 severe): 2 Source: Developed by Drs. Jitendra Reyes, Liat Aguirre, Major Norris and colleagues, with an educational katie from [employer]. SHAHAB-7 Assessment Billing SHAHAB-7 Assessment Tool: SHAHAB-7 Assessment 28824 Review of Systems Const Denies body aches, Denies chills, Denies fever(s) and Denies headache(s) Eyes Denies change in vision ENT Denies dizziness, Denies otalgia, Denies headache(s), Denies nasal discharge, Denies sinus pain and Denies sore throat Card Denies chest pain, Denies edema, Denies lightheadedness and Reports dyspnea Resp Reports cough, Reports dyspnea and Denies wheezing GI Denies abdominal pain, Denies constipation, Denies diarrhea, Denies nausea and Denies vomiting Denies dysuria Musc Denies myalgias Skin/Breast Denies rash Neuro Denies dizziness and Denies headache(s) Aller/Immun Denies wheezing Physical exam (Primary Care) Vital Signs: Last Vital Signs Pulse 64 03/21/23 15:48 BP 140/80 H 03/21/23 15:48 Pulse Ox 97 03/21/23 15:48 Oxygen Delivery Method Room Air 03/21/23 15:48 BMI result Body Mass Index 40.0 Tobacco/Smoking Status: Tobacco use Status Tobacco use date assessed 03/21/23 03/21/23 15:52 Patient Tobacco Use Status Current everyday Tobacco 03/21/23 15:52 Tobacco use type Cigarette 03/21/23 15:52 e-Cigarette/Vaping Use Never Used 03/21/23 15:52 PHQ-9: PHQ-9 Score PHQ-9: Total score 0 03/21/23 16:06 Depression Screening Interpretation: Negative Thrive Assessment: Date of Thrive Assessment Date Thrive assessed 10/10/22 03/21/23 15:52 Const General: cooperative and no acute distress Orientation/consciousness: patient oriented x3 HENMT Head: Yes normocephalic and Yes atraumatic Ears: TM's normal bilaterally Face and sinus: Yes sinuses nontender Mouth: oropharynx normal and moist mucous membranes Throat: Yes posterior oropharynx normal Eyes General: appearance normal, both eyes and all related structures Pupils: Equal, round and reactive pupils present EOM: EOMs intact bilaterally Neck Neck: Yes normal visual inspection, Yes full ROM and Yes no lymphadenopathy Resp Effort & Inspection: normal respiratory effort, able to speak in complete sentences and Actively coughing (Intermittent dry) Auscultation: clear to auscultation bilaterally, no crackles, no rales, no rhonchi and no wheezes Cardio Rate: regular rate Rhythm: regular rhythm Heart sounds: S1 normal heart sound present, S2 normal heart sound present and no murmurs GI Palpation (GI): Soft to palpation, not firm, nontender, no guarding, not rigid and no hepatosplenomegaly Auscultation: normal bowel sounds General: No CVA tenderness Back/Spine/Pelvis Back: No CVA tenderness Skin General skin exam: no rashes or lesions noted Neuro General: patient oriented x3 Cranial nerves: Yes Equal, round and reactive pupils present Gait exam (Neuro): Normal gait present Extrem General: Yes full ROM and No edema Assessment and Plan Assessment & Plan (1) Diabetes mellitus: Code(s): E11.9 - Type 2 diabetes mellitus without complications Plan: A1c 6.7 today Low-carbohydrate diet Continue Januvia Referral for diabetic eye exam (2) Hyperlipidemia LDL goal <70: Code(s): E78.5 - Hyperlipidemia, unspecified Plan: Continue rosuvastatin Low-cholesterol diet (3) Physical exam: Code(s): Z00.00 - Encounter for general adult medical examination without abnormal findings (4) Mild recurrent major depression: Code(s): F33.0 - Major depressive disorder, recurrent, mild Plan: Continue to follow-up with Psychiatry Continue current treatment (5) Pernicious anemia: Code(s): D51.0 - Vitamin B12 deficiency anemia due to intrinsic factor deficiency Plan: Continue to follow-up with Dr. Mcnair (6) Hypothyroidism: Comment: Acquired hypothyroidism due to surgery Code(s): E03.9 - Hypothyroidism, unspecified Qualifiers: Hypothyroidism type: postoperative Qualified Code(s): E89.0 - Postprocedural hypothyroidism Plan: Patient is due for thyroid blood work Continue levothyroxine 250 mcg daily (7) Moderate persistent asthma: Code(s): J45.40 - Moderate persistent asthma, uncomplicated Plan: Patient with intermittent dry cough, lungs clear to auscultation. Patient is to continue Advair as prescribed. Will provide patient with nebulizer treatment p.r.n.. Also start prednisone daily for 5 days. Patient will call pulmonology for an appointment. (8) Essential hypertension: Code(s): I10 - Essential (primary) hypertension Plan: Goal BP equal or less than 140/90 Continue losartan and amlodipine Low-sodium diet and weight loss (9) Obesity: Code(s): E66.9 - Obesity, unspecified Qualifiers: Obesity type: due to excess calories Obesity classification: adult class 3 (BMI >= 40) Serious obesity comorbidity presence: with serious comorbidity Body mass index: BMI 40.0-44.9 Qualified Code(s): E66.01 - Morbid (severe) obesity due to excess calories; Z68.41 - Body mass index [BMI] 40.0-44.9, adult Plan: Healthy food choices and exercise as tolerated Patient has an upcoming appointment with [facility] Plan Follow-up with PCP in 3 months or sooner as needed Orders: Orders Vitamin D 25-OH Total Today E11.9 - Type 2 diabetes mellitus without complications Vitamin B12 and Folate Today E11.9 - Type 2 diabetes mellitus without complications Comprehensive [place]. Panel Fast Today E11.9 - Type 2 diabetes mellitus without complications Lipid Panel Today E78.5 - Hyperlipidemia, unspecified TSH reflex Free T4 Today E03.9 - Hypothyroidism, unspecified AMB Hemoglobin A1c Today E11.9 - Type 2 diabetes mellitus without complications Referrals Ophthalmology Referral E11.9 - Type 2 diabetes mellitus without complications Medications: New albuterol sulfate 1.25 mg (3 mL) inhalation QID PRN 75 mL 0RF shortness of breath or wheezing J45.40 - Moderate persistent asthma, uncomplicated prednisone 40 mg (2 x 20 mg) PO DAILY 10 tabs 0RF 5 days J45.40 - Moderate persistent asthma, uncomplicated Coding Level of Care Code Est Pt Prev Care 40-64y(69670) Diagnoses Diabetes mellitus E11.9 Hyperlipidemia LDL goal <70 E78.5 Physical exam Z00.00 Mild recurrent major depression F33.0 Pernicious anemia D51.0 Hypothyroidism E89.0 Hypothyroidism type: postoperative Moderate persistent asthma J45.40 Essential hypertension I10 Obesity E66.01; Z68.41 Obesity type: due to excess calories Obesity classification: adult class 3 (BMI >= 40) Serious obesity comorbidity presence: with serious comorbidity Body mass index: BMI 40.0-44.9 Additional Codes SHAHAB-7 Assessment Billing - SHAHAB-7 Assessment Tool: SHAHAB-7 Assessment [id number] ([id number])
== END 2023-03-21 16:18 | disposition home or self-care (01) ==
PROVIDERS: PCP Internal Medicine; Visit Provider Nurse Practitioner Family
DX: Z00.00 Encounter for general adult medical examination without abnormal findings (principal); E11.9 Type 2 diabetes mellitus without complications; F33.0 Major depressive disorder, recurrent, mild; J45.40 Moderate persistent asthma, uncomplicated; I10 Essential (primary) hypertension; E66.01 Morbid (severe) obesity due to excess calories; Z68.41 Body mass index [BMI] 40.0-44.9, adult; E78.5 Hyperlipidemia, unspecified; D51.0 Vitamin B12 deficiency anemia due to intrinsic factor deficiency; E89.0 Postprocedural hypothyroidism
CPT/HCPCS: 99396

== ENCOUNTER 2023-03-31 09:46 | Outpatient (REF) | payer OTHER, SELFPAY ==
[2023-03-31 10:43] LABS: MANUAL DIFF FLAG NO
[2023-03-31 11:03] LABS: Basophils Absolute Auto 0.1 X10*3/uL (0.0-0.2); Basophils Percent Auto 0.5 % (0-2); Eosinophils Absolute Auto 0.1 X10*3/uL (0.0-0.4); Eosinophils Percent Auto 0.8 % (0-4); Hematocrit 44.7 % (37.0-47.0); Hemoglobin 14.8 g/dl (12.0-16.0); Imm Gran Abs Auto 0.08 X10*3/uL (0.00-0.03); Imm Gran Pct Auto 0.7 % (0.0-0.4); Lymphocytes Absolute Auto 2.1 X10*3/uL (1.2-4.9); Lymphocytes Percent Auto 18.4 % (20-40); Mean Corpuscular HGB Conc 33.1 g/dl (31.0-35.0); Mean Corpuscular Hemoglobin 29.1 pg (27.0-33.0); Mean Platelet Volume 11.4 fL (9.4-12.3); Monocytes Absolute Auto 0.4 X10*3/uL (0.1-1.2); Monocytes Percent Auto 3.6 % (2-11); Neutrophils Absolute Auto 8.5 x10*3/uL (2.0-8.3); Platelet Count 180 X10*3/uL (160-400); Red Blood Count 5.08 X10*6/uL (4.20-5.50); White Blood Count 11.2 X10*3/uL (4.8-10.8)
== END 2023-03-31 09:47 | disposition home or self-care (01) ==
LOC: HO.LAB 09:46
PROVIDERS: PCP Internal Medicine; Visit Provider Internal Medicine Pulmonary Disease
DX: J45.40 Moderate persistent asthma, uncomplicated (principal); R06.00 Dyspnea, unspecified; F17.210 Nicotine dependence, cigarettes, uncomplicated; G47.33 Obstructive sleep apnea (adult) (pediatric); Z91.09 Other allergy status, other than to drugs and biological substances
CPT/HCPCS: 36415; 82785; 85025; 86003; 99212

== ENCOUNTER 2023-03-31 09:46 | Outpatient (AMB) | payer OTHER, SELFPAY ==
[2023-03-31 10:04] VITALS: BP 136/82; PULSE 69; O2SAT 100; BMI 40.3
--- NOTE | 2023-03-31 10:04 | MHC.OFFVIS ---
Intake Vital Signs 03/31/23 10:04 Height 5 ft 4 in Weight 234 lb 12.677 oz BMI 40.3 BP 136/82 Blood Pressure Location Lt brachial Position Sitting Pulse 69 Pulse Source Doppler Pulse Oximetry (%) 100 Oxygen Delivery Method Room Air Intake Visit Reasons: asthma Allergies zolpidem Adverse Reaction (Intermediate, Verified 03/31/23 10:06) nightmares HPI asthma HPI Details 52-year-old lady, active 10 pack-years smoker, followed for asthma,? severe obstructive sleep apnea, and dyspnea on exertion. Patient was lost follow-up approximately 2 years and now returns to reestablish care. Previously issues Symbicort, now she has been switched to Advair to 130. She continues on albuterol MDI/nebs. Patient still complains of suboptimal control of her symptoms attributed into environmental allergies. She does complain of bronchitic exacerbation symptomatic with cough productive of yellowish sputum. She also complains of lower extremity edema orthopnea, and dyspnea on exertion. 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 Low back pain Low potassium syndrome LVH (left ventricular hypertrophy) Mild recurrent major depression Morbid obesity Right wrist pain Sleep apnea with use of continuous positive airway pressure (CPAP) Uncontrolled diabetes mellitus Surgical History H/O endoscopy H/O: hysterectomy History of bladder surgery History of section History of colonoscopy History of thyroid surgery History of total abdominal hysterectomy S/P laparoscopic sleeve gastrectomy Family History Father Diabetes Mother Hypertension Maternal Uncle Colon cancer Maternal Aunt Breast cancer Paternal Aunt Breast cancer Family/Other FH: mental illness Substance use disorder Social History (Updated 03/31/23 @ 10:08 by MARIA INES German) Household Members: None Housing: Apartment Are you a primary critical care transport nurse to a significant other at home: No Do you presently have visiting nurse or other home services: No Alcohol intake: former Patient Tobacco Use Status: Current everyday Tobacco user Tobacco use type: Cigarette Cigarettes Per Day: 6 Years Smoked: 10 e-Cigarette/Vaping Use: Never Used Second Hand Smoke Exposure: No service: No Current occupational status: disabled Cognitive needs: No Hearing needs: No Vision needs: No Review of Systems Const Denies daytime sleepiness, Denies excessive sweating, Denies fatigue, Denies fever(s), Denies lethargy, Denies malaise, Denies night sweats, Denies snoring and Denies weight loss Eyes Denies blurry vision and Denies itchy eyes ENT Denies nasal congestion, Denies post nasal drip, Denies sinus pain, Denies sinus pressure and Denies other ( Thrush) Card Denies chest pain, Reports pedal edema, Denies dyspnea, Reports dyspnea on exertion, Reports orthopnea and Denies paroxysmal nocturnal dyspnea Resp Reports cough, Denies hemoptysis, Reports excessive phlegm production, Denies dyspnea, Reports dyspnea on exertion, Denies snoring and Denies wheezing GI Denies abdominal pain and Denies heartburn Musc Denies myalgias, Denies arthralgias and Denies joint swelling Skin/Breast Denies rash Neuro Denies memory loss and Denies seizure-like activity Psych Denies abnormal sleep pattern, Denies anxiety and Denies memory loss Endo Denies excessive sweating, Denies fatigue and Denies heat intolerance Brendan/Lymph Denies easy bruising Aller/Immun Denies itchy eyes, Denies seasonal rhinorrhea and Denies wheezing Physical Exam Vital Signs: Last Vital Signs Pulse 69 03/31/23 10:04 BP 136/82 03/31/23 10:04 Pulse Ox 100 03/31/23 10:04 Oxygen Delivery Method Room Air 03/31/23 10:04 BMI result Body Mass Index 40.3 Const General: no acute distress and alert Nutritional Appearance: obese Orientation/consciousness: Other orientation findings ( oriented) HEENT Head: Yes atraumatic Eyes General: appearance normal, both eyes and all related structures Sclerae: sclerae normal EOM: EOMs intact bilaterally Neck Neck: Yes supple Lymphatic: no lymphadenopathy noted Resp Effort & Inspection: normal respiratory effort and no use of accessory muscles Auscultation: clear to auscultation bilaterally Cardio Rate: regular rate Rhythm: regular rhythm Heart sounds: no gallops, no murmurs and no rubs Skin General skin exam: other ( warm) Extrem General: No clubbing, No cyanosis and No edema Assessment & Plan Assessment & Plan (1) Moderate persistent asthma: Code(s): J45.40 - Moderate persistent asthma, uncomplicated Plan: Now with bronchitic exacerbation. Will treat with a course of azithromycin. Overall underlying symptoms poorly controlled on Advair high-dose, albuterol MDI/nebs. Will obtain full PFT for further evaluation. May have an allergic component. (2) Dyspnea on exertion: Code(s): R06.00 - Dyspnea, unspecified Plan: Likely multifactorial with contribution from underlying pulmonary, cardiac, and obesity/deconditioning etiologies. Will obtain 2D echocardiogram to evaluate cardiac component. (3) Environmental allergies: Code(s): Z91.09 - Other allergy status, other than to drugs and biological substances Plan: Appears to have allergic/immunologic component to her symptoms. Will obtain RAST, CBC with differential, and IgE level for further evaluation. Orders: Orders CA echo transthoracic complete Today R06.00 - Dyspnea, unspecified Rast Allergen Today J45.40 - Moderate persistent asthma, uncomplicated Complete Blood Count Auto Diff Today J45.40 - Moderate persistent asthma, uncomplicated PFT pulmonary function test Today J45.40 - Moderate persistent asthma, uncomplicated Coding Level of Care Code Est Pt Level 4 (87928) Diagnoses Moderate persistent asthma J45.40 Dyspnea on exertion R06.00 Environmental allergies Z91.09
== END 2023-03-31 10:22 | disposition home or self-care (01) ==
PROVIDERS: PCP Internal Medicine; Visit Provider Internal Medicine Pulmonary Disease
DX: J45.40 Moderate persistent asthma, uncomplicated (principal); R06.00 Dyspnea, unspecified; Z91.09 Other allergy status, other than to drugs and biological substances
CPT/HCPCS: 99214

== ENCOUNTER 2023-03-31 16:53 | Emergency (ER) | payer OTHER, SELFPAY ==
[2023-03-31 17:29] VITALS: BP 177/89; PULSE 78; RESP 18; TEMP 36.9; O2SAT 100; BMI 40.2
--- NOTE | 2023-03-31 17:29 | ED.GENADULT ---
HPI - General Adult General Chief complaint: General Medical Stated complaint: high blood sugar Time Seen by Provider: 03/31/23 20:21 Source: patient Mode of arrival: ambulatory Limitations: no limitations History of Present Illness HPI narrative: Patient comes to the emergency room complaining of high blood sugar. Patient states that approximately 1 year ago, she had bariatric surgery done, she was told that she was going to lose weight and no longer use insulin. So, they discontinued her insulin and started her on Januvia daily. Patient states that for about a year, patient's blood sugar has been elevated between 200-400. Patient states that she has noticed that her blood pressure is elevated as well, takes amlodipine at home. 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 Related Data Home Medications Medication Instructions Recorded Confirmed clonazepam 1 mg tablet 1 mg PO BID PRN Anxiety 04/26/20 03/21/23 prazosin 2 mg capsule 2 mg PO BEDTIME 08/14/21 03/21/23 albuterol sulfate 90 mcg/actuation 2 puff inhalation Q4-6H PRN 03/21/23 03/21/23 aerosol inhaler bupropion HCl 150 mg 24 hr tablet, 300 mg PO DAILY 03/21/23 03/21/23 extended release Previous Rx's Medication Instructions Recorded loratadine 10 mg tablet 10 mg PO DAILY PRN itching #7 tabs 02/14/21 (Allerclear) blood-glucose meter (FreeStyle #1 ea 04/06/21 Lite Meter kit) miscellaneous medical supply #1 ea 04/12/21 (Blood Pressure Cuff) pen needle, diabetic 31 gauge x #100 ea 04/16/2112/03 (Comfort EZ Pen [place]) lancing device #1 ea 07/05/21 furosemide 80 mg tablet 80 mg PO DAILY #30 tabs 11/09/21 fluticasone propionate 230 2 puff inhalation BID 30 days #1 ea 02/21/22 mcg-salmeterol 21 mcg/actuation HFA inhaler (Advair HFA) FreeStyle Lite Strips (blood sugar #100 ea 04/24/22 diagnostic) lidocaine 5 % topical patch 1 patch topical DAILY PRN Back 05/23/22 Pain 30 days #30 ea alcohol swabs (Alcohol Prep Pads) 1 pad topical BID #100 ea 05/27/22 loperamide 2 mg tablet (Imodium 2 mg PO Q6H PRN loose stool #14 09/11/22 A-D) tabs ondansetron 4 mg disintegrating 4 mg PO Q6-8H PRN nausea and 09/11/22 tablet vomiting #10 tabs levothyroxine 200 mcg tablet 200 mcg PO DAILY 90 days #90 tabs 09/18/22 rosuvastatin 10 mg tablet 10 mg PO BEDTIME 90 days #90 tabs 09/25/22 cholecalciferol (vitamin D3) 50 50 mcg PO DAILY 90 days #90 caps 10/10/22 mcg (2,000 unit) capsule levothyroxine 50 mcg tablet 50 mcg PO DAILY 90 days #90 tabs 10/10/22 sitagliptin phosphate 25 mg tablet 25 mg PO DAILY 90 days #90 tabs 10/10/22 (Januvia) amlodipine 10 mg tablet 10 mg PO DAILY 90 days #90 tabs 10/28/22 losartan 100 mg tablet 100 mg PO DAILY 90 days #90 tabs 10/28/22 aripiprazole 5 mg tablet (Abilify) 5 mg PO DAILY 90 days #90 tabs 11/26/22 omeprazole 20 mg capsule,delayed 20 mg PO DAILY 90 days #90 caps 12/01/22 release lancets 28 gauge (FreeStyle #100 ea 03/19/23 Lancets) albuterol sulfate 1.25 mg/3 mL 1.25 mg (3 mL) inhalation QID PRN 03/21/23 solution for nebulization shortness of breath or wheezing #75 mL prednisone 20 mg tablet 40 mg (2 x 20 mg) PO DAILY 5 days 03/21/23 #10 tabs walker (Ultra-Light Rollator misc) #1 ea 03/21/23 sitagliptin phosphate 100 mg 100 mg PO DAILY #30 tabs 03/31/23 tablet (Januvia) Allergies Allergy/AdvReac Type Severity Reaction Status Date / Time zolpidem AdvReac Intermediate nightmares Verified 03/31/23 10:06 Review of Systems Review of Systems: Constitutional : No Weight loss, No Fever, No Chills, No Night Sweats, No Fatigue, No Malaise ENT/Mouth : No Hearing loss, No Ear Pain, No Nasal Congestion, No Sinus Pain, No Hoarseness, No sore throat, No Rhinorrhea, No Swallowing Difficulty Eyes: No Eye Pain, No Swelling, No Redness, No Foreign Body, No Discharge, No Vision Changes Cardiovascular : No Chest Pain, No SOB, No Dyspnea on Exertion, No Orthopnea, No Edema, No Palpitations Respiratory : No Cough, No Sputum, No Wheezing, No Smoke Exposure, No Dyspnea Gastrointestinal : No Nausea, No Vomiting, No Diarrhea, No Constipation, No abdominal Pain, No Hematochezia, No Melena Genitourinary : no irregular bleeding, No Dysuria, No Urinary Frequency, No Hematuria, No Urinary Incontinence, No Urgency, No Flank Pain, No Urinary Flow Changes, No Hesitancy Musculoskeletal : No joint pain, No Myalgias, No Joint Swelling Skin : No Skin Lesions, No rash Neuro : No Weakness, No Numbness, No Paresthesias, No Loss of Consciousness, No Dizziness, No Headache Psych : No Anxiety/Panic, No Depression, No SI/HI/AH/VH, No Social Issues, Heme/Lymph: No Bruising, No Bleeding,No Lymphadenopathy Endocrine : No Polyuria, No Polydipsia, No Temperature Intolerance, complaining of high blood sugar for over a year [facility] Past Medical History Medical History Abnormal finding on EKG Acquired hypothyroidism Anxiety Depression Diabetes mellitus, with long-term current 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 Dizziness Essential hypertension GERD (gastroesophageal reflux disease) Hypothyroidism Insomnia Left foot pain correction (current) 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 Low back pain Low potassium syndrome LVH (left ventricular hypertrophy) Mild recurrent major depression Morbid obesity Right wrist pain Sleep apnea with use of continuous positive airway pressure (CPAP) Uncontrolled diabetes mellitus Surgical History S/P laparoscopic sleeve gastrectomy H/O: hysterectomy History of colonoscopy H/O endoscopy History of thyroid surgery History of bladder surgery History of total abdominal hysterectomy History of section Family History Family History Father Diabetes Mother Hypertension Maternal Uncle Colon cancer Maternal Aunt Breast cancer Paternal Aunt Breast cancer Family/Other FH: mental illness Substance use disorder Social History Social History (Updated 03/31/23 @ 10:08 by MARIA INES German) Household Members: None Housing: Apartment Are you a primary healthcare advisory services manager to a significant other at home: No Do you presently have visiting nurse or other home services: No Alcohol intake: former Patient Tobacco Use Status: Current everyday Tobacco user Tobacco use type: Cigarette Cigarettes Per Day: 6 Years Smoked: 10 e-Cigarette/Vaping Use: Never Used Second Hand Smoke Exposure: No Advance Directives: No Advance Directives Information Provided: Yes service: No Current occupational status: disabled Cognitive needs: No Hearing needs: No Vision needs: No Physical Exam ED Vital Signs: Vital Signs - 24 hr 03/31/23 17:29 03/31/23 19:46 03/31/23 21:43 Temperature 98.4 F 98.0 F 98.9 F Pulse Rate 78 71 66 Respiratory Rate 18 16 17 Blood Pressure 177/89 H 174/97 H 129/73 Pulse Oximetry 100 100 95 Oxygen Delivery Method Room Air Room Air Room Air BMI result Body Mass Index 40.2 HENMT Other: Appearance: Alert. Oriented X3. No acute distress. Eyes: Pupils equal, round and reactive to light. ENT: Pharynx normal. Neck: Normal inspection. Neck supple. No lymph nodes noted. No crepitus CVS: Normal heart rate and rhythm. Pulses normal. Normal S1 and S2 Respiratory: No respiratory distress. Breath sounds normal. No Wheezing. No rales Abdomen: Soft and nontender. No rigidity. No distention. Skin: Skin warm and dry. Normal skin color. Normal skin turgor. Extremities: No lower extremity edema. No Lacerations. No Rash Neuro: Oriented X 3. No motor deficit. No sensory deficit. Moving all extremities. No slurred speech. CN 2 through 12 grossly intact Psych: calm, cooperative, normal affect Course Course Course Narrative: RME - 52 y/o female with history of DM previously on insulin who presents to the ER for evaluation of hyperglycemia to 400 for the last 3 days. She had bariatric surgery and was taken off of insulin because she was told she didn't need it anymore. She is now only on Januvia. She reports headache, dizziness, polyuria and polydipsia and blurred vision for the last 3 days. No chest pain, nausea or vomiting. Plan: lab workup Medications Administered Discontinued Medications Generic Name Dose Route Start Last Admin Trade Name Freq PRN Reason Stop Dose Admin Sodium Chloride 1,000 mls @ 999 mls/hr 03/31/23 21:09 03/31/23 23:08 Ns IVCONT 03/31/23 22:09 Infused .Q1H1M ONE Infusion Insulin Human Regular 5 unit 03/31/23 21:09 03/31/23 21:28 Insulin Regular, Human 100 Unit/Ml 3 Ml Vial IVPUSH 03/31/23 21:10 5 unit ONCE ONE Administration Medical Decision Making Medical Decision Making [facility] Narrative: -patient's blood pressure to the 140 systolic without any medication -patient's blood glucose 298, patient receiving IV fluids and 5 units of insulin -plan: Patient takes Januvia 50 mg daily, we will go ahead mg a day and patient is to follow-up with her primary care physician. -at the time of discharge, glucose 222 -blood pressure 129/73. Patient did not get any medication for blood pressure. Discussed with the patient to keep a log of her blood pressures, at this time we will not change her medication Differential Diagnosis Differential Diagnoses: The differential diagnosis associated with the presentation includes (Hyperglycemia, hypertension, hypertensive urgency, hypertensive emergency) Admission/Observation Consideration of admission/observation: Escalation of care including admission/observation considered (Patient coming with high blood glucose and high blood pressure, admission considered) Lab Data [facility] Lab Attestation statement: I reviewed the patient's lab results. 03/31/23 18:33 03/31/23 17:53 Labs: Lab Results 03/31/23 03/31/23 03/31/23 Range/Units 17:37 17:53 17:56 WBC (4.8-10.8) X10*3/uL RBC (4.20-5.50) X10*6/uL Hgb (12.0-16.0) g/dl Hct (37.0-47.0) % MCV (80.0-98.0) fL MCH (27.0-33.0) pg MCHC (31.0-35.0) g/dl RDW (11.0-16.0) % Plt Count (160-400) X10*3/uL MPV (9.4-12.3) fL Immature Gran % (Auto) (0.0-0.4) % Neut % (Auto) (45-73) % Lymph % (Auto) (20-40) % [place] % (Auto) (2-11) % Eos % (Auto) (0-4) % Baso % (Auto) (0-2) % Lymph # (Auto) (1.2-4.9) X10*3/uL [place] # (Auto) (0.1-1.2) X10*3/uL Eos # (Auto) (0.0-0.4) X10*3/uL Baso # (Auto) (0.0-0.2) X10*3/uL Abs Immat Gran (auto) (0.00-0.03) X10*3/uL Absolute Neuts (auto) (2.0-8.3) x10*3/uL Absolute Nucleated RBC (0.0-0.012) X10*3/uL Nucleated RBC % (auto) (0.0-0.2) /100WBC VBG pH 7.51 H (7.32-7.43) VBG pCO2 21 mmHg VBG pO2 64 mmHg VBG HCO3 17 L (22-26) mmol/L VBG O2 Saturation 93.0 % VBG Base Excess -2.5 mmol/L Sodium 134 L (135-145) mmol/L Potassium 4.6 (3.3-5.1) mmol/L Chloride 104 (96-108) mmol/L Carbon Dioxide 16 L (22-29) mmol/L Anion Gap 19 (12-20) BUN 11 (9-16) mg/dL Creatinine 0.96 (0.5-1.4) mg/dL Estim Creat Clear Calc 83.3 Estimated GFR > 60 POC Glucose 383 H* (60-115) mg/dL Random Glucose 398 H* (60-115) mg/dL Calcium 9.7 D (8.4-10.2) mg/dL Magnesium 2.2 (1.6-2.6) mg/dL Total Bilirubin 0.5 (0.0-1.0) mg/dL Direct Bilirubin 0.2 (0.0-0.5) mg/dL AST 56 H (5-31) U/L ALT 62 H (0-31) U/L Alkaline Phosphatase 128 H (39-117) U/L Total Protein 8.3 H (6.5-8.0) g/dL Albumin 4.5 (3.5-5.0) g/dL Beta-Hydroxybutyrate 0.61 H (0.02-0.27) mmol/L Urine Color Urine Appearance Urine pH (5.0-9.0) Ur Specific [place] (1.005-1.025) Urine Protein (Neg-Trace) mg/dL Urine Glucose (UA) (Negative) mg/dL Urine Ketones (Negative) mg/dL Urine Blood (Negative) Urine Nitrite (Negative) Ur Leukocyte Esterase (Negative) Urine RBC (0-2) /HPF Urine WBC (0-5) /HPF Ur Squamous Epith Cells (0-2) /HPF Urine Bacteria (None Seen) Hyaline Casts (0-2) /LPF 03/31/23 03/31/23 03/31/23 Range/Units 18:33 19:46 20:50 WBC 13.1 H (4.8-10.8) X10*3/uL RBC 5.00 (4.20-5.50) X10*6/uL Hgb 15.0 (12.0-16.0) g/dl Hct 44.0 (37.0-47.0) % MCV 88.0 (80.0-98.0) fL MCH 30.0 (27.0-33.0) pg MCHC 34.1 (31.0-35.0) g/dl RDW 13.8 (11.0-16.0) % Plt Count 161 (160-400) X10*3/uL MPV 12.3 (9.4-12.3) fL Immature Gran % (Auto) 0.7 H (0.0-0.4) % Neut % (Auto) 83.2 H (45-73) % Lymph % (Auto) 13.6 L (20-40) % [place] % (Auto) 1.8 L (2-11) % Eos % (Auto) 0.3 (0-4) % Baso % (Auto) 0.4 (0-2) % Lymph # (Auto) 1.8 (1.2-4.9) X10*3/uL [place] # (Auto) 0.2 (0.1-1.2) X10*3/uL Eos # (Auto) 0.0 (0.0-0.4) X10*3/uL Baso # (Auto) 0.1 (0.0-0.2) X10*3/uL Abs Immat Gran (auto) 0.09 H (0.00-0.03) X10*3/uL Absolute Neuts (auto) 10.9 H (2.0-8.3) x10*3/uL Absolute Nucleated RBC 0.000 (0.0-0.012) X10*3/uL Nucleated RBC % (auto) 0.0 (0.0-0.2) /100WBC VBG pH (7.32-7.43) VBG pCO2 mmHg VBG pO2 mmHg VBG HCO3 (22-26) mmol/L VBG O2 Saturation % VBG Base Excess mmol/L Sodium (135-145) mmol/L Potassium (3.3-5.1) mmol/L Chloride (96-108) mmol/L Carbon Dioxide (22-29) mmol/L Anion Gap (12-20) BUN (9-16) mg/dL Creatinine (0.5-1.4) mg/dL Estim Creat Clear Calc Estimated GFR POC Glucose 296 H (60-115) mg/dL Random Glucose (60-115) mg/dL Calcium (8.4-10.2) mg/dL Magnesium (1.6-2.6) mg/dL Total Bilirubin (0.0-1.0) mg/dL Direct Bilirubin (0.0-0.5) mg/dL AST (5-31) U/L ALT (0-31) U/L Alkaline Phosphatase (39-117) U/L Total Protein (6.5-8.0) g/dL Albumin (3.5-5.0) g/dL Beta-Hydroxybutyrate (0.02-0.27) mmol/L Urine Color Yellow Urine Appearance Clear Urine pH 6.0 (5.0-9.0) Ur Specific [place] 1.020 (1.005-1.025) Urine Protein Negative (Neg-Trace) mg/dL Urine Glucose (UA) >=1000 H (Negative) mg/dL Urine Ketones 15 (Negative) mg/dL Urine Blood Moderate (2+) H (Negative) Urine Nitrite Negative (Negative) Ur Leukocyte Esterase Negative (Negative) Urine RBC 0-2 (0-2) /HPF Urine WBC 0-5 (0-5) /HPF Ur Squamous Epith Cells 0-2 (0-2) /HPF Urine Bacteria Trace (None Seen) Hyaline Casts 0-2 (0-2) /LPF 03/31/23 Range/Units 23:09 WBC (4.8-10.8) X10*3/uL RBC (4.20-5.50) X10*6/uL Hgb (12.0-16.0) g/dl Hct (37.0-47.0) % MCV (80.0-98.0) fL MCH (27.0-33.0) pg MCHC (31.0-35.0) g/dl RDW (11.0-16.0) % Plt Count (160-400) X10*3/uL MPV (9.4-12.3) fL Immature Gran % (Auto) (0.0-0.4) % Neut % (Auto) (45-73) % Lymph % (Auto) (20-40) % [place] % (Auto) (2-11) % Eos % (Auto) (0-4) % Baso % (Auto) (0-2) % Lymph # (Auto) (1.2-4.9) X10*3/uL [place] # (Auto) (0.1-1.2) X10*3/uL Eos # (Auto) (0.0-0.4) X10*3/uL Baso # (Auto) (0.0-0.2) X10*3/uL Abs Immat Gran (auto) (0.00-0.03) X10*3/uL Absolute Neuts (auto) (2.0-8.3) x10*3/uL Absolute Nucleated RBC (0.0-0.012) X10*3/uL Nucleated RBC % (auto) (0.0-0.2) /100WBC VBG pH (7.32-7.43) VBG pCO2 mmHg VBG pO2 mmHg VBG HCO3 (22-26) mmol/L VBG O2 Saturation % VBG Base Excess mmol/L Sodium (135-145) mmol/L Potassium (3.3-5.1) mmol/L Chloride (96-108) mmol/L Carbon Dioxide (22-29) mmol/L Anion Gap (12-20) BUN (9-16) mg/dL Creatinine (0.5-1.4) mg/dL Estim Creat Clear Calc Estimated GFR POC Glucose 222 H (60-115) mg/dL Random Glucose (60-115) mg/dL Calcium (8.4-10.2) mg/dL Magnesium (1.6-2.6) mg/dL Total Bilirubin (0.0-1.0) mg/dL Direct Bilirubin (0.0-0.5) mg/dL AST (5-31) U/L ALT (0-31) U/L Alkaline Phosphatase (39-117) U/L Total Protein (6.5-8.0) g/dL Albumin (3.5-5.0) g/dL Beta-Hydroxybutyrate (0.02-0.27) mmol/L Urine Color Urine Appearance Urine pH (5.0-9.0) Ur Specific [place] (1.005-1.025) Urine Protein (Neg-Trace) mg/dL Urine Glucose (UA) (Negative) mg/dL Urine Ketones (Negative) mg/dL Urine Blood (Negative) Urine Nitrite (Negative) Ur Leukocyte Esterase (Negative) Urine RBC (0-2) /HPF Urine WBC (0-5) /HPF Ur Squamous Epith Cells (0-2) /HPF Urine Bacteria (None Seen) Hyaline Casts (0-2) /LPF Critical Care Time Critical Care Time Critical Care Time: Yes Total Critical Care Time: 60 Attestation: I have personally provided critical care time. Time includes review of lab data, radiology results, discussion with consultants, and monitoring for potential decompensation. Intervention performed as documented. Discharge Plan Discharge Clinical Impression: Acute hyperglycemia, Hypertension Patient Disposition: Home, Self-Care Instructions: Hypertension (ED), Diabetic Hyperglycemia (ED), Diabetes and Exercise (ED) Additional Instructions: Please increase Januvia 100 mg daily. You may take 2 tablets of Januvia 50 mg daily. Please follow-up with your primary care physician tomorrow. If you have any worsening or new symptoms, please return to the emergency room or call 911 Prescriptions: New Januvia 100 mg tablet 100 mg PO DAILY Qty: 30 1RF No Action (DME) Blood Pressure Cuff Misc See Rx Instructions .Route Qty: 1 0RF Rx Instructions: As directed (DME) pen needle, diabetic [Comfort EZ Pen [place]] 31 gauge x 5/16 needle See Rx Instructions .Route Qty: 100 3RF Rx Instructions: Use 1 pen needle once a day (DME) lancing device Misc See Rx Instructions .Route Qty: 1 0RF Rx Instructions: freestyle lite furosemide 80 mg tablet 80 mg PO DAILY Qty: 30 5RF Hold Instructions: Resume on 12/14/21. Unless Dr. Espinal tells you to take it Advair HFA 230-21 mcg/actuation HFA aerosol inhaler 2 puff inhalation BID 30 Days Qty: 1 6RF (DME) FreeStyle Lite Strips Strip See Rx Instructions .Route Qty: 100 12RF Rx Instructions: As directed 2 times daily alcohol swabs [Alcohol Prep Pads] Pads, Medicated 1 pad topical BID Qty: 100 3RF levothyroxine 200 mcg tablet 200 mcg PO DAILY 90 Days Qty: 90 1RF rosuvastatin 10 mg tablet 10 mg PO BEDTIME 90 Days Qty: 90 2RF amlodipine 10 mg tablet 10 mg PO DAILY 90 Days Qty: 90 1RF Hold Instructions: Resume on 12/14/21. Hold if systolic blood pressure below 120 Rx Instructions: check blood pressure nightly and text with Dr Espinal losartan 100 mg tablet 100 mg PO DAILY 90 Days Qty: 90 3RF Hold Instructions: Resume on 12/14/21. Hold if systolic blood pressure below 120 aripiprazole [Abilify] 5 mg tablet 5 mg PO DAILY 90 Days Qty: 90 0RF omeprazole 20 mg capsule,delayed release(DR/EC) 20 mg PO DAILY 90 Days Qty: 90 1RF (DME) lancets [FreeStyle Lancets] 28 gauge misc See Rx Instructions .Route Qty: 100 12RF Rx Instructions: As directed 2 times daily (DME) Ultra-Light Rollator Misc See Rx Instructions .Route Qty: 1 0RF Rx Instructions: with seat loratadine [Allerclear] 10 mg tablet 10 mg PO DAILY PRN (Reason: itching) Qty: 7 0RF ondansetron 4 mg tablet,disintegrating 4 mg PO Q6-8H PRN (Reason: nausea and vomiting) Qty: 10 0RF loperamide [Imodium A-D] 2 mg tablet 2 mg PO Q6H PRN (Reason: loose stool) Qty: 14 0RF (DME) blood-glucose meter [FreeStyle Lite Meter] Kit See Rx Instructions .Route Qty: 1 0RF Rx Instructions: As directed 2 times daily levothyroxine 50 mcg tablet 50 mcg PO DAILY 90 Days Qty: 90 1RF cholecalciferol (vitamin D3) 50 mcg (2,000 unit) capsule 50 mcg PO DAILY 90 Days Qty: 90 3RF Januvia 25 mg tablet 25 mg PO DAILY 90 Days Qty: 90 1RF lidocaine 5 % adhesive patch,medicated 1 patch topical DAILY PRN (Reason: Back Pain) 30 Days Qty: 30 0RF albuterol sulfate 1.25 mg/3 mL solution for nebulization 1.25 mg inhalation QID PRN (Reason: shortness of breath or wheezing) Qty: 75 0RF prednisone 20 mg tablet 40 mg PO DAILY 5 Days Qty: 10 0RF albuterol sulfate 90 mcg/actuation HFA aerosol inhaler 2 puff inhalation Q4-6H PRN clonazepam 1 mg tablet 1 mg PO BID PRN (Reason: Anxiety) bupropion HCl 150 mg tablet extended release 24 hr 300 mg PO DAILY prazosin 2 mg capsule 2 mg PO BEDTIME Hold Instructions: Resume on 12/17/21.
[2023-03-31 17:59] LABS: Venous Blood Gas Refer to POC result
[2023-03-31 18:00] LABS: VBG Base Excess -2.5 mmol/L; VBG HCO3 17 mmol/L (22-26); VBG pCO2 21 mmHg; VBG pH 7.51 (7.32-7.43); VBG pO2 64 mmHg
[2023-03-31 18:13] LABS: Beta-Hydroxybutyrate 0.61 mmol/L (0.02-0.27)
[2023-03-31 18:15] LABS: Alanine Aminotransferase 62 U/L (0-31); Albumin Level 4.5 g/dL (3.5-5.0); Alkaline Phosphatase 128 U/L (39-117); Anion Gap 19 (12-20); Aspartate Amino Transferase 56 U/L (5-31); Bilirubin Direct 0.2 mg/dL (0.0-0.5); Bilirubin Total 0.5 mg/dL (0.0-1.0); Blood Urea Nitrogen 11 mg/dL (9-16); Calcium 9.7 mg/dL (8.4-10.2); Carbon Dioxide 16 mmol/L (22-29); Chloride 104 mmol/L (96-108); Creatinine Clr Calc Pharmacy 83.3; Estimated Glomerular Filt Rate > 60; Glucose Random 398 mg/dL (60-115); Magnesium 2.2 mg/dL (1.6-2.6); Potassium 4.6 mmol/L (3.3-5.1); Sodium 134 mmol/L (135-145); Total Protein 8.3 g/dL (6.5-8.0)
[2023-03-31 18:54] LABS: Basophils Absolute Auto 0.1 X10*3/uL (0.0-0.2); Basophils Percent Auto 0.4 % (0-2); Eosinophils Percent Auto 0.3 % (0-4); Imm Gran Abs Auto 0.09 X10*3/uL (0.00-0.03); Imm Gran Pct Auto 0.7 % (0.0-0.4); Lymphocytes Absolute Auto 1.8 X10*3/uL (1.2-4.9); Lymphocytes Percent Auto 13.6 % (20-40); Mean Corpuscular HGB Conc 34.1 g/dl (31.0-35.0); Mean Platelet Volume 12.3 fL (9.4-12.3); Monocytes Absolute Auto 0.2 X10*3/uL (0.1-1.2); Monocytes Percent Auto 1.8 % (2-11); Neutrophils Absolute Auto 10.9 x10*3/uL (2.0-8.3); Neutrophils Percent Auto 83.2 % (45-73); Platelet Count 161 X10*3/uL (160-400); Red Cell Distribution Width 13.8 % (11.0-16.0); White Blood Count 13.1 X10*3/uL (4.8-10.8)
[2023-03-31 19:46] VITALS: BP 174/97; PULSE 71; RESP 16; TEMP 36.7; O2SAT 100
[2023-03-31 20:01] LABS: Appearance Urine Clear; Color Urine Yellow; Glucose Urine UA >=1000 mg/dL (Negative); Leukocyte Esterase Urine Negative (Negative); Nitrite Urine Negative (Negative); UMIC TRIGGER UACC YES; Urine Blood Moderate (2+) (Negative); Urine Ketones 15 mg/dL (Negative); Urine Protein Negative (Neg-Trace)
[2023-03-31 20:29] LABS: Bacteria Urine Trace (None Seen); Hyaline Casts Urine 0-2 /LPF (0-2); RBC Urine 0-2 /HPF (0-2); Squamous Epithelial Cell Urine 0-2 /HPF (0-2); WBC Urine 0-5 /HPF (0-5)
[2023-03-31 20:57] LABS: Glucose, Whole Blood 296 mg/dL (60-115)
[2023-03-31] MEDS: 0.9 % Sodium Chloride 1,000 ML 999 ML IVCONT (21:28)
[2023-03-31] MEDS: Insulin Regular, Human 100 UNIT/ML 3 ML VIAL IVPUSH (21:28)
[2023-03-31 21:43] VITALS: BP 129/73; PULSE 66; RESP 17; TEMP 37.2; O2SAT 95
[2023-03-31 23:02] LABS: Glucose, Whole Blood 383 mg/dL (60-115)
[2023-03-31 23:14] LABS: Glucose, Whole Blood 222 mg/dL (60-115)
[2023-03-31 23:56] VITALS: BP 135/71; PULSE 70; RESP 18; O2SAT 97
== END 2023-04-01 00:03 | disposition home or self-care (01) ==
PROVIDERS: Physician Assistant; Emergency Provider Emergency Medicine; PCP Internal Medicine
DX: E11.65 Type 2 diabetes mellitus with hyperglycemia (principal); I10 Essential (primary) hypertension; F17.210 Nicotine dependence, cigarettes, uncomplicated; Z79.4 Long term (current) 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; Z79.899 Other long term (current) drug therapy; Z98.84 Bariatric surgery status; Z71.6 Tobacco abuse counseling
CPT/HCPCS: 36415; 80048; 80076; 81001; 81003; 82010; 82803; 82947; 83735; 85025; 96361; 96374; 99284

== ENCOUNTER 2023-04-12 10:48 | Emergency (ER) | payer OTHER, SELFPAY ==
[2023-04-12 11:01] VITALS: BP 147/86; PULSE 77; RESP 18; TEMP 36.9; O2SAT 98; BMI 40.3
--- NOTE | 2023-04-12 11:06 | ED_ITS ---
HPI - General Adult General Chief complaint: General Medical Stated complaint: high sugar Time Seen by Provider: 04/12/23 11:45 Source: patient Mode of arrival: ambulatory Limitations: no limitations History of Present Illness HPI narrative: 52 yo [place] speaking female with history of poorly controlled DM2 on insulin, obesity s/p sleeve gastrectomy, HLD, HTN, depression/anxiety, CAD, EDWIGE, asthma, pernicious anemia, hypothyroidism who presents to the ER for evaluation of blurred vision, headache and elevated glucose at home. Glucose at home was >400. She reports it has been 300-400 for several months. She has an appointment with her PCP 04/23 to discuss other treatments options. She has been off of insulin for a year since her gastric surgery. She denies N/V/D or abdominal pain but has had some right lower back pain for the last 3 days. No blood in her urine, no dysuria. MD complaint: symptomatic hyperglycemia Onset (ago): day(s) Location: head and eyes Severity: similar to prior episodes Pain Consistency: constant Relieving factors: none Exacerbating factors: none Associated symptoms: headaches Treatments prior to arrival: none Related Data Home Medications Medication Instructions Recorded Confirmed clonazepam 1 mg tablet 1 mg PO BID PRN Anxiety 04/26/20 03/21/23 prazosin 2 mg capsule 2 mg PO BEDTIME 08/14/21 03/21/23 albuterol sulfate 90 mcg/actuation 2 puff inhalation Q4-6H PRN 03/21/23 03/21/23 aerosol inhaler bupropion HCl 150 mg 24 hr tablet, 300 mg PO DAILY 03/21/23 03/21/23 extended release Previous Rx's Medication Instructions Recorded loratadine 10 mg tablet 10 mg PO DAILY PRN itching #7 tabs 02/14/21 (Allerclear) blood-glucose meter (FreeStyle #1 ea 04/06/21 Lite Meter kit) miscellaneous medical supply #1 ea 04/12/21 (Blood Pressure Cuff) pen needle, diabetic 31 gauge x #100 ea 04/16/2112/03 (Comfort EZ Pen [place]) lancing device #1 ea 07/05/21 furosemide 80 mg tablet 80 mg PO DAILY #30 tabs 11/09/21 fluticasone propionate 230 2 puff inhalation BID 30 days #1 ea 02/21/22 mcg-salmeterol 21 mcg/actuation HFA inhaler (Advair HFA) FreeStyle Lite Strips (blood sugar #100 ea 04/24/22 diagnostic) lidocaine 5 % topical patch 1 patch topical DAILY PRN Back 05/23/22 Pain 30 days #30 ea alcohol swabs (Alcohol Prep Pads) 1 pad topical BID #100 ea 05/27/22 loperamide 2 mg tablet (Imodium 2 mg PO Q6H PRN loose stool #14 09/11/22 A-D) tabs ondansetron 4 mg disintegrating 4 mg PO Q6-8H PRN nausea and 09/11/22 tablet vomiting #10 tabs levothyroxine 200 mcg tablet 200 mcg PO DAILY 90 days #90 tabs 09/18/22 rosuvastatin 10 mg tablet 10 mg PO BEDTIME 90 days #90 tabs 09/25/22 cholecalciferol (vitamin D3) 50 50 mcg PO DAILY 90 days #90 caps 10/10/22 mcg (2,000 unit) capsule levothyroxine 50 mcg tablet 50 mcg PO DAILY 90 days #90 tabs 10/10/22 sitagliptin phosphate 25 mg tablet 25 mg PO DAILY 90 days #90 tabs 10/10/22 (Januvia) amlodipine 10 mg tablet 10 mg PO DAILY 90 days #90 tabs 10/28/22 losartan 100 mg tablet 100 mg PO DAILY 90 days #90 tabs 10/28/22 omeprazole 20 mg capsule,delayed 20 mg PO DAILY 90 days #90 caps 12/01/22 release lancets 28 gauge (FreeStyle #100 ea 03/19/23 Lancets) albuterol sulfate 1.25 mg/3 mL 1.25 mg (3 mL) inhalation QID PRN 03/21/23 solution for nebulization shortness of breath or wheezing #75 mL prednisone 20 mg tablet 40 mg (2 x 20 mg) PO DAILY 5 days 03/21/23 #10 tabs walker (Ultra-Light Rollator misc) #1 ea 03/21/23 sitagliptin phosphate 100 mg 100 mg PO DAILY #30 tabs 03/31/23 tablet (Januvia) aripiprazole 5 mg tablet (Abilify) 5 mg PO DAILY 90 days #90 tabs 04/11/23 cefuroxime axetil 250 mg tablet 250 mg PO BID 7 days #14 tabs 04/12/23 insulin glargine 100 unit/mL (3 10 unit (0.1 mL) subcut QPM #15 mL 04/12/23 mL) subcutaneous pen (Lantus Solostar U-100 Insulin) Allergies Allergy/AdvReac Type Severity Reaction Status Date / Time zolpidem AdvReac Intermediate nightmares Verified 04/12/23 11:12 Review of Systems 2 Review of Systems: Yes all other systems are reviewed and are negative [facility] Past Medical History Medical History Abnormal finding on EKG Acquired hypothyroidism Anxiety Depression Diabetes mellitus, with long-term current 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 Dizziness Essential hypertension GERD (gastroesophageal reflux disease) Hypothyroidism Insomnia Left 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 Low back pain Low potassium syndrome LVH (left ventricular hypertrophy) Mild recurrent major depression Morbid obesity Right wrist pain Sleep apnea with use of continuous positive airway pressure (CPAP) Uncontrolled diabetes mellitus Surgical History S/P laparoscopic sleeve gastrectomy H/O: hysterectomy History of colonoscopy H/O endoscopy History of thyroid surgery History of bladder surgery History of total abdominal hysterectomy History of section Family History Family History Father Diabetes Mother Hypertension Maternal Uncle Colon cancer Maternal Aunt Breast cancer Paternal Aunt Breast cancer Family/Other FH: mental illness Substance use disorder Social History Social History (Updated 03/31/23 @ 10:08 by MARIA INES German) Household Members: None Housing: Apartment Are you a primary animal care service worker to a significant other at home: No Do you presently have visiting nurse or other home services: No Alcohol intake: never Patient Tobacco Use Status: Current everyday Tobacco user Tobacco use type: Cigarette Cigarettes Per Day: 6 Years Smoked: 10 Smoked in Last 30 Days: No e-Cigarette/Vaping Use: Never Used Second Hand Smoke Exposure: No Advance Directives: No Advance Directives Information Provided: Yes service: No Current occupational status: disabled Cognitive needs: No Hearing needs: No Vision needs: No Physical Exam ED Vital Signs: Vital Signs - 24 hr 04/12/23 11:01 Temperature 98.4 F Pulse Rate 77 Respiratory Rate 18 Blood Pressure 147/86 H Pulse Oximetry 98 Oxygen Delivery Method Room Air BMI result Body Mass Index 40.3 Appearance: Alert. Oriented X3. No acute distress. Head: normocephalic, atraumatic. Eyes: Pupils equal, round and reactive to light. EOMI. ENT: Pharynx normal. No tonsillar swelling or exudate. Neck: Normal inspection. Neck supple. CVS: Normal heart rate and rhythm. Pulses normal. Respiratory: No respiratory distress. Breath sounds normal. Abdomen: Obese, Soft and nontender. +BS x4. No CVA tenderness. Skin: Skin warm and dry. Normal skin color. Normal skin turgor. No rashes. Extremities: No lower extremity edema. No joint swelling. Neuro/psych: Oriented X 3. No motor deficit. No sensory deficit. CN II-XII intact. Normal speech and cognition. Course Course Course Narrative: This is an RME: Additional HPI, ROS, PE not included below will be deferred to primary provider. This is a [id number]-female, with a hx of diabetes, presenting to the emergency department with a complaint of hyperglycemia. Pt states that she has headache and blurred vision. Patient reports that she was previously on insulin and was stopped after she had bariatric surgery. She was seen on March 31, 2023 for hyperglycemia and was told to follow-up with her primary care physician. She has been unable to follow-up with them as her appointment is in april. VSS. POC in triage is 487. No CP or SOB Plan: Labs, POC, further ER evaluation required. Medications Administered Discontinued Medications Generic Name Dose Route Start Last Admin Trade Name Freq PRN Reason Stop Dose Admin Sodium Chloride 1,000 mls @ 999 mls/hr 04/12/23 11:45 04/12/23 13:41 Ns IVCONT 04/12/23 12:45 Infused .Q1H1M SIMON Infusion Ceftriaxone Sodium 1 gm/ 50 mls @ 100 mls/hr 04/12/23 12:01 04/12/23 12:56 Sodium Chloride IV 04/12/23 12:30 Infused ONCE ONE Infusion Insulin Human Lispro 12 unit 04/12/23 11:45 04/12/23 11:56 Insulin Lispro 100 Unit/Ml 3 Ml Vial SUBCUT 04/12/23 11:46 12 unit ONCE ONE Administration Medical Decision Making Medical Decision Making MDM Narrative: 52 yo [place] speaking female with history of poorly controlled DM2 on insulin, obesity s/p sleeve gastrectomy, HLD, HTN, depression/anxiety, CAD, EDWIGE, asthma, pernicious anemia, hypothyroidism who presents to the ER for evaluation of blurred vision, headache and elevated glucose at home. POC 300-400 for months. No evidence of DKA on labs. UA + for infection. Glucose improved with SQ insulin and 1L IVF. Will plan to restart Lantus 10 units QHS until she can follow up with her PCP. 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 stable for d/c home with close outpatient follow up Differential Diagnosis Differential Diagnoses: The differential diagnosis associated with the presentation includes symptomatic hyperglycemia, poorly controlled DM2, DKA, UTI, medication noncompliance Admission/Observation Consideration of admission/observation: Escalation of care including admission/observation considered Lab Data MDM Lab Attestation statement: I reviewed the patient's lab results. hyperglycemia without anion gap 04/12/23 11:18 04/12/23 11:18 Labs: Lab Results 04/12/23 04/12/23 04/12/23 Range/Units 11:18 11:24 11:32 WBC 9.1 (4.8-10.8) X10*3/uL RBC 4.92 (4.20-5.50) X10*6/uL Hgb 14.3 (12.0-16.0) g/dl Hct 42.6 (37.0-47.0) % MCV 86.6 (80.0-98.0) fL MCH 29.1 (27.0-33.0) pg MCHC 33.6 (31.0-35.0) g/dl RDW 13.2 (11.0-16.0) % Plt Count 158 L (160-400) X10*3/uL MPV 11.9 (9.4-12.3) fL Immature Gran % (Auto) 0.4 (0.0-0.4) % Neut % (Auto) 71.7 (45-73) % Lymph % (Auto) 19.8 L (20-40) % [place] % (Auto) 5.8 (2-11) % Eos % (Auto) 1.6 (0-4) % Baso % (Auto) 0.7 (0-2) % Lymph # (Auto) 1.8 (1.2-4.9) X10*3/uL [place] # (Auto) 0.5 (0.1-1.2) X10*3/uL Eos # (Auto) 0.2 (0.0-0.4) X10*3/uL Baso # (Auto) 0.1 (0.0-0.2) X10*3/uL Abs Immat Gran (auto) 0.04 H (0.00-0.03) X10*3/uL Absolute Neuts (auto) 6.5 (2.0-8.3) x10*3/uL Absolute Nucleated RBC 0.000 (0.0-0.012) X10*3/uL Nucleated RBC % (auto) 0.0 (0.0-0.2) /100WBC VBG pH 7.43 (7.32-7.43) VBG pCO2 38 mmHg VBG pO2 50 mmHg VBG HCO3 25 (22-26) mmol/L VBG O2 Saturation 81.0 % VBG Base Excess 1.5 mmol/L Sodium 135 (135-145) mmol/L Potassium 4.1 (3.3-5.1) mmol/L Chloride 102 (96-108) mmol/L Carbon Dioxide 22 (22-29) mmol/L Anion Gap 15 (12-20) BUN 10 (9-16) mg/dL Creatinine 1.00 (0.5-1.4) mg/dL Estim Creat Clear Calc 80.2 Estimated GFR 59 POC Glucose (60-115) mg/dL Random Glucose 479 H* (60-115) mg/dL Calcium 9.5 (8.4-10.2) mg/dL Total Bilirubin 0.7 (0.0-1.0) mg/dL Direct Bilirubin 0.3 (0.0-0.5) mg/dL AST 49 H (5-31) U/L ALT 52 H (0-31) U/L Alkaline Phosphatase 125 H (39-117) U/L Total Protein 7.7 (6.5-8.0) g/dL Albumin 4.3 (3.5-5.0) g/dL Beta-Hydroxybutyrate 0.31 H (0.02-0.27) mmol/L Urine Color Yellow Urine Appearance Clear Urine pH 5.5 (5.0-9.0) Ur Specific [place] >= 1.030 H (1.005-1.025) Urine Protein Negative (Neg-Trace) mg/dL Urine Glucose (UA) >=1000 H (Negative) mg/dL Urine Ketones Trace (Negative) mg/dL Urine Blood Trace H (Negative) Urine Nitrite Negative (Negative) Ur Leukocyte Esterase Small (1+) H (Negative) Urine RBC 0-2 (0-2) /HPF Urine WBC 21-50 H (0-5) /HPF Ur Squamous Epith Cells 3-5 (0-2) /HPF Urine Bacteria Trace (None Seen) Hyaline Casts 0-2 (0-2) /LPF 04/12/23 04/12/23 Range/Units 12:37 13:14 WBC (4.8-10.8) X10*3/uL RBC (4.20-5.50) X10*6/uL Hgb (12.0-16.0) g/dl Hct (37.0-47.0) % MCV (80.0-98.0) fL MCH (27.0-33.0) pg MCHC (31.0-35.0) g/dl RDW (11.0-16.0) % Plt Count (160-400) X10*3/uL MPV (9.4-12.3) fL Immature Gran % (Auto) (0.0-0.4) % Neut % (Auto) (45-73) % Lymph % (Auto) (20-40) % [place] % (Auto) (2-11) % Eos % (Auto) (0-4) % Baso % (Auto) (0-2) % Lymph # (Auto) (1.2-4.9) X10*3/uL [place] # (Auto) (0.1-1.2) X10*3/uL Eos # (Auto) (0.0-0.4) X10*3/uL Baso # (Auto) (0.0-0.2) X10*3/uL Abs Immat Gran (auto) (0.00-0.03) X10*3/uL Absolute Neuts (auto) (2.0-8.3) x10*3/uL Absolute Nucleated RBC (0.0-0.012) X10*3/uL Nucleated RBC % (auto) (0.0-0.2) /100WBC VBG pH (7.32-7.43) VBG pCO2 mmHg VBG pO2 mmHg VBG HCO3 (22-26) mmol/L VBG O2 Saturation % VBG Base Excess mmol/L Sodium (135-145) mmol/L Potassium (3.3-5.1) mmol/L Chloride (96-108) mmol/L Carbon Dioxide (22-29) mmol/L Anion Gap (12-20) BUN (9-16) mg/dL Creatinine (0.5-1.4) mg/dL Estim Creat Clear Calc Estimated GFR POC Glucose 378 H* 299 H (60-115) mg/dL Random Glucose (60-115) mg/dL Calcium (8.4-10.2) mg/dL Total Bilirubin (0.0-1.0) mg/dL Direct Bilirubin (0.0-0.5) mg/dL AST (5-31) U/L ALT (0-31) U/L Alkaline Phosphatase (39-117) U/L Total Protein (6.5-8.0) g/dL Albumin (3.5-5.0) g/dL Beta-Hydroxybutyrate (0.02-0.27) mmol/L Urine Color Urine Appearance Urine pH (5.0-9.0) Ur Specific [place] (1.005-1.025) Urine Protein (Neg-Trace) mg/dL Urine Glucose (UA) (Negative) mg/dL Urine Ketones (Negative) mg/dL Urine Blood (Negative) Urine Nitrite (Negative) Ur Leukocyte Esterase (Negative) Urine RBC (0-2) /HPF Urine WBC (0-5) /HPF Ur Squamous Epith Cells (0-2) /HPF Urine Bacteria (None Seen) Hyaline Casts (0-2) /LPF External Record Review External record reviewed: Office record, Outpatient record, Prior outpatient labs and Prior outpatient radiology Prescription Management I considered prescription management with: Pain Medication, Antibiotic and Other (lantus) Chronic Conditions Patient?s care impacted by: Diabetes Critical Care Time Critical Care Time Critical Care Time: Yes Total Critical Care Time: 32 Attestation: I have personally provided critical care time exclusive of time spent on separately billable procedures. Time includes review of lab data, history, treatment and reassessment of her hyperglycemia and monitoring for potential decompensation. Intervention performed as documented. Discharge Plan Discharge Clinical Impression: Uncontrolled diabetes mellitus Qualifiers: Diabetes mellitus type: type 2 Glycemic state: with hyperglycemia Qualified Code(s): E11.65 - Type 2 diabetes mellitus with hyperglycemia UTI (urinary tract infection) Qualifiers: Urinary tract infection type: acute cystitis Hematuria presence: without hematuria Qualified Code(s): N30.00 - Acute cystitis without hematuria Patient Disposition: Home, Self-Care Instructions: Urinary Tract Infection in Women (DC), Diabetes and Nutrition (ED) Additional Instructions: Your urine test showed infection. Take the prescribed antibiotics as directed, complete the entire course and do not miss any doses Start the prescribed long acting insulin tonight Monitor your glucose when you wake up each morning and before meals. Keep a record for your doctor Follow up with your doctor on Apr 23 as scheduled. If you develop new or worsening symptoms call 911 or come back to the ER for further evaluation. Jacobs an?lisis de orina mostr? infecci?n. [place] los antibi?ticos recetados seg?n las indicaciones, complete todo el tratamiento y no omita ninguna dosis. Comience esta noche con la insulina de acci?n prolongada recetada. Controle jacobs glucosa al despertar cada ma?claire y antes de las comidas. Mantenga un registro para jacobs m?dico Mauro un seguimiento con jacobs m?dico el 4 seg?n lo programado. Si desarrolla s?ntomas nuevos o que empeoran, llame al 911 o regrese a la mena de emergencias para meghana evaluaci?n adicional. Prescriptions: New cefuroxime axetil 250 mg tablet 250 mg PO BID 7 Days Qty: 14 0RF insulin glargine [Lantus Solostar U-100 Insulin] 100 unit/mL (3 mL) insulin pen 10 unit subcut QPM Qty: 15 0RF No Action (DME) Blood Pressure Cuff Misc See Rx Instructions .Route Qty: 1 0RF Rx Instructions: As directed (DME) pen needle, diabetic [Comfort EZ Pen [place]] 31 gauge x 5/16 needle See Rx Instructions .Route Qty: 100 3RF Rx Instructions: Use 1 pen needle once a day (DME) lancing device Misc See Rx Instructions .Route Qty: 1 0RF Rx Instructions: freestyle lite furosemide 80 mg tablet 80 mg PO DAILY Qty: 30 5RF Hold Instructions: until discussed with Dr Espinal Advair HFA 230-21 mcg/actuation HFA aerosol inhaler 2 puff inhalation BID 30 Days Qty: 1 6RF (DME) FreeStyle Lite Strips Strip See Rx Instructions .Route Qty: 100 12RF Rx Instructions: As directed 2 times daily alcohol swabs [Alcohol Prep Pads] Pads, Medicated 1 pad topical BID Qty: 100 3RF levothyroxine 200 mcg tablet 200 mcg PO DAILY 90 Days Qty: 90 1RF rosuvastatin 10 mg tablet 10 mg PO BEDTIME 90 Days Qty: 90 2RF amlodipine 10 mg tablet 10 mg PO DAILY 90 Days Qty: 90 1RF Hold Instructions: Resume on 12/14/21. Hold if systolic blood pressure below 120 Rx Instructions: check blood pressure nightly and text with Dr Espinal losartan 100 mg tablet 100 mg PO DAILY 90 Days Qty: 90 3RF Hold Instructions: Resume on 12/14/21. Hold if systolic blood pressure below 120 omeprazole 20 mg capsule,delayed release(DR/EC) 20 mg PO DAILY 90 Days Qty: 90 1RF (DME) lancets [FreeStyle Lancets] 28 gauge misc See Rx Instructions .Route Qty: 100 12RF Rx Instructions: As directed 2 times daily (DME) Ultra-Light Rollator Misc See Rx Instructions .Route Qty: 1 0RF Rx Instructions: with seat aripiprazole [Abilify] 5 mg tablet 5 mg PO DAILY 90 Days Qty: 90 0RF loratadine [Allerclear] 10 mg tablet 10 mg PO DAILY PRN (Reason: itching) Qty: 7 0RF ondansetron 4 mg tablet,disintegrating 4 mg PO Q6-8H PRN (Reason: nausea and vomiting) Qty: 10 0RF loperamide [Imodium A-D] 2 mg tablet 2 mg PO Q6H PRN (Reason: loose stool) Qty: 14 0RF Januvia 100 mg tablet 100 mg PO DAILY Qty: 30 1RF (DME) blood-glucose meter [FreeStyle Lite Meter] Kit See Rx Instructions .Route Qty: 1 0RF Rx Instructions: As directed 2 times daily levothyroxine 50 mcg tablet 50 mcg PO DAILY 90 Days Qty: 90 1RF cholecalciferol (vitamin D3) 50 mcg (2,000 unit) capsule 50 mcg PO DAILY 90 Days Qty: 90 3RF Januvia 25 mg tablet 25 mg PO DAILY 90 Days Qty: 90 1RF lidocaine 5 % adhesive patch,medicated 1 patch topical DAILY PRN (Reason: Back Pain) 30 Days Qty: 30 0RF albuterol sulfate 1.25 mg/3 mL solution for nebulization 1.25 mg inhalation QID PRN (Reason: shortness of breath or wheezing) Qty: 75 0RF prednisone 20 mg tablet 40 mg PO DAILY 5 Days Qty: 10 0RF albuterol sulfate 90 mcg/actuation HFA aerosol inhaler 2 puff inhalation Q4-6H PRN clonazepam 1 mg tablet 1 mg PO BID PRN (Reason: Anxiety) bupropion HCl 150 mg tablet extended release 24 hr 300 mg PO DAILY prazosin 2 mg capsule 2 mg PO BEDTIME Hold Instructions: Resume on 12/17/21. Referrals: [facility] [Provider Group] Claire Mcnair MD [Primary Care Provider] - Interventions: ED Discharge Assessment Last Done: 04/12/23 13:41 Discharge Date/Time: 04/12/23 13:48 Print Language: [place]
[2023-04-12 11:24] LABS: MANUAL DIFF FLAG NO
[2023-04-12 11:27] LABS: Basophils Absolute Auto 0.1 X10*3/uL (0.0-0.2); Basophils Percent Auto 0.7 % (0-2); Eosinophils Absolute Auto 0.2 X10*3/uL (0.0-0.4); Eosinophils Percent Auto 1.6 % (0-4); Hematocrit 42.6 % (37.0-47.0); Hemoglobin 14.3 g/dl (12.0-16.0); Imm Gran Abs Auto 0.04 X10*3/uL (0.00-0.03); Imm Gran Pct Auto 0.4 % (0.0-0.4); Lymphocytes Absolute Auto 1.8 X10*3/uL (1.2-4.9); Lymphocytes Percent Auto 19.8 % (20-40); Mean Corpuscular HGB Conc 33.6 g/dl (31.0-35.0); Mean Corpuscular Hemoglobin 29.1 pg (27.0-33.0); Mean Corpuscular Volume 86.6 fL (80.0-98.0); Mean Platelet Volume 11.9 fL (9.4-12.3); Monocytes Absolute Auto 0.5 X10*3/uL (0.1-1.2); Monocytes Percent Auto 5.8 % (2-11); Neutrophils Absolute Auto 6.5 x10*3/uL (2.0-8.3); Neutrophils Percent Auto 71.7 % (45-73); Platelet Count 158 X10*3/uL (160-400); Red Blood Count 4.92 X10*6/uL (4.20-5.50); Red Cell Distribution Width 13.2 % (11.0-16.0); White Blood Count 9.1 X10*3/uL (4.8-10.8)
[2023-04-12 11:39] LABS: Appearance Urine Clear; Color Urine Yellow; Glucose Urine UA >=1000 mg/dL (Negative); Leukocyte Esterase Urine Small (1+) (Negative); Nitrite Urine Negative (Negative); PH 5.5 (5.0-9.0); UMIC TRIGGER UACC YES; Urine Blood Trace (Negative); Urine Ketones Trace mg/dL (Negative); Urine Protein Negative (Neg-Trace)
[2023-04-12 11:41] LABS: VBG Base Excess 1.5 mmol/L; VBG HCO3 25 mmol/L (22-26); VBG pCO2 38 mmHg; VBG pH 7.43 (7.32-7.43); VBG pO2 50 mmHg
[2023-04-12 11:41] LABS: Venous Blood Gas Refer to POC result
[2023-04-12 11:51] LABS: Bacteria Urine Trace (None Seen); Hyaline Casts Urine 0-2 /LPF (0-2); RBC Urine 0-2 /HPF (0-2); Specific Gravity - Urine >= 1.030 (1.005-1.025); UACC Culture Trigger YES; WBC Urine 21-50 /HPF (0-5)
[2023-04-12 11:51] LABS: Beta-Hydroxybutyrate 0.31 mmol/L (0.02-0.27)
[2023-04-12] MEDS: Insulin Lispro 100 UNIT/ML 3 ML VIAL 12 UNIT SUBCUT (11:56)
[2023-04-12 12:01] LABS: Alanine Aminotransferase 52 U/L (0-31); Albumin Level 4.3 g/dL (3.5-5.0); Alkaline Phosphatase 125 U/L (39-117); Anion Gap 15 (12-20); Aspartate Amino Transferase 49 U/L (5-31); Bilirubin Direct 0.3 mg/dL (0.0-0.5); Bilirubin Total 0.7 mg/dL (0.0-1.0); Blood Urea Nitrogen 10 mg/dL (9-16); Calcium 9.5 mg/dL (8.4-10.2); Carbon Dioxide 22 mmol/L (22-29); Chloride 102 mmol/L (96-108); Creatinine Clr Calc Pharmacy 80.2; Estimated Glomerular Filt Rate 59; Glucose Random 479 mg/dL (60-115); Potassium 4.1 mmol/L (3.3-5.1); Sodium 135 mmol/L (135-145); Total Protein 7.7 g/dL (6.5-8.0)
[2023-04-12] MEDS: 0.9 % Sodium Chloride 1,000 ML 999 ML IVCONT (12:03)
--- NOTE | 2023-04-12 12:11 | PC.NURSE ---
pt aox4, subq insulin given per mar, iv inserted and fluids infusing. per PA, no cultures needed before abx infusion for uti
[2023-04-12] MEDS: cefTRIAXone sodium 1 GM in 0.9 % Sodium Chloride 50 ML IV (12:22)
[2023-04-12 12:40] LABS: Glucose, Whole Blood 378 mg/dL (60-115)
[2023-04-12 13:19] LABS: Glucose, Whole Blood 299 mg/dL (60-115)
[2023-04-14 07:32] LABS: Glucose, Whole Blood 487 mg/dL (60-115)
== END 2023-04-12 13:48 | disposition home or self-care (01) ==
PROVIDERS: Physician Assistant Medical; Emergency Provider Emergency Medicine Emergency Medical Services; PCP Internal Medicine
DX: E11.65 Type 2 diabetes mellitus with hyperglycemia (principal); N30.00 Acute cystitis without hematuria; I10 Essential (primary) hypertension; E78.5 Hyperlipidemia, unspecified; F17.210 Nicotine dependence, cigarettes, uncomplicated; E66.9 Obesity, unspecified; Z68.41 Body mass index [BMI] 40.0-44.9, adult; Z98.84 Bariatric surgery status; Z79.4 Long term (current) 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; Z79.899 Other long term (current) drug therapy
CPT/HCPCS: 36415; 80048; 80076; 81001; 82010; 82803; 82947; 85025; 87086; 96361; 96365; 99284; J0696

== ENCOUNTER 2023-04-15 12:38 | Emergency (ER) | payer OTHER, SELFPAY ==
[2023-04-15 12:48] VITALS: BP 137/81; PULSE 78; RESP 16; TEMP 36.7; O2SAT 99; BMI 37.8
--- NOTE | 2023-04-15 12:48 | ECG_ITS ---
Test Reason : HTN Blood Pressure : / mmHG Vent. Rate : 066 BPM Atrial Rate : 066 BPM P-R Int : 176 ms QRS Dur : 086 ms QT Int : 424 ms P-R-T Axes : 046 -06 007 degrees QTc Int : 444 ms Normal sinus rhythm with sinus arrhythmia Moderate voltage criteria for LVH, may be normal variant ( R in aVL , Andrews product ) Nonspecific T wave abnormality Abnormal ECG When compared with ECG of 02-MAY-2021 12:26, No significant changes seen Referred By: Sadie Holman Electronically Signed By:DELTA JEFF
--- NOTE | 2023-04-15 13:04 | ED_ITS ---
HPI - General Adult General Chief complaint: General Medical Stated complaint: headache high BS Time Seen by Provider: 04/15/23 17:31 Source: patient Mode of arrival: ambulatory Limitations: language barrier (Albanian-speaking medical customer service representative utilized) History of Present Illness HPI narrative: Patient is a 52-year-old female who presents emergency department for evaluation of hyperglycemia. She states that she has been having ongoing hyperglycemia for many months. She has been seen in this emergency department a couple of times recently with similar complaints. She has an appointment scheduled with her primary care provider for 04/23/2023. She is unknown diabetic, she endorses having intermittent headache and blurred vision recently at home. Her blood sugar levels have been ranging from 200-400 despite the use of Lantus which she was prescribed after her last visit. She continues taking Januvia as well. She has not been taking insulin for the past year after her sleeve gastrectomy. Currently she denies headache, blurry vision, nausea, vomiting, abdominal pain, diarrhea, numbness or tingling to the extremities, dysuria, urinary frequency. Related Data Home Medications Medication Instructions Recorded Confirmed clonazepam 1 mg tablet 1 mg PO BID PRN Anxiety 04/26/20 03/21/23 prazosin 2 mg capsule 2 mg PO BEDTIME 08/14/21 03/21/23 albuterol sulfate 90 mcg/actuation 2 puff inhalation Q4-6H PRN 03/21/23 03/21/23 aerosol inhaler bupropion HCl 150 mg 24 hr tablet, 300 mg PO DAILY 03/21/23 03/21/23 extended release Previous Rx's Medication Instructions Recorded loratadine 10 mg tablet 10 mg PO DAILY PRN itching #7 tabs 02/14/21 (Allerclear) blood-glucose meter (FreeStyle #1 ea 04/06/21 Lite Meter kit) miscellaneous medical supply #1 ea 04/12/21 (Blood Pressure Cuff) pen needle, diabetic 31 gauge x #100 ea 04/16/2112/03 (Comfort EZ Pen Newman) lancing device #1 ea 07/05/21 furosemide 80 mg tablet 80 mg PO DAILY #30 tabs 11/09/21 fluticasone propionate 230 2 puff inhalation BID 30 days #1 ea 02/21/22 mcg-salmeterol 21 mcg/actuation HFA inhaler (Advair HFA) FreeStyle Lite Strips (blood sugar #100 ea 04/24/22 diagnostic) lidocaine 5 % topical patch 1 patch topical DAILY PRN Back 05/23/22 Pain 30 days #30 ea alcohol swabs (Alcohol Prep Pads) 1 pad topical BID #100 ea 05/27/22 loperamide 2 mg tablet (Imodium 2 mg PO Q6H PRN loose stool #14 09/11/22 A-D) tabs ondansetron 4 mg disintegrating 4 mg PO Q6-8H PRN nausea and 09/11/22 tablet vomiting #10 tabs levothyroxine 200 mcg tablet 200 mcg PO DAILY 90 days #90 tabs 09/18/22 rosuvastatin 10 mg tablet 10 mg PO BEDTIME 90 days #90 tabs 09/25/22 cholecalciferol (vitamin D3) 50 50 mcg PO DAILY 90 days #90 caps 10/10/22 mcg (2,000 unit) capsule levothyroxine 50 mcg tablet 50 mcg PO DAILY 90 days #90 tabs 10/10/22 sitagliptin phosphate 25 mg tablet 25 mg PO DAILY 90 days #90 tabs 10/10/22 (Januvia) amlodipine 10 mg tablet 10 mg PO DAILY 90 days #90 tabs 10/28/22 losartan 100 mg tablet 100 mg PO DAILY 90 days #90 tabs 10/28/22 omeprazole 20 mg capsule,delayed 20 mg PO DAILY 90 days #90 caps 12/01/22 release lancets 28 gauge (FreeStyle #100 ea 03/19/23 Lancets) albuterol sulfate 1.25 mg/3 mL 1.25 mg (3 mL) inhalation QID PRN 03/21/23 solution for nebulization shortness of breath or wheezing #75 mL prednisone 20 mg tablet 40 mg (2 x 20 mg) PO DAILY 5 days 03/21/23 #10 tabs walker (Ultra-Light Rollator misc) #1 ea 03/21/23 sitagliptin phosphate 100 mg 100 mg PO DAILY #30 tabs 03/31/23 tablet (Januvia) aripiprazole 5 mg tablet (Abilify) 5 mg PO DAILY 90 days #90 tabs 04/11/23 cefuroxime axetil 250 mg tablet 250 mg PO BID 7 days #14 tabs 04/12/23 insulin glargine 100 unit/mL (3 10 unit (0.1 mL) subcut QPM #15 mL 04/12/23 mL) subcutaneous pen (Lantus Solostar U-100 Insulin) Allergies Allergy/AdvReac Type Severity Reaction Status Date / Time zolpidem AdvReac Intermediate nightmares Verified 04/12/23 11:12 Review of Systems 2 Review of Systems: Yes all other systems are reviewed and are negative [facility] Past Medical History Attestation statement: The following information was validated with the patient. Source: old records reviewed Medical History Mild recurrent major depression Diabetes mellitus, with long-term current 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 LVH (left ventricular hypertrophy) Abnormal finding on EKG GERD (gastroesophageal reflux disease) [facility] (current) 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 Uncontrolled diabetes mellitus Left foot pain Insomnia Anxiety Depression Sleep apnea with use of continuous positive airway pressure (CPAP) Hypothyroidism Low potassium syndrome Morbid obesity Dizziness Low back pain Right wrist pain Acquired hypothyroidism Essential hypertension Surgical History S/P laparoscopic sleeve gastrectomy H/O: hysterectomy History of colonoscopy H/O endoscopy History of thyroid surgery History of bladder surgery History of total abdominal hysterectomy History of section Family History Family History Father Diabetes Mother Hypertension Maternal Uncle Colon cancer Maternal Aunt Breast cancer Paternal Aunt Breast cancer Family/Other FH: mental illness Substance use disorder Social History Social History (Updated 03/31/23 @ 10:08 by MARIA INES German) Household Members: None Housing: Apartment Are you a primary college and career counselor to a significant other at home: No Do you presently have visiting nurse or other home services: No Alcohol intake: never Patient Tobacco Use Status: Current everyday Tobacco user Tobacco use type: Cigarette Cigarettes Per Day: 6 Years Smoked: 10 Smoked in Last 30 Days: Yes e-Cigarette/Vaping Use: Never Used Second Hand Smoke Exposure: No Use of substances other than those prescribed or required for medical reasons: No Advance Directives: No Advance Directives Information Provided: Yes service: No Current occupational status: disabled Cognitive needs: No Hearing needs: No Vision needs: No Physical Exam ED Vital Signs: Vital Signs - 24 hr 04/15/23 12:48 04/15/23 18:48 Temperature 98.0 F 97.8 F Pulse Rate 78 62 Respiratory Rate 16 16 Blood Pressure 137/81 111/43 L Pulse Oximetry 99 97 Oxygen Delivery Method Room Air Room Air BMI result Body Mass Index 37.8 Appearance: Alert.?Oriented to person, place and time. No acute distress.?Normal affect. Eyes: Pupils equal, round and reactive to light.? ENT: Pharynx normal.?? Neck: Normal inspection.? Neck supple.?? CVS: Heart sounds normal. Normal heart rate and rhythm.? Pulses normal.?? Respiratory: No respiratory distress.? Lung sounds clear to auscultation bilaterally?? Abdomen: Soft and non-tender. Normoactive bowel sounds. Skin: Skin warm and dry.? Normal skin color.? Extremities: No lower extremity edema.? No calf ttp? Neuro: Moves all extremities spontaneously. Sensation intact bilaterally. CN II- XII intact. No focal neuro deficits. Ambulates with normal steady gait. Course Course Course Narrative: This is an RME: Additional HPI, ROS, PE not included below will be deferred to primary provider. 52 yo f presents w/ hyperglcemia my sugar is very high for a lot of months also has diffuse limon that has been going on for a few days. Known diabetic Plan- labs ua Reevaluation(s) Reevaluation #1: Serum labs, no indication of DKA, hyperglycemia is present without anion gap. Patient received 1L NS IVF and Isulin regular 5units IV. Repeat POC 267. Given that she continues to have persistent elevated glucose levels despite being on insulin Glargine 10 units at HS for the past 3 days, will increase to 12 units daily at HS and advised continued monitoring of glucose levels; goal is to avoid hypoglycemia, reviewed worrisome signs and symptoms that would indicate hypoglycemia and that would warrant evaluation. Recommended outpatient follow- up with primary care provider as scheduled. Time: 20:09 Medications Administered Discontinued Medications Generic Name Dose Route Start Last Admin Trade Name Freq PRN Reason Stop Dose Admin Sodium Chloride 1,000 mls @ 999 mls/hr 04/15/23 17:45 04/15/23 17:46 Ns IV 04/15/23 18:45 999 mls/hr .Q1H1M SIMON Administration Insulin Human Regular 5 unit 04/15/23 17:59 04/15/23 18:29 Insulin Regular, Human 100 Unit/Ml 3 Ml Vial IVPUSH 04/15/23 18:00 5 unit ONCE ONE Administration Medical Decision Making Medical Decision Making [facility] Narrative: Patient is a 52-year-old female with past medical history of poorly controlled DM 2, obesity s/p sleeve gastrectomy, hyperlipidemia, hypertension, depression, anxiety, CAD, EDWIGE, asthma, pernicious anemia, hypothyroidism presenting to emergency department for evaluation of persistent hyperglycemia despite current regimen with Januvia and insulin glargine for the past 3 days. She is still awaiting her outpatient appointment with primary care provider which is scheduled 04/23/2023. Will obtain CBC to evaluate for leukocytosis/ anemia, CMP and lipase to evaluate for abnormal electrolytes /abnormal renal function/ abnormal hepatic/biliary function, VBG, and Urinalysis. Differential Diagnosis Differential Diagnoses: The differential diagnosis associated with the presentation includes (Poorly-controlled DM 2, DKA, medication noncompliance, symptomatic hyperglycemia) Admission/Observation Consideration of admission/observation: Escalation of care including admission/observation considered (See course narrative for further detail) Lab Data [facility] Lab Attestation statement: I reviewed the patient's lab results. (As per course narrative) 04/15/23 14:23 04/15/23 14:23 Labs: Lab Results 04/15/23 04/15/23 04/15/23 Range/Units 14:23 14:27 14:34 WBC 11.7 H (4.8-10.8) X10*3/uL RBC 4.99 (4.20-5.50) X10*6/uL Hgb 14.7 (12.0-16.0) g/dl Hct 42.8 (37.0-47.0) % MCV 85.8 (80.0-98.0) fL MCH 29.5 (27.0-33.0) pg MCHC 34.3 (31.0-35.0) g/dl RDW 13.1 (11.0-16.0) % Plt Count 173 (160-400) X10*3/uL MPV 11.9 (9.4-12.3) fL Immature Gran % (Auto) 0.3 (0.0-0.4) % Neut % (Auto) 70.7 (45-73) % Lymph % (Auto) 21.6 (20-40) % Blaine % (Auto) 5.3 (2-11) % Eos % (Auto) 1.7 (0-4) % Baso % (Auto) 0.4 (0-2) % Lymph # (Auto) 2.5 (1.2-4.9) X10*3/uL Blaine # (Auto) 0.6 (0.1-1.2) X10*3/uL Eos # (Auto) 0.2 (0.0-0.4) X10*3/uL Baso # (Auto) 0.1 (0.0-0.2) X10*3/uL Abs Immat Gran (auto) 0.04 H (0.00-0.03) X10*3/uL Absolute Neuts (auto) 8.2 (2.0-8.3) x10*3/uL Absolute Nucleated RBC 0.000 (0.0-0.012) X10*3/uL Nucleated RBC % (auto) 0.0 (0.0-0.2) /100WBC VBG pH 7.41 (7.32-7.43) VBG pCO2 35 mmHg VBG pO2 70 mmHg VBG HCO3 23 (22-26) mmol/L VBG O2 Saturation 93.0 % VBG Base Excess -0.7 mmol/L Sodium 137 (135-145) mmol/L Potassium 4.3 (3.3-5.1) mmol/L Chloride 105 (96-108) mmol/L Carbon Dioxide 22 (22-29) mmol/L Anion Gap 14 (12-20) BUN 13 (9-16) mg/dL Creatinine 0.89 (0.5-1.4) mg/dL Estim Creat Clear Calc 86.8 Estimated GFR > 60 POC Glucose (60-115) mg/dL Random Glucose 440 H* (60-115) mg/dL Calcium 9.5 (8.4-10.2) mg/dL Total Bilirubin 0.5 (0.0-1.0) mg/dL AST 68 H (5-31) U/L ALT 71 H (0-31) U/L Alkaline Phosphatase 139 H (39-117) U/L Total Protein 7.8 (6.5-8.0) g/dL Albumin 4.3 (3.5-5.0) g/dL Beta-Hydroxybutyrate 0.65 H (0.02-0.27) mmol/L Urine Color Yellow Urine Appearance Clear Urine pH 5.5 (5.0-9.0) Ur Specific Walker >= 1.030 H (1.005-1.025) Urine Protein Negative (Neg-Trace) mg/dL Urine Glucose (UA) >=1000 H (Negative) mg/dL Urine Ketones Trace (Negative) mg/dL Urine Blood Trace H (Negative) Urine Nitrite Negative (Negative) Ur Leukocyte Esterase Negative (Negative) Urine RBC 3-5 H (0-2) /HPF Urine WBC 11-20 H (0-5) /HPF Ur Squamous Epith Cells 3-5 (0-2) /HPF Urine Bacteria Trace (None Seen) Hyaline Casts 0-2 (0-2) /LPF COVID-19 ([facility]) (Negative) COVID-19 Clin Com 04/15/23 04/15/23 04/15/23 Range/Units 17:46 19:17 19:35 WBC (4.8-10.8) X10*3/uL RBC (4.20-5.50) X10*6/uL Hgb (12.0-16.0) g/dl Hct (37.0-47.0) % MCV (80.0-98.0) fL MCH (27.0-33.0) pg MCHC (31.0-35.0) g/dl RDW (11.0-16.0) % Plt Count (160-400) X10*3/uL MPV (9.4-12.3) fL Immature Gran % (Auto) (0.0-0.4) % Neut % (Auto) (45-73) % Lymph % (Auto) (20-40) % Blaine % (Auto) (2-11) % Eos % (Auto) (0-4) % Baso % (Auto) (0-2) % Lymph # (Auto) (1.2-4.9) X10*3/uL Blaine # (Auto) (0.1-1.2) X10*3/uL Eos # (Auto) (0.0-0.4) X10*3/uL Baso # (Auto) (0.0-0.2) X10*3/uL Abs Immat Gran (auto) (0.00-0.03) X10*3/uL Absolute Neuts (auto) (2.0-8.3) x10*3/uL Absolute Nucleated RBC (0.0-0.012) X10*3/uL Nucleated RBC % (auto) (0.0-0.2) /100WBC VBG pH (7.32-7.43) VBG pCO2 mmHg VBG pO2 mmHg VBG HCO3 (22-26) mmol/L VBG O2 Saturation % VBG Base Excess mmol/L Sodium (135-145) mmol/L Potassium (3.3-5.1) mmol/L Chloride (96-108) mmol/L Carbon Dioxide (22-29) mmol/L Anion Gap (12-20) BUN (9-16) mg/dL Creatinine (0.5-1.4) mg/dL Estim Creat Clear Calc Estimated GFR POC Glucose 383 H* 267 H (60-115) mg/dL Random Glucose (60-115) mg/dL Calcium (8.4-10.2) mg/dL Total Bilirubin (0.0-1.0) mg/dL AST (5-31) U/L ALT (0-31) U/L Alkaline Phosphatase (39-117) U/L Total Protein (6.5-8.0) g/dL Albumin (3.5-5.0) g/dL Beta-Hydroxybutyrate (0.02-0.27) mmol/L Urine Color Urine Appearance Urine pH (5.0-9.0) Ur Specific Walker (1.005-1.025) Urine Protein (Neg-Trace) mg/dL Urine Glucose (UA) (Negative) mg/dL Urine Ketones (Negative) mg/dL Urine Blood (Negative) Urine Nitrite (Negative) Ur Leukocyte Esterase (Negative) Urine RBC (0-2) /HPF Urine WBC (0-5) /HPF Ur Squamous Epith Cells (0-2) /HPF Urine Bacteria (None Seen) Hyaline Casts (0-2) /LPF COVID-19 ([facility]) Negative (Negative) COVID-19 Clin Com See Note External Record Review External record reviewed: Outpatient record and Prior outpatient labs Prescription Management I considered prescription management with: Other (Lantus) Chronic Conditions Patient?s care impacted by: Diabetes Critical Care Time Critical Care Time Critical Care Time: Yes Total Critical Care Time: 35 Attestation: I personally attest to this critical care time spent taking care of the patient exclusive of all other billable procedures was approximately 35 minutes including initial evaluation of patient, ordering tests, x-ray interpretation, EKG interpretation, medical consultation, documentation, re-evaluation. Discharge Plan Discharge Clinical Impression: Uncontrolled diabetes mellitus Patient Disposition: Home, Self-Care Additional Instructions: As discussed, please increase the dosage of your long-acting insulin; insulin glargine/Lantus. He will begin taking 12 units once daily at bedtime. Please continue to monitor your glucose levels when you wake up in the morning and before each meal. Keep a record to discuss with your doctor when you follow-up with them as scheduled on April 23. You may return back to emergency department any new or worsening symptoms or concerns. Prescriptions: No Action (DME) Blood Pressure Cuff Misc See Rx Instructions .Route Qty: 1 0RF Rx Instructions: As directed (DME) pen needle, diabetic [Comfort EZ Pen Newman] 31 gauge x 5/16 needle See Rx Instructions .Route Qty: 100 3RF Rx Instructions: Use 1 pen needle once a day (DME) lancing device Misc See Rx Instructions .Route Qty: 1 0RF Rx Instructions: freestyle lite furosemide 80 mg tablet 80 mg PO DAILY Qty: 30 5RF Hold Instructions: Resume on 12/14/21. Unless Dr. Espinal tells you to take it Advair HFA 230-21 mcg/actuation HFA aerosol inhaler 2 puff inhalation BID 30 Days Qty: 1 6RF (DME) FreeStyle Lite Strips Strip See Rx Instructions .Route Qty: 100 12RF Rx Instructions: As directed 2 times daily alcohol swabs [Alcohol Prep Pads] Pads, Medicated 1 pad topical BID Qty: 100 3RF levothyroxine 200 mcg tablet 200 mcg PO DAILY 90 Days Qty: 90 1RF rosuvastatin 10 mg tablet 10 mg PO BEDTIME 90 Days Qty: 90 2RF amlodipine 10 mg tablet 10 mg PO DAILY 90 Days Qty: 90 1RF Hold Instructions: Resume on 12/14/21. Hold if systolic blood pressure below 120 Rx Instructions: check blood pressure nightly and text with Dr Espinal losartan 100 mg tablet 100 mg PO DAILY 90 Days Qty: 90 3RF Hold Instructions: Resume on 12/14/21. Hold if systolic blood pressure below 120 omeprazole 20 mg capsule,delayed release(DR/EC) 20 mg PO DAILY 90 Days Qty: 90 1RF (DME) lancets [FreeStyle Lancets] 28 gauge misc See Rx Instructions .Route Qty: 100 12RF Rx Instructions: As directed 2 times daily (DME) Ultra-Light Rollator Misc See Rx Instructions .Route Qty: 1 0RF Rx Instructions: with seat aripiprazole [Abilify] 5 mg tablet 5 mg PO DAILY 90 Days Qty: 90 0RF loratadine [Allerclear] 10 mg tablet 10 mg PO DAILY PRN (Reason: itching) Qty: 7 0RF ondansetron 4 mg tablet,disintegrating 4 mg PO Q6-8H PRN (Reason: nausea and vomiting) Qty: 10 0RF loperamide [Imodium A-D] 2 mg tablet 2 mg PO Q6H PRN (Reason: loose stool) Qty: 14 0RF Januvia 100 mg tablet 100 mg PO DAILY Qty: 30 1RF cefuroxime axetil 250 mg tablet 250 mg PO BID 7 Days Qty: 14 0RF insulin glargine [Lantus Solostar U-100 Insulin] 100 unit/mL (3 mL) insulin pen 10 unit subcut QPM Qty: 15 0RF (DME) blood-glucose meter [FreeStyle Lite Meter] Kit See Rx Instructions .Route Qty: 1 0RF Rx Instructions: As directed 2 times daily levothyroxine 50 mcg tablet 50 mcg PO DAILY 90 Days Qty: 90 1RF cholecalciferol (vitamin D3) 50 mcg (2,000 unit) capsule 50 mcg PO DAILY 90 Days Qty: 90 3RF Januvia 25 mg tablet 25 mg PO DAILY 90 Days Qty: 90 1RF lidocaine 5 % adhesive patch,medicated 1 patch topical DAILY PRN (Reason: Back Pain) 30 Days Qty: 30 0RF albuterol sulfate 1.25 mg/3 mL solution for nebulization 1.25 mg inhalation QID PRN (Reason: shortness of breath or wheezing) Qty: 75 0RF prednisone 20 mg tablet 40 mg PO DAILY 5 Days Qty: 10 0RF albuterol sulfate 90 mcg/actuation HFA aerosol inhaler 2 puff inhalation Q4-6H PRN clonazepam 1 mg tablet 1 mg PO BID PRN (Reason: Anxiety) bupropion HCl 150 mg tablet extended release 24 hr 300 mg PO DAILY prazosin 2 mg capsule 2 mg PO BEDTIME Hold Instructions: Resume on 12/17/21. Referrals: Claire Mcnair MD [Primary Care Provider] -
[2023-04-15 14:34] LABS: MANUAL DIFF FLAG NO
[2023-04-15 14:36] LABS: Basophils Absolute Auto 0.1 X10*3/uL (0.0-0.2); Basophils Percent Auto 0.4 % (0-2); Eosinophils Absolute Auto 0.2 X10*3/uL (0.0-0.4); Eosinophils Percent Auto 1.7 % (0-4); Hematocrit 42.8 % (37.0-47.0); Hemoglobin 14.7 g/dl (12.0-16.0); Imm Gran Abs Auto 0.04 X10*3/uL (0.00-0.03); Imm Gran Pct Auto 0.3 % (0.0-0.4); Lymphocytes Absolute Auto 2.5 X10*3/uL (1.2-4.9); Lymphocytes Percent Auto 21.6 % (20-40); Mean Corpuscular HGB Conc 34.3 g/dl (31.0-35.0); Mean Corpuscular Hemoglobin 29.5 pg (27.0-33.0); Mean Corpuscular Volume 85.8 fL (80.0-98.0); Mean Platelet Volume 11.9 fL (9.4-12.3); Monocytes Absolute Auto 0.6 X10*3/uL (0.1-1.2); Monocytes Percent Auto 5.3 % (2-11); Neutrophils Absolute Auto 8.2 x10*3/uL (2.0-8.3); Neutrophils Percent Auto 70.7 % (45-73); Platelet Count 173 X10*3/uL (160-400); Red Blood Count 4.99 X10*6/uL (4.20-5.50); Red Cell Distribution Width 13.1 % (11.0-16.0); White Blood Count 11.7 X10*3/uL (4.8-10.8)
[2023-04-15 14:39] LABS: VBG Base Excess -0.7 mmol/L; VBG HCO3 23 mmol/L (22-26); VBG pCO2 35 mmHg; VBG pH 7.41 (7.32-7.43); VBG pO2 70 mmHg
[2023-04-15 14:39] LABS: Venous Blood Gas Refer to POC result
[2023-04-15 14:40] LABS: Appearance Urine Clear; Color Urine Yellow; Glucose Urine UA >=1000 mg/dL (Negative); Leukocyte Esterase Urine Negative (Negative); Nitrite Urine Negative (Negative); PH 5.5 (5.0-9.0); Specific Gravity - Urine >= 1.030 (1.005-1.025); UMIC TRIGGER UACC YES; Urine Blood Trace (Negative); Urine Ketones Trace mg/dL (Negative); Urine Protein Negative (Neg-Trace)
[2023-04-15 14:50] LABS: Beta-Hydroxybutyrate 0.65 mmol/L (0.02-0.27)
[2023-04-15 14:53] LABS: Alanine Aminotransferase 71 U/L (0-31); Albumin Level 4.3 g/dL (3.5-5.0); Alkaline Phosphatase 139 U/L (39-117); Anion Gap 14 (12-20); Aspartate Amino Transferase 68 U/L (5-31); Bilirubin Total 0.5 mg/dL (0.0-1.0); Blood Urea Nitrogen 13 mg/dL (9-16); Calcium 9.5 mg/dL (8.4-10.2); Carbon Dioxide 22 mmol/L (22-29); Chloride 105 mmol/L (96-108); Creatinine Clr Calc Pharmacy 86.8; Estimated Glomerular Filt Rate > 60; Glucose Random 440 mg/dL (60-115); Potassium 4.3 mmol/L (3.3-5.1); Sodium 137 mmol/L (135-145); Total Protein 7.8 g/dL (6.5-8.0)
[2023-04-15 14:54] LABS: Bacteria Urine Trace (None Seen); Hyaline Casts Urine 0-2 /LPF (0-2); UACC Culture Trigger YES
[2023-04-15] MEDS: 0.9 % Sodium Chloride 1,000 ML 999 ML IV (17:46)
[2023-04-15 17:50] LABS: Glucose, Whole Blood 383 mg/dL (60-115)
--- NOTE | 2023-04-15 17:50 | PC.NURSE ---
pt a&o x4, pleasant, calm, and cooperative. 20G IV placed to the LAC. fluids hanging per mar. poc taken and documented by gume [place]. pt stating I need something to drink . will ask provider. pt currently resting on stretcher in no apparent distress. watching tv. call carter within reach. rr even/unlabored. all pt needs met sonal. plan of care ongoing.
[2023-04-15] MEDS: Insulin Regular, Human 100 UNIT/ML 3 ML VIAL IVPUSH (18:29)
[2023-04-15 18:48] VITALS: BP 111/43; PULSE 62; RESP 16; TEMP 36.6; O2SAT 97
[2023-04-15 19:21] LABS: Glucose, Whole Blood 267 mg/dL (60-115)
--- NOTE | 2023-04-15 19:22 | PC.NURSE ---
care assumed of patient at 1900; blood sugar rechecked. ivf continue running. pt resting comfortable in bed at this time.
[2023-04-15 19:55] LABS: COVID-19 Test Negative (Negative); IDNOW Serial# 08D9AD1C
== END 2023-04-15 20:19 | disposition home or self-care (01) ==
PROVIDERS: Nurse Practitioner Family; Physician Assistant; Emergency Provider Emergency Medicine; PCP Internal Medicine
DX: R51.9 Headache, unspecified (principal); E11.9 Type 2 diabetes mellitus without complications; I49.8 Other specified cardiac arrhythmias; F17.210 Nicotine dependence, cigarettes, uncomplicated; R94.31 Abnormal electrocardiogram [ECG] [EKG]; Z71.6 Tobacco abuse counseling; Z79.899 Other long term (current) drug therapy; Z20.822 Contact with and (suspected) exposure to COVID-19; Z79.4 Long term (current) 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; Z20.828 Contact with and (suspected) exposure to other viral communicable diseases
CPT/HCPCS: 36415; 80053; 81001; 82010; 82803; 82947; 85025; 87086; 87635; 93005; 96374; 99284; 99285

== ENCOUNTER 2023-04-23 13:54 | Outpatient (AMB) | payer OTHER, SELFPAY ==
[2023-04-23 14:03] VITALS: BP 124/72; PULSE 70; O2SAT 98; BMI 38.5
--- NOTE | 2023-04-23 14:03 | A.OFFPC_ITS ---
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 Gas Line Installer Supervisor Language: Australian Allergies zolpidem Adverse Reaction (Intermediate, Verified 04/23/23 14:17) nightmares Medication List - Last Reconciled 04/23/23 by Ashlie Emerson, SOL albuterol sulfate 1.25 mg (3 mL) inhalation QID PRN albuterol sulfate 90 mcg/actuation 2 puffs inhalation Q4-6H PRN alcohol swabs (Alcohol Prep Pads) 1 pad topical BID amlodipine 10 mg PO DAILY 90 days aripiprazole (Abilify) 5 mg PO DAILY 90 days blood-glucose meter (FreeStyle Lite Meter kit) As directed 2 times daily bupropion HCl 300 mg PO DAILY cholecalciferol (vitamin D3) 50 mcg PO DAILY 90 days clonazepam 1 mg PO BID PRN fluticasone propion-salmeterol 230-21 mcg/actuation (Advair HFA) 2 puffs inhalation BID 30 days FreeStyle Lite Strips (blood sugar diagnostic) As directed 2 times daily NS furosemide 80 mg PO DAILY insulin glargine (Lantus Solostar U-100 Insulin) 12 units subcut QPM lancets (FreeStyle Lancets) As directed 2 times daily lancing device freestyle lite levothyroxine 50 mcg PO DAILY 90 days levothyroxine 200 mcg PO DAILY 90 days lidocaine 5% 1 patch topical DAILY PRN 30 days loperamide (Imodium A-D) 2 mg PO Q6H PRN loratadine (Allerclear) 10 mg PO DAILY PRN losartan 100 mg PO DAILY 90 days miscellaneous medical supply (Blood Pressure Cuff) As directed omeprazole 20 mg PO DAILY 90 days ondansetron 4 mg PO Q6-8H PRN pen needle, diabetic (Comfort EZ Pen [place]) Use 1 pen needle once a day prazosin 2 mg PO BEDTIME rosuvastatin 10 mg PO BEDTIME 90 days sitagliptin phosphate (Januvia) 100 mg PO DAILY walker (Ultra-Light Rollator misc) with seat Tobacco use date assessed: 04/23/23 Dental Screening Dental Screen Date: 04/23/23 Did you have a dental visit in the last 12 months?: Yes Did you have a dental problem in the last 6 months where you did not have access to dental care?: No Was dental information given to patient?: Patient has dentist HPI [facility]-04/01-high blood sugar HPI Details Patient is a 52-year-old female presents today to follow-up after [facility] visit 04/15/2023 due to high blood sugar. Patient of Dr. John. Per ED notes: Patient is a 52-year-old female who presents emergency department for evaluation of hyperglycemia. She states that she has been having ongoing hyperglycemia for many months. She has been seen in this emergency department a couple of times recently with similar complaints. She has an appointment scheduled with her primary care provider for 04/23/2023. She is unknown diabetic, she endorses having intermittent headache and blurred vision recently at home. Her blood sugar levels have been ranging from 200-400 despite the use of Lantus which she was prescribed after her last visit. She continues taking Januvia as well. She has not been taking insulin for the past year after her sleeve gastrectomy. Currently she denies headache, blurry vision, nausea, vomiting, abdominal pain, diarrhea, numbness or tingling to the extremities, dysuria, urinary frequency. Serum labs, no indication of DKA, hyperglycemia is present without anion gap. Patient received 1L NS IVF and Isulin regular 5units IV. Repeat POC 267. Given that she continues to have persistent elevated glucose levels despite being on insulin Glargine 10 units at HS for the past 3 days, will increase to 12 units daily at HS and advised continued monitoring of glucose levels; goal is to avoid hypoglycemia, reviewed worrisome signs and symptoms that would indicate hypoglycemia and that would warrant evaluation. Recommended outpatient follow- up with primary care provider as scheduled. Today, patient reports that she is compliant with Lantus and Januvia. She reports blood sugar this morning 350. Reports blood sugars ranging from 300- 500. Reports intermittent headache, dry throat, blurry vision for the past couple months. Patient reports diabetic eye exam 3 weeks ago which showed cataracts. No shortness of breath or chest pain. Patient also reports right leg pain and would like cream for this, no injury. Patient is a Australian- speaking and Michael was helping with interpretation. [facility] Medical History Mild recurrent major depression Diabetes mellitus, with long-term current 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 LVH (left ventricular hypertrophy) Abnormal finding on EKG GERD (gastroesophageal reflux disease) alf (current) 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 Uncontrolled diabetes mellitus Left foot pain Insomnia Anxiety Depression Sleep apnea with use of continuous positive airway pressure (CPAP) Hypothyroidism Low potassium syndrome Morbid obesity Dizziness Low back pain Right wrist pain Acquired hypothyroidism Essential hypertension Surgical History S/P laparoscopic sleeve gastrectomy H/O: hysterectomy History of colonoscopy H/O endoscopy History of thyroid surgery History of bladder surgery History of total abdominal hysterectomy History of section Family History Father Diabetes Mother Hypertension Maternal Uncle Colon cancer Maternal Aunt Breast cancer Paternal Aunt Breast cancer Family/Other FH: mental illness Substance use disorder Social History Household Members: None Housing: Apartment Are you a primary women's health care nurse practitioner to a significant other at home: No Do you presently have visiting nurse or other home services: No Alcohol intake: never Patient Tobacco Use Status: Current everyday Tobacco user Tobacco use type: Cigarette Cigarettes Per Day: 6 Years Smoked: 10 e-Cigarette/Vaping Use: Never Used Second Hand Smoke Exposure: No service: No Current occupational status: disabled Cognitive needs: No Hearing needs: No Vision needs: No Questionnaire Thrive Questionnaire Date Thrive assessed: 10/10/22 AUDIT C Alcohol Use Questionnaire (AUDIT-C) 1. How often do you have a drink containing alcohol?: Monthly or less 2. How many drinks containing alcohol do you have on a typical day when you are drinking?: 1 or 2 3. How often do you have six or more drinks on one occasion?: Never Total Score: 1 Score Reviewed/Action Taken: No SHAHAB-7 AMB Questionnaire SHAHAB-7 Date SHAHAB - 7 assessed: 03/21/23 Feeling nervous, anxious, or on edge: 2 = More than half the days Not being able to stop or control worryin = Not at all Worrying too much about different things: 0 = Not at all Trouble relaxin = Not at all Being so restless that it is hard to sit still: 0 = Not at all Becoming easily annoyed or irritable: 0 = Not at all Feeling afraid as if something awful might happen: 0 = Not at all Total SHAHAB-7 score (0-4 normal; 5-9 mild; 10-14 moderate; 15-21 severe): 2 Source: Developed by Drs. Jitendra Reyes, Liat Aguirre, Major Norris and colleagues, with an educational katie from [employer]. SHAHAB-7 Assessment Billing SHAHAB-7 Assessment Tool: SHAHAB-7 Assessment 90251 Review of Systems Const Denies body aches, Denies chills, Denies fever(s) and Reports headache(s) Eyes Reports blurry vision and Denies change in vision ENT Denies dizziness, Denies otalgia, Reports headache(s), Denies nasal discharge, Denies sinus pain and Denies sore throat Card Denies chest pain, Denies edema, Denies lightheadedness and Denies dyspnea Resp Denies dyspnea and Denies wheezing GI Denies abdominal pain, Denies constipation, Denies diarrhea, Denies nausea and Denies vomiting Denies dysuria Musc Reports as per HPI and Denies myalgias Skin/Breast Denies rash Neuro Denies dizziness and Reports headache(s) Aller/Immun Denies wheezing Physical exam (Primary Care) Vital Signs: Last Vital Signs Pulse 70 04/23/23 14:03 BP 124/72 04/23/23 14:03 Pulse Ox 98 04/23/23 14:03 Oxygen Delivery Method Room Air 04/23/23 14:03 BMI result Body Mass Index 38.5 Tobacco/Smoking Status: Tobacco use Status Tobacco use date assessed 04/23/23 04/23/23 14:05 Patient Tobacco Use Status Current everyday Tobacco 04/23/23 14:05 Tobacco use type Cigarette 04/23/23 14:05 e-Cigarette/Vaping Use Never Used 04/23/23 14:05 Thrive Assessment: Date of Thrive Assessment Date Thrive assessed 10/10/22 04/23/23 14:05 Const General: cooperative and no acute distress Orientation/consciousness: patient oriented x3 HENMT Head: Yes normocephalic and Yes atraumatic Throat: Yes posterior oropharynx normal Eyes General: appearance normal, both eyes and all related structures Neck Neck: Yes normal visual inspection, Yes full ROM and Yes no lymphadenopathy Resp Effort & Inspection: normal respiratory effort and able to speak in complete sentences Auscultation: clear to auscultation bilaterally, no crackles, no rales, no rhonchi and no wheezes Cardio Rate: regular rate Rhythm: regular rhythm Heart sounds: S1 normal heart sound present and S2 normal heart sound present GI Auscultation: normal bowel sounds Skin General skin exam: no rashes or lesions noted Neuro General: patient oriented x3 Gait exam (Neuro): Normal gait present Extrem General: Yes full ROM and No edema Office Procedures Flu Questionnaire Does the patient have a severe egg allergy?: No Does the patient have severe life threatening allergies?: No Does the patient have a fever or illness today?: No Has the patient ever had Guillain-[place] Syndrome?: No Has the patient ever had any past reaction to a flu shot?: No Results AMB Hemoglobin A1c AMB Hemoglobin A1c 9.9 % Last Edit by MARIA INES Franco on 04/23/23 14:21 Immunizations flu vacc [id number] 6mos up(PF) 60 mcg(15 mcgx4)/0.5 mL IM syringe Performing Provider: SOL Patton Performing Location: [facility] Administered by: MARIA INES Franco on 04/23/23 14:15 Dose Route Admin Location Dispensed Lot Number Expiration Date NDC Transport Pilot 0.5 mL IM Left Deltoid 0.5 mL [id number] 01/18/24 [id number] [employer] VIS Given Date VIS Provided VIS Publication Date 04/23/23 Single Vaccine 21 Eligibility Eligibility Date Funding Source Not [facility] Eligible 04/23/23 Private Assessment and Plan Assessment & Plan (1) Right leg pain: Code(s): M79.604 - Pain in right leg Plan: Start diclofenac cream q.i.d. p.r.n. for right leg distal lateral aspect pain, physical exam normal (2) Diabetes mellitus: Code(s): E11.9 - Type 2 diabetes mellitus without complications Plan: A1c 9.9 today, goal less than 7 Reinforced low-carbohydrate diet Continue Januvia 100 mg daily Continue Lantus 12 units at bedtime Start Ozempic 0.25 mg weekly-possible adverse reactions reviewed with the patient and when to notify provider Continue to monitor blood sugars at home and notify office if sugars continue to be elevated Endocrinology referral for an evaluation and treatment Patient agreed with the plan Keep appointment with PCP as scheduled or follow-up sooner as needed Orders: Orders AMB Hemoglobin A1c Today E11.9 - Type 2 diabetes mellitus without complications Influenza [id number] Immunization Today Z23 - Encounter for immunization Referrals Endocrinology Referral E11.9 - Type 2 diabetes mellitus without complications Medications: New diclofenac sodium 1% (Arthritis Pain (diclofenac)) 2 grams topical QID PRN 100 grams 0RF pain M79.604 - Pain in right leg semaglutide (Ozempic) 0.25 mg (0.368 mL) subcut QWEEK 3 mL 1RF E11.9 - Type 2 diabetes mellitus without complications Coding Level of Care Code Est Pt Level 3 (42882) Diagnoses Right leg pain M79.604 Diabetes mellitus E11.9 Additional Codes SHAHAB-7 Assessment Billing - SHAHAB-7 Assessment Tool: SHAHAB-7 Assessment 00764 ([id number])
== END 2023-04-23 14:40 | disposition home or self-care (01) ==
PROVIDERS: PCP Internal Medicine; Visit Provider Nurse Practitioner Family
DX: M79.604 Pain in right leg (principal); E11.9 Type 2 diabetes mellitus without complications; Z23 Encounter for immunization
CPT/HCPCS: 83036; 90471; 90686; 99213

== ENCOUNTER 2023-04-24 10:44 | Outpatient (REF) | payer OTHER, SELFPAY | END 2023-04-24 10:45 | disposition home or self-care (01) | LOC: HO.RESP 10:44 | PROVIDERS: PCP Internal Medicine; Visit Provider Internal Medicine Pulmonary Disease | DX: R06.00 Dyspnea, unspecified (principal); J45.40 Moderate persistent asthma, uncomplicated | CPT/HCPCS: 93306; 93356 ==

== ENCOUNTER → 2023-04-24 10:46 | Outpatient (BNV) | payer OTHER, SELFPAY | PROVIDERS: PCP Internal Medicine; Visit Provider Internal Medicine | DX: R94.31 Abnormal electrocardiogram [ECG] [EKG] (principal); R06.00 Dyspnea, unspecified | CPT/HCPCS: 93306 ==

== ENCOUNTER 2023-08-01 10:07 | Outpatient (REF) | payer OTHER, SELFPAY ==
[2023-08-01 12:05] LABS: Alanine Aminotransferase 37 U/L (0-31); Albumin Level 4.1 g/dL (3.5-5.0); Alkaline Phosphatase 97 U/L (39-117); Anion Gap 14 (12-20); Aspartate Amino Transferase 25 U/L (5-31); Bilirubin Total 0.5 mg/dL (0.0-1.0); Blood Urea Nitrogen 12 mg/dL (9-16); Calcium 9.2 mg/dL (8.4-10.2); Carbon Dioxide 25 mmol/L (22-29); Chloride 105 mmol/L (96-108); Cholesterol 163 mg/dL (<200); Estimated Glomerular Filt Rate > 60; Glucose Fasting 146 mg/dL (60-99); HDL Cholesterol 49 mg/dL (>40); LDL Cholesterol Calculated 89 mg/dL (<100); Potassium 3.7 mmol/L (3.3-5.1); Sodium 140 mmol/L (135-145); Total Protein 7.5 g/dL (6.5-8.0); Triglycerides 129 mg/dL (<150)
[2023-08-01 12:20] LABS: TSH reflex Free T4 1.38 uIU/mL (0.32-4.0); Vitamin D 25-OH Total 45.7 ng/mL (>30)
[2023-08-01 12:52] LABS: Vitamin B12 280 pg/mL (200-900)
== END 2023-08-01 10:08 | disposition home or self-care (01) ==
LOC: HO.LAB 10:07
PROVIDERS: PCP Internal Medicine; Visit Provider Nurse Practitioner Family
DX: E11.9 Type 2 diabetes mellitus without complications (principal); E03.9 Hypothyroidism, unspecified; E78.5 Hyperlipidemia, unspecified
CPT/HCPCS: 36415; 80053; 80061; 82306; 82607; 82746; 84443

== ENCOUNTER 2023-09-10 10:15 | Outpatient (AMB) | payer OTHER, SELFPAY ==
[2023-09-10 10:21] VITALS: BP 114/67; PULSE 83; O2SAT 96; BMI 37.8
--- NOTE | 2023-09-10 10:21 | A.OFFVIS_ITS ---
Intake Vital Signs 09/10/23 10:21 Height 5 ft 4 in Weight 220 lb 7.396 oz BMI 37.8 BP 114/67 Blood Pressure Location Rt brachial Position Sitting Pulse 83 Pulse Source Doppler Pulse Oximetry (%) 96 Oxygen Delivery Method Room Air Intake Visit Reasons: asthma Assistant Produce Manager Required: Yes Assistant Produce Manager Name: Harriet Maxwell Raymond Allergies zolpidem Adverse Reaction (Intermediate, Verified 09/10/23 10:25) nightmares HPI asthma HPI Details 53-year-old lady, active 10 pack-years s daly, followed for asthma,? severe obstructive sleep apnea, and dyspnea on exertion. Patient has been using Advair with reasonable control of her symptoms. She does complain of bronchitic exacerbation, though no significant wheezing. She completed her immunologic workup that is essentially normal. Her 2D echocardiogram is also normal. 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 Uncontrolled diabetes mellitus Left foot pain Insomnia Anxiety Depression Sleep apnea with use of continuous positive airway pressure (CPAP) Hypothyroidism Low potassium syndrome Morbid obesity Dizziness Low back pain Right wrist pain Acquired hypothyroidism Essential hypertension Surgical History S/P laparoscopic sleeve gastrectomy H/O: hysterectomy History of colonoscopy H/O endoscopy History of thyroid surgery History of bladder surgery History of total abdominal hysterectomy History of section Family History Father Diabetes Mother Hypertension Maternal Uncle Colon cancer Maternal Aunt Breast cancer Paternal Aunt Breast cancer Family/Other FH: mental illness Substance use disorder Social History Household Members: None Housing: Apartment Are you a primary residential caregiver to a significant other at home: No Do you presently have visiting nurse or other home services: No Alcohol intake: never Patient Tobacco Use Status: Current everyday Tobacco user Tobacco use type: Cigarette Cigarettes Per Day: 6 Years Smoked: 10 e-Cigarette/Vaping Use: Never Used Second Hand Smoke Exposure: No service: No Current occupational status: disabled Cognitive needs: No Hearing needs: No Vision needs: No Review of Systems Const Denies daytime sleepiness, Denies excessive sweating, Denies fatigue, Denies fever(s), Denies lethargy, Denies malaise, Denies night sweats, Denies snoring and Denies weight loss Eyes Denies blurry vision and Denies itchy eyes ENT Denies nasal congestion, Denies post nasal drip, Denies sinus pain, Denies sinus pressure and Denies other ( Thrush) Card Denies chest pain, Denies pedal edema, Denies dyspnea, Denies orthopnea and Denies paroxysmal nocturnal dyspnea Resp Reports cough, Denies hemoptysis, Reports excessive phlegm production, Denies dyspnea, Denies snoring and Denies wheezing GI Denies abdominal pain and Denies heartburn Musc Denies myalgias, Denies arthralgias and Denies joint swelling Skin/Breast Denies rash Neuro Denies memory loss and Denies seizure-like activity Psych Denies abnormal sleep pattern, Denies anxiety and Denies memory loss Endo Denies excessive sweating, Denies fatigue and Denies heat intolerance Brendan/Lymph Denies easy bruising Aller/Immun Denies itchy eyes, Denies seasonal rhinorrhea and Denies wheezing Physical Exam Vital Signs: Last Vital Signs Pulse 83 09/10/23 10:21 BP 114/67 09/10/23 10:21 Pulse Ox 96 09/10/23 10:21 Oxygen Delivery Method Room Air 09/10/23 10:21 BMI result Body Mass Index 37.8 Const General: no acute distress and alert Nutritional Appearance: obese Orientation/consciousness: Other orientation findings ( oriented) HEENT Head: Yes atraumatic Eyes General: appearance normal, both eyes and all related structures Sclerae: sclerae normal EOM: EOMs intact bilaterally Neck Neck: Yes supple Lymphatic: no lymphadenopathy noted Resp Effort & Inspection: normal respiratory effort and no use of accessory muscles Auscultation: clear to auscultation bilaterally Cardio Rate: regular rate Rhythm: regular rhythm Heart sounds: no gallops, no murmurs and no rubs Skin General skin exam: other ( warm) Extrem General: No clubbing, No cyanosis and No edema Assessment & Plan Assessment & Plan (1) Cough: Code(s): R05.9 - Cough, unspecified Plan: Bronchitic cough with significant phlegm production. Will treat with a course of Levaquin and obtain chest x-ray. (2) Moderate persistent asthma: Code(s): J45.40 - Moderate persistent asthma, uncomplicated Plan: Baseline controlled on Advair. Continue Advair and albuterol nebs. Will add albuterol MDI. (3) Obstructive sleep apnea: Code(s): G47.33 - Obstructive sleep apnea (adult) (pediatric) Plan: Controlled on CPAP therapy. Continue current CPAP therapy. Orders: Orders XR chest 2V Today R05.9 - Cough, unspecified Medications: New levofloxacin 750 mg PO DAILY 7 tabs 0RF albuterol sulfate 90 mcg/actuation 2 puffs inhalation Q4-6H PRN 1 ea 6RF shortness of breath or wheezing 30 days Coding Level of Care Code Est Pt Level 4 (25477) Diagnoses Cough R05.9 Moderate persistent asthma J45.40 Obstructive sleep apnea G47.33
== END 2023-09-10 10:35 | disposition home or self-care (01) ==
PROVIDERS: PCP Internal Medicine; Visit Provider Internal Medicine Pulmonary Disease
DX: R05.9 Cough, unspecified (principal); J45.40 Moderate persistent asthma, uncomplicated; G47.33 Obstructive sleep apnea (adult) (pediatric)
CPT/HCPCS: 99214

== ENCOUNTER → 2023-09-10 10:15 | Outpatient (BNVA) | payer OTHER, SELFPAY | PROVIDERS: PCP Internal Medicine; Visit Provider Internal Medicine Pulmonary Disease | DX: J45.40 Moderate persistent asthma, uncomplicated (principal); R05.9 Cough, unspecified; G47.33 Obstructive sleep apnea (adult) (pediatric) | CPT/HCPCS: 99212 ==

== ENCOUNTER 2023-09-19 08:27 | Outpatient (REF) | payer OTHER, SELFPAY ==
--- NOTE | ~2023-09-19 | MM_ITS ---
EXAMINATION: MM SCREENING DIGITAL BREAST TOMOSYNTHESIS, BILATERAL CLINICAL INFORMATION: Screening. Asymptomatic. COMPARISON: Mammography: This study is compared with prior exams dating back to 2019. TECHNIQUE: Digital breast tomosynthesis is performed in both the craniocaudal and mediolateral oblique views along with computer-aided detection (CAD). Synthesized 2D images are generated from the tomosynthesis. FINDINGS: There are scattered areas of fibroglandular density (ACR BI-RADS breast composition Category b). In the lower outer quadrant of the retroareolar region of the left breast, there is a focal asymmetry which warrants additional mammographic and targeted sonographic imaging. In the right breast, there are no significant masses, abnormal calcifications, or other abnormalities. MM/MM tomosynthesis screening BI IMPRESSION: Focal asymmetry of the left breast warrants additional mammographic and targeted sonographic imaging. No mammographic signs of malignancy right breast. ASSESSMENT: BI-RADS BI-RADS 0 - Incomplete: Needs additional Imaging. RECOMMENDATION: 1. Additional views of the left breast 2. Targeted ultrasound if warranted after review of the additional views. 3. Radiology department staff will contact the patient for additional imaging. Additional Imaging required This examination should not preclude the clinical evaluation of a suspicious palpable abnormality. This patient's information was entered into a reminder system with a target due date for their next mammogram.
== END 2023-09-19 08:28 | disposition home or self-care (01) ==
LOC: HO.MAMMO 08:27
PROVIDERS: PCP Internal Medicine; Visit Provider Internal Medicine
DX: Z12.31 Encounter for screening mammogram for malignant neoplasm of breast (principal)
CPT/HCPCS: 77063; 77067

== ENCOUNTER → 2023-09-19 09:15 | Outpatient (BNV) | payer OTHER, SELFPAY | PROVIDERS: PCP Internal Medicine; Visit Provider Radiology Diagnostic Radiology | DX: Z12.31 Encounter for screening mammogram for malignant neoplasm of breast (principal) | CPT/HCPCS: 77063; 77067 ==

== ENCOUNTER 2023-11-12 10:31 | Outpatient (REF) | payer OTHER, SELFPAY ==
--- NOTE | ~2023-11-12 | XR_ITS ---
EXAMINATION: XR CHEST CLINICAL INFORMATION: Cough unspecified. COMPARISON: 05/02/2021. TECHNIQUE: 2 views of the chest were obtained. FINDINGS: There is no gross pneumothorax. Heart size is normal. No pleural effusion. No focal consolidation to suggest pneumonia. Mild degenerative changes in the thoracic spine. Surgical clips in the upper abdomen. XR/XR chest 2V IMPRESSION: No evidence of pneumonia.
== END 2023-11-12 10:32 | disposition home or self-care (01) ==
LOC: HO.XRAY 10:31
PROVIDERS: PCP Internal Medicine; Visit Provider Internal Medicine Pulmonary Disease
DX: R05.9 Cough, unspecified (principal)
CPT/HCPCS: 71046

== ENCOUNTER 2023-11-17 10:33 | Outpatient (REF) | payer OTHER, SELFPAY ==
--- NOTE | ~2023-11-17 | MM_ITS ---
EXAMINATION: MM DIAGNOSTIC DIGITAL BREAST TOMOSYNTHESIS, LEFT US BREAST LIMITED, LEFT MAMMOGRAPHY: CLINICAL INFORMATION: The patient presents for further evaluation of a lower outer quadrant focal asymmetry of the left breast as noted on screening mammography from 09/19/2023. COMPARISON: Mammography: This study is compared with prior breast imaging dating back to 2019. TECHNIQUE: Digital breast tomosynthesis is performed in both the craniocaudal and mediolateral oblique views along with computer-aided detection (CAD). Synthesized 2D images are generated from the tomosynthesis. CC and MLO spot compression of the left breast and a full lateral view of the left breast were obtained. FINDINGS: There are scattered areas of fibroglandular density (ACR BI-RADS breast composition Category b). There are no significant masses, abnormal calcifications, or other abnormalities. Additional mammographic imaging of the left breast reveals no persistent underlying abnormality. ULTRASOUND: CLINICAL INFORMATION: The patient presents for further evaluation of a lower outer quadrant focal asymmetry of the left breast as noted on screening mammography from 09/19/2023. COMPARISON: None TECHNIQUE: Targeted sonographic evaluation was performed using a high frequency linear transducer. Selected archived documentation. FINDINGS: LEFT BREAST: Sonography of the lower outer quadrant left breast is normal. MM/MM tomosynthesis added views L IMPRESSION: No mammographic evidence of malignancy. OVERALL ASSESSMENT: Mammography: BI-RADS 1 - Negative Ultrasound: BI-RADS 1 - Negative RECOMMENDATION: 1 year F/U Results were provided to the patient at time of visit by the technologist. This patient's information was entered into a reminder system with a target due date for their next mammogram.
== END 2023-11-17 10:34 | disposition home or self-care (01) ==
LOC: HO.MAMMO 10:33
PROVIDERS: PCP Internal Medicine; Visit Provider Internal Medicine
DX: N64.89 Other specified disorders of breast (principal)
CPT/HCPCS: 76642; 77061; 77065

== ENCOUNTER → 2023-11-17 11:00 | Outpatient (BNV) | payer OTHER, SELFPAY | PROVIDERS: PCP Internal Medicine; Visit Provider Radiology Diagnostic Radiology | DX: R92.8 Other abnormal and inconclusive findings on diagnostic imaging of breast (principal) | CPT/HCPCS: 76642; 77061; 77065 ==

== ENCOUNTER 2023-12-31 11:58 | Outpatient (AMB) | payer OTHER, SELFPAY ==
[2023-12-31 12:01] VITALS: BP 120/80; BMI 38.1
--- NOTE | 2023-12-31 12:01 | A.OFFPC_ITS ---
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 Required: No Accompanied by: Self / Same As Patient Allergies zolpidem Adverse Reaction (Intermediate, Verified 12/31/23 12:39) nightmares Medication List - Last Reconciled 12/31/23 by Claire Everett MD albuterol sulfate 1.25 mg (3 mL) inhalation QID PRN albuterol sulfate 90 mcg/actuation 2 puffs inhalation Q4-6H PRN 30 days alcohol swabs (Alcohol Prep Pads) 1 pad topical BID amlodipine 10 mg PO DAILY 90 days aripiprazole (Abilify) 5 mg PO DAILY 90 days blood-glucose meter (FreeStyle Lite Meter kit) As directed 2 times daily bupropion HCl XL 300 mg PO DAILY cholecalciferol (vitamin D3) 50 mcg PO DAILY 90 days clonazepam 1 mg PO BID PRN diclofenac sodium 1% (Arthritis Pain (diclofenac)) 2 grams topical QID PRN fluticasone propion-salmeterol 230-21 mcg/actuation (Advair HFA) 2 puffs inhalation BID 30 days FreeStyle Lite Strips (blood sugar diagnostic) As directed 2 times daily NS insulin glargine (Lantus Solostar U-100 Insulin) 15 units (0.15 mL) subcut QPM 90 days insulin lispro 5 units (0.05 mL) subcut TID 30 days lancets (FreeStyle Lancets) As directed 2 times daily lancing device freestyle lite levothyroxine 200 mcg PO DAILY 90 days levothyroxine 50 mcg PO DAILY 90 days lidocaine 5% 1 patch topical DAILY PRN 30 days loratadine (Allerclear) 10 mg PO DAILY PRN losartan 100 mg PO DAILY 90 days miscellaneous medical supply (Blood Pressure Cuff) As directed omeprazole 20 mg PO DAILY 90 days ondansetron 4 mg PO Q6-8H PRN pen needle, diabetic (Comfort EZ Pen [place]) Use 1 pen needle once a day pen needle, diabetic (Comfort EZ Pen [place]) Use 1 three times a day prazosin 2 mg PO BEDTIME rosuvastatin 10 mg PO BEDTIME 90 days semaglutide (Ozempic) 0.25 mg (0.368 mL) subcut QWEEK sitagliptin phosphate (Januvia) 100 mg PO DAILY walker (Ultra-Light Rollator misc) with seat Tobacco use date assessed: 12/31/23 Dental Screening Dental Screen Date: 12/31/23 Did you have a dental visit in the last 12 months?: No Did you have a dental problem in the last 6 months where you did not have access to dental care?: No Was dental information given to patient?: Patient has dentist HPI HPI Comments History of Present Illness Details This is a 53-year-old female with diabetes mellitus type 2 with long- term current 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, hypertension, acquired hypothyroidism, hyperlipidemia and mild recurrent major depression that comes today for follow- up on her conditions. A1c within goal. Blood pressure stable. TSH normal. Last LDL was not on goal and I will increase rosuvastatin from 10 mg to 20 mg. Depression stable with medications and this is follow by Psychiatry. No chest pain or shortness on breath. 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 Uncontrolled diabetes mellitus Left foot pain Insomnia Anxiety Depression Sleep apnea with use of continuous positive airway pressure (CPAP) Hypothyroidism Low potassium syndrome Morbid obesity Dizziness Low back pain Right wrist pain Acquired hypothyroidism Essential hypertension Surgical History S/P laparoscopic sleeve gastrectomy H/O: hysterectomy History of colonoscopy H/O endoscopy History of thyroid surgery History of bladder surgery History of total abdominal hysterectomy History of section Family History Father Diabetes Mother Hypertension Maternal Uncle Colon cancer Maternal Aunt Breast cancer Paternal Aunt Breast cancer Family/Other FH: mental illness Substance use disorder Social History Household Members: None Housing: Apartment Are you a primary workforce investment act career manager to a significant other at home: No Do you presently have visiting nurse or other home services: No Alcohol intake: current Alcohol intake frequency: holidays/special occasions only Alcohol type: beer Patient Tobacco Use Status: Current everyday Tobacco user Tobacco use type: Cigarette Cigarettes Per Day: 6 Years Smoked: 10 e-Cigarette/Vaping Use: Never Used Second Hand Smoke Exposure: No service: No Current occupational status: disabled Cognitive needs: No Hearing needs: No Vision needs: No Questionnaire PHQ-9 Over the last 2 weeks, how often have you been bothered by any of the following problems? 1. Little interest or pleasure in doing things: not at all 2. Feeling down, depressed, or hopeless: several days 3. Trouble falling or staying asleep, or sleeping too much: several days 4. Feeling tired or having little energy: several days 5. Poor appetite or overeating: more than half the days 6. Feeling bad about yourself - or that you are a failure or have let yourself or your family down: not at all 7. Trouble concentrating on things, such as reading the newspaper or watching television: several days 8. Moving or speaking so slowly that other people could have noticed. Or the opposite - being so fidgety or restless that you have been moving around a lot more than usual: several days 9. Thoughts that you would be better off or of hurting yourself in some way: not at all Total score: 7 Depression Screening Interpretation: Positive Depression Screening Follow-up: Existing condition, In treatment, Community Mental Health Worker F/U and Follow- up Visit Requested Depression Screening Done: Yes 02271 - PHQ-9 Billing: Yes Source: Developed by Drs. Jitendra Reyes, Liat Aguirre, Major Norris and colleagues, with an educational katie from [employer]. Thrive Questionnaire Date Thrive assessed: 12/31/23 I am a: Patient What is your living situation today?: I have a steady place to live Within the past 12 months, did the food you bought not last and you didn't have the money to get more?: Never true Within the past 12 months, did you worry whether your food would run out before you got money to buy more?: Never true Do you have trouble paying for medicines?: No Do you have trouble getting transportation to medical appointments?: No Do you have trouble paying your heating and electricity bill?: No Do you have trouble taking care of your child, family member or friend?: No Do you have trouble with day-to-day activities such as bathing, preparing meals, shopping, managing finances, etc.?: No Are you currently unemployed and looking for a job?: No Are you interested in more education?: No Please select the resources that you would like help with: None Currently or been in a relationship where the following occur: no concerns reported THRIVE Score: 0 AUDIT C Alcohol Use Questionnaire (AUDIT-C) 1. How often do you have a drink containing alcohol?: Monthly or less 2. How many drinks containing alcohol do you have on a typical day when you are drinking?: 3 or 4 3. How often do you have six or more drinks on one occasion?: Never Total Score: 2 Score Reviewed/Action Taken: No SHAHAB-7 AMB Questionnaire SHAHAB-7 Date SHAHAB - 7 assessed: 12/31/23 Feeling nervous, anxious, or on edge: 3 = Nearly every day Not being able to stop or control worryin = Not at all Worrying too much about different things: 1 = Several days Trouble relaxin = Several days Being so restless that it is hard to sit still: 0 = Not at all Becoming easily annoyed or irritable: 0 = Not at all Feeling afraid as if something awful might happen: 1 = Several days Total SHAHAB-7 score (0-4 normal; 5-9 mild; 10-14 moderate; 15-21 severe): 6 Source: Developed by Drs. Jitendra Reyes, Liat Aguirre, Major Norris and colleagues, with an educational katie from [employer]. SHAHAB-7 Assessment Billing SHAHAB-7 Assessment Tool: SHAHAB-7 Assessment 29302 Review of Systems Const All systems reviewed & are unremarkable except as noted in HPI and below Card Denies chest pain at rest, Denies chest pain with activity, Denies edema, Denies irregular heart rhythm, Denies claudication, Denies dyspnea, Denies dyspnea on exertion, Denies orthopnea, Denies paroxysmal nocturnal dyspnea and Denies slow heart rate Resp Denies cough, Denies dyspnea and Denies dyspnea on exertion GI Denies abdominal pain, Denies change in bowel habits, Denies excessive flatus, Denies nausea and Denies vomiting Denies urinary incontinence, Denies urinary hesitancy and Denies urinary urgency Physical exam (Primary Care) Vital Signs: Last Vital Signs BP 120/80 12/31/23 12:01 BMI result Body Mass Index 38.1 Tobacco/Smoking Status: Tobacco use Status Tobacco use date assessed 12/31/23 12/31/23 12:12 Patient Tobacco Use Status Current everyday Tobacco 12/31/23 12:06 Tobacco use type Cigarette 12/31/23 12:06 e-Cigarette/Vaping Use Never Used 12/31/23 12:06 PHQ-9: PHQ-9 Score PHQ-9: Total score 7 12/31/23 12:12 Depression Screening Interpretation: Positive Depression Screening Follow-up: Existing condition, In treatment, Community Mental Health Worker F/U and Follow- up Visit Requested Thrive Assessment: Date of Thrive Assessment Date Thrive assessed 12/31/23 12/31/23 12:12 Currently or been in a relationship where the following occur: no concerns reported Resp Effort & Inspection: normal respiratory effort Auscultation: clear to auscultation bilaterally Cardio Jugular venous distension: no JVD Rate: regular rate Rhythm: regular rhythm Heart sounds: S1 normal heart sound present and S2 normal heart sound present Extrem General: Yes full ROM Results AMB Hemoglobin A1c AMB Hemoglobin A1c 6.5 % Last Edit by MARIA INES Pacheco on 12/31/23 12:1 3 Results Reviewed Results Reviewed: Laboratory Last Values Hgb A1c (Clinic) 6.5 % (4.0-6.0) H 12/31/23 12:00 Assessment and Plan Assessment & Plan (1) Mild recurrent major depression: Code(s): F33.0 - Major depressive disorder, recurrent, mild Plan: Continue Abilify and bupropion. Follow-up with psychiatry. 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 Increase Ozempic. A1c goal is equal or less than 7%. (3) Hyperlipidemia LDL goal <70: Code(s): E78.5 - Hyperlipidemia, unspecified Plan: Increase rosuvastatin from 10 mg to 20 mg. LDL goal is less than 70. (4) Essential hypertension: Code(s): I10 - Essential (primary) hypertension Plan: Continue amlodipine and losartan. Blood pressure goal is equal or less than 130/80. (5) Acquired hypothyroidism: Code(s): E03.9 - Hypothyroidism, unspecified Plan: Continue levothyroxine. Monitor TSH. Orders: Orders Thyroid Stimulating Hormone 4 Months E03.9 - Hypothyroidism, unspecified AMB Hemoglobin A1c Today E11.9 - Type 2 diabetes mellitus without complications Lipid Panel 4 Months E78.5 - Hyperlipidemia, unspecified Microalbumin, Random (w Creat) 4 Months E11.9 - Type 2 diabetes mellitus without complications Vitamin D 25-OH Total 4 Months E55.9 - Vitamin D deficiency, unspecified Comprehensive Met. Panel 4 Months E11.9 - Type 2 diabetes mellitus without complications Medications: New rosuvastatin 20 mg PO DAILY 90 days 90 tabs 1RF semaglutide (Ozempic) 0.5 mg (0.736 mL) subcut QWEEK 4 weeks 2.944 mL 0RF Refilled diclofenac sodium 1% (Arthritis Pain (diclofenac)) 2 grams topical QID PRN 100 grams 0RF pain M79.604 - Pain in right leg albuterol sulfate 1.25 mg (3 mL) inhalation QID PRN 75 mL 0RF shortness of breath or wheezing J45.40 - Moderate persistent asthma, uncomplicated lidocaine 5% 1 patch topical DAILY 30 days PRN 30 ea 0RF Back Pain Discontinued rosuvastatin Discontinued Reason: Patient Completed Course 10 mg PO BEDTIME 90 days 90 tabs 2RF E78.5 - Hyperlipidemia, unspecified semaglutide (Ozempic) Discontinued Reason: Patient Completed Course 0.25 mg (0.368 mL) subcut QWEEK 3 mL 1RF E11.9 - Type 2 diabetes mellitus without complications Coding Level of Care Code Est Pt Level 4 (52412) Complex EM visit Add On G2211 Diagnoses Mild recurrent major depression F33.0 Type 2 diabetes mellitus without complication, with long-term current 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 E11.9; Z79.4 Diabetes mellitus type: type 2 Diabetes mellitus complication status: without complication Hyperlipidemia LDL goal <70 E78.5 Essential hypertension I10 Acquired hypothyroidism E03.9 Additional Codes SHAHAB-7 Assessment Billing - SHAHAB-7 Assessment Tool: SHAHAB-7 Assessment 29338 ([id number]) Time Spent (min) 23
== END 2023-12-31 12:46 | disposition home or self-care (01) ==
PROVIDERS: PCP Internal Medicine; Visit Provider Internal Medicine
DX: E11.69 Type 2 diabetes mellitus with other specified complication (principal); F33.0 Major depressive disorder, recurrent, mild; Z79.4 Long term (current) 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; E78.5 Hyperlipidemia, unspecified; I10 Essential (primary) hypertension; E03.9 Hypothyroidism, unspecified
CPT/HCPCS: 83036; 99214; G2211

== ENCOUNTER → 2024-01-28 12:41 | Outpatient (BNVA) | payer OTHER, SELFPAY | PROVIDERS: PCP Internal Medicine; Visit Provider Internal Medicine Pulmonary Disease ==

== ENCOUNTER 2024-05-27 10:27 | Outpatient (AMB) | payer OTHER, SELFPAY ==
--- NOTE | 2024-05-27 10:40 | A.OFFPC_ITS ---
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 Required: No Accompanied by: Self / Same As Patient Allergies zolpidem Adverse Reaction (Intermediate, Verified 05/27/24 11:05) nightmares Medication List - Last Reconciled 05/27/24 by Claire Everett MD albuterol sulfate 1.25 mg (3 mL) inhalation QID PRN albuterol sulfate 90 mcg/actuation 2 puffs inhalation Q4-6H PRN 30 days alcohol swabs (Alcohol Prep Pads) 1 pad topical BID amlodipine 10 mg PO DAILY 90 days aripiprazole (Abilify) 5 mg PO DAILY 90 days blood-glucose meter (FreeStyle Lite Meter kit) As directed 2 times daily bupropion HCl XL 300 mg PO DAILY cholecalciferol (vitamin D3) 50 mcg PO DAILY 90 days clonazepam 1 mg PO BID PRN diclofenac sodium 1% (Arthritis Pain (diclofenac)) 2 grams topical QID PRN fluticasone propion-salmeterol 230-21 mcg/actuation (Advair HFA) 2 puffs inhalation BID 30 days FreeStyle Lite Strips (blood sugar diagnostic) As directed 2 times daily NS insulin glargine (Lantus Solostar U-100 Insulin) 15 units (0.15 mL) subcut QPM 90 days insulin lispro 5 units (0.05 mL) subcut TID 30 days lancing device freestyle lite levothyroxine 50 mcg PO DAILY 90 days levothyroxine 200 mcg PO DAILY 90 days lidocaine 5% 1 patch topical DAILY PRN 30 days loratadine (Allerclear) 10 mg PO DAILY PRN losartan 100 mg PO DAILY 90 days miscellaneous medical supply (Blood Pressure Cuff) As directed omeprazole 20 mg PO DAILY 90 days ondansetron 4 mg PO Q6-8H PRN pen needle, diabetic (Comfort EZ Pen [place]) Use 1 pen needle once a day pen needle, diabetic (Comfort EZ Pen [place]) Use 1 three times a day pen needle, diabetic (Comfort EZ Pen [place]) USE DIRECTED ONCE A DAY prazosin 2 mg PO BEDTIME rosuvastatin 20 mg PO DAILY 90 days semaglutide (Ozempic) 0.5 mg (0.736 mL) subcut QWEEK 4 weeks sitagliptin phosphate (Januvia) 100 mg PO DAILY walker (Ultra-Light Rollator misc) with seat Tobacco use date assessed: 12/31/23 Dental Screening Dental Screen Date: 12/31/23 HPI HPI Comments History of Present Illness Details This is a 54-year-old female with diabetes mellitus type 2 on long-term current 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 and mild recurrent major depression that comes for her physical exam. A1c within goal. Depression stable with medications and follow by Psychiatry. Diabetic eye exam done a month ago showed no diabetic retinopathy as per patient. Mammogram done 2023. Colonoscopy done 2019 and was supposed to be repeated last year due to prep. Will be refer through open access. No need for Pap smear due to hysterectomy for benign reasons. She also complains of ear itchiness and Dermotic will be sent. She is obese with a BMI of 37.6. I will increase Ozempic from 0.5 mg to 1 mg. Complains of left elbow pain and I will refer her to occupational therapy and x-ray will be ordered. [facility] Medical History (Updated 05/27/24 @ 11:37 by Claire Everett MD) New onset type 2 diabetes mellitus Diabetic eye exam Diabetes mellitus Mild recurrent major depression Diabetes mellitus, with long-term current 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 LVH (left ventricular hypertrophy) Abnormal finding on EKG GERD (gastroesophageal reflux disease) prison (current) 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 Uncontrolled diabetes mellitus Left foot pain Insomnia Anxiety Depression Sleep apnea with use of continuous positive airway pressure (CPAP) Hypothyroidism Low potassium syndrome Morbid obesity Dizziness Low back pain Right wrist pain Acquired hypothyroidism Essential hypertension Surgical History S/P laparoscopic sleeve gastrectomy H/O: hysterectomy History of colonoscopy H/O endoscopy History of thyroid surgery History of bladder surgery History of total abdominal hysterectomy History of section Family History Father Diabetes Mother Hypertension Maternal Uncle Colon cancer Maternal Aunt Breast cancer Paternal Aunt Breast cancer Family/Other FH: mental illness Substance use disorder Social History (Updated 05/27/24 @ 11:10 by Claire Everett MD) Household Members: None Housing: Apartment Are you a primary career resource technician to a significant other at home: No Do you presently have visiting nurse or other home services: No Alcohol intake: current Alcohol intake frequency: holidays/special occasions only Alcohol type: beer Patient Tobacco Use Status: Current someday Tobacco user Tobacco use type: Cigarette Cigarettes Per Day: 6 Years Smoked: 10 e-Cigarette/Vaping Use: Never Used Second Hand Smoke Exposure: No service: No Current occupational status: disabled Cognitive needs: No Hearing needs: No Vision needs: No Questionnaire PHQ-9 Over the last 2 weeks, how often have you been bothered by any of the following problems? 1. Little interest or pleasure in doing things: several days 2. Feeling down, depressed, or hopeless: not at all 3. Trouble falling or staying asleep, or sleeping too much: several days 4. Feeling tired or having little energy: several days 5. Poor appetite or overeating: not at all 6. Feeling bad about yourself - or that you are a failure or have let yourself or your family down: not at all 7. Trouble concentrating on things, such as reading the newspaper or watching television: not at all 8. Moving or speaking so slowly that other people could have noticed. Or the opposite - being so fidgety or restless that you have been moving around a lot more than usual: not at all 9. Thoughts that you would be better off or of hurting yourself in some way: not at all Total score: 3 Depression Screening Interpretation: Positive Depression Screening Follow-up: Existing condition, In treatment, Community Mental Health Worker F/U and Follow- up Visit Requested Depression Screening Done: Yes 28319 - PHQ-9 Billing: Yes Source: Developed by Drs. Jitendra Reyes, Liat Aguirre, Major Norris and colleagues, with an educational katie from [employer]. Thrive Questionnaire Date Thrive assessed: 12/31/23 I am a: Patient What is your living situation today?: I have a steady place to live Within the past 12 months, did the food you bought not last and you didn't have the money to get more?: I choose not to answer this question Within the past 12 months, did you worry whether your food would run out before you got money to buy more?: I choose not to answer this question Do you have trouble paying for medicines?: No Do you have trouble getting transportation to medical appointments?: No Do you have trouble paying your heating and electricity bill?: No Do you have trouble taking care of your child, family member or friend?: No Do you have trouble with day-to-day activities such as bathing, preparing meals, shopping, managing finances, etc.?: Yes Are you currently unemployed and looking for a job?: No Are you interested in more education?: No Please select the resources that you would like help with: None Currently or been in a relationship where the following occur: No concerns reported THRIVE Score: 0 AUDIT C Alcohol Use Questionnaire (AUDIT-C) 1. How often do you have a drink containing alcohol?: 2-4 times a month 2. How many drinks containing alcohol do you have on a typical day when you are drinking?: 1 or 2 3. How often do you have six or more drinks on one occasion?: Less than monthly Total Score: 3 SHAHAB-7 AMB Questionnaire SHAHAB-7 Date SHAHAB - 7 assessed: 12/31/23 Feeling nervous, anxious, or on edge: 1 = Several days Not being able to stop or control worryin = Not at all Worrying too much about different things: 0 = Not at all Trouble relaxin = Not at all Being so restless that it is hard to sit still: 0 = Not at all Becoming easily annoyed or irritable: 0 = Not at all Feeling afraid as if something awful might happen: 1 = Several days Total SHAHAB-7 score (0-4 normal; 5-9 mild; 10-14 moderate; 15-21 severe): 2 Source: Developed by Drs. Jitendra Reyes, Liat Aguirre, Major Norris and colleagues, with an educational katie from [employer]. SHAHAB-7 Assessment Billing SHAHAB-7 Assessment Tool: SHAHAB-7 Assessment 77920 Review of Systems Const All systems reviewed & are unremarkable except as noted in HPI and below Card Denies chest pain at rest, Denies chest pain with activity, Denies edema, Denies irregular heart rhythm, Denies claudication, Denies dyspnea, Denies dyspnea on exertion, Denies orthopnea, Denies paroxysmal nocturnal dyspnea and Denies slow heart rate Resp Denies cough, Denies dyspnea and Denies dyspnea on exertion GI Denies abdominal pain, Denies change in bowel habits, Denies excessive flatus, Denies nausea and Denies vomiting Denies urinary incontinence, Denies urinary hesitancy and Denies urinary urgency Musc Denies abnormal gait, Denies atrophy, Denies deformity and Denies limited range of motion Skin/Breast Denies bleeding lesions, Denies changing lesions and Denies rash Neuro Denies abnormal gait and Denies lack of coordination Physical exam (Primary Care) Vital Signs: Last Vital Signs BP 128/80 05/27/24 10:41 BMI result Body Mass Index 37.6 BMI Assessment/Plan discussion: High BMI High, discussed plan: lifestyle, weight reduction, dietary, physical activity and alcohol moderation Tobacco/Smoking Status: Tobacco use Status Tobacco use date assessed 12/31/23 05/27/24 10:47 Patient Tobacco Use Status Current someday Tobacco 05/27/24 11:10 Tobacco use type Cigarette 05/27/24 11:10 e-Cigarette/Vaping Use Never Used 05/27/24 11:10 Are you ready to quit: No Tobacco cessation counseling provided: Yes Items discussed: Nicotine replacement and QuitWorks Relapse Prevention: discussed the importance of a supportive environment, discussed negative mood or depression after quitting, weight gain after smoking is common and discussed dietary, exercise and/or lifestyle changes Number of minutes spent counselin CPT code: 66837 - 4-10 Minutes PHQ-9: PHQ-9 Score PHQ-9: Total score 3 05/27/24 11:10 Depression Screening Interpretation: Positive Depression Screening Follow-up: Existing condition, In treatment, Community Mental Health Worker F/U and Follow- up Visit Requested Thrive Assessment: Date of Thrive Assessment Date Thrive assessed 12/31/23 05/27/24 10:47 Currently or been in a relationship where the following occur: No concerns reported [facility] Head: Yes normal to inspection, Yes normocephalic and Yes atraumatic Ears: external ears normal Eyes General: appearance normal, both eyes and all related structures Eyelids: Yes eyelids normal Conjunctivae: conjunctivae normal Neck Neck: Yes normal visual inspection and Yes supple Resp Effort & Inspection: normal respiratory effort Auscultation: clear to auscultation bilaterally Cardio Jugular venous distension: no JVD Rate: regular rate Rhythm: regular rhythm Heart sounds: S1 normal heart sound present and S2 normal heart sound present GI Inspection: Yes normal to inspection Palpation (GI): Soft to palpation and nontender Auscultation: normal bowel sounds Skin General skin exam: no rashes or lesions noted Neuro General: no focal motor deficits Extrem General: Yes full ROM Psych Appearance: grossly normal Office Procedures Flu Questionnaire Does the patient have a severe egg allergy?: No Does the patient have severe life threatening allergies?: No Does the patient have a fever or illness today?: No Has the patient ever had Guillain-[place] Syndrome?: No Has the patient ever had any past reaction to a flu shot?: No Results AMB Hemoglobin A1c AMB Hemoglobin A1c 6.5 % Last Edit by MARIA INES Pacheco on 05/27/24 10:5 5 Immunizations Fluarix Triv 6727-7760 (PF) 45 mcg (15 mcg x 3)/0.5 mL IM syringe Performing Provider: Claire Everett MD [facility] Administered by: MARIA INES Pacheco on 05/27/24 11:17 Dose Route Admin Location Dispensed Lot Number Expiration Date [facility] Manager Mass 0.5 mL IM Left Deltoid 0.5 mL [id number] 01/17/25 [id number] [employer] VIS Given Date VIS Provided VIS Publication Date 05/27/24 Single Vaccine 21 Eligibility Eligibility Date Funding Source Not [facility] Eligible 05/27/24 Private Results Reviewed Results Reviewed: Laboratory Last Values Hgb A1c (Clinic) 6.5 % (4.0-6.0) H 05/27/24 10:39 Coding Level of Care Code Est Pt Level 3 (24157) Est Pt Prev Care 40-64y(20854) Diagnoses Physical exam Z00.00 Left elbow pain M25.522 Mild recurrent major depression F33.0 Type 2 diabetes mellitus without complication, with long-term current 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 E11.9; Z79.4 Diabetes mellitus type: type 2 Diabetes mellitus complication status: without complication Additional Codes PHQ-9 - 75147 - PHQ-9 Billing: Yes ([id number]) SHAHAB-7 Assessment Billing - SHAHAB-7 Assessment Tool: SHAHAB-7 Assessment 27856 ([id number]) Vital Signs *Quality* - CPT code: 27821 - 4-10 Minutes ([id number]) Time Spent (min) 36 Assessment & Plan Assessment & Plan (1) Physical exam: Code(s): Z00.00 - Encounter for general adult medical examination without abnormal findings Category: Medical Plan: Repeat in a year. (2) Left elbow pain: Code(s): M25.522 - Pain in left elbow Category: Medical Plan: X-ray ordered. Start occupational therapy. (3) Mild recurrent major depression: Code(s): F33.0 - Major depressive disorder, recurrent, mild Category: Medical Plan: Continue SSRIs. Follow-up with psychiatry. (4) Diabetes mellitus, with long-term current 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: Code(s): E11.9 - Type 2 diabetes mellitus without complications; Z79.4 - adjunct faculty for medical terminology (current) 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 Category: Medical Qualifiers: Diabetes mellitus type: type 2 Diabetes mellitus complication status: without complication Qualified Code(s): E11.9 - Type 2 diabetes mellitus without complications; Z79.4 - adjunct faculty for medical terminology (current) 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 Plan: Continue insulin. Increase Ozempic. A1c goal is equal or less than 7%. Orders: Orders Influenza 2033-1229 Immunization Today Z23 - Encounter for immunization XR elbow LT 2V Today M25.522 - Pain in left elbow Lipid Panel Today E78.5 - Hyperlipidemia, unspecified Vitamin D 25-OH Total Today E55.9 - Vitamin D deficiency, unspecified Comprehensive [place]. Panel Fast Today E11.9 - Type 2 diabetes mellitus without complications, Z79.4 - adjunct faculty for medical terminology (current) 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 AMB Hemoglobin A1c Today E11.9 - Type 2 diabetes mellitus without complications, Z79.4 - prison (current) 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 OT Evaluation and Treatment Today M25.522 - Pain in left elbow Microalbumin, Random (w Creat) Today R80.9 - Proteinuria, unspecified Complete Blood Count Auto Diff Today D64.9 - Anemia, unspecified Vitamin B12 and Folate Today E53.8 - Deficiency of other specified B group vitamins IRON PROFILE Today D64.9 - Anemia, unspecified Thyroid Stimulating Hormone Today E03.9 - Hypothyroidism, unspecified Referrals Open Access Screening Colonoscopy Referral Z12.12 - Encounter for screening for malignant neoplasm of rectum Medications: New fluocinolone acetonide oil 0.01% (DermOtic Oil) 5 drps otic (ears) BID 7 days 20 mL 0RF semaglutide (Ozempic) 1 mg (0.75 mL) subcut QWEEK 4 weeks 3 mL 0RF E11.9 - Type 2 diabetes mellitus without complications, Z79.4 - prison (current) 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 Discontinued semaglutide (Ozempic) Discontinued Reason: Patient Completed Course 0.5 mg (0.736 mL) subcut QWEEK 4 weeks 2.944 mL 0RF
[2024-05-27 10:41] VITALS: BP 128/80; BMI 37.6
== END 2024-05-27 11:24 | disposition home or self-care (01) ==
LOC: HO.HMCH 10:28
PROVIDERS: PCP Internal Medicine; Visit Provider Internal Medicine
DX: Z00.00 Encounter for general adult medical examination without abnormal findings (principal); F33.0 Major depressive disorder, recurrent, mild; E11.9 Type 2 diabetes mellitus without complications; Z79.4 Long term (current) 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; M25.522 Pain in left elbow; Z23 Encounter for immunization

== ENCOUNTER → 2024-05-27 10:27 | Outpatient (BNVA) | payer OTHER, SELFPAY | PROVIDERS: PCP Internal Medicine; Visit Provider Internal Medicine | DX: Z00.00 Encounter for general adult medical examination without abnormal findings (principal); Z23 Encounter for immunization; M25.522 Pain in left elbow; F33.0 Major depressive disorder, recurrent, mild; E11.9 Type 2 diabetes mellitus without complications; Z79.4 Long term (current) 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 | CPT/HCPCS: 83036; 90471; 90656; 96127; 99212; 99396 ==

== ENCOUNTER 2024-05-31 15:30 | Emergency (ER) | payer OTHER, SELFPAY ==
--- NOTE | ~2024-05-31 | CT_ITS ---
EXAMINATION: CT ABDOMEN AND PELVIS WITH CONTRAST CLINICAL INFORMATION: Upper abdominal pain and vomiting; history of bariatric surgery. COMPARISON: Abdominal ultrasound dated 06/09/2021; CT abdomen and pelvis dated 01/07/2021. TECHNIQUE: Multidetector volumetric images were obtained from the superior aspect of the liver through the pubic symphysis following administration 85 mL of Omnipaque 350 intravenous contrast. Sagittal and coronal reformatted images were obtained on the technologist's workstation. Oral contrast: No This CT examination was performed using dose optimization techniques as appropriate, variously including the following: *Automated exposure control *Adjustment of mA and/or kV according to patient size (this includes techniques or standardized protocols for targeted exams where dose is matched to indication/reason for exam; i.e. extremities or head) *Use of iterative reconstruction technique DLP: 932 mGy-cm FINDINGS: LUNG BASES: The visualized lung bases are unremarkable. LIVER, GALLBLADDER, AND BILIARY TREE: The liver is normal in size, shape, and mildly diminished in attenuation consistent with hepatic steatosis. No focal hepatic lesion or biliary ductal dilatation is present. The gallbladder is unremarkable with no evidence of radiopaque gallstones, gallbladder wall thickening, or obvious pericholecystic inflammatory changes. PANCREAS: Unremarkable. SPLEEN: Unremarkable. ADRENAL GLANDS: Unremarkable. KIDNEYS AND URETERS: The kidneys are normal in size, shape, and attenuation. No hydronephrosis, hydroureter, or calculi seen. No perinephric stranding. BLADDER: Unremarkable. GASTROINTESTINAL TRACT: Gastroesophageal surgical yelena are noted. No obstruction, free intraperitoneal air or abscess is seen. The small and large bowel are unremarkable. The appendix is unremarkable. ABDOMINAL WALL: There is a moderate fat-containing umbilical hernia. LYMPH NODES: Normal. VASCULAR: Unremarkable. PELVIC VISCERA: The uterus is surgically absent. No pelvic mass, free fluid or lymphadenopathy is seen. OSSEOUS STRUCTURES: There is multi-level mild lower thoracic endplate arthropathy. No acute or aggressive osseous finding is noted. CT/CT abdomen pelvis w IV con IMPRESSION: There are postoperative changes of the stomach. No obstruction, free intraperitoneal air or abscess is seen. There is no appendicitis or diverticulitis. No urinary calculus, mass or obstruction is seen. There is a moderate fat-containing umbilical hernia. Osseous structures are unremarkable. Fleischner guidelines were followed. Electronically signed by: Abimael Ramirez MD 05/31/2024 09:51 PM EST RP
[2024-05-31 15:36] VITALS: BP 148/98; PULSE 84; RESP 20; TEMP 37; O2SAT 100; BMI 34.7
--- NOTE | 2024-05-31 15:36 | ED.GENADULT ---
HPI - General Adult General Chief complaint: Nausea/Vomiting/Diarrhea Stated complaint: Vomiting Time Seen by Provider: 05/31/24 18:19 History of Present Illness ED Provider: Randee DOVE narrative: The patient is a 54-year-old woman with a history of bariatric abdominal surgery. A little over 2 years ago she had laparoscopic sleeve gastrectomy and laparoscopic gastropexy. She comes to the emergency room with a 2 day history of generalized abdominal pain, nausea and vomiting. She says she also feels dizzy. No definite fever. She feels like she has a lump in her abdomen near her umbilicus. The patient says that she has been on Ozempic. She said she took a dose 3 days ago on Friday. This was a higher dose than her previous dose. Her symptoms began the following day on Friday. Related Data Home Medications ?Medication ?Instructions ?Recorded ?Confirmed clonazepam 1 mg tablet 1 mg PO BID PRN Anxiety 04/26/20 05/27/24 prazosin 2 mg capsule 2 mg PO BEDTIME 08/14/21 05/27/24 bupropion HCl 150 mg 24 hr tablet, 300 mg PO DAILY 03/21/23 05/27/24 extended release Previous Rx's ?Medication ?Instructions ?Recorded loratadine 10 mg tablet 10 mg PO DAILY PRN itching #7 tabs 02/14/21 (Allerclear) blood-glucose meter (FreeStyle #1 ea 04/06/21 Lite Meter kit) miscellaneous medical supply #1 ea 04/12/21 (Blood Pressure Cuff) pen needle, diabetic 31 gauge x #100 ea 04/16/21/ (Comfort EZ Pen [place]) lancing device #1 ea 07/05/21 fluticasone propionate 230 2 puff inhalation BID 30 days #1 ea 02/21/22 mcg-salmeterol 21 mcg/actuation HFA inhaler (Advair HFA) ondansetron 4 mg disintegrating 4 mg PO Q6-8H PRN nausea and 09/11/22 tablet vomiting #10 tabs walker (Ultra-Light Rollator misc) #1 ea 03/21/23 insulin lispro 100 unit/mL 5 unit (0.05 mL) subcut TID 30 04/24/23 subcutaneous pen days #4.5 mL FreeStyle Lite Strips (blood sugar #100 ea 05/14/23 diagnostic) omeprazole 20 mg capsule,delayed 20 mg PO DAILY 90 days #90 caps 07/16/23 release albuterol sulfate 90 mcg/actuation 2 puff inhalation Q4-6H PRN 09/10/23 aerosol inhaler shortness of breath or wheezing 30 days #1 ea aripiprazole 5 mg tablet (Abilify) 5 mg PO DAILY 90 days #90 tabs 10/29/23 losartan 100 mg tablet 100 mg PO DAILY 90 days #90 tabs 11/12/23 albuterol sulfate 1.25 mg/3 mL 1.25 mg (3 mL) inhalation QID PRN 12/31/23 solution for nebulization shortness of breath or wheezing #75 mL diclofenac sodium 1 % topical gel 2 g topical QID PRN pain #100 grams 12/31/23 (Arthritis Pain (diclofenac)) lidocaine 5 % topical patch 1 patch topical DAILY PRN Back 12/31/23 Pain 30 days #30 ea levothyroxine 200 mcg tablet 200 mcg PO DAILY 90 days #90 tabs 01/27/24 levothyroxine 50 mcg tablet 50 mcg PO DAILY 90 days #90 tabs 02/03/24 pen needle, diabetic 32 gauge x #100 ea 02/09/2416 (Comfort EZ Pen [place]) pen needle, diabetic 33 gauge x #100 ea 02/23/24 (Comfort EZ Pen [place]) insulin glargine 100 unit/mL (3 15 unit (0.15 mL) subcut QPM 90 04/06/24 mL) subcutaneous pen ( #13.5 mL Solostar U-100 Insulin) alcohol swabs (Alcohol Prep Pads) 1 pad topical BID #100 ea 04/14/24 rosuvastatin 20 mg tablet 20 mg PO DAILY 90 days #90 tabs 04/20/24 cholecalciferol (vitamin D3) 50 50 mcg PO DAILY 90 days #90 caps 04/27/24 mcg (2,000 unit) capsule amlodipine 10 mg tablet 10 mg PO DAILY 90 days #90 tabs 05/05/24 sitagliptin phosphate 100 mg 100 mg PO DAILY #30 tabs 05/18/24 tablet (Januvia) fluocinolone acetonide oil 0.01 % 5 drp otic (ears) BID 7 days #20 mL 05/27/24 ear drops (DermOtic Oil) semaglutide 1 mg/dose (4 mg/3 mL) 1 mg (0.75 mL) subcut QWEEK 4 05/27/24 subcutaneous pen injector (Ozempic) weeks #3 mL ondansetron 4 mg disintegrating 4 mg PO Q6H PRN nausea and 05/31/24 tablet vomiting #10 tabs Allergies Allergy/AdvReac Type Severity Reaction Status Date / Time zolpidem AdvReac Intermediate nightmares Verified 05/31/24 15:38 Review of Systems Review of Systems: Yes all other systems are reviewed and are negative [facility] Past Medical History Medical History New onset type 2 diabetes mellitus Diabetic eye exam Diabetes mellitus Mild recurrent major depression Diabetes mellitus, with long-term current 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 LVH (left ventricular hypertrophy) Abnormal finding on EKG GERD (gastroesophageal reflux disease) prison (current) 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 Uncontrolled diabetes mellitus Left foot pain Insomnia Anxiety Depression Sleep apnea with use of continuous positive airway pressure (CPAP) Hypothyroidism Low potassium syndrome Morbid obesity Dizziness Low back pain Right wrist pain Acquired hypothyroidism Essential hypertension Surgical History S/P laparoscopic sleeve gastrectomy H/O: hysterectomy History of colonoscopy H/O endoscopy History of thyroid surgery History of bladder surgery History of total abdominal hysterectomy History of section Family History Family History Father Diabetes Mother Hypertension Maternal Uncle Colon cancer Maternal Aunt Breast cancer Paternal Aunt Breast cancer Family/Other FH: mental illness Substance use disorder Social History Social History (Updated 05/27/24 @ 11:10 by Claire Everett MD) Household Members: None Housing: Apartment Are you a primary manager care management to a significant other at home: No Do you presently have visiting nurse or other home services: No Alcohol intake: current Alcohol intake frequency: holidays/special occasions only Alcohol type: beer Patient Tobacco Use Status: Current someday Tobacco user Tobacco use type: Cigarette Cigarettes Per Day: 6 Years Smoked: 10 Smoked in Last 30 Days: No e-Cigarette/Vaping Use: Never Used Second Hand Smoke Exposure: No Advance Directives: No Advance Directives Information Provided: Yes Do you have a plan to hurt others: No Plan Patient : No service: No Current occupational status: disabled Cognitive needs: No Hearing needs: No Vision needs: No Physical Exam ED Vital Signs: Vital Signs - 24 hr 05/31/24 15:36 05/31/24 19:34 05/31/24 23:03 Temperature 98.6 F 97.8 F 97.8 F Pulse Rate 84 69 69 Respiratory Rate 20 16 16 Blood Pressure 148/98 H 138/72 138/72 Pulse Oximetry 100 97 97 Oxygen Delivery Method Room Air Room Air Room Air BMI result Body Mass Index 34.7 Const Other: The patient is awake, alert, pleasant, cooperative. She does not look overtly toxic. HENMT Other: Face is symmetrical. Mucous membranes moist. Eyes General: appearance normal, both eyes and all related structures Resp Effort & Inspection: normal respiratory effort Auscultation: clear to auscultation bilaterally Cardio Rate: regular rate Rhythm: regular rhythm Heart sounds: S1 normal heart sound present and S2 normal heart sound present GI Other: The patient has some mild diffuse abdominal tenderness. The patient seems to have a slight abdominal wall defect at the umbilicus but I do not appreciate any protuberant hernia. Skin Other: Skin is dry and unremarkable. Neuro Other: The patient is awake, alert, pleasant, cooperative. Cranial nerves are grossly intact. She moves her extremities normally and appropriately. Gait is steady. She seems neurologically intact. Extrem Other: No peripheral edema Course Course Course Narrative: RME performed by Luciana Pandey PA-C. Patient is a 54 year old assigned female at presenting to the emergency department with nausea, vomiting, and dizziness. Patient states over the last 7 days she has had nausea, vomiting, and dizziness. Detailed physical exam and review of systems are deferred to the agricultural engineer. EKG, labs, imaging, and swabs ordered. Patient placed back in the waiting room pending room availability and results. Medications Administered Discontinued Medications Generic Name Dose Route Start Last Admin Trade Name Freq PRN Reason Stop Dose Admin Diphenhydramine HCl 25 mg 05/31/24 18:37 05/31/24 19:16 Diphenhydramine Hcl 50 Mg/Ml Vial IVPUSH 05/31/24 18:38 25 mg ONCE ONE Administration Sodium Chloride 1,000 mls @ 999 mls/hr 05/31/24 18:45 05/31/24 20:46 Ns IV 05/31/24 19:45 Infused .Q1H1M SIMON Infusion Iohexol 85 ml 05/31/24 20:03 05/31/24 20:04 Iohexol 350 Mg/Ml 100 Ml Infus..Btl IV 05/31/24 20:04 85 ml ONCE ONE Administration Metoclopramide HCl 10 mg 05/31/24 18:37 05/31/24 19:17 Metoclopramide Hcl 10 Mg/2 Ml Vial IVPUSH 05/31/24 18:38 10 mg ONCE ONE Administration Medical Decision Making Medical Decision Making [facility] Narrative: The patient is a 54-year-old woman who is 2 years status post gastric sleeve surgery. She presents with 2 days of nausea and vomiting and dizziness and some abdominal discomfort. She also received a dose of Ozempic 3 days ago on Friday, the day before her symptoms began. She says this was a higher dose of Ozempic then she has had in the past. The patient's labs were largely unremarkable. A CT of the abdomen and pelvis shows no acute findings. The patient was treated symptomatically with metoclopramide. She was given a L of IV fluid. She seemed to feel better. The patient has an EKG that shows T-wave inversions in the anterior leads. She has had abnormal EKGs in the past and has been referred to Cardiology. She had an unremarkable echo cardiogram. Today her EKG looks slightly more abnormal than previously. However she has 2 undetectable troponins so I do not think that her EKG today indicates ischemia. She should contact her regular doctor to discuss the Ozempic dosing. Lab Data 05/31/24 15:53 05/31/24 15:53 Labs: Lab Results 05/31/24 05/31/24 Range/Units 15:53 22:11 WBC 8.0 (4.8-10.8) X10*3/uL RBC 5.40 (4.20-5.50) X10*6/uL Hgb 15.2 (12.0-16.0) g/dl Hct 45.1 (37.0-47.0) % MCV 83.5 (80.0-98.0) fL MCH 28.1 (27.0-33.0) pg MCHC 33.7 (31.0-35.0) g/dl RDW 14.4 (11.0-16.0) % Plt Count 196 (160-400) X10*3/uL MPV 10.8 (9.4-12.3) fL Immature Gran % (Auto) 0.3 (0.0-0.4) % Neut % (Auto) 64.7 (45-73) % Lymph % (Auto) 23.8 (20-40) % [place] % (Auto) 9.5 (2-11) % Eos % (Auto) 1.3 (0-4) % Baso % (Auto) 0.4 (0-2) % Lymph # (Auto) 1.9 (1.2-4.9) X10*3/uL [place] # (Auto) 0.8 (0.1-1.2) X10*3/uL Eos # (Auto) 0.1 (0.0-0.4) X10*3/uL Baso # (Auto) 0.0 (0.0-0.2) X10*3/uL Abs Immat Gran (auto) 0.02 (0.00-0.03) X10*3/uL Absolute Neuts (auto) 5.2 (2.0-8.3) x10*3/uL Absolute Nucleated RBC 0.000 (0.0-0.012) X10*3/uL Nucleated RBC % (auto) 0.0 (0.0-0.2) /100WBC Sodium 140 (135-145) mmol/L Potassium 3.8 (3.3-5.1) mmol/L Chloride 108 (96-108) mmol/L Carbon Dioxide 23 (22-29) mmol/L Anion Gap 13 (12-20) BUN 11 (9-16) mg/dL Creatinine 0.81 (0.5-1.4) mg/dL Estim Creat Clear Calc 95.6 Estimated GFR > 60 Random Glucose 125 H (60-115) mg/dL Calcium 9.5 (8.4-10.2) mg/dL Magnesium 1.9 (1.6-2.6) mg/dL Total Bilirubin 0.4 (0.0-1.0) mg/dL AST 71 H (5-31) U/L ALT 96 H (0-31) U/L Alkaline Phosphatase 119 H (39-117) U/L Troponin I High Sens < 2.7 < 2.7 (<3.5-17.0) ng/L Total Protein 7.6 (6.5-8.0) g/dL Albumin 4.0 (3.5-5.0) g/dL Influenza Type A (PCR) NEGATIVE (Negative) Influenza Type B (PCR) NEGATIVE (Negative) RSV RNA Qual (PCR) NEGATIVE (Negative) SARS-CoV-2 RNA (RT-PCR) NEGATIVE (Negative) Discharge Plan Discharge Clinical Impression: Nausea & vomiting, Abnormal EKG, Abdominal discomfort Patient Disposition: Home, Self-Care Additional Instructions: Your testing in the emergency room today has been reassuring. It is possible that the symptoms could be caused by the higher dose of Ozempic you took on Friday. Please contact the doctor who prescribed the Ozempic tomorrow and discuss the symptoms you had over the weekend. I have sent a prescription for a medication called ondansetron to your pharmacy which you may use as needed for any ongoing nausea. Return to the emergency room if you feel significantly worse. Prescriptions: New ondansetron 4 mg tablet,disintegrating 4 mg PO Q6H PRN (Reason: nausea and vomiting) Qty: 10 0RF No Action (DME) Blood Pressure Cuff Misc See Rx Instructions .Route Qty: 1 0RF Rx Instructions: As directed (DME) pen needle, diabetic [Comfort EZ Pen [place]] 31 gauge x 5/16 needle See Rx Instructions .Route Qty: 100 3RF Rx Instructions: Use 1 pen needle once a day (DME) lancing device Misc See Rx Instructions .Route Qty: 1 0RF Rx Instructions: freestyle lite Advair HFA 230-21 mcg/actuation HFA aerosol inhaler 2 puff inhalation BID 30 Days Qty: 1 6RF (DME) Ultra-Light Rollator Misc See Rx Instructions .Route Qty: 1 0RF Rx Instructions: with seat insulin lispro 100 unit/mL insulin pen 5 unit subcut TID 30 Days Qty: 4.5 3RF (DME) FreeStyle Lite Strips Strip See Rx Instructions .Route Qty: 100 12RF Rx Instructions: As directed 2 times daily omeprazole 20 mg capsule,delayed release(DR/EC) 20 mg PO DAILY 90 Days Qty: 90 1RF aripiprazole [Abilify] 5 mg tablet 5 mg PO DAILY 90 Days Qty: 90 4RF losartan 100 mg tablet 100 mg PO DAILY 90 Days Qty: 90 2RF levothyroxine 200 mcg tablet 200 mcg PO DAILY 90 Days Qty: 90 0RF levothyroxine 50 mcg tablet 50 mcg PO DAILY 90 Days Qty: 90 1RF (DME) pen needle, diabetic [Comfort EZ Pen [place]] 32 gauge x 5/16 needle See Rx Instructions .Route Qty: 100 4RF Rx Instructions: Use 1 three times a day (DME) pen needle, diabetic [Comfort EZ Pen [place]] 33 gauge x 5/32 needle See Rx Instructions .ROUTE .COMPLEX Qty: 100 6RF Dose Instruction: USE DIRECTED ONCE A DAY Rx Instructions: USE DIRECTED ONCE A DAY insulin glargine [Lantus Solostar U-100 Insulin] 100 unit/mL (3 mL) insulin pen 15 unit subcut QPM 90 Days Qty: 13.5 0RF alcohol swabs [Alcohol Prep Pads] Pads, Medicated 1 pad topical BID Qty: 100 3RF rosuvastatin 20 mg tablet 20 mg PO DAILY 90 Days Qty: 90 4RF cholecalciferol (vitamin D3) 50 mcg (2,000 unit) capsule 50 mcg PO DAILY 90 Days Qty: 90 0RF amlodipine 10 mg tablet 10 mg PO DAILY 90 Days Qty: 90 0RF Rx Instructions: check blood pressure nightly and text with Dr Teddy Farfan 100 mg tablet 100 mg PO DAILY Qty: 30 0RF loratadine [Allerclear] 10 mg tablet 10 mg PO DAILY PRN (Reason: itching) Qty: 7 0RF ondansetron 4 mg tablet,disintegrating 4 mg PO Q6-8H PRN (Reason: nausea and vomiting) Qty: 10 0RF (DME) blood-glucose meter [FreeStyle Lite Meter] Kit See Rx Instructions .Route Qty: 1 0RF Rx Instructions: As directed 2 times daily albuterol sulfate 1.25 mg/3 mL solution for nebulization 1.25 mg inhalation QID PRN (Reason: shortness of breath or wheezing) Qty: 75 0RF diclofenac sodium [Arthritis Pain (diclofenac)] 1 % gel 2 g topical QID PRN (Reason: pain) Qty: 100 0RF lidocaine 5 % adhesive patch,medicated 1 patch topical DAILY PRN (Reason: Back Pain) 30 Days Qty: 30 0RF clonazepam 1 mg tablet 1 mg PO BID PRN (Reason: Anxiety) bupropion HCl 150 mg tablet extended release 24 hr 300 mg PO DAILY prazosin 2 mg capsule 2 mg PO BEDTIME Ozempic 1 mg/dose (4 mg/3 mL) pen injector 1 mg subcut QWEEK 28 Days Qty: 3 0RF fluocinolone acetonide oil [DermOtic Oil] 0.01 % drops 5 drp otic (ears) BID 7 Days Qty: 20 0RF albuterol sulfate 90 mcg/actuation HFA aerosol inhaler 2 puff inhalation Q4-6H PRN (Reason: shortness of breath or wheezing) 30 Days Qty: 1 6RF Referrals: Claire Mcnair MD [Primary Care Provider] - (Nausea and vomiting) Interventions: ED Discharge Assessment Last Done: 05/31/24 23:03 Discharge Date/Time: 05/31/24 23:04 Print Language: Vietnamese
--- NOTE | 2024-05-31 15:37 | ECG_ITS ---
Test Reason : dizziness Blood Pressure : / mmHG Vent. Rate : 077 BPM Atrial Rate : 077 BPM P-R Int : 160 ms QRS Dur : 084 ms QT Int : 406 ms P-R-T Axes : 057 -06 -12 degrees QTc Int : 459 ms Normal sinus rhythm Moderate voltage criteria for LVH, may be normal variant ( R in aVL , Alexander product ) T wave abnormality, consider anterolateral ischemia Abnormal ECG When compared with ECG of 15-APR-2023 14:15, T wave inversion now evident in Anterior leads Referred By: Luciana Pandey Electronically Signed By:Husam Brown
[2024-05-31 15:56] LABS: MANUAL DIFF FLAG NO
[2024-05-31 15:58] LABS: Basophils Percent Auto 0.4 % (0-2); Eosinophils Absolute Auto 0.1 X10*3/uL (0.0-0.4); Eosinophils Percent Auto 1.3 % (0-4); Hematocrit 45.1 % (37.0-47.0); Hemoglobin 15.2 g/dl (12.0-16.0); Imm Gran Abs Auto 0.02 X10*3/uL (0.00-0.03); Imm Gran Pct Auto 0.3 % (0.0-0.4); Lymphocytes Absolute Auto 1.9 X10*3/uL (1.2-4.9); Lymphocytes Percent Auto 23.8 % (20-40); Mean Corpuscular HGB Conc 33.7 g/dl (31.0-35.0); Mean Corpuscular Hemoglobin 28.1 pg (27.0-33.0); Mean Corpuscular Volume 83.5 fL (80.0-98.0); Mean Platelet Volume 10.8 fL (9.4-12.3); Monocytes Absolute Auto 0.8 X10*3/uL (0.1-1.2); Monocytes Percent Auto 9.5 % (2-11); Neutrophils Absolute Auto 5.2 x10*3/uL (2.0-8.3); Neutrophils Percent Auto 64.7 % (45-73); Platelet Count 196 X10*3/uL (160-400); Red Cell Distribution Width 14.4 % (11.0-16.0)
[2024-05-31 16:32] LABS: Alanine Aminotransferase 96 U/L (0-31); Alkaline Phosphatase 119 U/L (39-117); Anion Gap 13 (12-20); Aspartate Amino Transferase 71 U/L (5-31); Bilirubin Total 0.4 mg/dL (0.0-1.0); Blood Urea Nitrogen 11 mg/dL (9-16); Calcium 9.5 mg/dL (8.4-10.2); Carbon Dioxide 23 mmol/L (22-29); Chloride 108 mmol/L (96-108); Creatinine Clr Calc Pharmacy 95.6; Estimated Glomerular Filt Rate > 60; Glucose Random 125 mg/dL (60-115); Magnesium 1.9 mg/dL (1.6-2.6); Potassium 3.8 mmol/L (3.3-5.1); Sodium 140 mmol/L (135-145); Total Protein 7.6 g/dL (6.5-8.0)
[2024-05-31 16:34] LABS: Influenza A PCR NEGATIVE (Negative); Influenza B PCR NEGATIVE (Negative); Resp Syncy Virus RNA Qual PCR NEGATIVE (Negative); SARS COV2 PCR INHOUSE NEGATIVE (Negative)
[2024-05-31 17:07] LABS: Troponin-I High Sensitivity < 2.7 ng/L (<3.5-17.0)
[2024-05-31] MEDS: diphenhydrAMINE HCL 50 MG/ML VIAL 25 MG IVPUSH (19:16)
[2024-05-31] MEDS: Metoclopramide HCl 10 MG/2 ML VIAL IVPUSH (19:17)
[2024-05-31] MEDS: 0.9 % Sodium Chloride 1,000 ML 999 ML IV (19:18)
[2024-05-31 19:34] VITALS: BP 138/72; PULSE 69; RESP 16; TEMP 36.6; O2SAT 97
[2024-05-31] MEDS: iohexoL 350 MG/ML 100 ML INFUS..BTL 85 ML IV (20:04)
--- NOTE | 2024-05-31 21:16 | PC.NURSE ---
pt medicated per SEP- pt awaiting CT scan results-no complaints of pain at this time
--- NOTE | 2024-05-31 22:24 | PC.NURSE ---
Pt Ct negative- awaiting provider re-eval
[2024-05-31 22:39] LABS: Troponin-I High Sensitivity < 2.7 ng/L (<3.5-17.0)
[2024-05-31 23:03] VITALS: BP 138/72; PULSE 69; RESP 16; TEMP 36.6; O2SAT 97
== END 2024-05-31 23:04 | disposition home or self-care (01) ==
PROVIDERS: Physician Assistant Medical; Emergency Provider Emergency Medicine; PCP Internal Medicine
DX: R11.2 Nausea with vomiting, unspecified (principal); R10.2 Pelvic and perineal pain; R94.31 Abnormal electrocardiogram [ECG] [EKG]; E11.9 Type 2 diabetes mellitus without complications; F17.210 Nicotine dependence, cigarettes, uncomplicated; Z03.818 Encounter for observation for suspected exposure to other biological agents ruled out; Z79.899 Other long term (current) drug therapy; Z79.4 Long term (current) 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; Z98.84 Bariatric surgery status
CPT/HCPCS: 0241U; 36415; 74177; 80053; 83735; 84484; 85025; 93005; 96361; 96374; 96375; 99284; 99285; J1200; J2765; Q9967

== ENCOUNTER → 2024-05-31 15:37 | Outpatient (BNV) | payer OTHER, SELFPAY | PROVIDERS: Emergency Provider Emergency Medicine; PCP Internal Medicine; Visit Provider Internal Medicine Cardiovascular Disease | DX: R94.31 Abnormal electrocardiogram [ECG] [EKG] (principal) | CPT/HCPCS: 93010 ==

== ENCOUNTER 2024-06-08 11:08 | Outpatient (AMB) | payer OTHER, SELFPAY ==
[2024-06-08 11:59] VITALS: BP 140/90; PULSE 64; O2SAT 96; BMI 35.6
--- NOTE | 2024-06-08 11:59 | A.OFFPC_ITS ---
Vital Signs 06/08/24 11:59 06/08/24 11:59 Height 5 ft 4 in 5 ft 6 in Weight 100.017 kg BMI 35.6 BP 140/90 H Blood Pressure Location Lt brachial Lt brachial Position Sitting Sitting Pulse 64 Pulse Source Pulse Oximeter Pulse Oximeter Pulse Oximetry (%) 96 Oxygen Delivery Method Room Air Room Air Int[place] [facility] [place] Allergies zolpidem Adverse Reaction (Intermediate, Verified 06/08/24 12:00) nightmares Tobacco use date assessed: 12/31/23 Dental Screening Dental Screen Date: 12/31/23 [facility] Medical History New onset type 2 diabetes mellitus Diabetic eye exam Diabetes mellitus Mild recurrent major depression Diabetes mellitus, with long-term current 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 LVH (left ventricular hypertrophy) Abnormal finding on EKG GERD (gastroesophageal reflux disease) [facility] (current) 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 Uncontrolled diabetes mellitus Left foot pain Insomnia Anxiety Depression Sleep apnea with use of continuous positive airway pressure (CPAP) Hypothyroidism Low potassium syndrome Morbid obesity Dizziness Low back pain Right wrist pain Acquired hypothyroidism Essential hypertension Surgical History S/P laparoscopic sleeve gastrectomy H/O: hysterectomy History of colonoscopy H/O endoscopy History of thyroid surgery History of bladder surgery History of total abdominal hysterectomy History of section Family History Father Diabetes Mother Hypertension Maternal Uncle Colon cancer Maternal Aunt Breast cancer Paternal Aunt Breast cancer Family/Other FH: mental illness Substance use disorder Social History (Updated 05/27/24 @ 11:10 by Claire Everett MD) Household Members: None Housing: Apartment Are you a primary healthcare account manager to a significant other at home: No Do you presently have visiting nurse or other home services: No Alcohol intake: current Alcohol intake frequency: holidays/special occasions only Alcohol type: beer Patient Tobacco Use Status: Current someday Tobacco user Tobacco use type: Cigarette Cigarettes Per Day: 6 Years Smoked: 10 e-Cigarette/Vaping Use: Never Used Second Hand Smoke Exposure: No service: No Current occupational status: disabled Cognitive needs: No Hearing needs: No Vision needs: No Questionnaire Thrive Questionnaire Date Thrive assessed: 05/27/24 I am a: Patient What is your living situation today?: I have a steady place to live Within the past 12 months, did the food you bought not last and you didn't have the money to get more?: I choose not to answer this question Within the past 12 months, did you worry whether your food would run out before you got money to buy more?: I choose not to answer this question Do you have trouble paying for medicines?: No Do you have trouble getting transportation to medical appointments?: No Do you have trouble paying your heating and electricity bill?: No Do you have trouble taking care of your child, family member or friend?: No Do you have trouble with day-to-day activities such as bathing, preparing meals, shopping, managing finances, etc.?: Yes Are you currently unemployed and looking for a job?: No Are you interested in more education?: No Please select the resources that you would like help with: None Currently or been in a relationship where the following occur: No concerns reported THRIVE Score: 0 SHAHAB-7 AMB Questionnaire SHAHAB-7 Date SHAHAB - 7 assessed: 12/31/23 Source: Developed by Drs. Jitendra Reyes, Liat Aguirre, Major Norris and colleagues, with an educational katie from [employer]. 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
--- NOTE | 2024-06-08 11:59 | A.OFFPC_ITS ---
Vital Signs 06/08/24 11:59 06/08/24 11:59 Height 5 ft 4 in 5 ft 6 in Weight 220 lb 8 oz BMI 35.6 BP 140/90 H Blood Pressure Location Lt brachial Lt brachial Position Sitting Sitting Pulse 64 Pulse Source Pulse Oximeter Pulse Oximeter Pulse Oximetry (%) 96 Oxygen Delivery Method Room Air Room Air Int[place] [facility] [employer] Required: Yes [employer] Language: Kazakh Accompanied by: Family/Other Allergies zolpidem Adverse Reaction (Intermediate, Verified 06/08/24 12:00) nightmares Tobacco use date assessed: 12/31/23 Dental Screening Dental Screen Date: 12/31/23 HPI HPI Comments History of Present Illness Details 54 y/o female patient who presents to [facility] for HD[facility]. She was admitted at [facility] on 05/[place]24 for vomiting. She was discharged home the same day on Zofran. Pt is currently on Ozempic for weight loss. Her PCP recently increased her dose of Ozempic from 0.5 mg to 1 mg weekly. Pt started vomiting after the dose increase. She is S/P sleeve Gastrectomy 2 years ago. Pt has resumed back to 0.5 mg dose and wants to continue on this. Denies any Nausea or vomiting, and has been using Zofran PRN. [facility] Medical History New onset type 2 diabetes mellitus Diabetic eye exam Diabetes mellitus Mild recurrent major depression Diabetes mellitus, with long-term current 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 LVH (left ventricular hypertrophy) Abnormal finding on EKG GERD (gastroesophageal reflux disease) group home (current) 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 Uncontrolled diabetes mellitus Left foot pain Insomnia Anxiety Depression Sleep apnea with use of continuous positive airway pressure (CPAP) Hypothyroidism Low potassium syndrome Morbid obesity Dizziness Low back pain Right wrist pain Acquired hypothyroidism Essential hypertension Surgical History S/P laparoscopic sleeve gastrectomy H/O: hysterectomy History of colonoscopy H/O endoscopy History of thyroid surgery History of bladder surgery History of total abdominal hysterectomy History of section Family History Father Diabetes Mother Hypertension Maternal Uncle Colon cancer Maternal Aunt Breast cancer Paternal Aunt Breast cancer Family/Other FH: mental illness Substance use disorder Social History (Updated 05/27/24 @ 11:10 by Claire Everett MD) Household Members: None Housing: Apartment Are you a primary long term acute care registered nurse to a significant other at home: No Do you presently have visiting nurse or other home services: No Alcohol intake: current Alcohol intake frequency: holidays/special occasions only Alcohol type: beer Patient Tobacco Use Status: Current someday Tobacco user Tobacco use type: Cigarette Cigarettes Per Day: 6 Years Smoked: 10 e-Cigarette/Vaping Use: Never Used Second Hand Smoke Exposure: No service: No Current occupational status: disabled Cognitive needs: No Hearing needs: No Vision needs: No Questionnaire Thrive Questionnaire Date Thrive assessed: 05/27/24 I am a: Patient What is your living situation today?: I have a steady place to live Within the past 12 months, did the food you bought not last and you didn't have the money to get more?: I choose not to answer this question Within the past 12 months, did you worry whether your food would run out before you got money to buy more?: I choose not to answer this question Do you have trouble paying for medicines?: No Do you have trouble getting transportation to medical appointments?: No Do you have trouble paying your heating and electricity bill?: No Do you have trouble taking care of your child, family member or friend?: No Do you have trouble with day-to-day activities such as bathing, preparing meals, shopping, managing finances, etc.?: Yes Are you currently unemployed and looking for a job?: No Are you interested in more education?: No Please select the resources that you would like help with: None Currently or been in a relationship where the following occur: No concerns reported THRIVE Score: 0 SHAHAB-7 AMB Questionnaire SHAHAB-7 Date SHAHAB - 7 assessed: 12/31/23 Source: Developed by Drs. Jitendra Reyes, Liat Aguirre, Major Norris and colleagues, with an educational katie from [employer]. Review of Systems Const All systems reviewed & are unremarkable except as noted in HPI and below Physical exam (Primary Care) Vital Signs: Last Vital Signs Pulse 64 06/08/24 11:59 BP 140/90 H 06/08/24 11:59 Pulse Ox 96 06/08/24 11:59 Oxygen Delivery Method Room Air 06/08/24 11:59 BMI result Body Mass Index 35.6 Tobacco/Smoking Status: Tobacco use Status Tobacco use date assessed 12/31/23 06/08/24 12:01 Patient Tobacco Use Status Current someday Tobacco 06/08/24 12:01 Tobacco use type Cigarette 06/08/24 12:01 e-Cigarette/Vaping Use Never Used 06/08/24 12:01 Thrive Assessment: Date of Thrive Assessment Date Thrive assessed 05/27/24 06/08/24 12:01 Currently or been in a relationship where the following occur: No concerns reported Const General: cooperative and no acute distress Nutritional Appearance: obese Orientation/consciousness: patient oriented x3 Resp Effort & Inspection: normal respiratory effort Auscultation: clear to auscultation bilaterally Cardio Heart sounds: S1 normal heart sound present and S2 normal heart sound present Neuro General: patient oriented x3 Coding Level of Care Code Est Pt Level 4 (41707) Diagnoses Nausea and vomiting in adult R11.2 Time Spent (min) 20 Assessment & Plan Assessment & Plan (1) Nausea and vomiting in adult: Code(s): R11.2 - Nausea with vomiting, unspecified Plan: Stable, continue using Zofran PRN F/U with PCP regarding Ozempic changes. Pt has been injecting herself 0.5 mg weekly with no symptoms.
== END 2024-06-08 13:27 | disposition home or self-care (01) ==
PROVIDERS: PCP Internal Medicine; Visit Provider Nurse Practitioner Family
DX: R11.2 Nausea with vomiting, unspecified (principal)

== ENCOUNTER → 2024-06-08 11:08 | Outpatient (BNVA) | payer OTHER, SELFPAY | PROVIDERS: PCP Internal Medicine; Visit Provider Nurse Practitioner Family | DX: R11.2 Nausea with vomiting, unspecified (principal) | CPT/HCPCS: 99212 ==

== ENCOUNTER 2024-06-10 08:49 | Outpatient (AMB) | payer OTHER, SELFPAY ==
[2024-06-10 09:00] VITALS: BP 136/74; PULSE 63; O2SAT 99; BMI 36.1
--- NOTE | 2024-06-10 09:00 | MHC.OFFVIS ---
Vital Signs 06/10/24 09:00 Height 5 ft 6 in Weight 223 lb 12.307 oz BMI 36.1 BP 136/74 Blood Pressure Location Rt brachial Position Sitting Pulse 63 Pulse Source Doppler Pulse Oximetry (%) 99 Oxygen Delivery Method Room Air Intake Visit Reasons: Asthma Bend Up Required: Yes Bend Up Name: Harriet Martinez.Marilyn Allergies zolpidem Adverse Reaction (Intermediate, Verified 06/08/24 12:00) nightmares HPI HPI Asthma: Details: 54-year-old lady, active 10 pack-years smoker, followed for asthma,? severe obstructive sleep apnea, and dyspnea on exertion. Patient has been using Advair with reasonable control of her symptoms. She denies recent exacerbations. Patient states her sleep apnea symptoms are well controlled on CPAP therapy. She does complain of right posterior chest wall pain, with movement and palpation. [facility] Medical History New onset type 2 diabetes mellitus Diabetic eye exam Diabetes mellitus Mild recurrent major depression Diabetes mellitus, with long-term current 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 LVH (left ventricular hypertrophy) Abnormal finding on EKG GERD (gastroesophageal reflux disease) custodial (current) 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 Uncontrolled diabetes mellitus Left foot pain Insomnia Anxiety Depression Sleep apnea with use of continuous positive airway pressure (CPAP) Hypothyroidism Low potassium syndrome Morbid obesity Dizziness Low back pain Right wrist pain Acquired hypothyroidism Essential hypertension Surgical History S/P laparoscopic sleeve gastrectomy H/O: hysterectomy History of colonoscopy H/O endoscopy History of thyroid surgery History of bladder surgery History of total abdominal hysterectomy History of section Family History Father Diabetes Mother Hypertension Maternal Uncle Colon cancer Maternal Aunt Breast cancer Paternal Aunt Breast cancer Family/Other FH: mental illness Substance use disorder Social History (Updated 05/27/24 @ 11:10 by Claire Everett MD) Household Members: None Housing: Apartment Are you a primary child care nurse to a significant other at home: No Do you presently have visiting nurse or other home services: No Alcohol intake: current Alcohol intake frequency: holidays/special occasions only Alcohol type: beer Patient Tobacco Use Status: Current someday Tobacco user Tobacco use type: Cigarette Cigarettes Per Day: 6 Years Smoked: 10 e-Cigarette/Vaping Use: Never Used Second Hand Smoke Exposure: No service: No Current occupational status: disabled Cognitive needs: No Hearing needs: No Vision needs: No Review of Systems Const Denies daytime sleepiness, Denies excessive sweating, Denies fatigue, Denies fever(s), Denies lethargy, Denies malaise, Denies night sweats, Denies snoring and Denies weight loss Eyes Denies blurry vision and Denies itchy eyes ENT Denies nasal congestion, Denies post nasal drip, Denies sinus pain, Denies sinus pressure and Denies other ( Thrush) Card Denies chest pain, Denies pedal edema, Denies dyspnea, Denies orthopnea and Denies paroxysmal nocturnal dyspnea Resp Denies cough, Denies hemoptysis, Denies excessive phlegm production, Denies dyspnea, Denies snoring and Denies wheezing GI Denies abdominal pain and Denies heartburn Musc Denies myalgias, Denies arthralgias and Denies joint swelling Skin/Breast Denies rash Neuro Denies memory loss and Denies seizure-like activity Psych Denies abnormal sleep pattern, Denies anxiety and Denies memory loss Endo Denies excessive sweating, Denies fatigue and Denies heat intolerance Brendan/Lymph Denies easy bruising Aller/Immun Denies itchy eyes, Denies seasonal rhinorrhea and Denies wheezing Physical Exam Vital Signs: Last Vital Signs Pulse 63 06/10/24 09:00 BP 136/74 06/10/24 09:00 Pulse Ox 99 06/10/24 09:00 Oxygen Delivery Method Room Air 06/10/24 09:00 BMI result Body Mass Index 36.1 Const General: no acute distress and alert Nutritional Appearance: obese Orientation/consciousness: Other orientation findings ( oriented) HEENT Head: Yes atraumatic Eyes General: appearance normal, both eyes and all related structures Sclerae: sclerae normal EOM: EOMs intact bilaterally Neck Neck: Yes supple Lymphatic: no lymphadenopathy noted Resp Effort & Inspection: normal respiratory effort and no use of accessory muscles Auscultation: clear to auscultation bilaterally Cardio Rate: regular rate Rhythm: regular rhythm Heart sounds: no gallops, no murmurs and no rubs Skin General skin exam: other ( warm) Extrem General: No clubbing, No cyanosis and No edema Assessment & Plan Assessment & Plan (1) Moderate persistent asthma: Code(s): J45.40 - Moderate persistent asthma, uncomplicated Category: Medical Plan: Well controlled on Advair and albuterol MDI/nebs. Continue current regimen. (2) Obstructive sleep apnea: Code(s): G47.33 - Obstructive sleep apnea (adult) (pediatric) Category: Medical Plan: Well controlled on CPAP therapy. Continue CPAP therapy. (3) Chest wall pain: Code(s): R07.89 - Other chest pain Category: Medical Plan: Appears to be musculoskeletal. Will obtain chest x-ray. Orders: Orders XR chest 2V Today R07.89 - Other chest pain Medications: Refilled albuterol sulfate 90 mcg/actuation 2 puffs inhalation Q4-6H 30 days PRN 1 ea 6RF shortness of breath or wheezing fluticasone propion-salmeterol 230-21 mcg/actuation (Advair HFA) 2 puffs inhalation BID 30 days 1 ea 6RF Coding Level of Care Code Est Pt Level 4 (97790) Complex EM visit Add On G2211 Diagnoses Moderate persistent asthma J45.40 Obstructive sleep apnea G47.33 Chest wall pain R07.89
== END 2024-06-10 09:13 | disposition home or self-care (01) ==
PROVIDERS: PCP Internal Medicine; Visit Provider Internal Medicine Pulmonary Disease
DX: J45.40 Moderate persistent asthma, uncomplicated (principal); G47.33 Obstructive sleep apnea (adult) (pediatric); R07.89 Other chest pain
CPT/HCPCS: 99214; G2211

== ENCOUNTER 2024-06-10 08:49 | Outpatient (REF) | payer OTHER, SELFPAY ==
--- NOTE | ~2024-06-10 | XR_ITS ---
EXAMINATION: XR ELBOW, LEFT CLINICAL INFORMATION: M25.522 - Pain in left elbow COMPARISON: None available. TECHNIQUE: AP, lateral, and oblique views of the left elbow. FINDINGS: The bones and soft tissues are normal. No fracture or joint effusion. Alignment is anatomic. Joint spaces are maintained. XR/XR elbow LT 2V IMPRESSION: Normal left elbow. Electronically signed by: Juan Braswell MD 06/16/2024 10:42 AM BELINDA VIVEROS
--- NOTE | ~2024-06-10 | XR_ITS ---
EXAMINATION: XR CHEST CLINICAL INFORMATION: Other chest pain R07.89. COMPARISON: XR Chest 11/12/2023 TECHNIQUE: 2 views of the chest were obtained. FINDINGS: No focal consolidation, pulmonary edema, or pleural effusion. Stable cardiomediastinal silhouette. XR/XR chest 2V IMPRESSION: No acute cardiopulmonary findings. Electronically signed by: Vidal Chanel MD 08/03/2024 02:33 PM EST
== END 2024-06-10 08:50 | disposition home or self-care (01) ==
LOC: HO.XRAY 08:49
PROVIDERS: PCP Internal Medicine; Visit Provider Internal Medicine Pulmonary Disease
DX: R07.89 Other chest pain (principal); M25.522 Pain in left elbow; J45.40 Moderate persistent asthma, uncomplicated; G47.33 Obstructive sleep apnea (adult) (pediatric); Z79.899 Other long term (current) drug therapy
CPT/HCPCS: 71046; 73070; 99212

== ENCOUNTER 2024-06-30 09:18 | Outpatient (REF) | payer OTHER, SELFPAY ==
[2024-06-30 09:36] LABS: MANUAL DIFF FLAG NO
[2024-06-30 10:09] LABS: Basophils Absolute Auto 0.1 X10*3/uL (0.0-0.2); Basophils Percent Auto 0.6 % (0-2); Eosinophils Absolute Auto 0.2 X10*3/uL (0.0-0.4); Eosinophils Percent Auto 2.3 % (0-4); Hematocrit 45.3 % (37.0-47.0); Hemoglobin 14.7 g/dl (12.0-16.0); Imm Gran Abs Auto 0.03 X10*3/uL (0.00-0.03); Imm Gran Pct Auto 0.3 % (0.0-0.4); Lymphocytes Absolute Auto 2.9 X10*3/uL (1.2-4.9); Lymphocytes Percent Auto 28.4 % (20-40); Mean Corpuscular HGB Conc 32.5 g/dl (31.0-35.0); Mean Corpuscular Hemoglobin 27.9 pg (27.0-33.0); Mean Corpuscular Volume 86.1 fL (80.0-98.0); Mean Platelet Volume 11.1 fL (9.4-12.3); Monocytes Absolute Auto 0.5 X10*3/uL (0.1-1.2); Neutrophils Absolute Auto 6.4 x10*3/uL (2.0-8.3); Neutrophils Percent Auto 63.4 % (45-73); Platelet Count 196 X10*3/uL (160-400); Red Blood Count 5.26 X10*6/uL (4.20-5.50); Red Cell Distribution Width 15.2 % (11.0-16.0); White Blood Count 10.1 X10*3/uL (4.8-10.8)
[2024-06-30 10:49] LABS: Alanine Aminotransferase 63 U/L (0-31); Albumin Level 4.1 g/dL (3.5-5.0); Alkaline Phosphatase 120 U/L (39-117); Anion Gap 12 (12-20); Aspartate Amino Transferase 51 U/L (5-31); Bilirubin Total 0.5 mg/dL (0.0-1.0); Blood Urea Nitrogen 9 mg/dL (9-16); Calcium 9.7 mg/dL (8.4-10.2); Carbon Dioxide 29 mmol/L (22-29); Chloride 107 mmol/L (96-108); Cholesterol 170 mg/dL (<200); Estimated Glomerular Filt Rate > 60; Glucose Fasting 128 mg/dL (60-99); HDL Cholesterol 50 mg/dL (>40); Iron 75 mcg/dL (30-160); LDL Cholesterol Calculated 96 mg/dL (<100); Percent Iron Saturation 23 % (15-50); Potassium 4.1 mmol/L (3.3-5.1); Sodium 144 mmol/L (135-145); Total Iron Binding Capacity 323 mcg/dL (228-428); Total Protein 7.6 g/dL (6.5-8.0); Triglycerides 123 mg/dL (<150); Unsaturated Iron Binding 248 ug/dL
[2024-06-30 10:54] LABS: Creatinine Urine 167.71 mg/dL; Microalbum/Creatinine Ratio Ur 30.4 ug/mg cr (<30)
[2024-06-30 11:08] LABS: Thyroid Stimulating Hormone 4.58 uIU/mL (0.32-4.0); Vitamin D 25-OH Total 46.1 ng/mL (>30)
[2024-06-30 11:15] LABS: Folate 6.3 ng/mL (> or = 4.0); Vitamin B12 318 pg/mL (200-900)
== END 2024-06-30 09:19 | disposition home or self-care (01) ==
LOC: HO.LAB 09:18
PROVIDERS: PCP Internal Medicine; Visit Provider Internal Medicine
DX: E55.9 Vitamin D deficiency, unspecified (principal); R80.9 Proteinuria, unspecified; D64.9 Anemia, unspecified; E03.9 Hypothyroidism, unspecified; E78.5 Hyperlipidemia, unspecified; E11.9 Type 2 diabetes mellitus without complications; Z79.4 Long term (current) 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; E53.8 Deficiency of other specified B group vitamins
CPT/HCPCS: 36415; 80053; 80061; 82043; 82306; 82570; 82607; 82746; 83540; 84443; 85025

== ENCOUNTER 2024-08-27 09:34 | Outpatient (AMB) | payer OTHER, SELFPAY ==
--- NOTE | 2024-08-27 08:04 | MHC.OFFVIS ---
Vital Signs 08/27/24 09:54 Height 5 ft 6 in Weight 228 lb 2.855 oz BMI 36.8 BP 110/70 Blood Pressure Location Lt brachial Position Sitting Pulse 62 Pulse Source Pulse Oximeter Pulse Oximetry (%) 99 Oxygen Delivery Method Room Air Intake Visit Reasons: T2DM, hypothyroidism Intake Note: New patient present today for Type 2 Diabetes Mellitus and hypothyroidism. Last Diabetic eye exam: 09/2023 Last Podiatry Visit: Doesn't have one Random Glucose: 156 mg/dl HgA1C: 6.6% Remedial Project Manager Required: Yes Remedial Project Manager Language: Meal Room Hand Services: Remedial Project Manager Present Remedial Project Manager Name: Zoe [id number] Information Interpreted: non-clinical & clinical Accompanied by: Self / Same As Patient Allergies zolpidem Adverse Reaction (Intermediate, Verified 08/27/24 10:00) nightmares Medication List - Last Reconciled 08/27/24 by Candace Chaudhary MD albuterol sulfate 1.25 mg (3 mL) inhalation QID PRN albuterol sulfate 90 mcg/actuation 2 puffs inhalation Q4-6H PRN 30 days alcohol swabs (Alcohol Prep Pads) 1 pad topical BID amlodipine 10 mg PO DAILY 90 days aripiprazole (Abilify) 5 mg PO DAILY 90 days blood-glucose meter (FreeStyle Lite Meter kit) As directed 2 times daily bupropion HCl XL 300 mg PO DAILY cholecalciferol (vitamin D3) 50 mcg PO DAILY 90 days clonazepam 1 mg PO BID PRN diclofenac sodium 1% (Arthritis Pain (diclofenac)) 2 grams topical QID PRN fluocinolone acetonide oil 0.01% (DermOtic Oil) 5 drps otic (ears) BID 7 days fluticasone propion-salmeterol 230-21 mcg/actuation (Advair HFA) 2 puffs inhalation BID 30 days FreeStyle Lite Strips (blood sugar diagnostic) As directed 2 times daily NS insulin glargine (Lantus Solostar U-100 Insulin) 15 units (0.15 mL) subcut QPM 90 days insulin lispro 5 units (0.05 mL) subcut TID 30 days lancets (Pure Comfort Safety Lancets) USE DIRECTED TO TEST BLOOD SUGAR 2 TIMES DAILY levothyroxine 200 mcg PO DAILY 90 days levothyroxine (Synthroid) 75 mcg PO DAILY 90 days lidocaine 5% 1 patch topical DAILY PRN 30 days loratadine (Allerclear) 10 mg PO DAILY PRN losartan 100 mg PO DAILY 90 days miscellaneous medical supply (Blood Pressure Cuff) As directed omeprazole 20 mg PO DAILY 90 days ondansetron 4 mg PO Q6H PRN pen needle, diabetic (Comfort EZ Pen [place]) Use 1 pen needle once a day pen needle, diabetic (Comfort EZ Pen [place]) Use 1 three times a day pen needle, diabetic (Comfort EZ Pen [place]) USE DIRECTED ONCE A DAY prazosin 2 mg PO BEDTIME rosuvastatin 20 mg PO DAILY 90 days semaglutide (Ozempic) 0.5 mg (0.736 mL) subcut QWEEK 4 weeks sitagliptin phosphate (Januvia) 100 mg PO DAILY walker (Ultra-Light Rollator [facility] with seat HPI Comments Details: 54 years old female here today for initial evaluation for Type 2 DM and hypothyroidism Type 2 DM Diagnosed 2020 on blood work Prior therapy: Metformin caused GI trouble Never been on SGLT2 Has been on insulin since time of diagnosis Current regimen: Insulin lantus 15 units in morning Insulin lispro 5 units TID before meals Ozempic 0.5 mg weekly injection since 1 year Januvia 100 mg daily history of gastric bypass in 2021 Lost 20 lbs after surgery Denies any symptoms of hyperglycemia including polyphagia, polyuria, polydipsia. Denies any hypoglycemic symptoms. SMBG's Morning and night She brought in glucoemeter but I couldnt review any readings on it nothing came up on it Fasting 160 to 200 Bedtime 120 to 140 a1c 08/27/24 6.6 % Complications . Last Diabetic eye exam: 09/2023, Neuropathy: mild, hasnt tingling Last Podiatry Visit: Doesn't have one Kidney disease: Has microalbuminuria, urine microalbumin/creatinine ratio elevated at 30. From June 2024. Macrovascular complications:ND in 2019 Statin:rosuvasatin 20 mg daily , LDL 96 from June 2024 WINSTON/ARB: on losaratan 100 mg daily, BP normal , Exercise: none Diet control: drink soda , 2 glasses a day 3 meals a day no snacks He has never had any hospitalizations for hyperglycemia/hypoglycemia. Hypothyroidism Takes 200 plus 75 mcg daily of synthroid Not sure when she takes it Very poor historian Denies any symptoms of hypo or hyperthyroidism. Nurse gives the medication, Total thyroidectomy at [facility], she has no idea why the surgery was done, after multiple prompts, she thinks it could have been for hyperthyroidism. I do not have any of these records. Last set of thyroid function testing done from June 2024 showed elevated TSH of 4.58, no free T4 done. Physical exam General: sitting comfortably in no acute distress HEENT: normocephalic/atraumatic, Neck: supple Cardiac: normal heart sounds Pulm: normal breath sounds B/L, no added breath sounds Abd: not distended, no tenderness Extremities: no edema, no signs of myxedema Neuro: AAO x3, Speech: normal, no facial droop, moving all 4 extremities Foot exam deferred today due to extensive time spent in history taking Laboratory Tests 04/06/21 10/09/22 10/09/22 17:07 09:38 10:22 Hgb Hct Plt Count Creatinine Estimated GFR Glucose (Clinic) Fasting Glucose Hgb A1c (Clinic) 8.1 H AST ALT Alkaline Phosphatase Albumin Triglycerides Cholesterol LDL Cholesterol, Calc HDL Cholesterol Vitamin B12 25-OH Vitamin D Total TSH 42.19 H Urine Creatinine 194.85 Urine Microalbumin 32.0 Microalb/Creat Ratio 16.4 04/23/23 08/01/23 12/31/23 14:03 10:23 12:00 Hgb Hct Plt Count Creatinine Estimated GFR Glucose (Clinic) Fasting Glucose Hgb A1c (Clinic) 9.9 H 6.5 H AST ALT Alkaline Phosphatase Albumin Triglycerides Cholesterol LDL Cholesterol, Calc HDL Cholesterol Vitamin B12 25-OH Vitamin D Total TSH 1.38 Urine Creatinine Urine Microalbumin Microalb/Creat Ratio 05/27/24 06/30/24 06/30/24 10:39 09:35 Unknown Hgb 14.7 Hct 45.3 Plt Count 196 Creatinine 0.78 Estimated GFR > 60 Glucose (Clinic) Fasting Glucose 128 H Hgb A1c (Clinic) 6.5 H AST 51 H ALT 63 H Alkaline Phosphatase 120 H Albumin 4.1 Triglycerides 123 Cholesterol 170 LDL Cholesterol, Calc 96 HDL Cholesterol 50 Vitamin B12 318 25-OH Vitamin D Total 46.1 TSH 4.58 H Urine Creatinine 167.71 Urine Microalbumin 51.0 Microalb/Creat Ratio 30.4 H 08/27/24 08/27/24 10:02 10:05 Hgb Hct Plt Count Creatinine Estimated GFR Glucose (Clinic) 156 H Fasting Glucose Hgb A1c (Clinic) 6.6 H AST ALT Alkaline Phosphatase Albumin Triglycerides Cholesterol LDL Cholesterol, Calc HDL Cholesterol Vitamin B12 25-OH Vitamin D Total TSH Urine Creatinine Urine Microalbumin Microalb/Creat Ratio [facility] Medical History (Updated 08/27/24 @ 11:17 by Candace Chaudhary MD) Dyslipidemia New onset type 2 diabetes mellitus Diabetic eye exam Diabetes mellitus Mild recurrent major depression Diabetes mellitus, with long-term current 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 LVH (left ventricular hypertrophy) Abnormal finding on EKG GERD (gastroesophageal reflux disease) assisted (current) 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 Uncontrolled diabetes mellitus Left foot pain Insomnia Anxiety Depression Sleep apnea with use of continuous positive airway pressure (CPAP) Hypothyroidism Low potassium syndrome Morbid obesity Dizziness Low back pain Right wrist pain Acquired hypothyroidism Essential hypertension Surgical History S/P laparoscopic sleeve gastrectomy H/O: hysterectomy History of colonoscopy H/O endoscopy History of thyroid surgery History of bladder surgery History of total abdominal hysterectomy History of section Family History Father Diabetes Mother Hypertension Maternal Uncle Colon cancer Maternal Aunt Breast cancer Paternal Aunt Breast cancer Family/Other FH: mental illness Substance use disorder Social History (Updated 05/27/24 @ 11:10 by Claire Everett MD) Household Members: None Housing: Apartment Are you a primary healthcare architect to a significant other at home: No Do you presently have visiting nurse or other home services: No Alcohol intake: current Alcohol intake frequency: holidays/special occasions only Alcohol type: beer Patient Tobacco Use Status: Current someday Tobacco user Tobacco use type: Cigarette Cigarettes Per Day: 6 Years Smoked: 10 e-Cigarette/Vaping Use: Never Used Second Hand Smoke Exposure: No service: No Current occupational status: disabled Cognitive needs: No Hearing needs: No Vision needs: No Physical Exam Vital Signs: Last Vital Signs Pulse 62 08/27/24 09:54 BP 110/70 08/27/24 09:54 Pulse Ox 99 08/27/24 09:54 Oxygen Delivery Method Room Air 08/27/24 09:54 BMI result Body Mass Index 36.8 Results AMB Hemoglobin A1c AMB Hemoglobin A1c 6.6 % Last Edit by MARIA INES Cho on 08/27/24 10:25 Results Reviewed Results Reviewed: Laboratory Last Values Glucose (Clinic) 156 mg/dL (60-115) H 08/27/24 10:02 Hgb A1c (Clinic) 6.6 % (4.0-6.0) H 08/27/24 10:05 Assessment & Plan Assessment & Plan (1) Diabetes mellitus, with long-term current 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: Code(s): E11.9 - Type 2 diabetes mellitus without complications; Z79.4 - assisted (current) 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 Category: Medical Qualifiers: Diabetes mellitus type: type 2 Diabetes mellitus complication status: without complication Qualified Code(s): E11.9 - Type 2 diabetes mellitus without complications; Z79.4 - assisted (current) 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 Plan: 54-year-old female with a history of type 2 diabetes mellitus diagnosed in 2020, with long-term insulin use with complications of microalbuminuria, CAD, mild neuropathy who is coming in to establish care today. A1c was 6.6%, which is within goal of 7% however patient's most recent blood sugars check on her glucometer show that she has been having fasting readings in the 160s to 200s. These are high and not consistent with her A1c. She denies any recent changes to her medications. I will prescribe her freestyle Anuj 3 sensor for continuous glucose monitoring, we will place referral for asthma educator for CGM training. Once we have more data we can adjust her insulin accordingly. At this time she is on both Januvia and Ozempic, I am going to discontinue the Januvia as the mechanism of action is the same as Ozempic, and these should not be prescribed together. We will also go up on her Ozempic to 1 mg weekly she has been tolerating the 0.5 mg weekly injection very well. In the near future given she has elevated microalbumin, can also consider adding SGLT2 inhibitors. Plan: -stopped Januvia -increase Ozempic to 1 mg weekly injection -consider SGLT2 inhibitors in the near future -continue insulin Lantus 15 units daily -continue insulin lispro 5 units t.i.d. before meals -prescribed freestyle Anuj 3 sensor and gizzard skin remover -stressed importance of blood sugar monitoring and risks of her hyperglycemia -hypoglycemia education done -diabetes education referral placed -nutrition referral placed -due for eye visit, told her to make follow up for ophthalmology -she does not do any exercise, stressed importance of 150 minutes of exercise is weekly which would be 30 minutes 5 days a week (2) Acquired hypothyroidism: Code(s): E03.9 - Hypothyroidism, unspecified Category: Medical Plan: Patient with prior history of total thyroidectomy for unclear reasons, I do not have these records who is on Synthroid 275 mcg daily. Patient is not sure how this is administered as her nurse gives it. Distress to her importance of taking it 1st thing in the morning on an empty stomach and waiting at least an hour before she has breakfast or coffee or tea. I do not her to talk to our nurse about this. No symptoms of hypo or hyperthyroidism. Last set of thyroid labs from June 2024 showed TSH was mildly elevated at 4.98, no free T4 done. We will repeat labs. Plan: -continue Synthroid 275 mcg daily -check TSH and free T4 -obtain records from [facility] regarding thyroid surgery. (3) Dyslipidemia: Code(s): E78.5 - Hyperlipidemia, unspecified Category: Medical Plan: LDL from June 2024 elevated at 96 mg/dL, goal LDL less than 70 mg/dL Plan: -continue rosuvastatin 20 mg daily -advised her regarding dietary indiscretion, we will place referral for senior teller, we will plan to repeat lipid panel in 3-4 months if still elevated, can consider as adding ezetimibe Plan I spent 60 minutes in reviewing the record, seeing the patient and documenting in the medical record. Orders: Orders AMB Hemoglobin A1c Today E11.9 - Type 2 diabetes mellitus without complications, Z13.9 - Encounter for screening, unspecified, Z79.4 - terminal carman (current) 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 Thyroid Stimulating Hormone Today E03.9 - Hypothyroidism, unspecified Free T4 (Free Thyroxine) Today E03.9 - Hypothyroidism, unspecified Referrals Diabetes Education Referral E11.9 - Type 2 diabetes mellitus without complications, Z79.4 - assisted (current) 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 Business Office Representative Nutrition Referral E11.9 - Type 2 diabetes mellitus without complications, Z79.4 - assisted (current) 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 Medications: New blood-glucose sensor (FreeStyle Anuj 3 Plus Sensor device) As directed every 14 days 6 ea 4RF semaglutide (Ozempic) 1 mg (0.75 mL) subcut QWEEK 9 mL 1RF blood-glucose meter,continuous (FreeStyle Anuj 3 Mallie) As directed 1 ea 0RF Discontinued semaglutide (Ozempic) Discontinued Reason: Patient Completed Course 0.5 mg (0.736 mL) subcut QWEEK 4 weeks 3 mL 0RF sitagliptin phosphate (Januvia) Discontinued Reason: Patient Completed Course 100 mg PO DAILY 30 tabs 2RF Patient Instructions: Rule of 15 Treatment for Hypoglycemia (Low blood sugar) If your blood glucose is low (70 and below)*, follow the steps below to treat: Eat or drink something from the list below equal to 15 grams of carbohydrate (carb). Rest for 15 minutes Re-check your blood glucose. If it is still low, (below 70), repeat step 1 above. ? If your next meal is more than an hour away, you will need to eat one carbohydrate choice as a snack to keep your blood glucose from going low again. ?If you can't figure out why you have low blood glucose, call your healthcare provider, as your medicine may need to be adjusted. ?Always carry something with you to treat an insulin reaction. Use food from the list below. ? Foods equal to One Carbohydrate Choice (15 grams of carbohydrate): 3 Glucose ?tablets or 4 Dextrose tablets 4 ounces of fruit juice 5-6 ounces (about 1/2 can) of regular soda such as Coke or Pepsi ? 7-8 gummy or regular Life Savers ? 1 Tbsp. of sugar or jelly NOTE: If your blood sugar is less than 50, double the portion above for a total of 30 gm. ?Carbohydrate. ? Follow meal plan of 45-60 g of consistent carbohydrates at 3 meals each day and 15 g of carbohydrate at 1-2 snacks each day. cooking casing and drying supervisor sensors from [facility] Bring it to our appointment with me or educator so we can put this on see asthma educator Check blood sugars 4 times a day till you pick our sensor Before meals and bedtime Continue lantus 15 units in morning Continue insulin humalog or lispro 5 units before meals , always take 15 mins before eating Stop Januvia Increase Ozempic to 1 mg weekly see senior teller Renetta de 15 Tratamiento para la hipoglucemia (nivel bajo de az?car en conrado) Si hwang nivel de glucosa en conrado es bajo (70 o menos)*, siga los pasos a continuaci?n para tratarlo: Coma o andi algo de la lista a continuaci?n equivalente a 15 gramos de carbohidratos (carbohidratos). Descanse 15 minutos Vuelva a controlar hwang nivel de glucosa en conrado. Si a?n est? bajo (por debajo de 70), repita el paso 1 anterior. ? Si falta m?s de meghana hora para hwang pr?xima comida, necesitar? comer meghana opci?n de carbohidratos nga refrigerio para evitar que hwang nivel de glucosa en conrado vuelva a bajar. ?Si no puede entender por qu? tiene un nivel bajo de glucosa en conrado, llame a hwang proveedor de atenci?n m?dica, ya que es posible que sea necesario ajustar hwang medicamento. ?Lleve siempre consigo algo para tratar meghana reacci?n a la insulina. Utilice alimentos de la lista siguiente. ? Alimentos equivalentes a Meghana Elecci?n de Carbohidratos (15 gramos de carbohidratos): 3 tabletas de glucosa o 4 tabletas de dextrosa 4 onzas de jugo de frutas 5 a 6 onzas (aproximadamente 1/2 niels) de refresco regular nga Coca-Cola o Pepsi ? 7-8 gomitas o salvavidas regulares ? 1 cucharada. de az?car o gelatina NOTA: Si hwang nivel de az?car en conrado es inferior a 50, duplique la porci?n anterior para un total de 30 g. ?Carbohidrato. ? Siga un plan de alimentaci?n de 45 a 60 g de carbohidratos constantes en 3 comidas al d?a y 15 g de carbohidratos en 1 a 2 refrigerios al d?a. Recoger sensores en farmacia. Tr?ty a nuestra domingo conmigo o con el educador para que podamos keily?rselo. luis educador en diabetes Controle el nivel de az?car en conrado 4 veces al d?a hasta que elija nuestro sensor Antes de las comidas y antes de acostarse Continuar lantus 15 unidades por la ma?claire. Continuar con insulina humalog o lispro 5 unidades antes de las comidas, jarod siempre 15 minutos antes de comer. Detener a Januvia Aumente Ozempic a 1 mg semanal luis nutricionista Coding Level of Care Code New Pt Level 5 (02000) Diagnoses Type 2 diabetes mellitus without complication, with long-term current 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 E11.9; Z79.4 Diabetes mellitus type: type 2 Diabetes mellitus complication status: without complication Acquired hypothyroidism E03.9 Dyslipidemia E78.5 Time Spent (min) 60
[2024-08-27 09:54] VITALS: BP 110/70; PULSE 62; O2SAT 99; BMI 36.8
[2024-08-27 10:07] LABS: Glucose, Whole Blood 156 mg/dL (60-115)
--- OUTSIDE RECORDS SUMMARY | 2024-08-27 10:12 | XMS_ITS | Clinical Summary ---
Author Organization [facility] ity Address [address] [place] [address] Care Team Providers Care Cook Cashier Food Prep Name Role Phone Claire Everett MD Primary Care Provider [phone] Social History Tobacco Use Types Packs/Day Years Used Date Smoking Tobacco: Never Assessed Sex and Gender Information Value Date Recorded Sex Assigned at Not on file Gender Identity Not on file Sexual Orientation Not on file Plan of Treatment Health Maintenance Due Date Last Done Comments Breast Cancer Screening 1972 DTaP,Tdap,and Td Vaccines (1 - Tdap) 1991 Hepatitis B Vaccines (1 of 3 - 19+ 3-dose series) 1991 Cervical Cancer Screening: P ap Smear 1993 Zoster Vaccines (1 of 2) 2022 Colorectal Cancer Screening: Colonoscopy 06/23/2022 Depression Screening 06/23/2022 HIV Screening 06/23/2022 Hepatitis C Screening 06/23/2022 Social Influencers of Health Screening 06/23/2022 COVID-19 Vaccine ( - 2023-2 5 season) 2024 Influenza Vaccine (#1) 2024 HIB Vaccines Aged Out No longer eligi ble based on patient's age to complete this topic HPV Vaccines Aged Out No longer eligi ble based on patient's age to complete this topic Hepatitis A Vaccines Aged Out No long er eligible based on patient's age to complete this topic IPV Vaccines Aged Out No longer eligi ble based on patient's age to complete this topic MMR Vaccines Aged Out No longer eligi ble based on patient's age to complete this topic Meningococcal ACWY Vaccine Aged Out N o longer eligible based on patient's age to complete this topic Pneumococcal Vaccine: Pediat rics (0 to 5 Years) and At-Risk Patients (6 to 64 Years) Aged Out No longer eligible b ased on patient's age to complete this topic RSV Immunization Patients Un jagdeep 20 months Aged Out No longer eligible b ased on patient's age to complete this topic Varicella Vaccines Aged Out No longer eligible based on patient's age to complete this topic Care Teams Cook Cashier Food Prep Relationship Specialty Start Date End Date Claire Everett MD [address] [place] [address] , [address] [facility] D/B/A: [facility] ANTHONY Heaton PCP - General 04/25/23
== END 2024-08-27 15:48 | disposition home or self-care (01) ==
PROVIDERS: PCP Internal Medicine; Visit Provider Student in an Organized Health Care Education/Training Program
DX: E11.9 Type 2 diabetes mellitus without complications (principal); Z79.4 Long term (current) 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; E03.9 Hypothyroidism, unspecified; E78.5 Hyperlipidemia, unspecified; Z13.9 Encounter for screening, unspecified
CPT/HCPCS: 99205

== ENCOUNTER → 2024-08-27 09:34 | Outpatient (BNVA) | payer OTHER, SELFPAY | PROVIDERS: PCP Internal Medicine; Visit Provider Student in an Organized Health Care Education/Training Program | DX: E11.9 Type 2 diabetes mellitus without complications (principal); E03.9 Hypothyroidism, unspecified; E78.5 Hyperlipidemia, unspecified; Z79.4 Long term (current) 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 | CPT/HCPCS: 82947; 83036; 99202 ==

== ENCOUNTER 2024-08-30 09:47 | Outpatient (REF) | payer OTHER, SELFPAY ==
--- OUTSIDE RECORDS SUMMARY | 2024-08-30 10:34 | XMS_ITS | Clinical Summary ---
Author Organization [facility] ity Address [address] [place] [address] Care Team Providers Care [employer] Senior Officer Name Role Phone Claire Everett MD Primary Care Provider [phone] Social History Tobacco Use Types Packs/Day Years Used Date Smoking Tobacco: Never Assessed Comments Unknown Sex and Gender Information Value Date Recorded Sex Assigned at Not on file Legal Sex Female 2:14 AM EST Gender Identity Not on file Sexual Orientation Not on file Plan of Treatment Health Maintenance Due Date Last Done Comments Breast Cancer Screening 1972 DTaP,Tdap,and Td Vaccines (1 - Tdap) 1979 Hepatitis B Vaccines (1 of 3 - 19+ 3-dose series) 1991 Cervical Cancer Screening: P ap Smear 1993 Pneumococcal Vaccine: 50+ Ye ars (1 of 1 - PCV) 2022 Zoster Vaccines (1 of 2) 2022 Colorectal Cancer Screening: Colonoscopy 06/23/2022 Depression Screening 06/23/2022 HIV Screening 06/23/2022 Hepatitis C Screening 06/23/2022 Social Influencers of Health Screening 06/23/2022 COVID-19 Vaccine (2023-2 5 season) 2024 Influenza Vaccine (#1) 2024 [...] patient's age to complete this topic Meningococcal B Vacine Aged Out No lo nger eligible based on patient's age to complete [...] age to complete this topic Care Teams Navy Senior Officer Relationship Specialty Start Date End Date Claire Everett MD [address] [place] [address] , [address] [facility] D/B/A: [facility] ANTHONY Heaton PCP - General 04/25/23
[2024-08-30 10:57] LABS: Free T4 (Free Thyroxine) 1.01 ng/dL (0.71-1.85)
== END 2024-08-30 09:48 | disposition home or self-care (01) ==
LOC: HO.10HDL 09:47
PROVIDERS: Visit Provider Student in an Organized Health Care Education/Training Program
DX: E03.9 Hypothyroidism, unspecified (principal)
CPT/HCPCS: 36415; 84439; 84443

== ENCOUNTER 2024-09-02 12:19 | Outpatient (AMB) | payer OTHER, SELFPAY ==
--- OUTSIDE RECORDS SUMMARY | 2024-09-02 12:32 | XMS_ITS | Clinical Summary ---
Author Organization [facility] ity Address [address] [place] [address] Care Team Providers Care Clinical Account Liaison Name Role Phone Claire Everett MD Primary Care Provider [phone] Social History Tobacco Use Types Packs/Day Years [...] age to complete this topic Care Teams Clinical Account Liaison Relationship Specialty Start Date End Date Claire Everett MD [address] [place] [address] , [address] [facility] D/B/A: [facility] ANTHONY Heaton PCP - General 04/25/23
--- NOTE | 2024-09-02 12:36 | MHC.PC.OV ---
Vital Signs 09/02/24 12:37 Height 5 ft 6 in Weight 226 lb BMI 36.5 BP 110/72 Blood Pressure Location Lt brachial Position Sitting Intake Visit Reasons: 3 Month F/U Intake Note: Patient here for a 3 month follow up Feed Blender Required: Yes Feed Blender Language: Manager Work Name: Claire Everett MD Information Interpreted: non-clinical & clinical Accompanied by: Self / Same As Patient Allergies zolpidem Adverse Reaction (Intermediate, Verified 09/02/24 12:53) nightmares Medication List - Last Reconciled 09/02/24 by Claire Everett MD albuterol sulfate 1.25 mg (3 mL) inhalation QID PRN albuterol sulfate 90 mcg/actuation 2 puffs inhalation Q4-6H PRN 30 days alcohol swabs (Alcohol Prep Pads) 1 pad topical BID amlodipine 10 mg PO DAILY 90 days aripiprazole (Abilify) 5 mg PO DAILY 90 days blood-glucose meter (FreeStyle Lite Meter kit) As directed 2 times daily blood-glucose meter,continuous (FreeStyle Anuj 3 [place]) As directed blood-glucose sensor (FreeStyle Anuj 3 Plus Sensor device) As directed every 14 days bupropion HCl XL 300 mg PO DAILY cholecalciferol (vitamin D3) 50 mcg PO DAILY 90 days clonazepam 1 mg PO BID PRN diclofenac sodium 1% (Arthritis Pain (diclofenac)) 2 grams topical QID PRN fluocinolone acetonide oil 0.01% (DermOtic Oil) 5 drps otic (ears) BID 7 days fluticasone propion-salmeterol 230-21 mcg/actuation (Advair HFA) 2 puffs inhalation BID 30 days FreeStyle Lite Strips (blood sugar diagnostic) As directed 2 times daily NS insulin glargine (Lantus Solostar U-100 Insulin) 15 units (0.15 mL) subcut QPM 90 days insulin lispro 5 units (0.05 mL) subcut TID 30 days lancets (Pure Comfort Safety Lancets) USE DIRECTED TO TEST BLOOD SUGAR 2 TIMES DAILY levothyroxine (Synthroid) 75 mcg PO DAILY 90 days levothyroxine 200 mcg PO DAILY 90 days lidocaine 5% 1 patch topical DAILY PRN 30 days loratadine (Allerclear) 10 mg PO DAILY PRN losartan 100 mg PO DAILY 90 days miscellaneous medical supply (Blood Pressure Cuff) As directed omeprazole 20 mg PO DAILY 90 days ondansetron 4 mg PO Q6H PRN pen needle, diabetic (Comfort EZ Pen [place]) Use 1 pen needle once a day pen needle, diabetic (Comfort EZ Pen [place]) Use 1 three times a day pen needle, diabetic (Comfort EZ Pen [place]) USE DIRECTED ONCE A DAY prazosin 2 mg PO BEDTIME rosuvastatin 20 mg PO DAILY 90 days semaglutide (Ozempic) 1 mg (0.75 mL) subcut QWEEK walker (Ultra-Light Rollator misc) with seat Tobacco use date assessed: 09/02/24 Dental Screening Dental Screen Date: 09/02/24 Did you have a dental visit in the last 12 months?: No Did you have a dental problem in the last 6 months where you did not have access to dental care?: No Was dental information given to patient?: Patient has dentist HPI HPI Comments History of Present Illness Details The patient is a 54-year-old female presenting for follow-up management of Type 2 Diabetes Mellitus, asthma, hypothyroidism, and hypertension, as well as medication management. The patient's HbA1c level was recorded this month as 6.6%, indicating well-controlled diabetes. Lab results for thyroid function tests were normal, suggesting stable management with levothyroxine at a dose of 275 mcg daily. The patient reports using a bronchodilator infrequently for asthma, less than once per month, and is under flagman care for severe persistent asthma, which remains stable. Blood pressure management is facilitated with amlodipine 10 mg and losartan 100 mg, with current blood pressure levels not specified. The patient is also on rosuvastatin to manage hyperlipidemia with an LDL target below 70 mg/dL. Depression is managed using Abilify and bupropion. This visit did not specifically quantify depressive symptoms or recent changes. The patient experiences gastroesophageal reflux disease managed with omeprazole, but severity and frequency were not discussed. There is a history of obstructive sleep apnea suggested by the prescription of zolpidem; however, zolpidem induces nightmares, leading to its avoidance. Nicotine use involves smoking approximately three cigarettes daily, and the patient is not prepared to cease smoking at this time. Alcohol is consumed in moderation on a monthly basis. The patient reports no chest pain or shortness of breath, indicating stable cardiovascular status. Weight management is not actively pursued, and a recent weight variation is noted to maintain stability. A request was made for pain medication for leg pain, specifically using a patch for application on the leg, back, or body, which was prescribed. Past participation in weight management efforts was discontinued. 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 Uncontrolled diabetes mellitus Left foot pain Insomnia Anxiety Depression Sleep apnea with use of continuous positive airway pressure (CPAP) Hypothyroidism Low potassium syndrome Morbid obesity Dizziness Low back pain Right wrist pain Acquired hypothyroidism Essential hypertension Surgical History S/P laparoscopic sleeve gastrectomy H/O: hysterectomy History of colonoscopy H/O endoscopy History of thyroid surgery History of bladder surgery History of total abdominal hysterectomy History of section Family History Father Diabetes Mother Hypertension Maternal Uncle Colon cancer Maternal Aunt Breast cancer Paternal Aunt Breast cancer Family/Other FH: mental illness Substance use disorder Social History (Updated 09/02/24 @ 12:58 by Cliare Everett MD) Household Members: None Housing: Apartment Are you a primary care associate to a significant other at home: No Do you presently have visiting nurse or other home services: No Alcohol intake: current Alcohol intake frequency: holidays/special occasions only Alcohol type: beer Patient Tobacco Use Status: Current someday Tobacco user Tobacco use type: Cigarette Cigarettes Per Day: 3 Years Smoked: 10 e-Cigarette/Vaping Use: Never Used Second Hand Smoke Exposure: No service: No Current occupational status: disabled Cognitive needs: No Hearing needs: No Vision needs: No Questionnaire PHQ-9 Over the last 2 weeks, how often have you been bothered by any of the following problems? 1. Little interest or pleasure in doing things: several days 2. Feeling down, depressed, or hopeless: not at all 3. Trouble falling or staying asleep, or sleeping too much: several days 4. Feeling tired or having little energy: several days 5. Poor appetite or overeating: not at all 6. Feeling bad about yourself - or that you are a failure or have let yourself or your family down: not at all 7. Trouble concentrating on things, such as reading the newspaper or watching television: not at all 8. Moving or speaking so slowly that other people could have noticed. Or the opposite - being so fidgety or restless that you have been moving around a lot more than usual: not at all 9. Thoughts that you would be better off or of hurting yourself in some way: not at all Total score: 3 Depression Screening Interpretation: Positive Depression Screening Follow-up: Existing condition, In treatment, Community Mental Health Worker F/U and Follow-up Visit Requested Depression Screening Done: Yes 85156 - PHQ-9 Billing: Yes Source: Developed by Drs. Jitendra Reyes, Liat Aguirre, Major Norris and colleagues, with an educational katie from [employer]. Thrive Questionnaire Date Thrive assessed: 09/02/24 I am a: Patient What is your living situation today?: I have a steady place to live Within the past 12 months, did the food you bought not last and you didn't have the money to get more?: I choose not to answer this question Within the past 12 months, did you worry whether your food would run out before you got money to buy more?: I choose not to answer this question Do you have trouble paying for medicines?: No Do you have trouble getting transportation to medical appointments?: No Do you have trouble paying your heating and electricity bill?: No Do you have trouble taking care of your child, family member or friend?: No Do you have trouble with day-to-day activities such as bathing, preparing meals, shopping, managing finances, etc.?: Yes Are you currently unemployed and looking for a job?: No Are you interested in more education?: No Please select the resources that you would like help with: None Currently or been in a relationship where the following occur: No concerns reported THRIVE Score: 0 AUDIT C Alcohol Use Questionnaire (AUDIT-C) 1. How often do you have a drink containing alcohol?: 2-4 times a month 2. How many drinks containing alcohol do you have on a typical day when you are drinking?: 1 or 2 3. How often do you have six or more drinks on one occasion?: Never Total Score: 2 SHAHAB-7 AMB Questionnaire SHAHAB-7 Date SHAHAB - 7 assessed: 09/02/24 Feeling nervous, anxious, or on edge: 1 = Several days Not being able to stop or control worryin = Not at all Worrying too much about different things: 0 = Not at all Trouble relaxin = Not at all Being so restless that it is hard to sit still: 0 = Not at all Becoming easily annoyed or irritable: 0 = Not at all Feeling afraid as if something awful might happen: 0 = Not at all Total SHAHAB-7 score (0-4 normal; 5-9 mild; 10-14 moderate; 15-21 severe): 1 Source: Developed by Drs. Jitendra Reyes, Liat Aguirre, Major Norris and colleagues, with an educational katie from [employer]. SHAHAB-7 Assessment Billing SHAHAB-7 Assessment Tool: SHAHAB-7 Assessment 22628 Review of Systems Const All systems reviewed & are unremarkable except as noted in HPI and below Card Denies chest pain at rest, Denies chest pain with activity, Denies edema, Denies irregular heart rhythm, Denies claudication, Denies dyspnea, Denies dyspnea on exertion, Denies orthopnea, Denies paroxysmal nocturnal dyspnea and Denies slow heart rate Resp Denies cough, Denies dyspnea and Denies dyspnea on exertion GI Denies abdominal pain, Denies change in bowel habits, Denies excessive flatus, Denies nausea and Denies vomiting Physical exam (Primary Care) Vital Signs: Last Vital Signs BP 110/72 09/02/24 12:37 BMI result Body Mass Index 36.5 BMI Assessment/Plan discussion: High BMI High, discussed plan: lifestyle, weight reduction, dietary and physical activity Tobacco/Smoking Status: Tobacco use Status Tobacco use date assessed 09/02/24 09/02/24 12:42 Patient Tobacco Use Status Current someday Tobacco 09/02/24 12:58 Tobacco use type Cigarette 09/02/24 12:58 e-Cigarette/Vaping Use Never Used 09/02/24 12:58 PHQ-9: PHQ-9 Score PHQ-9: Total score 3 09/02/24 12:58 Depression Screening Interpretation: Positive Depression Screening Follow-up: Existing condition, In treatment, Community Mental Health Worker F/U and Follow-up Visit Requested Thrive Assessment: Date of Thrive Assessment Date Thrive assessed 09/02/24 09/02/24 12:42 Currently or been in a relationship where the following occur: No concerns reported Resp Auscultation: clear to auscultation bilaterally Cardio Jugular venous distension: no JVD Rate: regular rate Rhythm: regular rhythm Heart sounds: S1 normal heart sound present and S2 normal heart sound present Extrem General: Yes full ROM Coding Level of Care Code Est Pt Level 4 (43022) Complex EM visit Add On G2211 Diagnoses Type 2 diabetes mellitus without complication, with long-term current 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 E11.9; Z79.4 Diabetes mellitus type: type 2 Diabetes mellitus complication status: without complication Mild recurrent major depression F33.0 Hyperlipidemia LDL goal <70 E78.5 Gastroesophageal reflux disease, unspecified whether esophagitis present K21.9 Esophagitis presence: esophagitis presence not specified Postoperative hypothyroidism E89.0 Hypothyroidism type: postoperative Moderate persistent asthma without complication J45.40 Asthma complication type: uncomplicated Essential hypertension I10 Additional Codes SHAHAB-7 Assessment Billing - SHAHAB-7 Assessment Tool: SHAHAB-7 Assessment 94820 ([id number]) PHQ-9 - 96670 - PHQ-9 Billing: Yes ([id number]) Time Spent (min) 23 Assessment & Plan Assessment & Plan (1) Diabetes mellitus, with long-term current 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: Code(s): E11.9 - Type 2 diabetes mellitus without complications; Z79.4 - prison (current) 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 Category: Medical Qualifiers: Diabetes mellitus type: type 2 Diabetes mellitus complication status: without complication Qualified Code(s): E11.9 - Type 2 diabetes mellitus without complications; Z79.4 - prison (current) 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 (2) Mild recurrent major depression: Code(s): F33.0 - Major depressive disorder, recurrent, mild Category: Medical (3) Hyperlipidemia LDL goal <70: Code(s): E78.5 - Hyperlipidemia, unspecified Category: Medical (4) GERD (gastroesophageal reflux disease): Code(s): K21.9 - Gastro-esophageal reflux disease without esophagitis Category: Medical Qualifiers: Esophagitis presence: esophagitis presence not specified Qualified Code(s): K21.9 - Gastro-esophageal reflux disease without esophagitis (5) Hypothyroidism: Comment: Acquired hypothyroidism due to surgery Code(s): E03.9 - Hypothyroidism, unspecified Category: Medical Qualifiers: Hypothyroidism type: postoperative Qualified Code(s): E89.0 - Postprocedural hypothyroidism (6) Moderate persistent asthma: Code(s): J45.40 - Moderate persistent asthma, uncomplicated Category: Medical Qualifiers: Asthma complication type: uncomplicated Qualified Code(s): J45.40 - Moderate persistent asthma, uncomplicated (7) Essential hypertension: Code(s): I10 - Essential (primary) hypertension Category: Medical Plan - Continue current diabetes management with monitoring of HbA1c levels as required. - Maintain current dosage of levothyroxine for hypothyroidism, with periodic monitoring. - Continue managing hypertension with amlodipine and losartan. - Asthma management to continue with inhaler as needed, ensuring regular follow-up with pulmonology. - Depression management with Abilify and bupropion to continue as prescribed by psychiatry. - Weight management: Encourage resuming structured weight program for better weight control. - Prescribe new patch for leg pain management, ensuring correct usage and application. - Perform laboratory testing in four months to monitor lipid levels and ensure LDL is below 70 mg/dL. - Encourage moderation in alcohol consumption and provide support if decision to quit smoking changes. Patient was informed and verbally consented to the use of an ambient scribe for clinic note documentation during this visit. During this visit, I discussed the patient's current management plans for her chronic conditions including diabetes, hypothyroidism, asthma, and hypertension. We reviewed the normal thyroid function test results and the well-controlled diabetes status. We agreed on continuing current treatments without modifications, given the stable state of the patient?s chronic conditions. I reinforced the importance of following through with laboratory testing in four months to monitor cholesterol levels, and discussed the possibility of resuming weight management efforts. The patient expressed her need for a pain patch for leg discomfort, which I provided and confirmed prescription to the pharmacy. Risks and benefits of current medications were not explicitly revisited as no changes were made. We talked about smoking cessation and agreed that the patient is not ready to quit currently but she will continue consuming alcohol responsibly. No new follow-up appointments were confirmed today as the patient's condition remains stable under current management. Orders: Orders Vitamin D 25-OH Total 4 Months E55.9 - Vitamin D deficiency, unspecified Comprehensive [place]. Panel Fast 4 Months E78.5 - Hyperlipidemia, unspecified Thyroid Stimulating Hormone 4 Months E89.0 - Postprocedural hypothyroidism Lipid Panel 4 Months E78.5 - Hyperlipidemia, unspecified Microalbumin, Random (w Creat) 4 Months R80.9 - Proteinuria, unspecified Medications: Refilled lidocaine 5% 1 patch topical DAILY PRN 30 ea 0RF Back Pain 30 days Patient Instructions: - Continue taking all medications as prescribed. - Use the prescribed patch as directed for leg pain relief. - Engage in weight management efforts to maintain or achieve a healthier weight. - Monitor and record any changes in your condition or side effects. - Have lab tests performed in four months for comprehensive evaluation. - Maintain regular appointments with your applied behavior specialist for asthma management. - Consider smoking cessation support if you decide to quit. - Drink alcohol in moderation as you have been managing.
[2024-09-02 12:37] VITALS: BP 110/72; BMI 36.5
== END 2024-09-02 13:02 | disposition home or self-care (01) ==
PROVIDERS: PCP Internal Medicine; Visit Provider Internal Medicine
DX: E11.9 Type 2 diabetes mellitus without complications (principal); Z79.4 Long term (current) 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; F33.0 Major depressive disorder, recurrent, mild; E78.5 Hyperlipidemia, unspecified; K21.9 Gastro-esophageal reflux disease without esophagitis; E89.0 Postprocedural hypothyroidism; J45.40 Moderate persistent asthma, uncomplicated; I10 Essential (primary) hypertension

== ENCOUNTER → 2024-09-02 12:19 | Outpatient (BNVA) | payer OTHER, SELFPAY | PROVIDERS: PCP Internal Medicine; Visit Provider Internal Medicine | DX: E11.9 Type 2 diabetes mellitus without complications (principal); Z79.4 Long term (current) 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; F33.0 Major depressive disorder, recurrent, mild; E78.5 Hyperlipidemia, unspecified; K21.9 Gastro-esophageal reflux disease without esophagitis; E89.0 Postprocedural hypothyroidism; J45.40 Moderate persistent asthma, uncomplicated; I10 Essential (primary) hypertension | CPT/HCPCS: 96127; 99212 ==

== ENCOUNTER 2024-10-11 11:59 | Outpatient (AMB) | payer OTHER, SELFPAY ==
--- NOTE | 2024-10-11 12:30 | A.OFFVIS_ITS ---
VS Expanded 10/11/24 12:34 10/11/24 12:50 Height 5 ft 6 in 5 ft 6 in Weight 222 lb 10.67 oz 223 lb BMI 35.9 36.0 Intake Visit Reasons: Type 2 diabetes mellitus without complications Allergies zolpidem Adverse Reaction (Intermediate, Verified 09/02/24 12:53) nightmares Nutrition Presentation Details: Pt presents for MNT for T2DM. Pt was referred by Dr. Chaudhary, commissions coordinator Foof requency fruit: 0-/1 fish : 1/x/wk cheese: 2+ water : 16 oz/d fried foods: uses airfryer snacks: denies Reports having 2 meals/day 10 am fruits/cheese 4pm: rice/chicken /veg,water etoh: 3-4 servings on occ smoking 5 cig/d exercise: sedentary hx of sleeve gastrectomy around 2020 BS Monitoring Most Recent Diabetes Results: Microalb/Creat Ratio 30.4 ug/mg cr (<30) H 06/30/24 Cholesterol 170 mg/dL (<200) 06/30/24 HDL Cholesterol 50 mg/dL (>40) 06/30/24 Triglycerides 123 mg/dL (<150) 06/30/24 Creatinine 0.78 mg/dL (0.5-1.4) 06/30/24 Blood Urea Nitrogen 9 mg/dL (9-16) 06/30/24 Sodium 144 mmol/L (135-145) 06/30/24 Potassium 4.1 mmol/L (3.3-5.1) 06/30/24 Chloride 107 mmol/L (96-108) 06/30/24 Carbon Dioxide 29 mmol/L (22-29) 06/30/24 Calcium 9.7 mg/dL (8.4-10.2) 06/30/24 AST 51 U/L (5-31) H 06/30/24 ALT 63 U/L (0-31) H 06/30/24 Total Protein 7.6 g/dL (6.5-8.0) 06/30/24 Albumin 4.1 g/dL (3.5-5.0) 06/30/24 OUN-Ejvxriq-Rv.Jeor Equation Height: 5 ft 6 in Weight: 223 lb Resting Metabolic Rate: 1641.41 Calculated Activity Level: Sedentary Calories Needed to Maintain Weight: 1969.69 Diagnosis Nutrition problem #1: altered nutrition labs and overweight/obesity As related to (etiology) #1: diagnosis As evidenced by (sign/symptom) #1: abnormal lab values and high BMI [facility] Medical History Dyslipidemia New onset type 2 diabetes mellitus Diabetic eye exam Diabetes mellitus Mild recurrent major depression Diabetes mellitus, with long-term current 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 LVH (left ventricular hypertrophy) Abnormal finding on EKG GERD (gastroesophageal reflux disease) 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 Uncontrolled diabetes mellitus Left foot pain Insomnia Anxiety Depression Sleep apnea with use of continuous positive airway pressure (CPAP) Hypothyroidism Low potassium syndrome Morbid obesity Dizziness Low back pain Right wrist pain Acquired hypothyroidism Essential hypertension Surgical History S/P laparoscopic sleeve gastrectomy H/O: hysterectomy History of colonoscopy H/O endoscopy History of thyroid surgery History of bladder surgery History of total abdominal hysterectomy History of section Family History Father Diabetes Mother Hypertension Maternal Uncle Colon cancer Maternal Aunt Breast cancer Paternal Aunt Breast cancer Family/Other FH: mental illness Substance use disorder Social History (Updated 09/02/24 @ 12:58 by Claire Everett MD) Household Members: None Housing: Apartment Are you a primary care transitions manager to a significant other at home: No Do you presently have visiting nurse or other home services: No Alcohol intake: current Alcohol intake frequency: holidays/special occasions only Alcohol type: beer Patient Tobacco Use Status: Current someday Tobacco user Tobacco use type: Cigarette Cigarettes Per Day: 3 Years Smoked: 10 e-Cigarette/Vaping Use: Never Used Second Hand Smoke Exposure: No service: No Current occupational status: disabled Cognitive needs: No Hearing needs: No Vision needs: No Assessment & Plan Assessment & Plan (1) Diabetes mellitus, with long-term current 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: Code(s): E11.9 - Type 2 diabetes mellitus without complications; Z79.4 - 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 Category: Medical Qualifiers: Diabetes mellitus complication status: without complication Diabetes mellitus type: type 2 Qualified Code(s): E11.9 - Type 2 diabetes mellitus without complications; Z79.4 - [facility] (current) 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 Plan: Wt: 101 Kg ( 10/11/24 ) Est kcal needs as per MSJ: 2000 (40% carb, 30% protein/fat) Est fluid needs as per 25-30 ml/d: 3000 Est prot per day as per 1 g/kg bw: 100 Recommend fiber intake : 8-10 g per day and gradually increase to 25-28 g per day for women and 35-38 g for men or as tolerated Recommend sodium intake per day : less than 1500 mg less than 2000 mg Educated patient on: ( R = reviewed V = verbalizes understanding N/R = needs review N/A = not applicable * Food sources of carbohydrate, adequate serving sizes and its role in various health conditions: R V N/R * Differences between complex carbohydrates a simple carbohydrates, role of fiber in diet: R * Lean protein sources of foods: R V NR * Differences between types of fats and role in diet (mono on saturated fat fatty acids, saturated fatty acids, trans fats): R V N/R * Food sources of sodium in salt and healthy modifications for heart health in kidney health: R V R/V * Vitamins and minerals: R V N/R * Healthy plate method concept: R V N/R * Physical activity: Benefits a precaution: R * Hypoglycemia protocol (rule of 15): R V * Dietary prevention of Hyperglycemia: R , v Patient Instructions: Restart physical activity 30 minutes 3 times a week Have a meal replacement at lunch time instead of skipping Have fish at least twice a week following health yplate method in the evening Coding Level of Care Code Nutr Indiv Intake (89973) Diagnoses Type 2 diabetes mellitus without complication, with long-term current 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 E11.9; Z79.4 Diabetes mellitus complication status: without complication Diabetes mellitus type: type 2 Time Spent (min) 30
[2024-10-11 12:34] VITALS: BMI 35.9
[2024-10-12 12:26] VITALS: BMI 36.0
== END 2024-10-11 13:01 | disposition home or self-care (01) ==
LOC: HO.ENCR 12:00
PROVIDERS: PCP Internal Medicine; Visit Provider Dietitian, Registered
DX: E11.9 Type 2 diabetes mellitus without complications (principal); Z79.4 Long term (current) 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

== ENCOUNTER → 2024-10-11 11:59 | Outpatient (BNVA) | payer OTHER, SELFPAY | PROVIDERS: PCP Internal Medicine; Visit Provider Dietitian, Registered | DX: E11.9 Type 2 diabetes mellitus without complications (principal); E66.01 Morbid (severe) obesity due to excess calories; Z68.36 Body mass index [BMI] 36.0-36.9, adult; Z71.3 Dietary counseling and surveillance; Z79.4 Long term (current) 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 | CPT/HCPCS: 97802 ==

== ENCOUNTER 2024-11-01 13:17 | Outpatient (AMB) | payer OTHER, SELFPAY ==
[2024-11-01 13:19] VITALS: BP 124/82; PULSE 81; O2SAT 97; BMI 36.1
--- NOTE | 2024-11-01 13:19 | A.OFFVIS_ITS ---
Vital Signs 3 11/01/24 13:19 Height 5 ft 6 in Weight 223 lb 15.834 oz BMI 36.1 BP 124/82 Blood Pressure Location Lt brachial Position Sitting Pulse 81 Pulse Source Pulse Oximeter Pulse Oximetry (%) 97 Oxygen Delivery Method Room Air Intake Visit Reasons: T2DM Intake Note: Patient present today to follow up on Type 2 Diabetes Mellitus. 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[employer] Services: Rn Hemodialysis Present Rn Hemodialysis Name: Dian [id number] Information Interpreted: non-clinical & clinical Accompanied by: Self / Same As Patient Allergies zolpidem Adverse Reaction (Intermediate, Verified 11/01/24 13:25) nightmares Medication List - Last Reconciled 11/01/24 by Candace Chaudhary MD albuterol sulfate 1.25 mg (3 mL) inhalation QID PRN albuterol sulfate 90 mcg/actuation 2 puffs inhalation Q4-6H PRN 30 days alcohol swabs (Alcohol Prep Pads) 1 pad topical BID amlodipine 10 mg PO DAILY 90 days aripiprazole (Abilify) 5 mg PO DAILY 90 days blood-glucose meter (FreeStyle Lite Meter kit) As directed 2 times daily blood-glucose sensor (FreeStyle Anuj 3 Plus Sensor device) As directed every 14 days blood-glucose,used car sales manager,cont (FreeStyle Anuj 3 [place]) As directed bupropion HCl XL 300 mg PO DAILY cholecalciferol (vitamin D3) 50 mcg PO DAILY 90 days clonazepam 1 mg PO BID PRN dapagliflozin propanediol (Farxiga) 5 mg PO DAILY diclofenac sodium 1% (Arthritis Pain (diclofenac)) 2 grams topical QID PRN fluocinolone acetonide oil 0.01% (DermOtic Oil) 5 drps otic (ears) BID 7 days fluticasone propion-salmeterol 230-21 mcg/actuation (Advair HFA) 2 puffs inhalation BID 30 days FreeStyle Lite Strips (blood sugar diagnostic) As directed 2 times daily NS insulin glargine (Lantus Solostar U-100 Insulin) 15 units (0.15 mL) subcut QPM 90 days insulin lispro 5 units (0.05 mL) subcut TID 30 days lancets (Pure Comfort Safety Lancets) USE DIRECTED TO TEST BLOOD SUGAR 2 TIMES DAILY levothyroxine 200 mcg PO DAILY 90 days levothyroxine (Synthroid) 75 mcg PO DAILY 90 days lidocaine 5% 1 patch topical DAILY PRN 30 days loratadine (Allerclear) 10 mg PO DAILY PRN losartan 100 mg PO DAILY 90 days miscellaneous medical supply (Blood Pressure Cuff) As directed omeprazole 20 mg PO DAILY 90 days ondansetron 4 mg PO Q6H PRN pen needle, diabetic (Comfort EZ Pen [place]) Use 1 pen needle once a day pen needle, diabetic (Comfort EZ Pen [place]) Use 1 three times a day pen needle, diabetic (Comfort EZ Pen [place]) USE DIRECTED ONCE A DAY prazosin 2 mg PO BEDTIME rosuvastatin 20 mg PO DAILY 90 days semaglutide (Ozempic) 1 mg (0.75 mL) subcut QWEEK walker (Ultra-Light Rollator misc) with seat HPI Comments Details: 54 years old female here today for follow up for Type 2 DM and hypothyroidism Type 2 DM Diagnosed 2020 on blood work Prior therapy: Metformin caused GI trouble Never been on SGLT2 Has been on insulin since time of diagnosis Januvia discontinued by me 08/27/2024 as patient has been taking Ozempic as well Current regimen: Insulin lantus 15 units in morning Insulin lispro 5 units TID before meals Ozempic 1 mg weekly injection increased 08/27/2024 history of gastric bypass in 2021 Lost 20 lbs after surgery Denies any symptoms of hyperglycemia including polyphagia, polyuria, polydipsia. Denies any hypoglycemic symptoms. SMBG's No readings seen on glucometer that she brought, she says she has another meter whc she has been using didnt bring it today Per recall fasting 120 to 160 Post meals 180 to 200 a1c 08/27/24 6.6 % Random Glucose: 191 mg/dl Complications Last Diabetic Eye exam: 05/2024 Neuropathy: mild, hasnt tingling Last Podiatry Visit: Doesn't have one Kidney disease: Has microalbuminuria, urine microalbumin/creatinine ratio elevated at 30. From June 2024. Macrovascular complications:TX in 2019 Statin:rosuvasatin 20 mg daily , LDL 96 from June 2024 WINSTON/ARB: on losaratan 100 mg daily, BP normal , Exercise: Walking now , 30 mins 3times a week Diet control: 3 meals a day no snacks Stopped drining soda He has never had any hospitalizations for hyperglycemia/hypoglycemia. Hypothyroidism Postsurgical hypothyroidism, history of total thyroidectomy in May 2019 forearm nontoxic multinodular goiter. At that time also underwent 3 gland parathyroid resection with the remaining right superior parathyroid gland for primary hyperparathyroidism. Takes 200 plus 75 mcg daily of synthroid Not sure when she takes it Very poor historian Denies any symptoms of hypo or hyperthyroidism. Nurse gives the medication, Last set of thyroid function testing done from Sep 14 showed normal thyroid function Denies any symptoms of hypo or hyperthyroidism. Physical exam General: sitting comfortably in no acute distress HEENT: normocephalic/atraumatic, Neck: supple Cardiac: normal heart sounds Pulm: normal breath sounds B/L, no added breath sounds Abd: not distended, no tenderness Extremities: no edema, no signs of myxedema Neuro: AAO x3, Speech: normal, no facial droop, moving all 4 extremities Foot exam done today: Intact sensation to monofilament, intact pulses, warm and well-perfused feet Laboratory Tests 04/06/21 10/09/22 10/09/22 17:07 09:38 10:22 Hgb Hct Plt Count Creatinine Estimated GFR Glucose (Clinic) Fasting Glucose Hgb A1c (Clinic) 8.1 H AST ALT Alkaline Phosphatase Albumin Triglycerides Cholesterol LDL Cholesterol, Calc HDL Cholesterol Vitamin B12 25-OH Vitamin D Total TSH 42.19 H Urine Creatinine 194.85 Urine Microalbumin 32.0 Microalb/Creat Ratio 16.4 04/23/23 08/01/23 12/31/23 14:03 10:23 12:00 Hgb Hct Plt Count Creatinine Estimated GFR Glucose (Clinic) Fasting Glucose Hgb A1c (Clinic) 9.9 H 6.5 H AST ALT Alkaline Phosphatase Albumin Triglycerides Cholesterol LDL Cholesterol, Calc HDL Cholesterol Vitamin B12 25-OH Vitamin D Total TSH 1.38 Urine Creatinine Urine Microalbumin Microalb/Creat Ratio 05/27/24 06/30/24 06/30/24 10:39 09:35 Unknown Hgb 14.7 Hct 45.3 Plt Count 196 Creatinine 0.78 Estimated GFR > 60 Glucose (Clinic) Fasting Glucose 128 H Hgb A1c (Clinic) 6.5 H AST 51 H ALT 63 H Alkaline Phosphatase 120 H Albumin 4.1 Triglycerides 123 Cholesterol 170 LDL Cholesterol, Calc 96 HDL Cholesterol 50 Vitamin B12 318 25-OH Vitamin D Total 46.1 TSH 4.58 H Urine Creatinine 167.71 Urine Microalbumin 51.0 Microalb/Creat Ratio 30.4 H 08/27/24 08/27/24 10:02 10:05 Hgb Hct Plt Count Creatinine Estimated GFR Glucose (Clinic) 156 H Fasting Glucose Hgb A1c (Clinic) 6.6 H AST ALT Alkaline Phosphatase Albumin Triglycerides Cholesterol LDL Cholesterol, Calc HDL Cholesterol Vitamin B12 25-OH Vitamin D Total TSH Urine Creatinine Urine Microalbumin Microalb/Creat Ratio Laboratory Tests 08/30/24 09:50 TSH 1.40 Free T4 1.01 PFSH Medical History Dyslipidemia New onset type 2 diabetes mellitus Diabetic eye exam Diabetes mellitus Mild recurrent major depression Diabetes mellitus, with long-term current 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 LVH (left ventricular hypertrophy) Abnormal finding on EKG GERD (gastroesophageal reflux disease) 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 Uncontrolled diabetes mellitus Left foot pain Insomnia Anxiety Depression Sleep apnea with use of continuous positive airway pressure (CPAP) Hypothyroidism Low potassium syndrome Morbid obesity Dizziness Low back pain Right wrist pain Acquired hypothyroidism Essential hypertension Surgical History S/P laparoscopic sleeve gastrectomy H/O: hysterectomy History of colonoscopy H/O endoscopy History of thyroid surgery History of bladder surgery History of total abdominal hysterectomy History of section Family History Father Diabetes Mother Hypertension Maternal Uncle Colon cancer Maternal Aunt Breast cancer Paternal Aunt Breast cancer Family/Other FH: mental illness Substance use disorder Social History Household Members: None Housing: Apartment Are you a primary patient care manager to a significant other at home: No Do you presently have visiting nurse or other home services: No Alcohol intake: current Alcohol intake frequency: holidays/special occasions only Alcohol type: beer Patient Tobacco Use Status: Current someday Tobacco user Tobacco use type: Cigarette Cigarettes Per Day: 3 Years Smoked: 10 e-Cigarette/Vaping Use: Never Used Second Hand Smoke Exposure: No service: No Current occupational status: disabled Cognitive needs: No Hearing needs: No Vision needs: No Physical Exam Vital Signs: Last Vital Signs Pulse 81 11/01/24 13:19 BP 124/82 11/01/24 13:19 Pulse Ox 97 11/01/24 13:19 Oxygen Delivery Method Room Air 11/01/24 13:19 BMI result Body Mass Index 36.1 Results Reviewed Results Reviewed: Laboratory Last Values Glucose (Clinic) 191 mg/dL (60-115) H 11/01/24 13:26 Assessment & Plan Assessment & Plan (1) Diabetes mellitus, with long-term current 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: Code(s): E11.9 - Type 2 diabetes mellitus without complications; Z79.4 - 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 A1c was 6.6%, which is within goal of 7% however patient's most recent blood sugars check on her glucometer show that she has been having fasting readings in the 160s to 200s. These are high and not consistent with her A1c. She denies any recent changes to her medications. I prescribed her freestyle Anuj 3 sensor for continuous glucose monitoring, also has referral for asthma educator for CGM training. Once we have more data we can adjust her insulin accordingly. she has elevated microalbumin, will start SGLT2 inhibitor. Plan: -continue Ozempic to 1 mg weekly injection -start farxiga 5 mg daily -continue insulin Lantus 15 units daily -continue insulin lispro 5 units t.i.d. before meals -prescribed freestyle Anuj 3 sensor and used car sales manager in Aug, waiting for PA approval process -stressed importance of blood sugar monitoring and risks of her hyperglycemia -hypoglycemia education done -diabetes education referral placed last visit, she missed appt, asked to reschedule -nutrition fup -up-to-date with Ophthalmology, no retinopathy. - stressed importance of 150 minutes of exercise is weekly which would be 30 minutes 5 days a week (2) Acquired hypothyroidism: Code(s): E03.9 - Hypothyroidism, unspecified Category: Medical Plan: Postsurgical hypothyroidism , biochemically euthyroid Plan: -continue Synthroid 275 mcg daily (3) Dyslipidemia: Code(s): E78.5 - Hyperlipidemia, unspecified Category: Medical Plan: LDL from June 2024 elevated at 96 mg/dL, goal LDL less than 70 mg/dL Plan: -continue rosuvastatin 20 mg daily -advised her regarding dietary indiscretion, seeing carton counter feeder, we will plan to repeat lipid panel prior to next appt if still elevated, can consider as adding ezetimibe Plan I spent 30 minutes in reviewing the record, seeing the patient and documenting in the medical record. Orders: Orders 2 TSH reflex Free T4 6 Weeks E03.9 - Hypothyroidism, unspecified, E11.9 - Type 2 diabetes mellitus without complications, E78.5 - Hyperlipidemia, unspecified, Z79.4 - group home (current) 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 Comprehensive Met. 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 Microalbumin, Random (w Creat) 6 Weeks E03.9 - Hypothyroidism, unspecified, E11.9 - Type 2 diabetes mellitus without complications, E78.5 - Hyperlipidemia, unspecified, Z79.4 - 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 Medications: New 2 dapagliflozin propanediol (Farxiga) 5 mg PO DAILY 30 tabs 6RF Patient Instructions: 30 mins walk 5 days a week Continue insulin lantus and lispro (humalog) Continue Ozempic 1 mg weekly Start Farxiga 5 mg daily, advised about urinary hygiene, maintain good hydration , and stop this medicine if sick or vomiting for 3-4 days till she is better Do fasting blood work a week prior to your next appointment See the asthma educator MAke sure you bring the correct glucometer to all appointments Check blood sugars twice a day , fasting (ideal 90 to 110) and 2 hrs after a meal (ideally should be less than 180) milling machine set up operator sensor and reciever and bring to educator appointment See the educator Rule of 15 Treatment for Hypoglycemia (Low blood sugar) If your blood glucose is low (70 and below)*, follow the steps below to treat: Eat or drink something from the list below equal to 15 grams of carbohydrate (carb). Rest for 15 minutes Re-check your blood glucose. If it is still low, (below 70), repeat step 1 above. ? If your next meal is more than an hour away, you will need to eat one carbohydrate choice as a snack to keep your blood glucose from going low again. ?If you can't figure out why you have low blood glucose, call your healthcare provider, as your medicine may need to be adjusted. ?Always carry something with you to treat an insulin reaction. Use food from the list below. ? Foods equal to One Carbohydrate Choice (15 grams of carbohydrate): 3 Glucose ?tablets or 4 Dextrose tablets 4 ounces of fruit juice 5-6 ounces (about 1/2 can) of regular soda such as Coke or Pepsi ? 7-8 gummy or regular Life Savers ? 1 Tbsp. of sugar or jelly NOTE: If your blood sugar is less than 50, double the portion above for a total of 30 gm. ?Carbohydrate. ? Follow meal plan of 45-60 g of consistent carbohydrates at 3 meals each day and 15 g of carbohydrate at 1-2 snacks each day. Caminata de 30 minutos, 5 d?as a la semana Continuar con insulina Lantus y Lispro (Humalog) Continuar con Ozempic 1 mg semanalmente Iniciar Farxiga 5 mg al d?a, con recomendaciones sobre higiene urinaria, mantener meghana buena hidrataci?n y suspender amy medicamento si se enferma o vomita drake 3 o 4 d?as hasta que mejore. Realizar an?lisis de conrado en ayunas meghana semana antes de hwang pr?xima domingo. Consultar con el educador en diabetes. Aseg?rese de llevar el gluc?metro correcto a todas las citas. Controlar la glucemia dos veces al d?a: en ayunas (idealmente de 90 a 110) y 2 horas despu?s de comer (idealmente, deber?a ser inferior a 180). Recoger el sensor y el receptor y llevarlos a la domingo con el educador. Consultar con el educador. Tratamiento de la Renetta del 15 para la Hipoglucemia (nivel bajo de az?car en conrado) Si hwang nivel de glucosa en cornado es bajo (70 o menos)*, siga los pasos a continuaci?n para tratarlo: Coma o andi algo de la lista a continuaci?n equivalente a 15 gramos de carbohidratos. Descanse 15 minutos. Vuelva a medir hwang nivel de glucosa en conrado. Si sigue bajo (menos de 70), repita el paso 1 anterior. Si hwang pr?xima comida es en m?s de meghana hora, deber? consumir un carbohidrato nga refrigerio para evitar que hwang nivel de glucosa en conrado baje de nuevo. Si no puede determinar la causa de hwang nivel bajo de glucosa en conrado, llame a hwang profesional de la jacqueline, ya que podr?a ser necesario ajustar hwang medicamento. Lleve siempre consigo algo para tratar meghana reacci?n a la insulina. Use alimentos de la lista a continuaci?n. Alimentos equivalentes a meghana opci?n de carbohidratos (15 gramos): 3 tabletas de glucosa o 4 tabletas de dextrosa 113 g de jugo de fruta 140 g (aproximadamente 1/2 niels) de refresco regular nga Coca-Cola o Pepsi 7-8 gomitas o Life Savers regulares 1 cucharada de az?car o jalea NOTA: Si hwang nivel de az?car en conrado es inferior a 50, duplique la porci?n anterior para un total de 30 g de carbohidratos. Siga un plan de alimentaci?n de 45 a 60 g de carbohidratos consistentes en 3 comidas al d?a y 15 g de carbohidratos en 1 o 2 refrigerios al d?a. Coding Level of Care Code Est Pt Level 4 (81456) Diagnoses Type 2 diabetes mellitus without complication, with long-term current 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 E11.9; Z79.4 Diabetes mellitus complication status: without complication Diabetes mellitus type: type 2 Acquired hypothyroidism E03.9 Dyslipidemia E78.5 Time Spent (min) 30
[2024-11-01 13:31] LABS: Glucose, Whole Blood 191 mg/dL (60-115)
--- OUTSIDE RECORDS SUMMARY | 2024-11-01 15:15 | XMS_ITS | Clinical Summary ---
Author Organization [facility] ity Address [address] [place] [address] Care Team Providers Care Personal Support Worker Name Role Phone Claire Everett MD Primary Care Provider [phone] Social History Tobacco Use Types Packs/Day Years [...] Vaccine (2023-2 5 season) 2024 Influenza Vaccine (Season Ended) 2025 HIB Vaccines Aged Out No longer eligi [...] age to complete this topic Meningococcal B Vaccine Aged Out No l onger eligible based on patient's age to complete [...] age to complete this topic Care Teams Personal Support Worker Relationship Specialty Start Date End Date Claire Everett MD [address] [place] [address] , [address] [employer] [facility]: [facility] ANTHONY Heaton PCP - General 04/25/23
== END 2024-11-01 14:04 | disposition home or self-care (01) ==
PROVIDERS: PCP Internal Medicine; Visit Provider Student in an Organized Health Care Education/Training Program
DX: E11.9 Type 2 diabetes mellitus without complications (principal); Z79.4 Long term (current) 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; E03.9 Hypothyroidism, unspecified; E78.5 Hyperlipidemia, unspecified
CPT/HCPCS: 99214

== ENCOUNTER → 2024-11-01 13:17 | Outpatient (BNVA) | payer OTHER, SELFPAY | PROVIDERS: PCP Internal Medicine; Visit Provider Student in an Organized Health Care Education/Training Program | DX: E11.9 Type 2 diabetes mellitus without complications (principal); E03.9 Hypothyroidism, unspecified; E78.5 Hyperlipidemia, unspecified; Z79.4 Long term (current) 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; Z79.899 Other long term (current) drug therapy | CPT/HCPCS: 82947; 99212 ==

== ENCOUNTER 2024-11-09 12:14 | Outpatient (AMB) | payer OTHER, SELFPAY ==
[2024-11-09 12:33] VITALS: BMI 36.1
--- NOTE | 2024-11-09 12:33 | A.OFFVIS_ITS ---
VS Expanded 11/09/24 12:33 Height 5 ft 6 in Weight 223 lb 15.834 oz BMI 36.1 Intake Visit Reasons: T2DM Allergies zolpidem Adverse Reaction (Intermediate, Verified 11/01/24 13:25) nightmares Nutrition Presentation Details: Pt presents for MNT f/u for T2DM Pt reports working on diet modification BS Monitoring Most Recent Diabetes Results: No Data to Display [facility] Medical History Dyslipidemia New onset type 2 diabetes mellitus Diabetic eye exam Diabetes mellitus Mild recurrent major depression Diabetes mellitus, with long-term current 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 LVH (left ventricular hypertrophy) Abnormal finding on EKG GERD (gastroesophageal 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 disease) 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 Uncontrolled diabetes mellitus Left foot pain Insomnia Anxiety Depression Sleep apnea with use of continuous positive airway pressure (CPAP) Hypothyroidism Low potassium syndrome Morbid obesity Dizziness Low back pain Right wrist pain Acquired hypothyroidism Essential hypertension Surgical History S/P laparoscopic sleeve gastrectomy H/O: hysterectomy History of colonoscopy H/O endoscopy History of thyroid surgery History of bladder surgery History of total abdominal hysterectomy History of section Family History Father Diabetes Mother Hypertension Maternal Uncle Colon cancer Maternal Aunt Breast cancer Paternal Aunt Breast cancer Family/Other FH: mental illness Substance use disorder Social History Household Members: None Housing: Apartment Are you a primary acute care occupational therapist to a significant other at home: No Do you presently have visiting nurse or other home services: No Alcohol intake: current Alcohol intake frequency: holidays/special occasions only Alcohol type: beer Patient Tobacco Use Status: Current someday Tobacco user Tobacco use type: Cigarette Cigarettes Per Day: 3 Years Smoked: 10 e-Cigarette/Vaping Use: Never Used Second Hand Smoke Exposure: No service: No Current occupational status: disabled Cognitive needs: No Hearing needs: No Vision needs: No Assessment & Plan Assessment & Plan (1) Diabetes mellitus, with long-term current 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: Code(s): E11.9 - Type 2 diabetes mellitus without complications; Z79.4 - correction (current) 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 Category: Medical Qualifiers: Diabetes mellitus type: type 2 Diabetes mellitus complication status: without complication Qualified Code(s): E11.9 - Type 2 diabetes mellitus without complications; Z79.4 - 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 Plan: Wt: 101 Kg ( 10/11/24 ), 11/12 Est kcal needs as per MSJ: 2000 (40% carb, 30% protein/fat) Est fluid needs as per 25-30 ml/d: 3000 Est prot per day as per 1 g/kg bw: 100 Recommend fiber intake : 8-10 g per day and gradually increase to 25-28 g per day for women and 35-38 g for men or as tolerated Recommend sodium intake per day : less than 1500 mg less than 2000 mg Educated patient on: ( R = reviewed V = verbalizes understanding N/R = needs review N/A = not applicable * Food sources of carbohydrate, adequate serving sizes and its role in various health conditions: R V N/R * Differences between complex carbohydrates a simple carbohydrates, role of fiber in diet: R * Lean protein sources of foods: R V NR * Differences between types of fats and role in diet (mono on saturated fat fatty acids, saturated fatty acids, trans fats): R V N/R * Food sources of sodium in salt and healthy modifications for heart health in kidney health: R V R/V * Vitamins and minerals: R V N/R * Healthy plate method concept: R V N/R * Physical activity: Benefits a precaution: R * Hypoglycemia protocol (rule of 15): R V * Dietary prevention of Hyperglycemia: R , v Patient Instructions: Keep hydrated by having water with meals/snack Choose low fat cooking methods Coding Level of Care Code Nutr Indiv Subseq (84145) Diagnoses Type 2 diabetes mellitus without complication, with long-term current 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 E11.9; Z79.4 Diabetes mellitus type: type 2 Diabetes mellitus complication status: without complication Time Spent (min) 24
--- OUTSIDE RECORDS SUMMARY | 2024-11-09 14:34 | XMS_ITS | Clinical Summary ---
Author Organization [facility] ity Address [address] [place] [address] Care Team Providers Care Hand Paster Name Role Phone Claire Everett MD Primary Care Provider [phone] Social History Tobacco Use Types Packs/Day Years [...] age to complete this topic Care Teams Hand Paster Relationship Specialty Start Date End Date Claire Everett MD [address] [place] [address] , [address] [facility] D[facility]A: [facility] ANTHONY Heaton PCP - General 04/25/23
== END 2024-11-09 13:12 | disposition home or self-care (01) ==
LOC: HO.ENCR 12:14
PROVIDERS: PCP Internal Medicine; Visit Provider Dietitian, Registered
DX: E11.9 Type 2 diabetes mellitus without complications (principal); Z79.4 Long term (current) 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

== ENCOUNTER → 2024-11-09 12:14 | Outpatient (BNVA) | payer OTHER, SELFPAY | PROVIDERS: PCP Internal Medicine; Visit Provider Dietitian, Registered | DX: E11.9 Type 2 diabetes mellitus without complications (principal); E66.01 Morbid (severe) obesity due to excess calories; Z68.36 Body mass index [BMI] 36.0-36.9, adult; Z79.4 Long term (current) 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 | CPT/HCPCS: 97803 ==

== ENCOUNTER 2024-11-18 10:07 | Outpatient (AMB) | payer OTHER, SELFPAY ==
--- NOTE | 2024-11-18 10:56 | MHC.AMDMED ---
Intake Intake Visit Reasons: T2DM Expeditionary Fighting Vehicle Crewman Required: Yes Expeditionary Fighting Vehicle Crewman Language: Export Clerk Name: [facility] [place]ompanied by: Self / Same As Patient Allergies zolpidem Adverse Reaction (Intermediate, Verified 11/01/24 13:25) nightmares HPI Comprehensive Diabetes Asmnt Most Recent Diabetes Results: No Data to Display [facility] Medical History Dyslipidemia New onset type 2 diabetes mellitus Diabetic eye exam Diabetes mellitus Mild recurrent major depression Diabetes mellitus, with long-term current 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 LVH (left ventricular hypertrophy) Abnormal finding on EKG GERD (gastroesophageal reflux disease) terminal worker (current) 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 Uncontrolled diabetes mellitus Left foot pain Insomnia Anxiety Depression Sleep apnea with use of continuous positive airway pressure (CPAP) Hypothyroidism Low potassium syndrome Morbid obesity Dizziness Low back pain Right wrist pain Acquired hypothyroidism Essential hypertension Surgical History S/P laparoscopic sleeve gastrectomy H/O: hysterectomy History of colonoscopy H/O endoscopy History of thyroid surgery History of bladder surgery History of total abdominal hysterectomy History of section Family History Father Diabetes Mother Hypertension Maternal Uncle Colon cancer Maternal Aunt Breast cancer Paternal Aunt Breast cancer Family/Other FH: mental illness Substance use disorder Social History Household Members: None Housing: Apartment Are you a primary care transition mgr to a significant other at home: No Do you presently have visiting nurse or other home services: No Alcohol intake: current Alcohol intake frequency: holidays/special occasions only Alcohol type: beer Patient Tobacco Use Status: Current someday Tobacco user Tobacco use type: Cigarette Cigarettes Per Day: 3 Years Smoked: 10 e-Cigarette/Vaping Use: Never Used Second Hand Smoke Exposure: No service: No Current occupational status: disabled Cognitive needs: No Hearing needs: No Vision needs: No Assessment & Plan Assessment & Plan (1) Diabetes mellitus, with long-term current 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: Code(s): E11.9 - Type 2 diabetes mellitus without complications; Z79.4 - care home (current) 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 Qualifiers: Diabetes mellitus type: type 2 Diabetes mellitus complication status: without complication Qualified Code(s): E11.9 - Type 2 diabetes mellitus without complications; Z79.4 - care home (current) 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 Plan: CGM Info Instructed Pt on what CGM can and can't do CGM Can: Give Pt minute by minute reading of glucose levels Displays glucose trend arrows that represents the direction glucose levels are fluctuating Give insight on decisions about how to dose insulin CGM cannot: Improve glucose control on its own Completely eliminate the need for all finger sticks Make dosing decision for you Patient has already started freestyle Anuj 3 with radio frequency technician Patient's glucose appears to be well controlled. Patient did reports she has continued to take Januvia, after it was de seed by provider per note on 08/27/2024 Instructed patient to stop Januvia, message sent to provider Reviewed with patient target goals of glucose, target goal handout given Patient's last A1c October 2024 6.6% Patient has been seen by RD, stated she understands which foods contain carbohydrates Will set up appointment after next A1c to review long-term complications Portions of this note were created using voice recognition software, please excuse any words or phrases that may have been misinterpreted. Patient Instructions: Instrucciones para el paciente: CGM proporciona informaci?n sobre el control de la glucosa en conrado a lo katherine del d?a, incluidas la hiperglucemia y la hipoglucemia. Contin?e controlando la glucosa en conrado seg?n las instrucciones. Siga las pautas de nutrici?n proporcionadas. Informe cualquier molestia de inmediato al proveedor de atenci?n m?dica. Mantente jena hidratado. Puede ba?arse, ducharse, nadar y hacer ejercicio mientras usa el sensor de glucosa. No sumerja el sensor de glucosa en agua drake m?s de 30 minutos. Retire el sensor para meghana resonancia magn?juanjo o meghana tomograf?a computarizada. Evite la m?quina de kris X en los aeropuertos: retire el sensor o solicite la varita Coding Level of Care Code Est Pt Level 1 (44254) Diagnoses Type 2 diabetes mellitus without complication, with long-term current 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 E11.9; Z79.4 Diabetes mellitus type: type 2 Diabetes mellitus complication status: without complication
--- OUTSIDE RECORDS SUMMARY | 2024-11-18 11:26 | XMS_ITS | Continuity of Care Document ---
Author Organization [employer] Address [address] [place] [address] Dr Harvinder a[address] [place] [address] Phone Care Team Providers Care Cell Technician Name Role Phone Unavailable Unavailable Unavailable Advance Directives Directive Yes / No Effective Date File Name No Information Encounters Encounter Description Practice Location Reason(s) For Visit Diagnoses Date Provider Providers Copied on Encounter [email or web address], [address] [place] [address] [address], [place], [address], [place] tel:[phone] [facility]TE[facility] No Information José [id number] [id number] 1 No Information Referring Provider: CARLOS Garrido, [address], [address]. Family History Family Member Type Diagnosis Age At Onset No Information Payers Payer name Insurance type Covered alliance party ID Authoriza titea(s) [facility] PPO [id number] Social History Type Description Quantity Date Captured Comments Sex Female Smoking Status No Information Chief Complaint And Reason For Visit No Information History Of Present Illness Encounter Date Complaint History Of Prese nt Illness No Information Instructions Date Instruction Additional Infor mation No Information Assessments Type Assessment Date No Information
--- OUTSIDE RECORDS SUMMARY | 2024-11-18 11:26 | XMS_ITS | Clinical Summary ---
Author Organization [facility] ity Address [address] [place] [address] Care Team Providers Care Branch Sales And Service Representative Name Role Phone Claire Everett MD Primary Care Provider [phone] Social History Tobacco Use Types Packs/Day Years [...] age to complete this topic Care Teams Branch Sales And Service Representative Relationship Specialty Start Date End Date Claire Everett MD [address] [place] [address] , [address] [facility] [place] Physician Associ D/B/A: [facility] ANTHONY Heaton PCP - General 04/25/23
== END 2024-11-18 10:58 | disposition home or self-care (01) ==
LOC: HO.ENCR 10:08
PROVIDERS: PCP Internal Medicine; Visit Provider Registered Nurse Diabetes Educator
DX: E11.9 Type 2 diabetes mellitus without complications (principal); Z79.4 Long term (current) 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

== ENCOUNTER → 2024-11-18 10:07 | Outpatient (BNVA) | payer OTHER, SELFPAY | PROVIDERS: PCP Internal Medicine; Visit Provider Registered Nurse Diabetes Educator | DX: E11.9 Type 2 diabetes mellitus without complications (principal); Z79.4 Long term (current) 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 | CPT/HCPCS: 99211 ==

== ENCOUNTER 2025-02-10 10:03 | Outpatient (AMB) | payer OTHER, SELFPAY ==
--- NOTE | 2025-02-10 10:06 | A.OFFPC_ITS ---
Vital Signs 02/10/25 10:14 Height 5 ft 4 in Weight 227 lb BMI 39.0 BP 130/80 Blood Pressure Location Lt brachial Position Sitting Intake Visit Reasons: dm Intake Note: Patient here for a follow up DM Superintendent Generating Plant Required: No Accompanied by: Self / Same As Patient Allergies zolpidem Adverse Reaction (Intermediate, Verified 02/10/25 10:19) nightmares Medication List - Last Reconciled 02/10/25 by Claire Everett MD albuterol sulfate 1.25 mg (3 mL) inhalation QID PRN albuterol sulfate 90 mcg/actuation 2 puffs inhalation Q4-6H PRN 30 days alcohol swabs (Alcohol Prep Pads) 1 pad topical BID amlodipine 10 mg PO DAILY 90 days aripiprazole (Abilify) 5 mg PO DAILY 90 days blood-glucose meter (FreeStyle Lite Meter kit) As directed 2 times daily blood-glucose sensor (FreeStyle Anuj 3 Plus Sensor device) As directed every 14 days blood-glucose,research psychologist,cont (FreeStyle Anuj 3 [place]) As directed bupropion HCl XL 300 mg PO DAILY cholecalciferol (vitamin D3) 50 mcg PO DAILY 90 days clonazepam 1 mg PO BID PRN dapagliflozin propanediol (Farxiga) 5 mg PO DAILY diclofenac sodium 1% (Arthritis Pain (diclofenac)) 2 grams topical QID PRN fluocinolone acetonide oil 0.01% (DermOtic Oil) 5 drps otic (ears) BID 7 days fluticasone propion-salmeterol 230-21 mcg/actuation (Advair HFA) 2 puffs inhalation BID 30 days FreeStyle Lite Strips (blood sugar diagnostic) As directed 2 times daily NS insulin glargine (Lantus Solostar U-100 Insulin) 15 units (0.15 mL) subcut QPM 90 days insulin lispro 5 units (0.05 mL) subcut TID 30 days lancets (Pure Comfort Safety Lancets) USE DIRECTED TO TEST BLOOD SUGAR 2 TIMES DAILY levothyroxine 200 mcg PO DAILY 90 days levothyroxine (Synthroid) 75 mcg PO DAILY 90 days lidocaine 5% 1 patch topical DAILY PRN 30 days loratadine (Allerclear) 10 mg PO DAILY PRN losartan 100 mg PO DAILY 90 days miscellaneous medical supply (Blood Pressure Cuff) As directed omeprazole 20 mg PO DAILY 90 days ondansetron 4 mg PO Q6H PRN pen needle, diabetic (Comfort EZ Pen [place]) Use 1 pen needle once a day pen needle, diabetic (Comfort EZ Pen [place]) Use 1 three times a day pen needle, diabetic (Comfort EZ Pen [place]) USE DIRECTED ONCE A DAY prazosin 2 mg PO BEDTIME Held on 12/14/21. Instructions: Resume on 12/17/21. rosuvastatin 20 mg PO DAILY 90 days semaglutide (Ozempic) 1 mg (0.75 mL) subcut QWEEK walker (Ultra-Light Rollator misc) with seat Tobacco use date assessed: 09/02/24 Dental Screening Dental Screen Date: 09/02/24 HPI HPI Comments History of Present Illness Details The patient is a 54-year-old female presenting for follow-up of chronic conditions including hypertension and diabetes management. The patient's diabetes is currently managed with an A1c of 6.8%, which is considered well-controlled. She is on Farxiga and insulin therapy, including Lantus at 15 units once daily and Lispro at 5 units three times daily. Her blood pressure is well-controlled with current medication. The patient has a history of asthma managed with Advair. She also has depression and anxiety, for which she takes amlodipine, Abilify, bupropion, and clonazepam. She has hypothyroidism managed with levothyroxine 275 mcg, and her thyroid function is monitored by endocrinology. Her last thyroid function test was normal. The patient has hyperlipidemia treated with rosuvastatin. She also has a vitamin B12 deficiency, for which she received an injection recently. The patient is a smoker, consuming approximately five cigarettes daily, and is not ready to quit at this time. She is aware of the potential weight gain and mood changes associated with smoking cessation. Preventative care measures include a recent colon cancer screening with Cologuard and a mammography performed last year. She is due for a pneumonia vaccination as her last was over five years ago. [facility] Medical History Dyslipidemia New onset type 2 diabetes mellitus Diabetic eye exam Diabetes mellitus Mild recurrent major depression Diabetes mellitus, with long-term current 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 LVH (left ventricular hypertrophy) Abnormal finding on EKG GERD (gastroesophageal reflux disease) senior care (current) 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 Uncontrolled diabetes mellitus Left foot pain Insomnia Anxiety Depression Sleep apnea with use of continuous positive airway pressure (CPAP) Hypothyroidism Low potassium syndrome Morbid obesity Dizziness Low back pain Right wrist pain Acquired hypothyroidism Essential hypertension Surgical History S/P laparoscopic sleeve gastrectomy H/O: hysterectomy History of colonoscopy H/O endoscopy History of thyroid surgery History of bladder surgery History of total abdominal hysterectomy History of section Family History Father Diabetes Mother Hypertension Maternal Uncle Colon cancer Maternal Aunt Breast cancer Paternal Aunt Breast cancer Family/Other FH: mental illness Substance use disorder Social History Household Members: None Housing: Apartment Are you a primary home health care case manager to a significant other at home: No Do you presently have visiting nurse or other home services: No Alcohol intake: current Alcohol intake frequency: holidays/special occasions only Alcohol type: beer Patient Tobacco Use Status: Current someday Tobacco user Tobacco use type: Cigarette Cigarettes Per Day: 3 Years Smoked: 10 e-Cigarette/Vaping Use: Never Used Second Hand Smoke Exposure: No service: No Current occupational status: disabled Cognitive needs: No Hearing needs: No Vision needs: No Questionnaire PHQ-9 Over the last 2 weeks, how often have you been bothered by any of the following problems? 1. Little interest or pleasure in doing things: several days 2. Feeling down, depressed, or hopeless: several days 3. Trouble falling or staying asleep, or sleeping too much: several days 4. Feeling tired or having little energy: more than half the days 5. Poor appetite or overeating: several days 6. Feeling bad about yourself - or that you are a failure or have let yourself or your family down: not at all 7. Trouble concentrating on things, such as reading the newspaper or watching television: not at all 8. Moving or speaking so slowly that other people could have noticed. Or the opposite - being so fidgety or restless that you have been moving around a lot more than usual: not at all 9. Thoughts that you would be better off or of hurting yourself in some way: not at all Total score: 6 Depression Screening Interpretation: Positive Depression Screening Follow-up: Existing condition, In treatment, Community Mental Health Worker F/U and Follow- up Visit Requested Depression Screening Done: Yes 63451 - PHQ-9 Billing: Yes Source: Developed by Drs. Jitendra Reyes, Liat Aguirre, Major Norris and colleagues, with an educational katie from [employer]. Thrive Questionnaire Date Thrive assessed: 09/02/24 I am a: Patient What is your living situation today?: I have a steady place to live Within the past 12 months, did the food you bought not last and you didn't have the money to get more?: I choose not to answer this question Within the past 12 months, did you worry whether your food would run out before you got money to buy more?: I choose not to answer this question Do you have trouble paying for medicines?: No Do you have trouble getting transportation to medical appointments?: No Do you have trouble paying your heating and electricity bill?: No Do you have trouble taking care of your child, family member or friend?: No Do you have trouble with day-to-day activities such as bathing, preparing meals, shopping, managing finances, etc.?: Yes Are you currently unemployed and looking for a job?: No Are you interested in more education?: No Please select the resources that you would like help with: None Currently or been in a relationship where the following occur: I choose not to answer THRIVE Score: 0 AUDIT C Alcohol Use Questionnaire (AUDIT-C) 1. How often do you have a drink containing alcohol?: Monthly or less 2. How many drinks containing alcohol do you have on a typical day when you are drinking?: 1 or 2 3. How often do you have six or more drinks on one occasion?: Less than monthly Total Score: 2 SHAHAB-7 AMB Questionnaire SHAHAB-7 Date SHAHAB - 7 assessed: 09/02/24 Feeling nervous, anxious, or on edge: 1 = Several days Not being able to stop or control worryin = Not at all Worrying too much about different things: 0 = Not at all Trouble relaxin = Not at all Being so restless that it is hard to sit still: 0 = Not at all Becoming easily annoyed or irritable: 0 = Not at all Feeling afraid as if something awful might happen: 0 = Not at all Total SHAHAB-7 score (0-4 normal; 5-9 mild; 10-14 moderate; 15-21 severe): 1 Source: Developed by Drs. Jitendra Reyes, Liat Aguirre, Major Norris and colleagues, with an educational katie from [employer]. SHAHAB-7 Assessment Billing SHAHAB-7 Assessment Tool: SHAHAB-7 Assessment 60703 Review of Systems Const All systems reviewed & are unremarkable except as noted in HPI and below Card Denies chest pain at rest, Denies chest pain with activity, Denies edema, Denies irregular heart rhythm, Denies claudication, Denies dyspnea, Denies dyspnea on exertion, Denies orthopnea, Denies paroxysmal nocturnal dyspnea and Denies slow heart rate Resp Denies cough, Denies dyspnea and Denies dyspnea on exertion GI Denies abdominal pain, Denies change in bowel habits, Denies excessive flatus, Denies nausea and Denies vomiting Denies urinary incontinence, Denies urinary hesitancy and Denies urinary urgency Musc Denies atrophy, Denies deformity and Denies limited range of motion Physical exam (Primary Care) Vital Signs: Last Vital Signs BP 130/80 02/10/25 10:14 BMI result Body Mass Index 39.0 BMI Assessment/Plan discussion: High BMI High, discussed plan: lifestyle, weight reduction, dietary and physical activity Tobacco/Smoking Status: Tobacco use Status Tobacco use date assessed 09/02/24 02/10/25 10:08 Patient Tobacco Use Status Current someday Tobacco 02/10/25 10:08 Tobacco use type Cigarette 02/10/25 10:08 e-Cigarette/Vaping Use Never Used 02/10/25 10:08 Are you ready to quit: No Tobacco cessation counseling provided: Yes Items discussed: Nicotine replacement and QuitWorks Relapse Prevention: discussed the importance of a supportive environment, discussed extending NRT, discussed negative mood or depression after quitting, weight gain after smoking is common and discussed dietary, exercise and/or lifestyle changes Number of minutes spent counselin CPT code: 90522 - 4-10 Minutes PHQ-9: PHQ-9 Score PHQ-9: Total score 6 02/10/25 10:25 Depression Screening Interpretation: Positive Depression Screening Follow-up: Existing condition, In treatment, Community Mental Health Worker F/U and Follow- up Visit Requested Thrive Assessment: Date of Thrive Assessment Date Thrive assessed 09/02/24 02/10/25 10:08 Currently or been in a relationship where the following occur: I choose not to answer Resp Effort & Inspection: normal respiratory effort Auscultation: clear to auscultation bilaterally Cardio Jugular venous distension: no JVD Rate: regular rate Rhythm: regular rhythm Heart sounds: S1 normal heart sound present and S2 normal heart sound present Extrem General: Yes full ROM Results AMB Hemoglobin A1c AMB Hemoglobin A1c 6.8 % Last Edit by MARIA INES Pacheoc on 02/10/25 10:2 5 Immunizations pneumoc 20-cheli conj-dip cr(PF) 0.5 mL IM syringe Performing Provider: Claire Everett MD [facility] Administered by: MARIA INES Pacheco on 02/10/25 10:41 Dose Route Admin Location Dispensed Lot Number Expiration Date [facility] Ambulatory Service Representative 0.5 mL IM Right Deltoid 0.5 mL [id number] 01/18/26 [employer] Total Dispensed Waste 0.5 mL 0 % VIS Given Date VIS Provided VIS Publication Date 02/10/25 Single Vaccine 24 Eligibility Eligibility Date Funding Source Not [facility] Eligible 02/10/25 Private Results Reviewed Results Reviewed: Laboratory Last Values Hgb A1c (Clinic) 6.8 % (4.0-6.0) H 02/10/25 10:10 Coding Level of Care Code Est Pt Level 4 (26905) Complex EM visit Add On G2211 Diagnoses Mild recurrent major depression F33.0 Anxiety F41.9 Essential hypertension I10 Hyperlipidemia LDL goal <70 E78.5 Type 2 diabetes mellitus without complication, with long-term current 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 E11.9; Z79.4 Diabetes mellitus complication status: without complication Diabetes mellitus type: type 2 Postoperative hypothyroidism E89.0 Hypothyroidism type: postoperative Pernicious anemia D51.0 Low back pain M54.5 Moderate persistent asthma without complication J45.40 Asthma complication type: uncomplicated Additional Codes PHQ-9 - 46579 - PHQ-9 Billing: Yes ([id number]) SHAHAB-7 Assessment Billing - SHAHAB-7 Assessment Tool: SHAHAB-7 Assessment 73273 ([id number]) Vital Signs *Quality* - CPT code: 69543 - 4-10 Minutes ([id number]) Time Spent (min) 24 Assessment & Plan Assessment & Plan (1) Mild recurrent major depression: Code(s): F33.0 - Major depressive disorder, recurrent, mild Category: Medical (2) Anxiety: Code(s): F41.9 - Anxiety disorder, unspecified Category: Medical (3) Essential hypertension: Code(s): I10 - Essential (primary) hypertension Category: Medical (4) Hyperlipidemia LDL goal <70: Code(s): E78.5 - Hyperlipidemia, unspecified Category: Medical (5) Diabetes mellitus, with long-term current 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: Code(s): E11.9 - Type 2 diabetes mellitus without complications; Z79.4 - terminal clerk (current) 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 Category: Medical Qualifiers: Diabetes mellitus complication status: without complication Diabetes mellitus type: type 2 Qualified Code(s): E11.9 - Type 2 diabetes mellitus without complications; Z79.4 - senior care (current) 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 (6) Hypothyroidism: Comment: Acquired hypothyroidism due to surgery Code(s): E03.9 - Hypothyroidism, unspecified Category: Medical Qualifiers: Hypothyroidism type: postoperative Qualified Code(s): E89.0 - Postprocedural hypothyroidism (7) Pernicious anemia: Code(s): D51.0 - Vitamin B12 deficiency anemia due to intrinsic factor deficiency Category: Medical (8) Low back pain: Code(s): M54.5 - Low back pain Category: Medical (9) Moderate persistent asthma: Code(s): J45.40 - Moderate persistent asthma, uncomplicated Category: Medical Qualifiers: Asthma complication type: uncomplicated Qualified Code(s): J45.40 - Moderate persistent asthma, uncomplicated Plan The patient will continue with her current diabetes management plan, including Farxiga and insulin therapy, as her A1c is well-controlled at 6.8%. Her hypertension management will remain unchanged as her blood pressure is stable. For asthma, she will continue using Advair. Her depression and anxiety me dications, including amlodipine, Abilify, bupropion, and clonazepam, will be maintained. The patient will continue her current dose of levothyroxine for hypothyroidism, with monitoring by her compliance quality performance analyst. She will receive a vitamin injection as needed for her deficiency. She is advised to consider smoking cessation resources, although she is not ready to quit at this time. Preventative care includes scheduling a pneumonia vaccination and ensuring follow-up for mammography. Patient was informed and verbally consented to the use of an ambient scribe for clinic note documentation during this visit. Orders: Orders AMB Hemoglobin A1c Today E11.9 - Type 2 diabetes mellitus without complications, Z79.4 - terminal clerk (current) 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 Microalbumin, Random (w Creat) 4 Months R80.9 - Proteinuria, unspecified Comprehensive [place]. Panel Fast 4 Months E11.9 - Type 2 diabetes mellitus without complications, Z79.4 - senior care (current) 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 XR lumbar spine 2-3V Today M54.5 - Low back pain Vitamin D 25-OH Total 4 Months E55.9 - Vitamin D deficiency, unspecified Lipid Panel 4 Months E78.5 - Hyperlipidemia, unspecified Pneumococcal 20 Immunization Today Z23 - Encounter for immunization Referrals Pain Management Referral M54.5 - Low back pain Medications: Refilled semaglutide (Ozempic) 1 mg (0.75 mL) subcut QWEEK 9 mL 1RF
[2025-02-10 10:14] VITALS: BP 130/80; BMI 39.0
--- OUTSIDE RECORDS SUMMARY | 2025-02-10 10:51 | XMS_ITS | Clinical Summary ---
Author Organization [facility] ity Address [address] [place] [address] Care Team Providers Care Penetration Tester Name Role Phone Claire Everett MD Primary Care Provider [phone] Social History Tobacco Use Types Packs/Day Years [...] 2) 2022 Colorectal Cancer Screening: Colonoscopy 06/23/2022 HIV Screening 06/23/2022 Hepatitis C Screening 06/23/2022 Social Influencers of Health Screening 06/23/2022 COVID-19 Vaccine (1 - 2023-2 5 season) 2024 Depression Screening 07/21/2024 Influenza Vaccine (#1) 2025 HIB Vaccines Aged Out No longer [...] age to complete this topic Care Teams Penetration Tester Relationship Specialty Start Date End Date Claire Everett MD [address] [place] [address] , [address] [facility] Physician Associ D/B/A: [facility] ANTHONY Heaton PCP - General 04/25/23
== END 2025-02-10 10:35 | disposition home or self-care (01) ==
LOC: HO.HMCH 10:04
PROVIDERS: PCP Internal Medicine; Visit Provider Internal Medicine
DX: F33.0 Major depressive disorder, recurrent, mild (principal); F41.9 Anxiety disorder, unspecified; I10 Essential (primary) hypertension; E78.5 Hyperlipidemia, unspecified; E11.9 Type 2 diabetes mellitus without complications; Z79.4 Long term (current) 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; E89.0 Postprocedural hypothyroidism; D51.0 Vitamin B12 deficiency anemia due to intrinsic factor deficiency; M54.50 Low back pain, unspecified; J45.40 Moderate persistent asthma, uncomplicated; Z23 Encounter for immunization

== ENCOUNTER → 2025-02-10 10:03 | Outpatient (BNVA) | payer OTHER, SELFPAY | PROVIDERS: PCP Internal Medicine; Visit Provider Internal Medicine | DX: F33.0 Major depressive disorder, recurrent, mild (principal); Z23 Encounter for immunization; F41.9 Anxiety disorder, unspecified; I10 Essential (primary) hypertension; E78.5 Hyperlipidemia, unspecified; E11.9 Type 2 diabetes mellitus without complications; E89.0 Postprocedural hypothyroidism; D51.0 Vitamin B12 deficiency anemia due to intrinsic factor deficiency; M54.50 Low back pain, unspecified; J45.40 Moderate persistent asthma, uncomplicated; Z79.4 Long term (current) 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; Z13.31 Encounter for screening for depression | CPT/HCPCS: 83036; 90471; 90677; 96127; 99212 ==

== ENCOUNTER 2025-02-21 12:51 | Outpatient (AMB) | payer OTHER, SELFPAY ==
--- NOTE | 2025-02-21 13:04 | MHC.AMDMED ---
Intake Intake Visit Reasons: 60 min Supervisor Cigar Making Machine Required: Yes Supervisor Cigar Making Machine Language: [place] Reporter Name: Ana Leavitt Accompanied by: Self / Same As Patient Allergies zolpidem Adverse Reaction (Intermediate, Verified 02/10/25 10:19) nightmares HPI Comprehensive Diabetes Asmnt Most Recent Diabetes Results: Microalb/Creat Ratio, (<30) 30.4 ug/mg cr H 06/30/24 Cholesterol, (<200) 170 mg/dL 06/30/24 HDL Cholesterol, (>40) 50 mg/dL 06/30/24 Triglycerides, (<150) 123 mg/dL 06/30/24 Creatinine, (0.5-1.4) 0.78 mg/dL 06/30/24 BUN, (9-16) 9 mg/dL 06/30/24 Sodium, (135-145) 144 mmol/L 06/30/24 Potassium, (3.3-5.1) 4.1 mmol/L 06/30/24 Chloride, (96-108) 107 mmol/L 06/30/24 Carbon Dioxide, (22-29) 29 mmol/L 06/30/24 Calcium, (8.4-10.2) 9.7 mg/dL 06/30/24 AST, (5-31) 51 U/L H 06/30/24 ALT, (0-31) 63 U/L H 06/30/24 Total Protein, (6.5-8.0) 7.6 g/dL 06/30/24 Albumin, (3.5-5.0) 4.1 g/dL 06/30/24 [facility] Medical History Dyslipidemia New onset type 2 diabetes mellitus Diabetic eye exam Diabetes mellitus Mild recurrent major depression Diabetes mellitus, with long-term current 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 LVH (left ventricular hypertrophy) Abnormal finding on EKG GERD (gastroesophageal reflux disease) custodial (current) 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 Uncontrolled diabetes mellitus Left foot pain Insomnia Anxiety Depression Sleep apnea with use of continuous positive airway pressure (CPAP) Hypothyroidism Low potassium syndrome Morbid obesity Dizziness Low back pain Right wrist pain Acquired hypothyroidism Essential hypertension Surgical History S/P laparoscopic sleeve gastrectomy H/O: hysterectomy History of colonoscopy H/O endoscopy History of thyroid surgery History of bladder surgery History of total abdominal hysterectomy History of section Family History Father Diabetes Mother Hypertension Maternal Uncle Colon cancer Maternal Aunt Breast cancer Paternal Aunt Breast cancer Family/Other FH: mental illness Substance use disorder Social History Household Members: None Housing: Apartment Are you a primary primary care provider to a significant other at home: No Do you presently have visiting nurse or other home services: No Alcohol intake: current Alcohol intake frequency: holidays/special occasions only Alcohol type: beer Patient Tobacco Use Status: Current someday Tobacco user Tobacco use type: Cigarette Cigarettes Per Day: 3 Years Smoked: 10 e-Cigarette/Vaping Use: Never Used Second Hand Smoke Exposure: No service: No Current occupational status: disabled Cognitive needs: No Hearing needs: No Vision needs: No Assessment & Plan Assessment & Plan (1) Diabetes mellitus, with long-term current 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: Code(s): E11.9 - Type 2 diabetes mellitus without complications; Z79.4 - manager terminal (current) 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 Qualifiers: Diabetes mellitus type: type 2 Diabetes mellitus complication status: without complication Qualified Code(s): E11.9 - Type 2 diabetes mellitus without complications; Z79.4 - custodial (current) 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 Plan: Learning objectives: The patient was provided with verbal and written education on the following topics as outlined below. The patient met all learning objectives and was able to verbalize understanding and provide teach back of education topics discussed . The patient was provided with the opportunity to ask questions and all questions were answered. Patient Assessment Assess patient education level/literacy/barriers, patient continues to be well controlled with last A1c on 02/10/2025 6.8% Patient questions/concerns Exercise Medical clearance Effect of exercise on blood sugar Start slowly and gradually increase pace/duration over time Goal amount of exercise Checking blood glucose/have a source of carbs with you Diabetes Complications: ?Nephropathy :Kidney Disease ?diabetes can damage the kidneys, which is not only can cause them to fail but can make them lose their ability to filter waste from the blood? ?Retinopathy: Eye complications ?Retinopathy? is the commonest long-term complication of diabetes. It is leading cause of blindness Besides, Retinopathy-People with diabetes? are also prone to cataract and Glaucoma. ?Neuropathy: Nerve damage -It involves temporary or permanent damage to nerve tissue. Nerve tissue gets injured mainly due to decreased blood flow and rise in blood glucose levels. This damage can lead to pain , or loss of sensation it can also include sexual dysfunction in both men and women ? Infections poor healing: People with diabetes? have increased susceptibility to various infections, such as? pneumonias, pyelonephritis, carbuncles and diabetic ulcers. This may be due to poor blood supply, reduced cellular immunity or hyperglycemia. ?Heart Disease And Stroke: People with diabetes are four times more prone to develop Heart disease than those who do not have diabetes ?Depression: Feeling down once in awhile is normal, but some people feel sadness that just won't go away. Life for them seems hopeless. Feeling this way most of the day for two weeks or more is a sign of serious depression ?Gum Disease: People get gum disease when plaque destroys the gums and bone around the teeth. People with diabetes can get gum disease from having high blood glucose levels for a long time Lifestyle Work Travel Stress management Problem solving Know your goals A1C Blood sugar targets Blood pressure Cholesterol/LDL Urine microalbumin Educational Materials: The patient was provided with the following written educational materials: ADCES 7 Healthy Behaviors Reducing Risks handout is [place] Patient Response to instructions: Comprehension of Instructions: Good Readiness to make changes: action How confident they feel about making changes: positive Portions of this note were created using voice recognition software, please excuse any words or phrases that may have been misinterpreted. Patient Instructions: Incluir actividad diaria regular. ADA recomienda 30 minutos de ejercicio 5 d?as a la semana. P?rdida de peso, hable con el PCP o el cardi?logo antes de comenzar un nuevo plan. Mida el nivel de az?car en la conrado seg?n las indicaciones; Ayuno y comida m?s ashanti de 2hpp. Observe las tendencias en los resultados. Utilice los resultados y eval?e c?mo los alimentos, la actividad f?deidra y los medicamentos afectan los resultados de az?car en la conrado. Lleve el gluc?metro o CGM a la pr?xima visita. Conocer los medicamentos para la diabetes, hwang acci?n, los efectos secundarios, la eficacia, la toxicidad, la dosis prescrita, el momento y la frecuencia de administraci?n apropiados, el efecto de las dosis olvidadas y retrasadas y las instrucciones de almacenamiento, viaje y seguridad. T?cnicas de resoluci?n de problemas para el seguimiento de episodios de hipo/hiperglucemia y tratamientos. Reducir los comportamientos de reducci?n de riesgos, dejar de fumar, ex?menes regulares de ojos, pies y dentales. Coding Level of Care Code Est Pt Level 1 (46723) Diagnoses Type 2 diabetes mellitus without complication, with long-term current 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 E11.9; Z79.4 Diabetes mellitus type: type 2 Diabetes mellitus complication status: without complication
--- OUTSIDE RECORDS SUMMARY | 2025-02-21 13:10 | XMS_ITS | Clinical Summary ---
Author Organization [facility] ity Address [address] [place] [address] Care Team Providers Care Catalyst Operator Name Role Phone Claire Everett MD Primary Care Provider [phone] Social History Tobacco Use Types Packs/Day Years [...] age to complete this topic Care Teams Catalyst Operator Relationship Specialty Start Date End Date Claire Everett MD [address] [place] [address] , [address] [facility] Physician Associ D/B/A: [facility] ANTHONY Heaton PCP - General 04/25/23
== END 2025-02-21 13:31 | disposition home or self-care (01) ==
LOC: HO.ENCR 12:52
PROVIDERS: PCP Internal Medicine; Visit Provider Registered Nurse Diabetes Educator
DX: E11.9 Type 2 diabetes mellitus without complications (principal); Z79.4 Long term (current) 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

== ENCOUNTER → 2025-02-21 12:51 | Outpatient (BNVA) | payer OTHER, SELFPAY | PROVIDERS: PCP Internal Medicine; Visit Provider Registered Nurse Diabetes Educator | DX: E11.9 Type 2 diabetes mellitus without complications (principal); Z79.4 Long term (current) 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 | CPT/HCPCS: 99211 ==

== ENCOUNTER 2025-02-25 14:24 | Outpatient (AMB) | payer OTHER, SELFPAY ==
--- NOTE | 2025-02-25 14:25 | MHC.OFFVIS ---
Vital Signs 02/25/25 14:28 Height 5 ft 4 in Weight 232 lb 8 oz BMI 39.9 BP 170/84 H Blood Pressure Location Rt brachial Position Sitting Pulse 80 Pulse Source Pulse Oximeter Pulse Oximetry (%) 97 Intake Visit Reasons: Low back pain Intake Note: Pain today 8 Family Educator Required: Yes Family Educator Language: Consumer Loan Specialist Services: Family Educator Present Family Educator Name: Tory #[id number] Accompanied by: Self / Same As Patient Allergies zolpidem Adverse Reaction (Intermediate, Verified 02/25/25 14:29) nightmares HPI Comments Details: The patient is a 54-year-old female presenting with acute low back pain. The pain has been progressively worsening, described as intense and radiating to the back of the right leg. The pain is constant, with a severity level of 8 out of 10, and is exacerbated by walking, standing, sitting, changing positions or sleeping. The patient reports that the pain is stabbing in nature and experiences tightness in the knee. She has not started physical therapy and has not received any injections for the pain. Patient has been taking Tylenol and Ibuprofen with minimal relief. The patient has a history of obesity with a current BMI of 39.9 and underwent bariatric surgery two years ago. Despite the surgery, she has regained most of the weight lost. Her A1c is 6.8 and she uses Dexicomp meter. - Onset: Progressive worsening over time, started one month ago - Quality: Intense, stabbing, aching, sharp, dull, heavy, sore, radiating - Location: Low back, radiating to the back of the right leg - Severity: 8 out of 10, constant - Exacerbating factors: Walking, standing, sitting, bending backwards, lifting, changing positions, all movements - Affect: Pain affects sleep and negatively impact on her mood and psychological wellbeing - Analgesia: Current pain level is 8 out of 10; patient uses Tylenol with no relief - Adverse Effects: None reported from current medications - Activities of Daily Living: Pain affects walking, standing, and sitting; daily activities and functioning and sleep - Aberrant Drug Related Behaviors: None reported Oswestry Low Back Pain Disability Score=34 PFSH Medical History Dyslipidemia New onset type 2 diabetes mellitus Diabetic eye exam Diabetes mellitus Mild recurrent major depression Diabetes mellitus, with long-term current 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 LVH (left ventricular hypertrophy) Abnormal finding on EKG GERD (gastroesophageal reflux disease) half-way (current) 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 Uncontrolled diabetes mellitus Left foot pain Insomnia Anxiety Depression Sleep apnea with use of continuous positive airway pressure (CPAP) Hypothyroidism Low potassium syndrome Morbid obesity Dizziness Low back pain Right wrist pain Acquired hypothyroidism Essential hypertension Surgical History S/P laparoscopic sleeve gastrectomy H/O: hysterectomy History of colonoscopy H/O endoscopy History of thyroid surgery History of bladder surgery History of total abdominal hysterectomy History of section Family History Father Diabetes Mother Hypertension Maternal Uncle Colon cancer Maternal Aunt Breast cancer Paternal Aunt Breast cancer Family/Other FH: mental illness Substance use disorder Social History Household Members: None Housing: Apartment Are you a primary day care teacher to a significant other at home: No Do you presently have visiting nurse or other home services: No Alcohol intake: current Alcohol intake frequency: holidays/special occasions only Alcohol type: beer Patient Tobacco Use Status: Current someday Tobacco user Tobacco use type: Cigarette Cigarettes Per Day: 3 Years Smoked: 10 e-Cigarette/Vaping Use: Never Used Second Hand Smoke Exposure: No service: No Current occupational status: disabled Cognitive needs: No Hearing needs: No Vision needs: No Review of Systems Const Details: - Musculoskeletal: Reports chronic low back pain radiating to the right leg, tightness in the knee - Neurological: Denies significant numbness or tingling, bladder or bowel dysfunction or saddle anesthesia All systems reviewed & are unremarkable except as noted in HPI and below Physical Exam Vital Signs: Last Vital Signs Pulse 80 02/25/25 14:28 BP 170/84 H 02/25/25 14:28 Pulse Ox 97 02/25/25 14:28 BMI result Body Mass Index 39.9 General: Appears afebrile. Alert and oriented. Mood and affect appropriate. Follows and participates in conversation appropriately. Respiratory effort is unlabored. No cough. Able to transition from sit to stand unassisted. Ambulates with bilaterally normal heel strike and toe off. General: Yes no CVA tenderness Back/Spine/Pelvis Other: Patient is able to walk and stand on heels and tip toes with no difficulties demonstrating good motor tone. Normal gait, no limping. Can flex forward to 75-80 degrees and extend to 5-10 degrees before experiencing lumbar pain, lumbar extension reproduces moderate pain. Demonstrates 5/5 strength of quadriceps bilaterally as well as flexion/dorsiflexion of bilateral feet against resistance. 2+ pedal pulses bilaterally. Straight leg rise with dorsiflexion negative bilaterally. +2 patellar and achilles reflexes bilaterally. Facet loading test positive bilaterally. Virgie sign, Reyes?s, Pelvic compression and Stinchfield tests are positive bilaterally. Valsalva maneuver negative. Back: no CVA tenderness Cervical Spine: cervical ROM normal, cervical muscular tenderness and No Cervical spine tenderness Thoracic/Lumbar Spine: thoracic and lumbar spine normal to inspection, No Thoracic/lumbar spine scar(s), Lasegue's sign negative, straight leg raise negative bilaterally, pain with thoraco-lumbar ROM, paraspinal muscle tenderness, thoraco-lumbar ROM limited, No thoracic spinal tenderness and lumbar spinal tenderness (L4-S1) Sacroiliac joints: bilaterally tender to palpation Extrem General: Yes capillary refill normal, Yes no clubbing, cyanosis or edema and Yes no calf tenderness Results Reviewed Results Reviewed: CT abdomen pelvis w IV con 05/31/24 OSSEOUS STRUCTURES: There is multi-level mild lower thoracic endplate arthropathy. No acute or aggressive osseous finding is noted. Assessment & Plan Assessment & Plan (1) Low back pain: Code(s): M54.5 - Low back pain Category: Medical (2) Thoracic degenerative disc disease: Code(s): M51.34 - Other intervertebral disc degeneration, thoracic region Category: Medical (3) Lumbar radiculopathy, right: Code(s): M54.16 - Radiculopathy, lumbar region Category: Medical (4) Muscle spasm of back: Code(s): M62.830 - Muscle spasm of back Category: Medical (5) Severe obesity (BMI 35.0-39.9) with comorbidity: Code(s): E66.01 - Morbid (severe) obesity due to excess calories Category: Medical Plan The patient will begin physical therapy and undergo thoracic and lumbar spine x-rays to assess for degenerative changes and arthritis. She will continue using Tylenol and lidocaine patches for pain management and is encouraged to use heat therapy. Weight loss and daily physical activity are recommended to improve her condition. All questions and concerns have been answered and patient agreed with the plan. Follow-up will occur after the completion of physical therapy to evaluate the need for further interventional treatments. Patient was informed and verbally consented to the use of an ambient scribe for clinic note documentation during this visit. Orders: Orders XR lumbar spine 4V min Today M54.5 - Low back pain XR thoracic spine 2V Today M51.34 - Other intervertebral disc degeneration, thoracic region PT Evaluation and Treatment Today M51.34 - Other intervertebral disc degeneration, thoracic region, M54.16 - Radiculopathy, lumbar region, M54.5 - Low back pain, M62.830 - Muscle spasm of back Medications: Refilled lidocaine 5% 1 patch topical DAILY PRN 30 ea 0RF Back Pain 30 days Coding Level of Care Code New Pt Level 4 (60048) Diagnoses Low back pain M54.5 Thoracic degenerative disc disease M51.34 Lumbar radiculopathy, right M54.16 Muscle spasm of back M62.830 Severe obesity (BMI 35.0-39.9) with comorbidity E66.01
--- OUTSIDE RECORDS SUMMARY | 2025-02-25 14:27 | XMS_ITS | Clinical Summary ---
Author Organization [facility] ity Address [address] [place] [address] Care Team Providers Care Minister Of Religion Name Role Phone Claire Everett MD Primary Care Provider [phone] Social History Tobacco Use Types Packs/Day Years [...] age to complete this topic Care Teams Minister Of Religion Relationship Specialty Start Date End Date Claire Everett MD [address] [place] [address] , [address] [facility] Physician Associ D/B/A: [facility] ANTHONY Heaton PCP - General 04/25/23
[2025-02-25 14:28] VITALS: BP 170/84; PULSE 80; O2SAT 97; BMI 39.9
== END 2025-02-25 14:59 | disposition home or self-care (01) ==
LOC: HO.PMC 14:24
PROVIDERS: PCP Internal Medicine; Visit Provider Nurse Practitioner Family
DX: M54.50 Low back pain, unspecified (principal); M51.34 Other intervertebral disc degeneration, thoracic region; M54.16 Radiculopathy, lumbar region; M62.830 Muscle spasm of back; E66.01 Morbid (severe) obesity due to excess calories
CPT/HCPCS: 99204

== ENCOUNTER → 2025-02-25 14:24 | Outpatient (BNVA) | payer OTHER, SELFPAY | PROVIDERS: PCP Internal Medicine; Visit Provider Nurse Practitioner Family | DX: M54.50 Low back pain, unspecified (principal); M51.34 Other intervertebral disc degeneration, thoracic region; M54.16 Radiculopathy, lumbar region; M62.830 Muscle spasm of back; E66.01 Morbid (severe) obesity due to excess calories | CPT/HCPCS: 99202 ==

== ENCOUNTER 2025-03-17 08:39 | Outpatient (REF) | payer OTHER, SELFPAY ==
--- OUTSIDE RECORDS SUMMARY | 2025-03-17 09:22 | XMS_ITS | Clinical Summary ---
Author Organization [facility] ity Address [address] [place] [address] Care Team Providers Care Reservationist Name Role Phone Claire Everett MD Primary Care Provider [phone] Social History Tobacco Use Types Packs/Day Years [...] age to complete this topic Care Teams Reservationist Relationship Specialty Start Date End Date Claire Everett MD [address] [place] [address] , [address] [facility] Physician Associ D/B/A: [facility] ANTHONY Heaton PCP - General 04/25/23
[2025-03-17 09:59] LABS: Hemoglobin A1C 184.2679 umol/L; Total Hemoglobin (HGBA1C) 3846.2908 umol/L
[2025-03-17 10:27] LABS: Cholesterol 146 mg/dL (<200); HDL Cholesterol 31 mg/dL (>40); Triglycerides 98 mg/dL (<150)
[2025-03-17 10:37] LABS: Alanine Aminotransferase 134 U/L (0-31); Albumin Level 4.5 g/dL (3.5-5.0); Alkaline Phosphatase 119 U/L (39-117); Anion Gap 9 (12-20); Aspartate Amino Transferase 110 U/L (5-31); Blood Urea Nitrogen 9 mg/dL (9-16); Calcium 9.1 mg/dL (8.4-10.2); Carbon Dioxide 28 mmol/L (22-29); Chloride 107 mmol/L (96-108); Cholesterol 148 mg/dL (<200); Estimated Glomerular Filt Rate 58; HDL Cholesterol 31 mg/dL (>40); Potassium 3.9 mmol/L (3.3-5.1); Sodium 140 mmol/L (135-145); Thyroid Stimulating Hormone 20.48 uIU/mL (0.32-4.0); Total Protein 7.7 g/dL (6.5-8.0); Triglycerides 97 mg/dL (<150)
[2025-03-17 11:00] LABS: Microalbum/Creatinine Ratio Ur 15.6 ug/mg cr (<30)
[2025-03-17 11:33] LABS: Free T4 (Free Thyroxine) 0.91 ng/dL (0.71-1.85)
== END 2025-03-17 08:40 | disposition home or self-care (01) ==
LOC: HO.LAB 08:39
PROVIDERS: PCP Internal Medicine; Visit Provider Student in an Organized Health Care Education/Training Program
DX: E78.5 Hyperlipidemia, unspecified (principal); E11.9 Type 2 diabetes mellitus without complications; E03.9 Hypothyroidism, unspecified; E55.9 Vitamin D deficiency, unspecified; Z79.4 Long term (current) 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
CPT/HCPCS: 36415; 80053; 80061; 82043; 82306; 82570; 83036; 84439; 84443

== ENCOUNTER 2025-05-31 14:19 | Outpatient (AMB) | payer OTHER, SELFPAY ==
[2025-05-31 14:30] VITALS: BP 118/72; PULSE 74; RESP 18; TEMP 36.3; O2SAT 94; BMI 38.5
--- NOTE | 2025-05-31 14:30 | A.OFFPC_ITS ---
Vital Signs 05/31/25 14:30 Height 5 ft 4 in Weight 224 lb 2 oz BMI 38.5 BP 118/72 Blood Pressure Location Lt brachial Position Sitting Respiration 18 Pulse 74 Pulse Source Pulse Oximeter Temp 97.3 F Temp Source Temporal Artery Scan Pulse Oximetry (%) 94 Oxygen Delivery Method Room Air Intake Visit Reasons: annual exam Intake Note: Patient here for a follow up DM Landscape Account Manager Required: No Accompanied by: Self / Same As Patient Allergies zolpidem Adverse Reaction (Intermediate, Verified 05/31/25 14:49) nightmares Medication List - Last Reconciled 05/31/25 by lCaire Everett MD albuterol sulfate 1.25 mg (3 mL) inhalation QID PRN albuterol sulfate 90 mcg/actuation 2 puffs inhalation Q4-6H PRN 30 days alcohol swabs (Alcohol Prep Pads) 1 pad topical BID amlodipine 10 mg PO DAILY 90 days aripiprazole (Abilify) 5 mg PO DAILY 90 days blood-glucose meter (FreeStyle Lite Meter kit) As directed 2 times daily blood-glucose sensor (FreeStyle Anuj 3 Plus Sensor device) As directed every 14 days blood-glucose,supervisor mold yard,cont (FreeStyle Anuj 3 [place]) As directed bupropion HCl XL 300 mg PO DAILY cholecalciferol (vitamin D3) 50 mcg PO DAILY 90 days clonazepam 1 mg PO BID PRN dapagliflozin propanediol (Farxiga) 5 mg PO DAILY diclofenac sodium 1% (Arthritis Pain (diclofenac)) 2 grams topical QID PRN fluocinolone acetonide oil 0.01% (DermOtic Oil) 5 drps otic (ears) BID 7 days fluticasone propion-salmeterol 230-21 mcg/actuation (Advair HFA) 2 puffs inhalation BID 30 days FreeStyle Lite Strips (blood sugar diagnostic) As directed 2 times daily NS insulin glargine (Lantus Solostar U-100 Insulin) 15 units (0.15 mL) subcut QPM 90 days insulin lispro 5 units (0.05 mL) subcut TID 30 days lancets (Pure Comfort Safety Lancets) USE DIRECTED TO TEST BLOOD SUGAR 2 TIMES DAILY levothyroxine (Synthroid) 88 mcg PO DAILY levothyroxine 200 mcg PO DAILY 90 days lidocaine 5% 1 patch topical DAILY PRN 30 days loratadine (Allerclear) 10 mg PO DAILY PRN losartan 100 mg PO DAILY 90 days miscellaneous medical supply (Blood Pressure Cuff) As directed omeprazole 20 mg PO DAILY 90 days ondansetron 4 mg PO Q6H PRN pen needle, diabetic (Comfort EZ Pen [place]) Use 1 pen needle once a day pen needle, diabetic (Comfort EZ Pen [place]) Use 1 three times a day pen needle, diabetic (Comfort EZ Pen [place]) USE DIRECTED ONCE A DAY prazosin 2 mg PO BEDTIME Held on 12/14/21. Instructions: Resume on 12/17/21. rosuvastatin 20 mg PO DAILY 90 days semaglutide (Ozempic) 1 mg (0.75 mL) subcut QWEEK walker (Ultra-Light Rollator [facility] [place]) with seat Tobacco use date assessed: 09/02/24 Dental Screening Dental Screen Date: 05/31/25 HPI HPI Comments History of Present Illness Details The patient is a 55-year-old female presenting for her physical exam. Her past surgical history includes an endoscopy, thyroid surgery, hysterectomy, and two sections. Her father has diabetes and her mother has high blood pressure; both parents are alive. For management of her cholesterol, the patient takes Ozempic 2 mg. Previous lab results showed an LDL of 96 mg/dL, with a target of 70 mg/dL, and also indicated her thyroid was uncontrolled. The patient smokes about five cigarettes daily and drinks alcohol socially, consuming 3 to 4 beers twice a week. [facility] Medical History Dyslipidemia New onset type 2 diabetes mellitus Diabetic eye exam Diabetes mellitus Mild recurrent major depression Diabetes mellitus, with long-term current 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 LVH (left ventricular hypertrophy) Abnormal finding on EKG GERD (gastroesophageal reflux disease) USP (current) 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 Uncontrolled diabetes mellitus Left foot pain Insomnia Anxiety Depression Sleep apnea with use of continuous positive airway pressure (CPAP) Hypothyroidism Low potassium syndrome Morbid obesity Dizziness Low back pain Right wrist pain Acquired hypothyroidism Essential hypertension Surgical History S/P laparoscopic sleeve gastrectomy H/O: hysterectomy History of colonoscopy H/O endoscopy History of thyroid surgery History of bladder surgery History of total abdominal hysterectomy History of section Family History Father Diabetes Mother Hypertension Maternal Uncle Colon cancer Maternal Aunt Breast cancer Paternal Aunt Breast cancer Family/Other FH: mental illness Substance use disorder Social History (Updated 05/31/25 @ 14:56 by Claire Everett MD) Household Members: None Housing: Apartment Are you a primary home health care respiratory therapist to a significant other at home: No Do you presently have visiting nurse or other home services: No Alcohol intake: current Alcohol intake frequency: a few times a week Alcohol type: beer Patient Tobacco Use Status: Current everyday Tobacco user Tobacco use type: Cigarette Cigarettes Per Day: 5 Years Smoked: 10 e-Cigarette/Vaping Use: Never Used Second Hand Smoke Exposure: No service: No Current occupational status: disabled Cognitive needs: No Hearing needs: No Vision needs: No Questionnaire PHQ-9 Over the last 2 weeks, how often have you been bothered by any of the following problems? 1. Little interest or pleasure in doing things: several days 2. Feeling down, depressed, or hopeless: several days 3. Trouble falling or staying asleep, or sleeping too much: several days 4. Feeling tired or having little energy: more than half the days 5. Poor appetite or overeating: several days 6. Feeling bad about yourself - or that you are a failure or have let yourself or your family down: not at all 7. Trouble concentrating on things, such as reading the newspaper or watching television: not at all 8. Moving or speaking so slowly that other people could have noticed. Or the opposite - being so fidgety or restless that you have been moving around a lot more than usual: not at all 9. Thoughts that you would be better off or of hurting yourself in some way: not at all Total score: 6 Depression Screening Interpretation: Positive Depression Screening Follow-up: Existing condition, In treatment, Community Mental Health Worker F/U and Follow- up Visit Requested Depression Screening Done: Yes 60272 - PHQ-9 Billing: Yes Source: Developed by Drs. Jitendra Reyes, Liat Aguirre, Maojr Norris and colleagues, with an educational katie from [employer]. Thrive Questionnaire Date Thrive assessed: 02/10/25 I am a: Patient What is your living situation today?: I have a steady place to live Within the past 12 months, did the food you bought not last and you didn't have the money to get more?: I choose not to answer this question Within the past 12 months, did you worry whether your food would run out before you got money to buy more?: I choose not to answer this question Do you have trouble paying for medicines?: No Do you have trouble getting transportation to medical appointments?: No Do you have trouble paying your heating and electricity bill?: No Do you have trouble taking care of your child, family member or friend?: No Do you have trouble with day-to-day activities such as bathing, preparing meals, shopping, managing finances, etc.?: Yes Are you currently unemployed and looking for a job?: No Are you interested in more education?: No Please select the resources that you would like help with: None Currently or been in a relationship where the following occur: I choose not to answer THRIVE Score: 0 AUDIT C Alcohol Use Questionnaire (AUDIT-C) 1. How often do you have a drink containing alcohol?: Monthly or less 2. How many drinks containing alcohol do you have on a typical day when you are drinking?: 1 or 2 3. How often do you have six or more drinks on one occasion?: Less than monthly Total Score: 2 SHAHAB-7 AMB Questionnaire SHAHAB-7 Date SHAHAB - 7 assessed: 09/02/24 Feeling nervous, anxious, or on edge: 1 = Several days Not being able to stop or control worryin = Not at all Worrying too much about different things: 0 = Not at all Trouble relaxin = Not at all Being so restless that it is hard to sit still: 0 = Not at all Becoming easily annoyed or irritable: 0 = Not at all Feeling afraid as if something awful might happen: 0 = Not at all Total SHAHAB-7 score (0-4 normal; 5-9 mild; 10-14 moderate; 15-21 severe): 1 Source: Developed by Drs. Jitendra Reyes, Liat Aguirre, Major Norris and colleagues, with an educational katie from [employer]. SHAHAB-7 Assessment Billing SHAHAB-7 Assessment Tool: SHAHAB-7 Assessment 61576 Review of Systems Const All systems reviewed & are unremarkable except as noted in HPI and below Card Denies chest pain at rest, Denies chest pain with activity, Denies edema, Denies irregular heart rhythm, Denies claudication, Denies dyspnea, Denies dyspnea on exertion, Denies orthopnea, Denies paroxysmal nocturnal dyspnea and Denies slow heart rate Resp Denies cough, Denies dyspnea and Denies dyspnea on exertion GI Denies abdominal pain, Denies change in bowel habits, Denies excessive flatus, Denies nausea and Denies vomiting Physical exam (Primary Care) Vital Signs: Last Vital Signs Temp 97.3 F 05/31/25 14:30 Pulse 74 05/31/25 14:30 Resp 18 05/31/25 14:30 BP 118/72 05/31/25 14:30 Pulse Ox 94 05/31/25 14:30 Oxygen Delivery Method Room Air 05/31/25 14:30 BMI result Body Mass Index 38.5 BMI Assessment/Plan discussion: High BMI High, discussed plan: lifestyle, weight reduction, dietary and physical activity Tobacco/Smoking Status: Tobacco use Status Tobacco use date assessed 09/02/24 05/31/25 14:31 Patient Tobacco Use Status Current everyday Tobacco 05/31/25 14:56 Tobacco use type Cigarette 05/31/25 14:56 e-Cigarette/Vaping Use Never Used 05/31/25 14:56 PHQ-9: PHQ-9 Score PHQ-9: Total score 6 05/31/25 15:06 Depression Screening Interpretation: Positive Depression Screening Follow-up: Existing condition, In treatment, Community Mental Health Worker F/U and Follow- up Visit Requested Thrive Assessment: Date of Thrive Assessment Date Thrive assessed 02/10/25 05/31/25 14:31 Currently or been in a relationship where the following occur: I choose not to answer HENMT Head: Yes normal to inspection, Yes normocephalic and Yes atraumatic Ears: external ears normal Eyes General: appearance normal, both eyes and all related structures Eyelids: Yes eyelids normal Conjunctivae: conjunctivae normal Neck Neck: Yes normal visual inspection and Yes supple Resp Effort & Inspection: normal respiratory effort Auscultation: clear to auscultation bilaterally Cardio Jugular venous distension: no JVD Rate: regular rate Rhythm: regular rhythm Heart sounds: S1 normal heart sound present and S2 normal heart sound present GI Inspection: Yes normal to inspection Palpation (GI): Soft to palpation and nontender Auscultation: normal bowel sounds Skin General skin exam: no rashes or lesions noted Neuro General: no focal motor deficits Extrem General: Yes full ROM Psych Appearance: grossly normal Office Procedures Flu Questionnaire Does the patient have a severe egg allergy?: No Does the patient have severe life threatening allergies?: No Does the patient have a fever or illness today?: No Has the patient ever had Guillain-[place] Syndrome?: No Has the patient ever had any past reaction to a flu shot?: No Immunizations Fluarix [id number] (PF) 45 mcg (15 mcg x 3)/0.5 mL IM syringe Performing Provider: Claire Everett MD Performing Location[facility] [place] [facility] Administered by: Daniella Santos CMA on 05/31/25 15:06 Dose Route Admin Location Dispensed Lot Number Expiration Date NDC [place] Loader 0.5 mL IM Left Deltoid 0.5 mL [id number] 01/17/26 [id number] [place] [employer] VIS Given Date VIS Provided VIS Publication Date 05/31/25 Single Vaccine 24 Eligibility Eligibility Date Funding Source Not [facility] Eligible 05/31/25 Private Coding Level of Care Code Est Pt Level 3 (91034) Est Pt Prev Care 40-64y(31534) Diagnoses Physical exam Z00.00 Type 2 diabetes mellitus without complication, with long-term current 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 E11.9; Z79.4 Diabetes mellitus type: type 2 Diabetes mellitus complication status: without complication Postoperative hypothyroidism E89.0 Hypothyroidism type: postoperative Mild recurrent major depression F33.0 Additional Codes SHAHAB-7 Assessment Billing - SHAHAB-7 Assessment Tool: SHAHAB-7 Assessment 83310 ([id number]) PHQ-9 - 70191 - PHQ-9 Billing: Yes ([id number]) Time Spent (min) 34 Assessment & Plan Assessment & Plan (1) Physical exam: Code(s): Z00.00 - Encounter for general adult medical examination without abnormal findings Category: Medical (2) Diabetes mellitus, with long-term current 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: Code(s): E11.9 - Type 2 diabetes mellitus without complications; Z79.4 - rat exterminator (current) 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 Category: Medical Qualifiers: Diabetes mellitus type: type 2 Diabetes mellitus complication status: without complication Qualified Code(s): E11.9 - Type 2 diabetes mellitus without complications; Z79.4 - USP (current) 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 (3) Hypothyroidism: Comment: Acquired hypothyroidism due to surgery Code(s): E03.9 - Hypothyroidism, unspecified Category: Medical Qualifiers: Hypothyroidism type: postoperative Qualified Code(s): E89.0 - Postprocedural hypothyroidism (4) Mild recurrent major depression: Code(s): F33.0 - Major depressive disorder, recurrent, mild Category: Medical Plan Plan 1. Physical exam Repeat in a year. 2. Hypothyroidism The patient's prior thyroid test results were noted to be uncontrolled. Plan to repeat thyroid tests. 3. Diabetes mellitus Continue insulin and Ozempic. A1c goal is equal or less than 7%. Orders: Orders Lipid Panel Today E78.5 - Hyperlipidemia, unspecified Vitamin D 25-OH Total Today E55.9 - Vitamin D deficiency, unspecified Thyroid Stimulating Hormone Today E89.0 - Postprocedural hypothyroidism Influenza [id number] Immunization Today Z23 - Encounter for immunization MM tomosynthesis screening BI Today Z12.31 - Encounter for screening mammogram for malignant neoplasm of breast Microalbumin, Random (w Creat) Today R80.9 - Proteinuria, unspecified Comprehensive [place]. Panel Fast Today I10 - Essential (primary) hypertension Referrals Gastroenterology Referral D12.6 - Benign neoplasm of colon, unspecified Medications: Changed From albuterol sulfate 1.25 mg (3 mL) inhalation QID PRN 75 mL 0RF shortness of breath or wheezing J45.40 - Moderate persistent asthma, uncomplicated To albuterol sulfate 1.25 mg (3 mL) inhalation QID PRN 75 mL 2RF shortness of breath or wheezing 30 days J45.40 - Moderate persistent asthma, uncomplicated Refilled semaglutide (Ozempic) 1 mg (0.75 mL) subcut QWEEK 9 mL 3RF D12.6 - Benign neoplasm of colon, unspecified
--- OUTSIDE RECORDS SUMMARY | 2025-05-31 15:59 | XMS_ITS | Clinical Summary ---
Author Organization [facility] ity Address [address] [place] [address] Care Team Providers Care Correspondence Clerk Name Role Phone Claire Everett MD Primary Care Provider [phone] Social History Tobacco Use Types Packs/Day Years Used Date Smoking Tobacco: Never Assessed Comments Unknown Sex and Gender Information Value Date Recorded Sex Assigned at Not on file Legal Sex Female 2:14 AM EST Gender Identity Not on file Sexual Orientation Not on file Plan of Treatment Health Maintenance Due Date Last Done Comments Breast Cancer Screening 1972 Colorectal Cancer Screening: Colonoscopy 1972 DTaP,Tdap,and Td Vaccines (1 - Tdap) 1991 Hepatitis B Vaccines (1 of 3 - 19+ 3-dose series) 1991 Cervical Cancer Screening: P ap Smear 1993 Pneumococcal Vaccine: 50+ Ye ars (1 of 1 - PCV) 2022 Zoster Vaccines (1 of 2) 2022 HIV Screening 06/23/2022 Hepatitis C Screening 06/23/2022 Social Influencers of Health Screening 06/23/2022 Depression Screening 07/21/2024 COVID-19 Vaccine (1 - 2024-2 6 season) 2025 Influenza Vaccine (#1) 2025 RSV Immunization Adult Patie nts (1 - 1-dose 75+ series) 2047 HIB Vaccines Aged Out No longer eligi [...] age to complete this topic Care Teams Correspondence Clerk Relationship Specialty Start Date End Date Claire Everett MD [address] [place] [address] , [address] [facility] D/B/A: [facility] ANTHONY Heaton PCP - General 04/25/23
== END 2025-05-31 15:08 | disposition home or self-care (01) ==
LOC: HO.HMCH 14:20
PROVIDERS: PCP Internal Medicine; Visit Provider Internal Medicine
DX: Z00.00 Encounter for general adult medical examination without abnormal findings (principal); E11.9 Type 2 diabetes mellitus without complications; Z79.4 Long term (current) 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; E89.0 Postprocedural hypothyroidism; F33.0 Major depressive disorder, recurrent, mild; Z23 Encounter for immunization

== ENCOUNTER → 2025-05-31 14:19 | Outpatient (BNVA) | payer OTHER, SELFPAY | PROVIDERS: PCP Internal Medicine; Visit Provider Internal Medicine | DX: Z00.00 Encounter for general adult medical examination without abnormal findings (principal); E11.9 Type 2 diabetes mellitus without complications; E89.0 Postprocedural hypothyroidism; F33.0 Major depressive disorder, recurrent, mild; F17.210 Nicotine dependence, cigarettes, uncomplicated; E78.5 Hyperlipidemia, unspecified; E55.9 Vitamin D deficiency, unspecified; I10 Essential (primary) hypertension; D12.6 Benign neoplasm of colon, unspecified; J45.40 Moderate persistent asthma, uncomplicated; Z23 Encounter for immunization; Z79.4 Long term (current) 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 | CPT/HCPCS: 90471; 90656; 96127; 99396 ==

== ENCOUNTER 2025-06-02 09:14 | Outpatient (REF) | payer OTHER, SELFPAY ==
--- OUTSIDE RECORDS SUMMARY | 2025-06-02 10:31 | XMS_ITS | Clinical Summary ---
Author Organization [facility] ity Address [address] [place] [address] Care Team Providers Care Infantry Indirect Fire Crewmember Name Role Phone Claire Everett MD Primary Care Provider [phone] Social History Tobacco Use Types Packs/Day Years [...] age to complete this topic Care Teams [employer] Crewmember Relationship Specialty Start Date End Date Claire Everett MD [address] [place] [address] , [address] [facility] D/B/A: [facility] ANTHONY Heaton PCP - General 04/25/23
[2025-06-02 11:04] LABS: Alanine Aminotransferase 81 U/L (0-31); Albumin Level 4.0 g/dL (3.5-5.0); Alkaline Phosphatase 119 U/L (39-117); Anion Gap 14 (12-20); Aspartate Amino Transferase 68 U/L (5-31); Blood Urea Nitrogen 12 mg/dL (9-16); Calcium 9.0 mg/dL (8.4-10.2); Carbon Dioxide 22 mmol/L (22-29); Chloride 109 mmol/L (96-108); Cholesterol 161 mg/dL (<200); Estimated Glomerular Filt Rate > 60; HDL Cholesterol 43 mg/dL (>40); Potassium 4.1 mmol/L (3.3-5.1); Sodium 141 mmol/L (135-145); Thyroid Stimulating Hormone 0.10 uIU/mL (0.32-4.0); Total Protein 7.2 g/dL (6.5-8.0); Triglycerides 110 mg/dL (<150)
[2025-06-02 11:26] LABS: Microalbum/Creatinine Ratio Ur 15.9 ug/mg cr (<30)
== END 2025-06-02 09:15 | disposition home or self-care (01) ==
LOC: HO.LAB 09:14
PROVIDERS: PCP Internal Medicine; Visit Provider Internal Medicine
DX: E11.9 Type 2 diabetes mellitus without complications (principal); E55.9 Vitamin D deficiency, unspecified; E89.0 Postprocedural hypothyroidism; E78.5 Hyperlipidemia, unspecified; R80.9 Proteinuria, unspecified; Z79.4 Long term (current) 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
CPT/HCPCS: 36415; 80053; 80061; 82043; 82306; 82570; 84443

== ENCOUNTER 2025-07-11 10:03 | Outpatient (AMB) | payer OTHER, SELFPAY ==
--- NOTE | 2025-07-11 10:15 | MHC.OFFVIS ---
Vital Signs 07/11/25 10:18 Height 5 ft 4 in Weight 227 lb 11.8 oz BMI 39.1 BP 124/70 Blood Pressure Location Rt brachial Position Sitting Pulse 76 Pulse Source Pulse Oximeter Pulse Oximetry (%) 97 Oxygen Delivery Method Room Air Intake Visit Reasons: T2DM Intake Note: Patient present today to follow up on Type 2 Diabetes Mellitus. Last Diabetic Eye exam: approx 9 months ago Last Podiatry Visit: Doesn't have one Random Glucose: 213 mg/dl HgA1C: 7.4% 07/11/2025 Outsole Splicer Required: Yes Outsole Splicer Language: Publishing Specialist Services: Outsole Splicer Present Outsole Splicer Name: [facility] Information Interpreted: non-clinical & clinical Accompanied by: Self / Same As Patient Allergies zolpidem Adverse Reaction (Intermediate, Verified 07/11/25 10:18) nightmares HPI Comments Details: 55 years old female here today for follow up for Type 2 DM and hypothyroidism. Pt saw Dr. Chaudhary on 11/01/24 Type 2 DM Diagnosed 2020 on blood work Prior therapy: Metformin caused GI trouble Never been on SGLT2 Has been on insulin since time of diagnosis Januvia discontinued by Dr. Chaudhary 08/27/2024 as patient has not been taking Ozempic as well Current regimen: Insulin lantus 15 units in morning Insulin lispro 5 units TID before meals Ozempic 1 mg weekly injection increased 08/27/2024. Had vomiting with Ozempic - wants to try Mounjaro Hypoglycemia history of gastric bypass in 2021 Lost 20 lbs after surgery Denies any symptoms of hyperglycemia including polyphagia, polyuria, polydipsia. Denies any hypoglycemic symptoms. SMBG's Using Anuj sensor but only 4% of time . a1c 08/27/24 6.6 % Random Glucose: 191 mg/dl Complications Last Diabetic Eye exam: 9 mos ago Neuropathy: mild, hasnt tingling Last Podiatry Visit: Doesn't have one Kidney disease: Has microalbuminuria, urine microalbumin/creatinine ratio elevated at 30. From June 2024. Macrovascular complications:NC in 2019 Statin:rosuvasatin 20 mg daily , LDL 96 from June 2024 WINSTON/ARB: on losaratan 100 mg daily, BP normal , Exercise: Walking now , 30 mins 3times a week Diet control: 3 meals a day no snacks Stopped drining soda He has never had any hospitalizations for hyperglycemia/hypoglycemia. Hypothyroidism Postsurgical hypothyroidism, history of total thyroidectomy in May 2019 forearm nontoxic multinodular goiter. At that time also underwent 3 gland parathyroid resection with the remaining right superior parathyroid gland for primary hyperparathyroidism. Takes 200 plus 75 mcg daily of synthroid Not sure when she takes it Very poor historian Denies any symptoms of hypo or hyperthyroidism. Nurse gives the medication, Last set of thyroid function testing done from Sep 14 showed normal thyroid function Denies any symptoms of hypo or hyperthyroidism. Laboratory Tests 04/06/21 10/09/22 10/09/22 17:07 09:38 10:22 Hgb Hct Plt Count Creatinine Estimated GFR Glucose (Clinic) Fasting Glucose Hgb A1c (Clinic) 8.1 H AST ALT Alkaline Phosphatase Albumin Triglycerides Cholesterol LDL Cholesterol, Calc HDL Cholesterol Vitamin B12 25-OH Vitamin D Total TSH 42.19 H Urine Creatinine 194.85 Urine Microalbumin 32.0 Microalb/Creat Ratio 16.4 04/23/23 08/01/23 12/31/23 14:03 10:23 12:00 Hgb Hct Plt Count Creatinine Estimated GFR Glucose (Clinic) Fasting Glucose Hgb A1c (Clinic) 9.9 H 6.5 H AST ALT Alkaline Phosphatase Albumin Triglycerides Cholesterol LDL Cholesterol, Calc HDL Cholesterol Vitamin B12 25-OH Vitamin D Total TSH 1.38 Urine Creatinine Urine Microalbumin Microalb/Creat Ratio 05/27/24 06/30/24 06/30/24 10:39 09:35 Unknown Hgb 14.7 Hct 45.3 Plt Count 196 Creatinine 0.78 Estimated GFR > 60 Glucose (Clinic) Fasting Glucose 128 H Hgb A1c (Clinic) 6.5 H AST 51 H ALT 63 H Alkaline Phosphatase 120 H Albumin 4.1 Triglycerides 123 Cholesterol 170 LDL Cholesterol, Calc 96 HDL Cholesterol 50 Vitamin B12 318 25-OH Vitamin D Total 46.1 TSH 4.58 H Urine Creatinine 167.71 Urine Microalbumin 51.0 Microalb/Creat Ratio 30.4 H 08/27/24 08/27/24 10:02 10:05 Hgb Hct Plt Count Creatinine Estimated GFR Glucose (Clinic) 156 H Fasting Glucose Hgb A1c (Clinic) 6.6 H AST ALT Alkaline Phosphatase Albumin Triglycerides Cholesterol LDL Cholesterol, Calc HDL Cholesterol Vitamin B12 25-OH Vitamin D Total TSH Urine Creatinine Urine Microalbumin Microalb/Creat Ratio Laboratory Tests 08/30/24 09:50 TSH 1.40 Free T4 1.01 [facility] Medical History Dyslipidemia New onset type 2 diabetes mellitus Diabetic eye exam Diabetes mellitus Mild recurrent major depression Diabetes mellitus, with long-term current 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 LVH (left ventricular hypertrophy) Abnormal finding on EKG GERD (gastroesophageal reflux disease) supervisor intermediates (current) 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 Uncontrolled diabetes mellitus Left foot pain Insomnia Anxiety Depression Sleep apnea with use of continuous positive airway pressure (CPAP) Hypothyroidism Low potassium syndrome Morbid obesity Dizziness Low back pain Right wrist pain Acquired hypothyroidism Essential hypertension Surgical History S/P laparoscopic sleeve gastrectomy H/O: hysterectomy History of colonoscopy H/O endoscopy History of thyroid surgery History of bladder surgery History of total abdominal hysterectomy History of section Family History Father Diabetes Mother Hypertension Maternal Uncle Colon cancer Maternal Aunt Breast cancer Paternal Aunt Breast cancer Family/Other FH: mental illness Substance use disorder Social History Household Members: None Housing: Apartment Are you a primary medicare sales representative to a significant other at home: No Do you presently have visiting nurse or other home services: No Alcohol intake: current Alcohol intake frequency: a few times a week Alcohol type: beer Patient Tobacco Use Status: Current everyday Tobacco user Tobacco use type: Cigarette Cigarettes Per Day: 5 Years Smoked: 10 e-Cigarette/Vaping Use: Never Used Second Hand Smoke Exposure: No service: No Current occupational status: disabled Cognitive needs: No Hearing needs: No Vision needs: No Physical Exam Vital Signs: Last Vital Signs Pulse 76 07/11/25 10:18 BP 124/70 07/11/25 10:18 Pulse Ox 97 07/11/25 10:18 Oxygen Delivery Method Room Air 07/11/25 10:18 BMI result Body Mass Index 39.1 Absence of Cushingoid features. Absence of acromegalic features. Neck exam reveals nl size thyroid about 15 gms. No thyroid nodules palpable. No carotid bruits present. Lungs CTA. Heart S1 S2, Reg R/R. No M/R/ G. Skin exam reveals absence of vitiligo or acanthosis nigricans. Abdominal exam reveals Soft NT/ND with NA BS. No organomegaly present. Neck Other: . Extrem Other: Visual exam of foot performed. No ulcerations or open lesions. No onchomycosis, no callouses.Pulses 2 + distally Sensation intact to monofilament exam. Vibratory sensation sensed is intact with 128 Hz tuning fork Results AMB Hemoglobin A1c AMB Hemoglobin A1c 7.4 % Last Edit by MARIA INES Tapia on 07/11/25 10:43 Results Reviewed Results Reviewed: Laboratory Last Values Glucose (Clinic) 213 mg/dL (60-115) H 07/11/25 10:22 Assessment & Plan Assessment & Plan (1) Acquired hypothyroidism: Code(s): E03.9 - Hypothyroidism, unspecified Category: Medical Plan: Currently on 200 ug of L_T4 . Had suppressed TSH in 05/2025 but no dose adjustment Will recheck TSH and free T4 and adjust L-T4 accordingly. (2) Diabetes mellitus, with long-term current 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: Code(s): E11.9 - Type 2 diabetes mellitus without complications; Z79.4 - supervisor intermediates (current) 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 Category: Medical Qualifiers: Diabetes mellitus type: type 2 Diabetes mellitus complication status: without complication Qualified Code(s): E11.9 - Type 2 diabetes mellitus without complications; Z79.4 - assisted (current) 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 Plan: This is a 55 yo female with a hx of Type 2 DM being treated with Ozempic and basal-bolus insulin with glycemic control and known macrovascular complications namely neuropathy Plan is to have pt wear Anuj all the time . Will start Mounjaro 2.5 mg Qwkly alering the pt via an interpreter and translator that techically Ozempic has secondary cardiac reduction. Went over side effects of Mounjaro including but not limited to nausea, vomiting and rare risk of pancreatitis Orders: Orders AMB Hemoglobin A1c Today E11.9 - Type 2 diabetes mellitus without complications, Z79.4 - supervisor intermediates (current) 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 Free T4 (Free Thyroxine) Today E03.9 - Hypothyroidism, unspecified Thyroid Stimulating Hormone Today E03.9 - Hypothyroidism, unspecified Medications: New Mounjaro (tirzepatide) for 4 weeks 2.5 mg (0.5 mL) subcut QWEEK 2 mL 4RF NS Refilled blood-glucose sensor (FreeStyle Anuj 3 Plus Sensor device) As directed every 14 days 6 ea 4RF Discontinued semaglutide (Ozempic) Discontinued Reason: Doctor's Order 1 mg (0.75 mL) subcut QWEEK 9 mL 3RF D12.6 - Benign neoplasm of colon, unspecified Coding Level of Care Code Est Pt Level 4 (60831) Add On Problem Visit Only Diagnoses Acquired hypothyroidism E03.9 Type 2 diabetes mellitus without complication, with long-term current 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 E11.9; Z79.4 Diabetes mellitus type: type 2 Diabetes mellitus complication status: without complication
[2025-07-11 10:18] VITALS: BP 124/70; PULSE 76; O2SAT 97; BMI 39.1
[2025-07-11 10:26] LABS: Glucose, Whole Blood 213 mg/dL (60-115)
--- OUTSIDE RECORDS SUMMARY | 2025-07-11 12:06 | XMS_ITS | Clinical Summary ---
Author Organization [facility] ity Address [address] [place] [address] Care Team Providers Care Decal Decorator Name Role Phone Claire Everett MD Primary Care Provider [phone] Social History Tobacco Use Types Packs/Day Years [...] age to complete this topic Care Teams Decal Decorator Relationship Specialty Start Date End Date Claire Everett MD [address] [place] [address] , [address] [facility] Physician [facility] D/B/A: [facility] ANTHONY Heaton PCP - General 04/25/23
== END 2025-07-11 10:59 | disposition home or self-care (01) ==
LOC: HO.ENCR 10:04
PROVIDERS: PCP Internal Medicine; Visit Provider Internal Medicine Endocrinology, Diabetes & Metabolism
DX: E03.9 Hypothyroidism, unspecified (principal); E11.9 Type 2 diabetes mellitus without complications; Z79.4 Long term (current) 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
CPT/HCPCS: 99214

== ENCOUNTER 2025-07-11 10:03 | Outpatient (REF) | payer OTHER, SELFPAY ==
[2025-07-11 13:52] LABS: Free T4 (Free Thyroxine) 0.58 ng/dL (0.71-1.85); Thyroid Stimulating Hormone 22.95 uIU/mL (0.32-4.0)
== END 2025-07-11 10:04 | disposition home or self-care (01) ==
LOC: HO.10HDL 10:03
PROVIDERS: PCP Internal Medicine; Visit Provider Internal Medicine Endocrinology, Diabetes & Metabolism
DX: E11.9 Type 2 diabetes mellitus without complications (principal); E03.9 Hypothyroidism, unspecified; Z79.4 Long term (current) 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
CPT/HCPCS: 36415; 82947; 83036; 84439; 84443; 99212